=== PATIENT | male | born 1960 | race Caucasian/White ===

== ENCOUNTER 2016-06-04 13:43 | Outpatient (RCR) | payer MEDICARE ==
--- OUTSIDE RECORDS SUMMARY | 2016-05-24 08:20 | XMS REPORT | Continuity of Care Document ---
Author Author [facility] Organization [facility] Address Unknown Phone Unavailable Care Team Providers Care Radiotelegraph Operator Name Role Phone PCP Unavailable Source Comments Some departments are not documenting in the electronic medical record. If you do not see the information that you expected, contact Release of Information in the Health Information Management department at [phone] for further assistance in locating additional records.[facility] Active Allergies and Adverse Reactions Not on File Current Medications Not on file Active Problems Not on file Most Recent Encounters Date Type Specialty Providers Description 04/27/2016 Telephone Transplant Surgery Danelle Baker RN Transplant Referral Social History Tobacco Use Types Packs/Day Years Used Date Never Assessed Plan of Care Health Maintenance Due Date Last Done Comments Hepatitis C Screening 1960 Physical (Comprehensive) 1968 Exam Pertussis Vaccine 1972 Tetanus Vaccine 1978 Colorectal Cancer 2011 Screening Influenza Vaccine 01/25/2016 Results from Last 3 Months Not on file
[~2016-06-04 13:43] MED LIST: AC325T PO; AC500T; ALBU2.5V4 IH; AMLO10TA82 PO; AMLO2.5T PO; ASP325TEC PO; ASP81TEC PO; ASPI-892 PO; ATOR80TA PO; CARV3.122 PO; CARV6.252; CEFD300C3 PO; CEFU500T5 PO; CLOP75TA PO; DCS100C PO; DEXT15LI5 PO; DILT60CA PO; DILT90TA18 PO; DOXY100T2 PO; FAMO20TA5 PO; FLC1T PO; FRS325T PO; FURO40TA4 PO; FURO80TA3 PO; GLIP5TAB13; HYDR-3812 PO; HYDR1TAB66 PO; INSASP10V SQ; INSU100I14 SQ; INSU100I29 SQ; INSU100V5 SQ; ISOS60TA PO; KCL20TCR PO; LEVO750T6 PO; MAGN400T6 PO; METF500T PO; METO50TA7 PO; MTP25TSR PO; MUPI15CR TP; NAPR-243 PO; NAPR500T3 PO; NEBU1KIT3 MC; NITR0.4T12 SL; OMEG1CAP51 PO; OMEG1CAP53 PO; OMEG1CAP74 PO; PNT40TEC; PNT40TEC PO; POTA10CA43 PO; RMP5C; RMP5C PO; SULF1TAB35 PO; TR5C15 TOP; VIT1TABL59 PO; VLS80C PO
== END 2016-06-04 16:00 | disposition home or self-care (01) ==
LOC: WOUNDCARE 13:43
PROVIDERS: ATTEND Nurse Practitioner
DX: L97.522 Non-pressure chronic ulcer of other part of left foot with fat layer exposed (principal); L97.202 Non-pressure chronic ulcer of unspecified calf with fat layer exposed; E11.621 Type 2 diabetes mellitus with foot ulcer; I70.202 Unspecified atherosclerosis of native arteries of extremities, left leg; N18.5 Chronic kidney disease, stage 5
CPT/HCPCS: 11042; 97597

== ENCOUNTER 2016-06-12 06:49 | Emergency (ER) | payer MEDICARE ==
[~2016-06-12] VITALS: Ht 175.3 cm; Wt 95.3 kg
--- OUTSIDE RECORDS SUMMARY | 2016-06-12 06:55 | XMS REPORT | Continuity of Care Document ---
Author Author [facility] Organization [facility] Address Unknown Phone Unavailable Care Team Providers Care Bilingual Teacher Aide Name Role Phone PCP Unavailable Source Comments Some departments are not documenting in the electronic medical record. If you do not see the information that you expected, contact Release of Information in the Health Information Management department at [phone] for further assistance in locating additional records.[facility] Active Allergies and Adverse Reactions [...]
[2016-06-12] MEDS ORDERED: ASPIRIN 81 MG CHEW (CHILDREN'S ASA) PO ONE (07:00)
--- NOTE | 2016-06-12 07:04 | ED Chest Pain ---
General Chief Complaint: Chest Pain Stated Complaint: CHEST PAIN Nursing Triage Note: pt to ed 6 per w/c w/ c/o cp onset this am at 0600. reports pain woke him from his sleep. Nursing Sepsis Screen: No Definite Risk Source: patient Exam Limitations: no limitations History of Present Illness Time seen by provider: 06:47 Initial Comments Here with report of central chest aching feeling like there is a knot in his chest. Onset about 6 a.m. Just released from the hospital at [facility] in [place] yesterday for vascular catheter procedure to the left leg in which there unable to successfully stent the leg per the patient. Complains of shortness of breath that is mild. Reported low blood pressure this morning. Has history of significant cardiac problems and vascular disease. He does have peritoneal dialysis and doesn't that nightly. He also has significant diabetes. Timing/Duration: 1 hour, constant Severity/Quality: moderate, aching Location: central Radiation: no radiation Prior CP/Workup: cardiac cath Modifying Factors: improves with rest ASA po CORPORATE CONSULTANT: No NTG SL CORPORATE CONSULTANT: No Associated Symptoms: No abdominal pain, No back pain, No nausea/vomiting, shortness of breath weakness Allergies and Home Medications Allergies Coded Allergies: azithromycin (Verified Allergy, Severe, HIVES, TROUBLE BREATHING., 07/13/11 ) cephalexin (Unverified Allergy, Unknown, 02/27/16) morphine (Unverified Allergy, Unknown, 02/27/16) vancomycin (Verified Allergy, Unknown, 12/26/15) Home Medications Acetaminophen 325 Mg Tablet 650 MG PO Q6H PRN PRN (Reported) Albuterol Sulfate 2.5 Mg/3 Ml Vial.neb #28 2.5 MG IH Q4H PRN PRN SHORTNESS OF BREATH Prescribed by: EDY NEWSOME on 08/11/15 2223 Amlodipine Besylate 2.5 Mg Tablet 2.5 MG PO DAILY (Reported) Aspirin 81 Mg Tabec 81 MG PO DAILY (Reported) take for 10 days Atorvastatin Calcium 80 Mg Tablet 80 MG PO HS (Reported) Docusate Sodium 100 Mg Capsule 100 MG PO Q8H PRN PRN (Reported) Furosemide 40 Mg Tablet 40 MG PO DAILY (Reported) Insulin Aspart 300 Units/3 Ml Solution #6 5 UNITS SQ TID (Reported) Insulin Detemir 100 Unit/1 Ml Insuln.pen #6 20 UNITS SQ HS (Reported) Isosorbide Mononitrate 60 Mg Tab.sr.24h 60 MG PO DAILY (Reported) Magnesium Oxide 400 Mg Tablet 400 MG PO BID (Reported) Metoprolol Succinate 50 Mg Tab.sr.24h 50 MG PO DAILY (Reported) do not crush Mupirocin Calcium 15 Gm Cream..g. #22 15 GM TP BID Prescribed by: JARED AGEE on 02/27/168 Nitroglycerin 0.4 Mg Tab.subl 0.4 MG SL q5 minutes PRN PRN (Reported) take one tablet every 5 minutes as needed, for a total of 3 doses Pantoprazole Sod 40 Mg Tab 40 MG PO DAILY (Reported) no do not crush Potassium Chloride 10 Meq Capsule.sa 10 MEQ PO DAILY (Reported) Sulfamethoxazole/Trimethoprim 1 Each Tablet #20 1 EACH PO BID Prescribed by: JARED AGEE on 12/26/15 0606 Sulfamethoxazole/Trimethoprim 1 Each Tablet #20 1 EACH PO BID Prescribed by: JARED AGEE on 02/27/162357 Valsartan 80 Mg Tablet 80 MG PO BID (Reported) Vit B Cmplx 3/FA/Vit C/Biotin 1 Each Tablet #30 1 TAB PO DAILY (Reported) Review of Systems Constitutional: see HPINo chills, No fever, weakness Respiratory: See HPIDenies Cough, Shortness of Air SOA at Rest Cardiovascular: See HPI Chest PainDenies Edema Gastrointestinal: No Symptoms Reported Genitourinary: No Symptoms Reported Musculoskeletal: no symptoms reported Skin: No rash, other (recent postsurgical lesions/wounds to the left lower extremity that are clean, dry and intact and loosely covered with dressing.) Psychiatric/Neurological: See HPI Endocrine: No Symptoms Reported All Other Systems Reviewed Negative Unless Noted: Yes Past Lqwreha-Lxhfrj-Birerf Hx Patient Social History Alcohol Use: Denies Use Recreational Drug Use: No Smoking Status: Never a Smoker Recent Foreign Travel: No Contact w/Someone Who Travel: No Recent Infectious Disease Expo: No Recent Hopitalizations: No Physical Abuse Screen: No Sexual Abuse: No Immunizations Up To Date Tetanus Booster (TDap): Unknown Date of Pneumonia Vaccine: Jan 24, 2011 Date of Influenza Vaccine: Feb 23, 2015 Seasonal Allergies Seasonal Allergies: No Surgeries HX Surgeries: Yes (CABG 2009, RT AKA AMPUTATION 08/08, PACEMAKER ) Surgeries: Amputation, CABG, Defibrillator, Dialysis, Orthopedic, Pacemaker, Vascular Surgery Respiratory Hx Respiratory Disorders: No (CHF/FLUID OVERLOAD) Cardiovascular Hx Cardiac Disorders: Yes (CHF) Cardiac Disorders: Chronic Edema/Swelling, Coronary Artery Disease, Heart Attack, High Cholesterol, Hypertension, Peripheral Vascular Neurological Hx Neurological Disorders: Yes (NEUROPATHY HANDS AND FEET) Neurological Disorders: Neuropathy Reproductive System Hx Reproductive Disorders: No Genitourinary Hx Genitourinary Disorders: Yes (PERITONEAL DIALYSIS--NOW HEMO DIALYSIS) Genitourinary Disorders: Renal Failure, Dialysis Gastrointestinal Hx Gastrointestinal Disorders: No Musculoskeletal Hx Musculoskeletal Disorders: Yes (RIGHT AKA) Musculoskeletal Disorders: Amputee Endocrine Hx Endocrine Disorders: Yes Endocrine Disorders: Diabetes, Insulin dep HEENT HX ENT Disorders: No Cancer Hx Cancer: No Psychosocial Hx Psychiatric Problems: No Integumentary HX Skin/Integumentary Disorder: No Blood Transfusions Hx Blood Disorders: No Adverse Reaction to a Blood Tr: No Reviewed Nursing Assessment Reviewed/Agree w Nursing PMH: Yes Physical Exam Vital Signs Vital Sign - Last 12Hours 06/12/16 06:52 Temp 96.7 Pulse 85 Resp 18 B/P 123/60 Pulse Ox 97 O2 Delivery Room Air Capillary Refill : Less Than 3 Seconds General Appearance: WD/WN Chronically ill Mild Distress HEENT: PERRL/EOMI Pharynx Normal Neck: Non Tender Supple Respiratory: Lungs Clear Normal Breath Sounds Cardiovascular: Regular Rate, Rhythm No Murmur Gastrointestinal: Non Tender Soft Extremity: Non Tender No Calf Tenderness Other (right lower extremity AKA. Left lower extremity with recent surgical procedure, mild edema, mild erythema with surgical wounds that are clean, dry and intact with loose dressing.) Neurologic/Psychiatric: Alert Oriented x3 Motor Weakness (global) Skin: Normal Color Warm/Dry Progress/Results/Core Measures Results/Orders Lab Results Laboratory Tests Test 06/12/16 07:00 Range/Units Activated Partial Thromboplast Time 35 24-35 SEC Alanine Aminotransferase (ALT/SGPT) 9 0-55 U/L Albumin 3.1 L 3.2-4.5 G/DL Alkaline Phosphatase 112 40-136 U/L Amylase Level 3 L 25-125 U/L Anion Gap 15 H 5-14 MMOL/L Aspartate Amino Transf (AST/SGOT) 10 5-34 U/L B-Type Natriuretic Peptide 1056.4 H <100.0 PG/ML BUN/Creatinine Ratio 5 Basophils # (Auto) 0.0 0.0-0.1 10^3/uL Basophils (%) (Auto) 0 0-10 % Blood Urea Nitrogen 41 H 7-18 MG/DL Calcium Level 8.8 8.5-10.1 MG/DL Carbon Dioxide Level 22 21-32 MMOL/L Chloride Level 91 L 98-107 MMOL/L Creatinine 7.55 H 0.60-1.30 MG/DL Eosinophils # (Auto) 0.3 0.0-0.3 10^3/uL Eosinophils (%) (Auto) 2 0-10 % Estimat Glomerular Filtration Rate 8 Glucose Level 268 H 70-105 MG/DL Hematocrit 26 L 40-54 % Hemoglobin 9.1 L 13.3-17.7 G/DL INR Comment 1.1 0.8-1.4 Lipase 14 8-78 U/L Lymphocytes # (Auto) 1.0 1.0-4.0 X 10^3 Lymphocytes (%) (Auto) 8 L 12-44 % Magnesium Level 1.3 L 1.8-2.4 MG/DL Mean Corpuscular Hemoglobin 32 25-34 PG Mean Corpuscular Hemoglobin Concent 35 32-36 G/DL Mean Corpuscular Volume 91 80-99 FL Mean Platelet Volume 12.3 H 7.4-10.4 FL Monocytes # (Auto) 1.0 0.0-1.0 X 10^3 Monocytes (%) (Auto) 8 0-12 % Myoglobin 864.2 H 10.0-92.0 NG/ML Neutrophils # (Auto) 9.7 H 1.8-7.8 X 10^3 Neutrophils (%) (Auto) 81 H 42-75 % Platelet Count 172 130-400 10^3/uL Potassium Level 4.2 3.6-5.0 MMOL/L Prothrombin Time 13.5 12.2-14.7 SEC Red Blood Count 2.86 L 4.35-5.85 10^6/uL Red Cell Distribution Width 15.3 H 10.0-14.5 % Sodium Level 128 L 135-145 MMOL/L Total Bilirubin 0.6 0.1-1.0 MG/DL Total Protein 6.7 6.4-8.2 G/DL Troponin I < 0.30 <0.30 NG/ML White Blood Count 11.9 H 4.3-11.0 10^3/uL My Orders Orders-SANDI PERALTA MD Cbc With Automated Diff (06/12/16 07:00) Magnesium (06/12/16 07:00) Chest 1 View, Ap/Pa Only (06/12/16 07:00) Ekg Tracing (06/12/16 07:00) Cardiac Profile 1 (06/12/16 07:00) Comprehensive Metabolic Panel (06/12/16 07:00) Myoglobin Serum (06/12/16 07:00) Protime With Inr (06/12/16 07:00) Partial Thromboplastin Time (06/12/16 07:00) O2 (06/12/16 07:00) Monitor-Rhythm Ecg Trace Only (06/12/16 07:00) Lipid Panel (06/13/16 06:00) Aspirin Chewable Tablet (Baby Aspirin Ch (06/12/16 07:00) Saline Lock/Iv-Start (06/12/16 07:00) Lipase (06/12/16 07:00) Amylase (06/12/16 07:00) BNP (06/12/16 07:20) Medications Given in ED Current Medications Medications Dose Ordered Sig/Roni Route Start Time Stop Time Status Last Admin Dose Admin Aspirin 324 mg ONCE ONCE PO 06/12/16 07:00 06/12/16 07:01 DC 06/12/16 07:09 324 MG Vital Signs/I&O Vital Sign - Last 12Hours 06/12/16 06/12/16 06:52 06:56 Temp 96.7 Pulse 85 Resp 18 B/P 123/60 Pulse Ox 97 O2 Delivery Room Air Room Air Blood Pressure Mean: 81 Progress Note : Progress Note Seen and evaluated on arrival. IV, labs, EKG and chest x-ray ordered. ASA 324 mg by mouth given. Monitor patient. Patient's blood pressure is 1/74. Hold nitroglycerin given recent report of hypotension and blood pressure in the low 100s systolic. Monitor patient. 0845: Patient still with a little mild chest pain although improved. Noted elevated myoglobin and BNP. Patient will require further workup in the hospital but exceeds level of care here due to dialysis needs. I did page [facility] one call. They will call back with accepting physician. 0915: I did discuss the case with Dr. Mattson. He accepts patient for admission to their hospital due to chest pain and renal dialysis needs. Patient will go by EMS. Patient overall states he feels a little better but still has mild intermittent chest pain. Patient and family agree with transfer. ECG Initial ECG Impression Date: Jun 12, 2016 Initial ECG Impression Time: 06:54 Initial ECG Rate: 83 Initial ECG Rhythm: Normal Sinus Comment Sinus rhythm with right bundle branch block. Left axis deviation. No evidence of ST elevation CO. Similar to previous of 02/25/16. Interpreted by me. Diagnostic Imaging Diagonstic Imaging: Xray Plain Films/CT/US/NM/MRI: chest Comments NAME: CHRISTIAN TODD MED REC#: [id number] PT STATUS: REG ER : 1960 PHYSICIAN: SANDI PERALTA MD ADMIT DATE: 06/12/16/ER Draft Date of Exam:06/12/16 CHEST 1 VIEW, AP/PA ONLY INDICATION: Chest pain. Portable chest at 07:20 a.m. FINDINGS: There are postop changes from CABG surgery. There is a dual-chamber pacemaker. Heart is mildly enlarged. Pulmonary vascularity is normal. There is a small nodule in the left mid lung that appears well circumscribed and calcified. IMPRESSION: Probable granuloma left lower chest. Postop changes from CABG surgery. Dictated on workstation # [id number] Dict: 06/12/16 0727 Trans: 06/12/16 0733 [id number] Interpreted by: SANDI MONROE Electronically signed by: Departure Impression Impression: Primary Impression: Chest pain Qualified Code: R07.2 - Precordial pain Additional Impressions: ESRD on peritoneal dialysis CHF (congestive heart failure) Qualified Code: I50.9 - Heart failure, unspecified Disposition: 02 XFER SHT-TRM HOSP Condition: Stable Transfer Transfer Time: 09:15 Transfer Facility: [place], [place]. Dr. Mattson accepting. Method of Transfer: EMS Departure-Patient Inst. Referrals: DAVID STEWART DO (PCP/Family) Primary Care Physician SANDI PERALTA MD Jun 12, 2016 07:04
[2016-06-12 07:07] LABS: BASOPHILS % (AUTO) 0 % (0-10); EOSINOPHILS # (AUTO) 0.3 10^3/uL (0.0-0.3); EOSINOPHILS % (AUTO) 2 % (0-10); LYMPHOCYTES % (AUTO) 8 % (12-44); MEAN CORPUSCULAR HEMOGLOBIN 32 PG (25-34); MEAN CORPUSCULAR HGB CONC 35 G/DL (32-36); MEAN CORPUSCULAR VOLUME 91 FL (80-99); MEAN PLATELET VOLUME 12.3 FL (7.4-10.4); MONOCYTES % (AUTO) 8 % (0-12); NEUTROPHILS # (AUTO) 9.7 X 10^3 (1.8-7.8); NEUTROPHILS % (AUTO) 81 % (42-75); PLATELET COUNT 172 10^3/uL (130-400); RED BLOOD COUNT 2.86 10^6/uL (4.35-5.85); RED CELL DISTRIBUTION WIDTH 15.3 % (10.0-14.5); WHITE BLOOD COUNT 11.9 10^3/uL (4.3-11.0)
[2016-06-12 07:13] LABS: INR 1.1 (0.8-1.4); PROTHROMBIN TIME PATIENT 13.5 SEC (12.2-14.7)
[2016-06-12 07:25] LABS: ALANINE AMINOTRANSFERASE 9 U/L (0-55); ALBUMIN 3.1 G/DL (3.2-4.5); AMYLASE 3 U/L (25-125); ANION GAP 15 MMOL/L (5-14); ASPARTATE AMINO TRANSFERASE 10 U/L (5-34); BILIRUBIN,TOTAL 0.6 MG/DL (0.1-1.0); BLOOD UREA NITROGEN 41 MG/DL (7-18); BUN/CREATININE RATIO 5; CALCIUM 8.8 MG/DL (8.5-10.1); CARBON DIOXIDE 22 MMOL/L (21-32); CHLORIDE 91 MMOL/L (98-107); CREATININE SERUM 7.55 MG/DL (0.60-1.30); GFR ESTIMATED 8; GLUCOSE 268 MG/DL (70-105); LIPASE 14 U/L (8-78); MAGNESIUM 1.3 MG/DL (1.8-2.4); POTASSIUM 4.2 MMOL/L (3.6-5.0); SODIUM 128 MMOL/L (135-145); TOTAL PROTEIN 6.7 G/DL (6.4-8.2)
[2016-06-12 07:31] LABS: MYOGLOBIN SERUM 864.2 NG/ML (10.0-92.0)
--- NOTE | 2016-06-12 07:33 | Diagnostic Imaging Report ---
INDICATION: Chest pain. Portable chest at 07:20 a.m. FINDINGS: There are postop changes from CABG surgery. There is a dual-chamber pacemaker. Heart is mildly enlarged. Pulmonary vascularity is normal. There is a small nodule in the left mid lung that appears well circumscribed and calcified. IMPRESSION: Probable granuloma left lower chest. Postop changes from CABG surgery. Dictated by: Dictated on workstation # [id number]
[2016-06-12 10:33] VITALS: BP 116/94
== END 2016-06-12 10:33 | disposition short-term general hospital (02) ==
LOC: EDUNIT# 06:49 → ER 06:50
DX: R07.9 Chest pain, unspecified (principal); I45.10 Unspecified right bundle-branch block; I12.0 Hypertensive chronic kidney disease with stage 5 chronic kidney disease or end stage renal disease; N18.6 End stage renal disease; I50.9 Heart failure, unspecified; E11.9 Type 2 diabetes mellitus without complications; Z79.82 Long term (current) use of aspirin; Z79.4 Long term (current) use of insulin; Z79.899 Other long term (current) drug therapy; Z98.890 Other specified postprocedural states; Z95.1 Presence of aortocoronary bypass graft; Z95.810 Presence of automatic (implantable) cardiac defibrillator; Z99.2 Dependence on renal dialysis
CPT/HCPCS: 36415; 71010; 80053; 82150; 83690; 83735; 83874; 83880; 84484; 85025; 85610; 85730; 93005; 93041

== ENCOUNTER 2016-08-24 15:33 | Emergency (ER) | payer MEDICARE ==
[~2016-08-24] VITALS: Wt 86.2 kg
[2016-08-24] MEDS ORDERED: NITROGLYCERIN 2% OINT 1 GM UNIT DOSE PACKET TOP ONE (16:00)
--- NOTE | 2016-08-24 16:03 | ED Cardiac General ---
History of Present Illness General Chief Complaint: Chest Pain Stated Complaint: DULL CHEST PAIN Source: patient, EMS Exam Limitations: no limitations History of Present Illness Time seen by provider: 15:58 Initial Comments This 56-year-old white male presents with a complaint of pressure type chest pain moderate in severity located over the anterior chest is been present for the last several days. Patient has had multiple cardiac procedures. He is no longer a candidate for bypass surgery or stenting. The patient is on peritoneal dialysis for renal failure. He has had bilateral ldexe-brd-gsvd amputations for complications from his diabetes. Patient is hypertensive. The patient was evaluated and transported by EMS. In route patient received sublingual nitroglycerin which he believes has markedly diminished this chest pressure from a 6 to a 3. Patient also believes that this chest pain is better due to the oxygen administration. NTG SL FIRST RESPONDER: Yes (X1 BY EMS ) ASA po FIRST RESPONDER: Yes (324 BY EMS) Allergies and Home Medications Allergies Coded Allergies: azithromycin (Verified Allergy, Severe, HIVES, TROUBLE BREATHING., 07/13/11 ) cephalexin (Unverified Allergy, Unknown, 02/27/16) morphine (Unverified Allergy, Unknown, 02/27/16) vancomycin (Verified Allergy, Unknown, 12/26/15) Home Medications Acetaminophen 325 Mg Tablet, 650 MG PO Q6H PRN, (Reported) Albuterol Sulfate 2.5 Mg/3 Ml Vial.neb, 2.5 MG IH Q4H PRN for SHORTNESS OF BREATH, #28 Ref 0 Prescribed by: EDY NEWSOME on 08/11/153 Amlodipine Besylate 2.5 Mg Tablet, 2.5 MG PO DAILY, (Reported) Aspirin 81 Mg Tabec, 81 MG PO DAILY, (Reported) take for 10 days Atorvastatin Calcium 80 Mg Tablet, 80 MG PO HS, (Reported) Docusate Sodium 100 Mg Capsule, 100 MG PO Q8H PRN, (Reported) Furosemide 40 Mg Tablet, 40 MG PO DAILY, (Reported) Insulin Aspart 300 Units/3 Ml Solution, 5 UNITS SQ TID, #6 (Reported) Insulin Detemir 100 Unit/1 Ml Insuln.pen, 20 UNITS SQ HS, #6 (Reported) Isosorbide Mononitrate 60 Mg Tab.sr.24h, 60 MG PO DAILY, (Reported) Magnesium Oxide 400 Mg Tablet, 400 MG PO BID, (Reported) Metoprolol Succinate 50 Mg Tab.sr.24h, 50 MG PO DAILY, (Reported) do not crush Mupirocin Calcium 15 Gm Cream..g., 15 GM TP BID, #22 Prescribed by: JARED AGEE on 02/27/16 2358 Nitroglycerin 0.4 Mg Tab.subl, 0.4 MG SL q5 minutes PRN, (Reported) take one tablet every 5 minutes as needed, for a total of 3 doses Pantoprazole Sod 40 Mg Tab, 40 MG PO DAILY, (Reported) no do not crush Potassium Chloride 10 Meq Capsule.sa, 10 MEQ PO DAILY, (Reported) Sulfamethoxazole/Trimethoprim 1 Each Tablet, 1 EACH PO BID, #20 Prescribed by: JARED AGEE on 12/26/15 0606 Sulfamethoxazole/Trimethoprim 1 Each Tablet, 1 EACH PO BID, #20 Prescribed by: JARED AGEE on 02/27/16 2358 Valsartan 80 Mg Tablet, 80 MG PO BID, (Reported) Vit B Cmplx 3/FA/Vit C/Biotin 1 Each Tablet, 1 TAB PO DAILY, #30 (Reported) Review of Systems Constitutional: No chills, No fever EENTM: No Blurred Vision, No Ear Pain, No Throat Pain Respiratory: Denies Cough, Shortness of Air Cardiovascular: See HPI, Chest Pain, Denies Irregular Heart Rate, Denies Palpitations, Denies Syncope Gastrointestinal: Denies Abdominal Pain, Denies Constipated, Denies Diarrhea, Denies Vomiting Genitourinary: Denies Burning, Denies Frequency Musculoskeletal: No back pain Skin: No rash, other (patient is status post amputation above the knee of his left leg several weeks ago. Patient had slight inflammation at the stump site which appears to be diminishing and improving.) Psychiatric/Neurological: No Symptoms Reported Endocrine: No Symptoms Reported Hematologic/Lymphatic: No Symptoms Reported Past Nxwhhtv-Pyvxnm-Svtxtf Hx Patient Social History Alcohol Use: Denies Use Recreational Drug Use: No Smoking Status: Never a Smoker Recent Hopitalizations: No Immunizations Up To Date Tetanus Booster (TDap): Unknown Date of Pneumonia Vaccine: Jan 24, 2011 Date of Influenza Vaccine: Feb 24, 2016 Seasonal Allergies Seasonal Allergies: No Surgeries HX Surgeries: Yes (CABG 2009, RT AKA AMPUTATION 08/08, PACEMAKER L AMPUTATION) Surgeries: Amputation, CABG, Defibrillator, Dialysis, Orthopedic, Pacemaker, Vascular Surgery Respiratory Hx Respiratory Disorders: No (CHF/FLUID OVERLOAD) Cardiovascular Hx Cardiac Disorders: Yes (CHF) Cardiac Disorders: Chronic Edema/Swelling, Coronary Artery Disease, Heart Attack, High Cholesterol, Hypertension, Peripheral Vascular Neurological Hx Neurological Disorders: Yes (NEUROPATHY HANDS AND FEET) Neurological Disorders: Neuropathy Reproductive System Hx Reproductive Disorders: No Genitourinary Hx Genitourinary Disorders: Yes (PERITONEAL DIALYSIS--NOW HEMO DIALYSIS) Genitourinary Disorders: Renal Failure, Dialysis Gastrointestinal Hx Gastrointestinal Disorders: No Musculoskeletal Hx Musculoskeletal Disorders: Yes (RIGHT AKA) Musculoskeletal Disorders: Amputee Endocrine Hx Endocrine Disorders: Yes Endocrine Disorders: Diabetes, Insulin dep HEENT HX ENT Disorders: No Cancer Hx Cancer: No Psychosocial Hx Psychiatric Problems: No Integumentary HX Skin/Integumentary Disorder: No Blood Transfusions Hx Blood Disorders: No Adverse Reaction to a Blood Tr: No Reviewed Nursing Assessment Reviewed/Agree w Nursing PMH: Yes Physical Exam Vital Signs Vital Sign - Last 12Hours 08/24/16 08/24/16 15:33 15:52 Temp 98.4 Pulse 92 Resp 18 B/P (MAP) 158/98 Pulse Ox 95 O2 Delivery Room Air O2 Flow Rate 2.0 Capillary Refill : General Appearance: No Apparent Distress, Chronically ill HEENT: PERRL/EOMI, Normal ENT Inspection Neck: Full Range of Motion, Normal Inspection, Non Tender Respiratory: Lungs Clear, Normal Breath Sounds Cardiovascular: Regular Rate, Rhythm, No Murmur Gastrointestinal: Normal Bowel Sounds, Non Tender, Soft Extremity: Other (bilateral AK amputations.) Neurologic/Psychiatric: Alert, No Motor/Sensory Deficits Skin: Other Progress/Results/Core Measures Results/Orders Lab Results Laboratory Tests Test 08/24/16 15:45 Range/Units White Blood Count 7.3 4.3-11.0 10^3/uL Red Blood Count 3.30 L 4.35-5.85 10^6/uL Hemoglobin 10.3 L 13.3-17.7 G/DL Hematocrit 30 L 40-54 % Mean Corpuscular Volume 92 80-99 FL Mean Corpuscular Hemoglobin 31 25-34 PG Mean Corpuscular Hemoglobin Concent 34 32-36 G/DL Red Cell Distribution Width 14.8 H 10.0-14.5 % Platelet Count 107 L 130-400 10^3/uL Mean Platelet Volume 13.3 H 7.4-10.4 FL Neutrophils (%) (Auto) 70 42-75 % Lymphocytes (%) (Auto) 14 12-44 % Monocytes (%) (Auto) 10 0-12 % Eosinophils (%) (Auto) 6 0-10 % Basophils (%) (Auto) 0 0-10 % Neutrophils # (Auto) 5.1 1.8-7.8 X 10^3 Lymphocytes # (Auto) 1.0 1.0-4.0 X 10^3 Monocytes # (Auto) 0.7 0.0-1.0 X 10^3 Eosinophils # (Auto) 0.4 H 0.0-0.3 10^3/uL Basophils # (Auto) 0.0 0.0-0.1 10^3/uL Sodium Level 135 135-145 MMOL/L Potassium Level 3.9 3.6-5.0 MMOL/L Chloride Level 95 L 98-107 MMOL/L Carbon Dioxide Level 27 21-32 MMOL/L Anion Gap 13 5-14 MMOL/L Blood Urea Nitrogen 46 H 7-18 MG/DL Creatinine 7.81 H 0.60-1.30 MG/DL Estimat Glomerular Filtration Rate 7 BUN/Creatinine Ratio 6 Glucose Level 260 H 70-105 MG/DL Calcium Level 8.2 L 8.5-10.1 MG/DL Total Bilirubin 0.4 0.1-1.0 MG/DL Aspartate Amino Transf (AST/SGOT) 13 5-34 U/L Alanine Aminotransferase (ALT/SGPT) 11 0-55 U/L Alkaline Phosphatase 94 40-136 U/L Troponin I < 0.30 <0.30 NG/ML B-Type Natriuretic Peptide 1460.6 H <100.0 PG/ML Total Protein 6.4 6.4-8.2 G/DL Albumin 2.8 L 3.2-4.5 G/DL My Orders Orders - WADE CHAUDHARY MD Cbc With Automated Diff (08/24/16 15:54) Comprehensive Metabolic Panel (08/24/16 15:54) Troponin I (08/24/16 15:54) Ekg Tracing (08/24/16 15:54) Chest 1 View, Ap/Pa Only (08/24/16 15:54) BNP (08/24/16 15:54) Nitroglycerin Ointment (Nitrobid Ointme (08/24/16 16:00) Furosemide Injection (Lasix Injection) (08/24/16 17:30) Medications Given in ED Current Medications Medications Dose Ordered Sig/Roni Route Start Time Stop Time Status Last Admin Dose Admin Furosemide 80 mg ONCE ONCE IVP 08/24/16 17:30 08/24/16 17:31 DC 08/24/16 17:37 80 MG Nitroglycerin 0.5 inch ONCE ONCE TOP 08/24/16 16:00 08/24/16 16:01 DC 08/24/16 16:02 0.5 INCH Vital Signs/I&O Vital Sign - Last 12Hours 08/24/16 08/24/16 15:33 15:52 Temp 98.4 Pulse 92 Resp 18 B/P (MAP) 158/98 Pulse Ox 95 O2 Delivery Room Air Nasal Cannula O2 Flow Rate 2.0 Progress Note : Time: 18:15 Progress Note The patient's moderate congestive heart failure was treated with 80 mg Lasix IV. The patient's chest pressure abated with half-inch Nitropaste to the anterior left chest wall. The patient did not qualify for home oxygen as we were unable to see off on this at 88 or below. Departure Impression Impression: Primary Impression: CHF (congestive heart failure) Qualified Codes: I50.9 - Heart failure, unspecified Additional Impression: Chest pain Qualified Codes: I20.9 - Angina pectoris, unspecified Disposition: 01 HOME, SELF-CARE Condition: Improved Departure-Patient Inst. Decision time for Depature: 18:17 Referrals: VIDYA MAYS MD NO,LOCAL PHYSICIAN (PCP) Primary Care Physician Patient Instructions: Chest Pain (DC) Add. Discharge Instructions: Nitropaste 1/2 inch to the anterior chest wall every 12 hours. Follow-up with Dr. Mays for further evaluation. Return if any problems or questions. All discharge instructions reviewed with patient and/or family. Voiced understanding. WADE CHAUDHARY MD Aug 24, 2016 16:03
[2016-08-24 16:05] LABS: BASOPHILS % (AUTO) 0 % (0-10); EOSINOPHILS # (AUTO) 0.4 10^3/uL (0.0-0.3); EOSINOPHILS % (AUTO) 6 % (0-10); LYMPHOCYTES % (AUTO) 14 % (12-44); MEAN CORPUSCULAR HEMOGLOBIN 31 PG (25-34); MEAN CORPUSCULAR HGB CONC 34 G/DL (32-36); MEAN CORPUSCULAR VOLUME 92 FL (80-99); MEAN PLATELET VOLUME 13.3 FL (7.4-10.4); MONOCYTES # (AUTO) 0.7 X 10^3 (0.0-1.0); MONOCYTES % (AUTO) 10 % (0-12); NEUTROPHILS # (AUTO) 5.1 X 10^3 (1.8-7.8); NEUTROPHILS % (AUTO) 70 % (42-75); PLATELET COUNT 107 10^3/uL (130-400); RED CELL DISTRIBUTION WIDTH 14.8 % (10.0-14.5); WHITE BLOOD COUNT 7.3 10^3/uL (4.3-11.0)
[2016-08-24 16:15] LABS: ALANINE AMINOTRANSFERASE 11 U/L (0-55); ALBUMIN 2.8 G/DL (3.2-4.5); ANION GAP 13 MMOL/L (5-14); ASPARTATE AMINO TRANSFERASE 13 U/L (5-34); BILIRUBIN,TOTAL 0.4 MG/DL (0.1-1.0); BLOOD UREA NITROGEN 46 MG/DL (7-18); BUN/CREATININE RATIO 6; CALCIUM 8.2 MG/DL (8.5-10.1); CARBON DIOXIDE 27 MMOL/L (21-32); CHLORIDE 95 MMOL/L (98-107); CREATININE SERUM 7.81 MG/DL (0.60-1.30); GFR ESTIMATED 7; GLUCOSE 260 MG/DL (70-105); POTASSIUM 3.9 MMOL/L (3.6-5.0); SODIUM 135 MMOL/L (135-145); TOTAL PROTEIN 6.4 G/DL (6.4-8.2)
[2016-08-24 16:20] LABS: TROPONIN I < 0.30 NG/ML (<0.30)
--- NOTE | 2016-08-24 17:07 | Diagnostic Imaging Report ---
INDICATION: Chest heaviness. EXAMINATION: Portable erect AP chest at 4:16 p.m. FINDINGS: The cardiomegaly, sternotomy wires, surgical clips and left-sided defibrillator device, seen on the prior exam of 06/12/16, are again visualized and no different. The small area of increased density at the left lung base, seen on the prior study, is again evident and no different. The CT chest exam performed on 06/04/13 suggested that this may be secondary to scar formation. The lungs are otherwise generally clear. There is no sign of failure, pneumonia or a pleural effusion to suggest an acute abnormality. The mediastinum is not widened. The osseous structures are intact. IMPRESSION: There is cardiomegaly but there is no evidence for an acute cardiopulmonary abnormality. Dictated by: Dictated on workstation # [id number]
[2016-08-24] MEDS ORDERED: FUROSEMIDE 40 MG/4 ML INJ (LASIX) IVP ONE (17:30)
[2016-08-24 18:26] VITALS: BP 165/94
--- OUTSIDE RECORDS SUMMARY | 2016-09-17 09:30 | XMS REPORT | Continuity of Care Document ---
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 If you do not see the information that you expected, contact Release of Information in the Health Information Management department at [phone] for further assistance in locating additional records.[facility] Active Allergies and Adverse Reactions Not on File Current Medications Not on file Active Problems Not on file Social History Tobacco Use Types Packs/Day Years Used Date Never Assessed Plan of Care Health Maintenance Due Date Last Done Comments Hepatitis C Screening 1961 Physical (Comprehensive) 1968 Exam Pertussis Vaccine 1972 Tetanus Vaccine 1978 Colorectal Cancer 2011 Screening Influenza Vaccine 01/24/2017 Results from Last 3 Months Not on file
--- OUTSIDE RECORDS SUMMARY | 2016-09-17 09:32 | XMS REPORT | Continuity of Care Document ---
Author Author [facility] Address Unknown Phone Unavailable Allergies Active Description Code Type Severity Reaction Onset Reported/Identified Relationship to Patient Clinical Status Yes vancomycin Drug Allergy N/A N/A 04/08/2011 Yes morphine Drug Allergy N/A N/A 04/10/2011 Yes azithromycin [id number] Drug Allergy Severe HIVES, TROUBLE 07/13/2011 Yes vancomycin [id number] Drug Allergy Unknown N/A 12/26/2015 Yes cephalexin [id number] Drug Allergy Unknown N/A 02/27/2016 Yes morphine [id number] Drug Allergy Unknown N/A 02/27/2016 Medications Problems Date Dx Coded Attending Type Code Diagnosis Diagnosed By 04/24/1599 LIZBETH COWART APRN Ot E11.621 TYPE 2 DIABETES MELLITUS WITH FOOT ULCER 04/24/1599 LIZBETH COWART APRN Ot I70.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 [place] ARTERIES OF EXTREMITI 04/24/1599 LIZBETH COWART APRN Ot 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 04/24/1599 LIZBETH COWART APRN Ot L97.522 NON-PRS CHRONIC ULCER OTH PRT LEFT FOOT 04/24/1599 LIZBETH COWART APRN Ot N18.5 CHRONIC KIDNEY DISEASE, STAGE 5 06/25/2008 250.02 DIABETES MELLITUS TYPE II - UNCOMPLICATED, UNCONTROLLED 06/25/2008 V70.0 GENERAL MEDICAL EXAM, ROUTINE, AT HEALTH CARE FACILITY 06/25/2008 250.02 DIABETES MELLITUS TYPE II - UNCOMPLICATED, UNCONTROLLED 06/25/2008 V70.0 GENERAL MEDICAL EXAM, ROUTINE, AT HEALTH CARE FACILITY 06/25/2008 250.02 DIABETES MELLITUS TYPE II - UNCOMPLICATED, UNCONTROLLED 06/25/2008 V70.0 GENERAL MEDICAL EXAM, ROUTINE, AT HEALTH CARE FACILITY 06/25/2008 JEANIE TRIPLETT DO 250.02 DIABETES MELLITUS TYPE II - UNCOMPLICATED, UNCONTROLLED 06/25/2008 JEANIE TRIPLETT DO V70.0 GENERAL MEDICAL EXAM, ROUTINE, AT HEALTH CARE FACILITY 06/25/2008 JEANIE TRIPLETT DO 250.02 DIABETES MELLITUS TYPE II - UNCOMPLICATED, UNCONTROLLED 06/25/2008 JEANIE TRIPLETT DO V70.0 GENERAL MEDICAL EXAM, ROUTINE, AT HEALTH CARE FACILITY 06/25/2008 JEANIE TRIPLETT DO 250.02 DIABETES MELLITUS TYPE II - UNCOMPLICATED, UNCONTROLLED 06/25/2008 JEANIE TRIPLETT DO V70.0 GENERAL MEDICAL EXAM, ROUTINE, AT HEALTH CARE FACILITY 06/25/2008 250.02 DIABETES MELLITUS TYPE II - UNCOMPLICATED, UNCONTROLLED 06/25/2008 V70.0 GENERAL MEDICAL EXAM, ROUTINE, AT HEALTH CARE FACILITY 07/19/2008 272.4 HYPERLIPIDEMIA UNSPECIFIED 07/19/2008 272.4 HYPERLIPIDEMIA UNSPECIFIED 07/19/2008 272.4 HYPERLIPIDEMIA UNSPECIFIED 07/19/2008 JEANIE TRIPLETT DO 272.4 HYPERLIPIDEMIA UNSPECIFIED 07/19/2008 JEANIE TRIPLETT DO 272.4 HYPERLIPIDEMIA UNSPECIFIED 07/19/2008 JEANIE TRIPLETT DO 272.4 HYPERLIPIDEMIA UNSPECIFIED 07/19/2008 272.4 HYPERLIPIDEMIA UNSPECIFIED 12/20/2008 250.00 DIABETES II CONTROLLED 12/20/2008 250.00 DIABETES II CONTROLLED 12/20/2008 250.00 DIABETES II CONTROLLED 12/20/2008 JEANIE TRIPLETT DO 250.00 DIABETES II CONTROLLED 12/20/2008 JEANIE TRIPLETT DO 250.00 DIABETES II CONTROLLED 12/20/2008 JEANIE TRIPLETT DO 250.00 DIABETES II CONTROLLED 12/20/2008 250.00 DIABETES II CONTROLLED 04/03/2009 465.9 Acute Upper Respiratory Infections Of Unspecified Site 04/03/2009 465.9 Acute Upper Respiratory Infections Of Unspecified Site 04/03/2009 465.9 Acute Upper Respiratory Infections Of Unspecified Site 04/03/2009 JEANIE TRIPLETT DO 465.9 Acute Upper Respiratory Infections Of Unspecified Site 04/03/2009 JEANIE TRIPLETT DO 465.9 Acute Upper Respiratory Infections Of Unspecified Site 04/03/2009 JEANIE TRIPLETT DO 465.9 Acute Upper Respiratory Infections Of Unspecified Site 04/03/2009 465.9 Acute Upper Respiratory Infections Of Unspecified Site 02/21/2010 V70.5 PREEMPLOYMENT/PRESCHOOL EXAM 02/21/2010 V70.5 PREEMPLOYMENT/PRESCHOOL EXAM 02/21/2010 V70.5 PREEMPLOYMENT/PRESCHOOL EXAM 02/21/2010 TRIPLETT JEANIE HARRIS K V70.5 PREEMPLOYMENT/PRESCHOOL EXAM 02/21/2010 JEANIE TRIPLETT DO K V70.5 PREEMPLOYMENT/PRESCHOOL EXAM 02/21/2010 TRIPLETT JEANIE HARRIS K V70.5 PREEMPLOYMENT/PRESCHOOL EXAM 02/21/2010 V70.5 PREEMPLOYMENT/PRESCHOOL EXAM 2010 414.01 CAD 2010 607.84 IMPOTENCE OF ORGANIC ORIGIN 2010 692.9 CONTACT DERMATITIS AND OTHER ECZEMA UNSPECIFIED CAUSE 2010 414.01 CAD 2010 607.84 IMPOTENCE OF ORGANIC ORIGIN 2010 692.9 CONTACT DERMATITIS AND OTHER ECZEMA UNSPECIFIED CAUSE 2010 414.01 CAD 2010 607.84 IMPOTENCE OF ORGANIC ORIGIN 2010 692.9 CONTACT DERMATITIS AND OTHER ECZEMA UNSPECIFIED CAUSE 2010 JEANIE TRIPLETT DO K 414.01 CAD 2010 JEANIE TRIPLETT DO K 607.84 IMPOTENCE OF ORGANIC ORIGIN 2010 TRIPLETT PAM HARRISA K 692.9 CONTACT DERMATITIS AND OTHER ECZEMA UNSPECIFIED CAUSE 2010 PAM TRIPLETT DOA K 414.01 CAD 2010 TRIPLETT PAM HARRISA K 607.84 IMPOTENCE OF ORGANIC ORIGIN 2010 TRIPLETT DO JEANIE K 692.9 CONTACT DERMATITIS AND OTHER ECZEMA UNSPECIFIED CAUSE 2010 PAM TRIPLETT DOA K 414.01 CAD 2010 TRIPLETT DO JEANIE K 607.84 IMPOTENCE OF ORGANIC ORIGIN 2010 TRIPLETT DO JEANIE K 692.9 CONTACT DERMATITIS AND OTHER ECZEMA UNSPECIFIED CAUSE 2010 414.01 CAD 2010 607.84 IMPOTENCE OF ORGANIC ORIGIN 2010 692.9 CONTACT DERMATITIS AND OTHER ECZEMA UNSPECIFIED CAUSE 03/11/2010 Ot 250.00 03/11/2010 Ot 272.4 03/11/2010 Ot 401.9 03/11/2010 Ot 411.1 03/11/2010 Ot 414.01 03/11/2010 Ot 427.89 03/11/2010 Ot 996.72 03/11/2010 Ot V45.82 03/11/2010 Ot V58.66 03/11/2010 Ot V58.67 03/11/2010 Ot V58.69 03/20/2010 401.1 HYPERTENSION, BENIGN ESSENTIAL 03/20/2010 402.91 Congestive heart failure 03/20/2010 427.0 PAROXYSMAL SUPRAVENTRICULAR TACHYCARDIA 03/20/2010 401.1 HYPERTENSION, BENIGN ESSENTIAL 03/20/2010 402.91 Congestive heart failure 03/20/2010 427.0 PAROXYSMAL SUPRAVENTRICULAR TACHYCARDIA 03/20/2010 401.1 HYPERTENSION, BENIGN ESSENTIAL 03/20/2010 402.91 Congestive heart failure 03/20/2010 427.0 PAROXYSMAL SUPRAVENTRICULAR TACHYCARDIA 03/20/2010 TRIPLETT DO, JEANIE K 401.1 HYPERTENSION, BENIGN ESSENTIAL 03/20/2010 TRIPLETT DO, JEANIE K 402.91 Congestive heart failure 03/20/2010 TRIPLETT DO, JEANIE K 427.0 PAROXYSMAL SUPRAVENTRICULAR TACHYCARDIA 03/20/2010 TRIPLETT DO, JEANIE K 401.1 HYPERTENSION, BENIGN ESSENTIAL 03/20/2010 TRIPLETT DO, JEANIE K 402.91 Congestive heart failure 03/20/2010 TRIPLETT DO, JEANIE K 427.0 PAROXYSMAL SUPRAVENTRICULAR TACHYCARDIA 03/20/2010 TRIPLETT DO, JEANIE K 401.1 HYPERTENSION, BENIGN ESSENTIAL 03/20/2010 TRIPLETT DO, JEANIE K 402.91 Congestive heart failure 03/20/2010 TRIPLETT DO, JEANIE K 427.0 PAROXYSMAL SUPRAVENTRICULAR TACHYCARDIA 03/20/2010 401.1 HYPERTENSION, BENIGN ESSENTIAL 03/20/2010 402.91 Congestive heart failure 03/20/2010 427.0 PAROXYSMAL SUPRAVENTRICULAR TACHYCARDIA 03/27/2010 462 Pharyngitis Acute 03/27/2010 462 Pharyngitis Acute 03/27/2010 462 Pharyngitis Acute 03/27/2010 TRIPLETT DO, JEANIE K 462 Pharyngitis Acute 03/27/2010 TRIPLETT DO, JEANIE K 462 Pharyngitis Acute 03/27/2010 TRIPLETT DO, JEANIE K 462 Pharyngitis Acute 03/27/2010 462 Pharyngitis Acute 05/23/2010 Ot V45.82 05/23/2010 Ot V57.89 06/12/2010 Ot 250.00 06/12/2010 Ot 401.9 06/12/2010 Ot 427.0 06/12/2010 Ot 785.1 06/12/2010 Ot V58.66 06/12/2010 Ot V58.67 06/12/2010 Ot V58.69 06/14/2010 337.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 06/14/2010 337.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 06/14/2010 337.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 06/14/2010 JEANIE TRIPLETT DO 337.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 06/14/2010 JEANIE TRIPLETT DO 337.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 06/14/2010 JEANIE TRIPLETT DO 337.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 06/14/2010 337.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 06/17/2010 Ot 250.02 06/17/2010 Ot 272.4 06/17/2010 Ot 401.9 06/17/2010 Ot 411.1 06/17/2010 Ot 414.01 06/17/2010 Ot 427.0 06/17/2010 Ot 607.84 06/17/2010 Ot V45.82 06/17/2010 Ot V58.67 06/28/2010 Ot 780.60 06/28/2010 Ot 786.52 06/29/2010 Ot 250.00 06/29/2010 Ot 272.4 06/29/2010 Ot 285.9 06/29/2010 Ot 401.9 06/29/2010 Ot 412 06/29/2010 Ot 414.00 06/29/2010 Ot 429.3 06/29/2010 Ot 458.9 06/29/2010 Ot 511.9 06/29/2010 Ot 780.2 06/29/2010 Ot V45.81 01/10/2011 879.8 OPEN WOUND(S) (MULTIPLE) OF UNSPECIFIED SITE(S) WITHOUT COMPLICATION 01/10/2011 879.8 OPEN WOUND(S) (MULTIPLE) OF UNSPECIFIED SITE(S) WITHOUT COMPLICATION 01/10/2011 879.8 OPEN WOUND(S) (MULTIPLE) OF UNSPECIFIED SITE(S) WITHOUT COMPLICATION 01/10/2011 JEANIE TRIPLETT DO 879.8 OPEN WOUND(S) (MULTIPLE) OF UNSPECIFIED SITE(S ) WITHOUT COMPLICATION 01/10/2011 JEANIE TRIPLETT DO 879.8 OPEN WOUND(S) (MULTIPLE) OF UNSPECIFIED SITE(S ) WITHOUT COMPLICATION 01/10/2011 JEANIE TRIPLETT DO 879.8 OPEN WOUND(S) (MULTIPLE) OF UNSPECIFIED SITE(S ) WITHOUT COMPLICATION 01/10/2011 879.8 OPEN WOUND(S) (MULTIPLE) OF UNSPECIFIED SITE(S) WITHOUT COMPLICATION 01/21/2011 Ot 250.00 DIAB RANULFO WO COMPL, TYPE II OR UNSPEC TY 01/21/2011 Ot 272.4 HYPERLIPIDEMIA NEC/NOS 01/21/2011 Ot 403.90 HYPTNSV CHR KID DIS, UNSPEC, W CHR KD ST 01/21/2011 Ot 410.71 AC MYOCARDIAL INFARCT,SUBENDO INFARCT,IN 01/21/2011 Ot 414.01 CORONARY ATHEROSCLEROSIS OF [place] CORON 01/21/2011 Ot 427.0 PAROX ATRIAL TACHYCARDIA 01/21/2011 Ot 428.0 CONGESTIVE HEART FAILURE NOS 01/21/2011 Ot 428.22 CHRONIC SYSTOLIC HRT FAILURE 01/21/2011 Ot 585.9 CHRONIC KIDNEY DISEASE, UNSPECIFIED 01/21/2011 Ot 593.9 RENAL URETERAL DIS NOS 01/21/2011 Ot V45.81 AORTOCORONARY BYPASS 01/23/2011 Ot 250.00 DIAB RANULFO WO COMPL, TYPE II OR UNSPEC TY 01/23/2011 Ot 272.4 HYPERLIPIDEMIA NEC/NOS 01/23/2011 Ot 275.2 DIS MAGNESIUM METABOLISM 01/23/2011 Ot 401.9 HYPERTENSION NOS 01/23/2011 Ot 410.70 AC MYOCARD INFARCT,SUBENDO INFARCT,EPISO 01/23/2011 Ot 414.00 CORON ATHEROSCLER NOS TYPE VESSEL, NATIV 01/23/2011 Ot 593.9 RENAL URETERAL DIS NOS 01/23/2011 Ot 785.1 PALPITATIONS 01/23/2011 Ot V45.81 AORTOCORONARY BYPASS 01/23/2011 Ot V58.63 LONG-TERM(CURRENT)USE OF ANTIPLATELET/AN 01/23/2011 Ot V58.66 LONG-TERM (CURRENT) USE OF ASPIRIN 01/23/2011 Ot V58.67 LONG-TERM (CURRENT) USE OF INSULIN 01/23/2011 Ot V58.69 OTH MED,LT,CURRENT USE 03/27/2011 Ot 250.00 DIAB RANULFO WO COMPL, TYPE II OR UNSPEC TY 03/27/2011 Ot 272.4 HYPERLIPIDEMIA NEC/NOS 03/27/2011 Ot 311 DEPRESSIVE DISORDER NEC 03/27/2011 Ot 403.90 HYPTNSV CHR KID DIS, UNSPEC, W CHR KD ST 03/27/2011 Ot 410.71 AC MYOCARDIAL INFARCT,SUBENDO INFARCT,IN 03/27/2011 Ot 414.01 CORONARY ATHEROSCLEROSIS OF [place] CORON 03/27/2011 Ot 428.0 CONGESTIVE HEART FAILURE NOS 03/27/2011 Ot 428.23 ACUTE CHRONIC SYSTOLIC HRT FAILURE 03/27/2011 Ot 585.9 CHRONIC KIDNEY DISEASE, UNSPECIFIED 03/27/2011 Ot V04.81 ND FOR PROPHYLACTIC VACCIN AND INOCULATI 03/27/2011 Ot V45.81 AORTOCORONARY BYPASS 03/27/2011 Ot V45.82 PERCUTANEOUS TRANSLUM CORON ANGIOPLASTY 04/05/2011 Ot 412 OLD MYOCARDIAL INFARCT 04/05/2011 Ot V45.81 AORTOCORONARY BYPASS 04/05/2011 Ot V45.82 PERCUTANEOUS TRANSLUM CORON ANGIOPLASTY 04/05/2011 Ot V57.89 REHABILITATION PROC NEC 04/14/2011 Ot 250.60 DIAB W NEURO MANIFEST, TYPE II OR UNSPEC 04/14/2011 Ot 272.4 HYPERLIPIDEMIA NEC/NOS 04/14/2011 Ot 357.2 NEUROPATHY IN DIABETES 04/14/2011 Ot 403.90 HYPTNSV CHR KID DIS, UNSPEC, W CHR KD ST 04/14/2011 Ot 410.71 AC MYOCARDIAL INFARCT,SUBENDO INFARCT,IN 04/14/2011 Ot 414.00 CORON ATHEROSCLER NOS TYPE VESSEL, NATIV 04/14/2011 Ot 414.8 CHR ISCHEMIC HRT DIS NEC 04/14/2011 Ot 428.0 CONGESTIVE HEART FAILURE NOS 04/14/2011 Ot 428.23 ACUTE CHRONIC SYSTOLIC HRT FAILURE 04/14/2011 Ot 585.9 CHRONIC KIDNEY DISEASE, UNSPECIFIED 04/14/2011 Ot 682.2 CELLULITIS OF TRUNK 04/14/2011 Ot V45.81 AORTOCORONARY BYPASS 04/14/2011 Ot V45.82 PERCUTANEOUS TRANSLUM CORON ANGIOPLASTY 04/14/2011 Ot V58.31 ENCOUNTER FOR CHANGE OR REMOVAL OF SURGI 04/14/2011 Ot V58.32 ENCOUNTER FOR REMOVAL OF SUTURES 04/24/2011 296.22 MO DEPRESSIVE SINGLE MODERATE 04/24/2011 296.22 MO DEPRESSIVE SINGLE MODERATE 04/24/2011 296.22 MO DEPRESSIVE SINGLE MODERATE 04/24/2011 JEANIE TRIPLETT DO 296.22 MO DEPRESSIVE SINGLE MODERATE 04/24/2011 JEANIE TRIPLETT DO 296.22 MO DEPRESSIVE SINGLE MODERATE 04/24/2011 JEANIE TRIPLETT DO 296.22 MO DEPRESSIVE SINGLE MODERATE 04/24/2011 296.22 MO DEPRESSIVE SINGLE MODERATE 07/14/2011 Ot 250.00 DIAB RANULFO WO COMPL, TYPE II OR UNSPEC TY 07/14/2011 Ot 272.4 HYPERLIPIDEMIA NEC/NOS 07/14/2011 Ot 403.90 HYPTNSV CHR KID DIS, UNSPEC, W CHR KD ST 07/14/2011 Ot 414.00 CORON ATHEROSCLER NOS TYPE VESSEL, NATIV 07/14/2011 Ot 428.0 CONGESTIVE HEART FAILURE NOS 07/14/2011 Ot 428.23 ACUTE CHRONIC SYSTOLIC HRT FAILURE 07/14/2011 Ot 585.9 CHRONIC KIDNEY DISEASE, UNSPECIFIED 07/14/2011 Ot 995.27 OTHER DRUG ALLERGY 07/14/2011 Ot E930.3 ADV EFF ERYTHROMYCIN 07/14/2011 Ot V45.81 AORTOCORONARY BYPASS 09/05/2011 Ot 272.4 HYPERLIPIDEMIA NEC/NOS 09/05/2011 Ot 401.9 HYPERTENSION NOS 09/05/2011 Ot 414.01 CORONARY ATHEROSCLEROSIS OF [place] CORON 09/05/2011 Ot 428.0 CONGESTIVE HEART FAILURE NOS 09/05/2011 Ot 428.22 CHRONIC SYSTOLIC HRT FAILURE 02/07/2012 694.9 UNSPECIFIED BULLOUS DERMATOSES 02/07/2012 694.9 UNSPECIFIED BULLOUS DERMATOSES 02/07/2012 694.9 UNSPECIFIED BULLOUS DERMATOSES 02/07/2012 JEANIE TRIPLETT DO 694.9 UNSPECIFIED BULLOUS DERMATOSES 02/07/2012 JEANIE TRIPLETT DO 694.9 UNSPECIFIED BULLOUS DERMATOSES 02/07/2012 JEANIE TRIPLETT DO 694.9 UNSPECIFIED BULLOUS DERMATOSES 02/07/2012 694.9 UNSPECIFIED BULLOUS DERMATOSES 12/20/2012 791.0 MICROALBUMINURIA 12/20/2012 791.0 MICROALBUMINURIA 12/20/2012 JEANIE TRIPLETT DO 791.0 MICROALBUMINURIA 12/20/2012 JEANIE TRIPLETT DO 791.0 MICROALBUMINURIA 12/20/2012 JEANIE TRIPLETT DO 791.0 MICROALBUMINURIA 12/20/2012 791.0 MICROALBUMINURIA 12/31/2012 682.9 CELLULITIS AND ABSCESS OF UNSPECIFIED SITES 12/31/2012 682.9 CELLULITIS AND ABSCESS OF UNSPECIFIED SITES 12/31/2012 JEANIE TRIPLETT DO 682.9 CELLULITIS AND ABSCESS OF UNSPECIFIED SITES 12/31/2012 TRIPLETT JEANIE HARRIS K 682.9 CELLULITIS AND ABSCESS OF UNSPECIFIED SITES 12/31/2012 TRIPLETT JEANIE HARRIS K 682.9 CELLULITIS AND ABSCESS OF UNSPECIFIED SITES 12/31/2012 682.9 CELLULITIS AND ABSCESS OF UNSPECIFIED SITES 05/14/2013 TRIPLETT JEANIE HARRIS K 611.1 HYPERTROPHY OF BREAST 05/14/2013 TRIPLETT PAM HARRISA K 611.1 HYPERTROPHY OF BREAST 05/14/2013 611.1 HYPERTROPHY OF BREAST 06/04/2013 JEANIE TRIPLETT DO K 586 RENAL FAILURE UNSPECIFIED 06/04/2013 PAM TRIPLETT DOA K 586 RENAL FAILURE UNSPECIFIED 06/04/2013 586 RENAL FAILURE UNSPECIFIED 08/11/2015 EDY GREEN Ot E11.9 TYPE 2 DIABETES MELLITUS WITHOUT COMPLIC 08/11/2015 EDY GREEN Ot J18.9 PNEUMONIA, UNSPECIFIED ORGANISM 08/11/2015 EDY GREEN Ot S00.83XA CONTUSION OF OTHER PART OF HEAD, INITIAL 08/11/2015 EDY GREEN Ot W05.0XXA FALL FROM NON-MOVING WHEELCHAIR, INITIAL 08/11/2015 EDY GREEN Ot Y92.012 BATHROOM OF SINGLE-FAMILY (PRIVATE) HOUS 08/11/2015 EDY GREEN Ot Y99.8 OTHER EXTERNAL CAUSE STATUS 08/11/2015 EDY GREEN Ot Z79.4 HALF-WAY (CURRENT) USE OF INSULIN 08/11/2015 EDY GREEN Ot Z89.611 ACQUIRED ABSENCE OF RIGHT LEG ABOVE KNEE 08/11/2015 Ot 285.9 08/11/2015 Ot 401.9 08/11/2015 Ot 414.00 08/11/2015 Ot 428.0 08/11/2015 Ot 428.0 08/11/2015 Ot 397.0 08/11/2015 Ot 414.00 08/11/2015 Ot 424.0 08/11/2015 Ot 428.0 08/11/2015 Ot 285.9 08/11/2015 Ot 585.9 08/11/2015 Ot 401.9 08/11/2015 Ot V58.69 08/11/2015 Ot 593.9 08/11/2015 OLIVER WATTS, BASHAR J Ot 397.0 08/11/2015 OLIVER WATTS, BASCELESTE J Ot 414.00 08/11/2015 OLIVER WATTS, ANGELA J Ot 424.0 08/11/2015 OLIVER WATTS, BASCELESTE J Ot 428.0 08/11/2015 OLIVER WATTS, BASHAR J Ot 272.4 08/11/2015 OLIVER WATTS, BASHAR J Ot 414.00 08/11/2015 OLIVER WATTS, ANGELA J Ot 496 08/11/2015 OLIVER WATTS, BASCELESTE J Ot 414.00 08/11/2015 OLIVER WATTS, BASCELESTE J Ot 428.0 08/11/2015 JAY PA, SONIDO K Ot 250.00 08/11/2015 JAY PA, SONIDO K Ot 272.4 08/11/2015 JAY PA, SONIDO K Ot 401.9 08/11/2015 JAY PA, SONIDO K Ot 414.00 08/11/2015 JAY PA, SONIDO K Ot 433.10 08/11/2015 SHU WATTS, LU S Ot 709.8 08/11/2015 CARLITOS WINTERS, BALDOMERO Hooker Ot 611.72 08/11/2015 SHU WATTS, LU S Ot 611.0 08/11/2015 SHU WATTS, LU S Ot 682.2 08/11/2015 SHU WATTS, LU S Ot V67.09 08/11/2015 NEW, JARED Gonzales CLASSIFICATION CLERK-C Ot 250.40 08/11/2015 NEW, JARED Gonzales CLASSIFICATION CLERK-C Ot 263.9 08/11/2015 NEW, JARED Gonzales CLASSIFICATION CLERK-C Ot 272.4 08/11/2015 NEW, JARED Banda. CLASSIFICATION CLERK-C Ot 276.1 08/11/2015 NEW, JARED Banda. CLASSIFICATION CLERK-C Ot 276.7 08/11/2015 NEW, JARED Gonzales CLASSIFICATION CLERK-C Ot 285.21 08/11/2015 NEW, JARED Gonzales CLASSIFICATION CLERK-C Ot 404.10 08/11/2015 NEW, JARED Gonzales CLASSIFICATION CLERK-C Ot 428.0 08/11/2015 NEW, JARED Gonzales CLASSIFICATION CLERK-C Ot 585.4 08/11/2015 NEW, JARED Gonzales CLASSIFICATION CLERK-C Ot 791.0 08/14/2015 EDY GREEN L Ot E11.9 08/14/2015 MERCEDEZ WINTERS EDY Wang Ot J18.9 08/14/2015 MERCEDEZ WINTERS EDY Wang Ot S00.83XA 08/14/2015 MERCEDEZ WINTERS EDY Wang Ot W05.0XXA 08/14/2015 MERCEDEZ WINTERS EDY L Ot Y92.012 08/14/2015 EDY GREEN Ot Y99.8 08/14/2015 MERCEDEZ WINTERS EDY Wang Ot Z79.4 08/14/2015 MERCEDEZ WINTERS EDY Wang Ot Z89.611 08/14/2015 Ot 285.9 08/14/2015 Ot 401.9 08/14/2015 Ot 414.00 08/14/2015 Ot 428.0 08/14/2015 Ot 428.0 08/14/2015 Ot 397.0 08/14/2015 Ot 414.00 08/14/2015 Ot 424.0 08/14/2015 Ot 428.0 08/14/2015 Ot 285.9 08/14/2015 Ot 585.9 08/14/2015 Ot 401.9 08/14/2015 Ot V58.69 08/14/2015 Ot 593.9 08/14/2015 OLIVER WATTS, ANGELA Carter Ot 397.0 08/14/2015 OLIVER WATTS, ANGELA J Ot 414.00 08/14/2015 OLIVER WATTS, ANGELA J Ot 424.0 08/14/2015 OLIVER WATTS, ANGELA J Ot 428.0 08/14/2015 OLIVER WATTS, ANGELA J Ot 272.4 08/14/2015 OLIVER WATTS, ANGELA J Ot 414.00 08/14/2015 OLIVER WATTS, ANGELA J Ot 496 08/14/2015 OLIVER WATTS, ANGELA J Ot 414.00 08/14/2015 OLIVER WATTS, ANGELA Carter Ot 428.0 08/14/2015 SONIDO ARBOLEDA Ot 250.00 08/14/2015 SONIDO ARBOLEDA Ot 272.4 08/14/2015 SONIDO ARBOLEDA Ot 401.9 08/14/2015 SONIDO ARBOLEDA Ot 414.00 08/14/2015 SONIDO ARBOLEDA Ot 433.10 08/14/2015 SHU WATTS, LU S Ot 709.8 08/14/2015 CARLITOS WINTERS, BALDOMERO M Ot 611.72 08/14/2015 SHU WATTS, LU S Ot 611.0 08/14/2015 SHU WATTS, LU S Ot 682.2 08/14/2015 SHU WATTS, LU S Ot V67.09 08/14/2015 NEW, JARED Gonzales CLASSIFICATION CLERK-C Ot 250.40 08/14/2015 NEW, JARED Banda. CLASSIFICATION CLERK-C Ot 263.9 08/14/2015 NEW, JARED Banda. CLASSIFICATION CLERK-C Ot 272.4 08/14/2015 NEW, JARED Banda. CLASSIFICATION CLERK-C Ot 276.1 08/14/2015 NEW, JARED Gonzales CLASSIFICATION CLERK-C Ot 276.7 08/14/2015 NEW, JARED Gonzales CLASSIFICATION CLERK-C Ot 285.21 08/14/2015 NEW, JARED Gonzales CLASSIFICATION CLERK-C Ot 404.10 08/14/2015 NEW, JARED Gonzales CLASSIFICATION CLERK-C Ot 428.0 08/14/2015 NEW, JARED Gonzales CLASSIFICATION CLERK-C Ot 585.4 08/14/2015 NEW, JARED Gonzales CLASSIFICATION CLERK-C Ot 791.0 12/26/2015 CYNDIE HARRIS JARED Reed Ot M25.422 EFFUSION, LEFT ELBOW 12/26/2015 CYNDIE JARED Reed Ot M70.22 OLECRANON BURSITIS, LEFT ELBOW 12/26/2015 Ot 401.9 HYPERTENSION NOS 12/26/2015 Ot 414.00 CORON ATHEROSCLER NOS TYPE VESSEL, NATIV 12/26/2015 Ot 428.0 CONGESTIVE HEART FAILURE NOS 12/26/2015 Ot 428.0 CONGESTIVE HEART FAILURE NOS 12/26/2015 Ot 397.0 TRICUSPID VALVE DISEASE 12/26/2015 Ot 414.00 CORON ATHEROSCLER NOS TYPE VESSEL, NATIV 12/26/2015 Ot 424.0 MITRAL VALVE DISORDER 12/26/2015 Ot 428.0 CONGESTIVE HEART FAILURE NOS 12/26/2015 Ot 285.9 ANEMIA NOS 12/26/2015 Ot 585.9 CHRONIC KIDNEY DISEASE, UNSPECIFIED 12/26/2015 Ot 401.9 HYPERTENSION NOS 12/26/2015 Ot V58.69 OTH MED,LT,CURRENT USE 12/26/2015 Ot 593.9 RENAL URETERAL DIS NOS 12/26/2015 ANGELA PRIETO MD Ot 397.0 TRICUSPID VALVE DISEASE 12/26/2015 ANGELA PRIETO MD Ot 414.00 CORON ATHEROSCLER NOS TYPE VESSEL, NATIV 12/26/2015 ANGELA PRIETO MD Ot 424.0 MITRAL VALVE DISORDER 12/26/2015 ANGELA PRIETO MD Ot 428.0 CONGESTIVE HEART FAILURE NOS 12/26/2015 ANGELA PRIETO MD Ot 272.4 HYPERLIPIDEMIA NEC/NOS 12/26/2015 ANGELA PRIETO MD Ot 414.00 CORON ATHEROSCLER NOS TYPE VESSEL, NATIV 12/26/2015 ANGELA PRIETO MD Ot 496 CHR AIRWAY OBSTRUCT NEC 12/26/2015 ANGELA PRIETO MD Ot 414.00 CORON ATHEROSCLER NOS TYPE VESSEL, NATIV 12/26/2015 ANGELA PRIETO MD Ot 428.0 CONGESTIVE HEART FAILURE NOS 12/26/2015 SONIDO ARBOLEDA Ot 250.00 DIAB RANULFO WO COMPL, TYPE II OR UNSPEC TY 12/26/2015 SONIDO ARBOLEDA Ot 272.4 HYPERLIPIDEMIA NEC/NOS 12/26/2015 SONIDO ARBOLEDA Ot 401.9 HYPERTENSION NOS 12/26/2015 SONIDO ARBOLEDA Ot 414.00 CORON ATHEROSCLER NOS TYPE VESSEL, NATIV 12/26/2015 SONIDO ARBOLEDA Ot 433.10 CAROTID ARTERY OCCLUSION W O CEREBRAL IN 12/26/2015 SHU WATTS, LU Easley Ot 709.8 SKIN DISORDERS NEC 12/26/2015 BALDOMERO MONTES DE OCA Ot 611.72 LUMP OR MASS IN BREAST 12/26/2015 SHU WATTS, LU Easley Ot 611.0 INFLAM DISEASE OF BREAST 12/26/2015 LU IRELAND MD Ot 682.2 CELLULITIS OF TRUNK 12/26/2015 LU IRELAND MD Ot V67.09 SURGERY FOLLOW-UP, OTHER SURGERY 12/26/2015 JARED CHATTERJEE Ot 250.40 DIAB W RENAL MANIFEST, TYPE II OR UNSPEC 12/26/2015 JARED CHATTERJEE Ot 263.9 PROTEIN-MARGARITA MALNUTR NOS 12/26/2015 JARED CHATTERJEE Ot 272.4 HYPERLIPIDEMIA NEC/NOS 12/26/2015 NEW, JARED G. 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 12/26/2015 SEN JARED VeronikaMerly CLASSIFICATION CLERK-C Ot 428.0 CONGESTIVE HEART FAILURE NOS 12/26/2015 SEN JARED BandaMerly CLASSIFICATION CLERK-C Ot 585.4 CHRONIC KIDNEY DISEASE, STAGE IV (SEVERE 12/26/2015 SEN JARED BandaMerly CLASSIFICATION CLERK-C Ot 791.0 PROTEINURIA 12/27/2015 JARED AGEE DO Ot M25.422 EFFUSION, LEFT ELBOW 12/27/2015 JARED AGEE DO Ot M70.22 OLECRANON BURSITIS, LEFT ELBOW 02/17/2016 MALGORZATA AKINS MD Ot E11.40 TYPE 2 DIABETES MELLITUS WITH DIABETIC N 02/17/2016 MALGORZATA AKINS MD Ot E11.59 TYPE 2 DIABETES MELLITUS WITH OTH CIRCUL 02/17/2016 MALGORZATA AKINS MD Ot I50.9 HEART FAILURE, UNSPECIFIED 02/17/2016 MALGORZATA AKINS MD Ot L03.116 CELLULITIS OF LEFT LOWER LIMB 02/17/2016 MALGORZATA AKINS MD Ot M79.662 PAIN IN LEFT LOWER LEG 02/17/2016 MALGORZATA AKINS MD Ot N18.6 END STAGE RENAL DISEASE 02/17/2016 MALGORZATA AKINS MD Ot Z79.4 AIR BAG BUFFER (CURRENT) USE OF INSULIN 02/17/2016 MALGORZATA AKINS MD Ot Z79.82 AIR BAG BUFFER (CURRENT) USE OF ASPIRIN 02/17/2016 MALGORZATA AKINS MD Ot Z79.899 OTHER AIR BAG BUFFER (CURRENT) DRUG THERAPY 02/17/2016 MALGORZATA AKINS MD Ot Z89.511 ACQUIRED ABSENCE OF RIGHT LEG BELOW KNEE 02/17/2016 MALGORZATA AKINS MD Ot Z95.0 PRESENCE OF CARDIAC PACEMAKER 02/17/2016 MALGORZATA AKINS MD Ot Z95.1 PRESENCE OF AORTOCORONARY BYPASS GRAFT 02/17/2016 MABLE MD, MALGORZATA J Ot Z95.5 PRESENCE OF CORONARY ANGIOPLASTY IMPLANT 02/17/2016 MALGORZATA AKINS MD Ot Z99.2 DEPENDENCE ON RENAL DIALYSIS 02/25/2016 DENZEL ROMERO DO Ot E11.9 TYPE 2 DIABETES MELLITUS WITHOUT COMPLIC 02/25/2016 DENZEL ROMERO DO, Ot I12.0 HYP CHR KIDNEY DISEASE W STAGE 5 CHR KID 02/25/2016 DENZEL ROMERO DO, Ot I50.9 HEART FAILURE, UNSPECIFIED 02/25/2016 DENZEL ROMERO DO, Ot N18.6 END STAGE RENAL DISEASE 02/25/2016 DENZEL ROMERO DO, Ot R06.02 SHORTNESS OF BREATH 02/25/2016 DENZEL ROMERO DO, Ot Z79.4 HALF-WAY (CURRENT) USE OF INSULIN 02/25/2016 DENZEL ROMERO DO, Ot Z79.899 OTHER AIR BAG BUFFER (CURRENT) DRUG THERAPY 02/25/2016 DENZEL ROMERO DO, Ot Z89.611 ACQUIRED ABSENCE OF RIGHT LEG ABOVE KNEE 02/25/2016 DENZEL ROMERO DO, Ot Z95.0 PRESENCE OF CARDIAC PACEMAKER 02/25/2016 DENZEL ROMERO DO, Ot Z95.1 PRESENCE OF AORTOCORONARY BYPASS GRAFT 02/25/2016 DENZEL ROMERO DO, Ot Z99.2 DEPENDENCE ON RENAL DIALYSIS 02/28/2016 JARED AGEE DO Ot E11.9 TYPE 2 DIABETES MELLITUS WITHOUT COMPLIC 02/28/2016 JARED AGEE DO Ot L60.8 OTHER NAIL DISORDERS 02/28/2016 JARED AGEE DO Ot S90.32XA CONTUSION OF LEFT FOOT, INITIAL ENCOUNTE 02/28/2016 JARED AGEE DO Ot S91.312A LACERATION WITHOUT FOREIGN BODY, LEFT FO 02/28/2016 JARED AGEE DO Ot X58.XXXA EXPOSURE TO OTHER SPECIFIED FACTORS, INI 02/28/2016 JARED AGEE DO Ot Y99.8 OTHER EXTERNAL CAUSE STATUS 02/28/2016 JARED AGEE DO Ot Z79.4 HALF-WAY (CURRENT) USE OF INSULIN 02/28/2016 JARED AGEE DO Ot Z79.82 AIR BAG BUFFER (CURRENT) USE OF ASPIRIN 02/28/2016 JARED AGEE DO Ot Z79.899 OTHER AIR BAG BUFFER (CURRENT) DRUG THERAPY 02/28/2016 JARED AGEE DO Ot Z95.1 PRESENCE OF AORTOCORONARY BYPASS GRAFT 02/28/2016 JARED AEGE DO Ot Z95.810 PRESENCE OF AUTOMATIC (IMPLANTABLE) CARD 02/28/2016 JARED AGEE DO Ot E11.9 TYPE 2 DIABETES MELLITUS WITHOUT COMPLIC 02/28/2016 JARED AGEE DO Ot L60.8 OTHER NAIL DISORDERS 02/28/2016 JARED AGEE DO Ot S90.32XA CONTUSION OF LEFT FOOT, INITIAL ENCOUNTE 02/28/2016 JARED AGEE DO Ot S91.312A LACERATION WITHOUT FOREIGN BODY, LEFT FO 02/28/2016 JARED AGEE DO Ot X58.XXXA EXPOSURE TO OTHER SPECIFIED FACTORS, INI 02/28/2016 JARED AGEE DO Ot Y99.8 OTHER EXTERNAL CAUSE STATUS 02/28/2016 JARED AGEE DO Ot Z79.4 HALF-WAY (CURRENT) USE OF INSULIN 02/28/2016 JARED AGEE DO Ot Z79.82 HALF-WAY (CURRENT) USE OF ASPIRIN 02/28/2016 CYNDIE JARED HARRIS Ot Z79.899 OTHER AIR BAG BUFFER (CURRENT) DRUG THERAPY 02/28/2016 JARED AGEE DO Ot Z95.1 PRESENCE OF AORTOCORONARY BYPASS GRAFT 02/28/2016 JARED AGEE DO Ot Z95.810 PRESENCE OF AUTOMATIC (IMPLANTABLE) CARD 05/24/2016 LIZBETH COWART APRN Ot E11.621 TYPE 2 DIABETES MELLITUS WITH FOOT ULCER 05/24/2016 LIZBETH COWART APRN Ot I70.202 [facility] [place] [facility] 05/24/2016 LIZBETH COWART APRN Ot 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 05/24/2016 LIZBETH COWART APRN Ot L97.522 NON-PRS CHRONIC ULCER OTH PRT LEFT FOOT 05/24/2016 LIZBETH COWART APRN Ot N18.5 CHRONIC KIDNEY DISEASE, STAGE 5 06/04/2016 LIZBETH COWART FLIGHT SECURITY SPECIALIST Ot E11.621 TYPE 2 DIABETES MELLITUS WITH FOOT ULCER 06/04/2016 LIZBETH COWART APRN Ot I70.202 [facility] [place] ARTERIES OF EXTREMITI 06/04/2016 LIZBETH COWART APRN Ot 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 06/04/2016 LIZBETH COWART APRN Ot L97.522 NON-PRS CHRONIC ULCER OTH PRT LEFT FOOT 06/04/2016 LIZBETH COWART APRN Ot N18.5 CHRONIC KIDNEY DISEASE, STAGE 5 06/12/2016 SANDI PERALTA MD Ot E11.9 TYPE 2 DIABETES MELLITUS WITHOUT COMPLIC 06/12/2016 SANDI PERALTA MD Ot I12.0 HYP CHR KIDNEY DISEASE W STAGE 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 06/12/2016 SANDI PERALTA MD, Ot I45.10 UNSPECIFIED RIGHT BUNDLE-BRANCH BLOCK 06/12/2016 SANDI PERALTA MD, Ot I50.9 HEART FAILURE, UNSPECIFIED 06/12/2016 SANDI PERALTA MD, Ot N18.6 END STAGE RENAL DISEASE 06/12/2016 SANDI PERALTA MD Ot R07.9 CHEST PAIN, UNSPECIFIED 06/12/2016 SANDI PERALTA MD Ot Z79.4 AIR BAG BUFFER (CURRENT) USE OF INSULIN 06/12/2016 SANDI PERALTA MD Ot Z79.82 AIR BAG BUFFER (CURRENT) USE OF ASPIRIN 06/12/2016 SANDI PERALTA MD Ot Z79.899 OTHER HALF-WAY (CURRENT) DRUG THERAPY 06/12/2016 SANDI PERALTA MD Ot Z95.1 PRESENCE OF AORTOCORONARY BYPASS GRAFT 06/12/2016 SANDI PERALTA MD Ot Z95.810 PRESENCE OF AUTOMATIC (IMPLANTABLE) CARD 06/12/2016 SANDI PERALTA MD Ot Z98.890 OTHER SPECIFIED POSTPROCEDURAL STATES 06/12/2016 SANDI PERALTA MD Ot Z99.2 DEPENDENCE ON RENAL DIALYSIS 06/13/2016 SANDI PERALTA MD, Ot E11.9 TYPE 2 DIABETES MELLITUS WITHOUT COMPLIC 06/13/2016 SANDI PERALTA MD Ot I12.0 HYP CHR KIDNEY DISEASE W STAGE 5 CHR KID 06/13/2016 SANDI PERALTA MD Ot I45.10 UNSPECIFIED RIGHT BUNDLE-BRANCH BLOCK 06/13/2016 SANDI PERALTA MD, Ot I50.9 HEART FAILURE, UNSPECIFIED 06/13/2016 SANDI PERALTA MD Ot N18.6 END STAGE RENAL DISEASE 06/13/2016 SANDI PERALTA MD, Ot R07.9 CHEST PAIN, UNSPECIFIED 06/13/2016 SANDI PERALTA MD, Ot Z79.4 AIR BAG BUFFER (CURRENT) USE OF INSULIN 06/13/2016 SANDI PERALTA MD Ot Z79.82 HALF-WAY (CURRENT) USE OF ASPIRIN 06/13/2016 SANDI PERALTA MD, Ot Z79.899 OTHER AIR BAG BUFFER (CURRENT) DRUG THERAPY 06/13/2016 SANDI PERALTA MD, Ot Z95.1 PRESENCE OF AORTOCORONARY BYPASS GRAFT 06/13/2016 SANDI PERALTA MD, Ot Z95.810 PRESENCE OF AUTOMATIC (IMPLANTABLE) CARD 06/13/2016 SANDI PERALTA MD, Ot Z98.890 OTHER SPECIFIED POSTPROCEDURAL STATES 06/13/2016 SANDI PERALTA MD, Ot Z99.2 DEPENDENCE ON RENAL DIALYSIS 08/24/2016 WADE CHAUDHARY MD Ot E11.9 TYPE 2 DIABETES MELLITUS WITHOUT COMPLIC 08/24/2016 WADE CHAUDHARY MD Ot 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 08/24/2016 WADE CHAUDHARY MD Ot I25.119 [facility] HEART DISEASE OF [place] COR ART W 08/24/2016 WADE CHAUDHARY MD Ot I25.2 OLD MYOCARDIAL INFARCTION 08/24/2016 WADE CHAUDHARY MD Ot I51.7 CARDIOMEGALY 08/24/2016 WADE CHAUDHARY MD, Ot R07.9 CHEST PAIN, UNSPECIFIED 08/24/2016 WADE CHAUDHARY MD Ot Z79.4 AIR BAG BUFFER (CURRENT) USE OF INSULIN 08/24/2016 WADE CHAUDHARY MD Ot Z79.82 AIR BAG BUFFER (CURRENT) USE OF ASPIRIN 08/24/2016 WADE CHAUDHARY MD Ot Z79.899 OTHER AIR BAG BUFFER (CURRENT) DRUG THERAPY 08/24/2016 WADE CHAUDHARY MD Ot Z89.611 ACQUIRED ABSENCE OF RIGHT LEG ABOVE KNEE 08/24/2016 WADE CHAUDHARY MD Ot Z89.612 ACQUIRED ABSENCE OF LEFT LEG ABOVE KNEE 08/24/2016 WADE CHAUDHARY MD Ot Z95.1 PRESENCE OF AORTOCORONARY BYPASS GRAFT 08/24/2016 WADE CHAUDHARY MD Ot Z95.810 PRESENCE OF AUTOMATIC (IMPLANTABLE) CARD 08/24/2016 WADE CHAUDHARY MD Ot Z99.2 DEPENDENCE ON RENAL DIALYSIS 09/02/2016 SANDI PERALTA MD Ot E11.9 TYPE 2 DIABETES MELLITUS WITHOUT COMPLIC 09/02/2016 SANDI PERALTA MD Ot I12.0 HYP CHR KIDNEY DISEASE W STAGE 5 CHR KID 09/02/2016 SANDI PERALTA MD Ot I25.10 ATHSCL HEART DISEASE OF [place] CORONARY 09/02/2016 SANDI PERALTA MD Ot I70.91 GENERALIZED ATHEROSCLEROSIS 09/02/2016 SANDI PERALTA MD Ot K65.2 SPONTANEOUS BACTERIAL PERITONITIS 09/02/2016 SANDI PERALTA MD Ot K80.20 CALCULUS OF GALLBLADDER W/O CHOLECYSTITI 09/02/2016 SANDI PERALTA MD Ot N18.6 END STAGE RENAL DISEASE 09/02/2016 SANDI PERALTA MD Ot R10.30 LOWER ABDOMINAL PAIN, UNSPECIFIED 09/02/2016 SANDI PERALTA MD Ot Z79.4 AIR BAG BUFFER (CURRENT) USE OF INSULIN 09/02/2016 SANDI PERALTA MD Ot Z79.82 HALF-WAY (CURRENT) USE OF ASPIRIN 09/02/2016 SANDI PERALTA MD Ot Z79.899 OTHER HALF-WAY (CURRENT) DRUG THERAPY 09/02/2016 SANDI PERALTA MD Ot Z95.1 PRESENCE OF AORTOCORONARY BYPASS GRAFT 09/02/2016 SANDI PERALTA MD Ot Z95.810 PRESENCE OF AUTOMATIC (IMPLANTABLE) CARD 09/02/2016 SANDI PERALTA MD Ot Z99.2 DEPENDENCE ON RENAL DIALYSIS 09/04/2016 SANDI PERALTA MD Ot E11.9 TYPE 2 DIABETES MELLITUS WITHOUT COMPLIC 09/04/2016 SANDI PERALTA MD Ot I12.0 HYP CHR KIDNEY DISEASE W STAGE 5 CHR KID 09/04/2016 SANDI PERALTA MD Ot I25.10 ATHSCL HEART DISEASE OF [place] CORONARY 09/04/2016 SANDI PERALTA MD Ot I70.91 GENERALIZED ATHEROSCLEROSIS 09/04/2016 SANDI PERALTA MD Ot K65.2 SPONTANEOUS BACTERIAL PERITONITIS 09/04/2016 SANDI PERALTA MD Ot K80.20 CALCULUS OF GALLBLADDER W/O CHOLECYSTITI 09/04/2016 SANDI PERALTA MD Ot N18.6 END STAGE RENAL DISEASE 09/04/2016 SANDI PERALTA MD Ot R10.30 LOWER ABDOMINAL PAIN, UNSPECIFIED 09/04/2016 SANDI PERALTA MD Ot Z79.4 AIR BAG BUFFER (CURRENT) USE OF INSULIN 09/04/2016 SANDI PERALTA MD Ot Z79.82 HALF-WAY (CURRENT) USE OF ASPIRIN 09/04/2016 SANDI PERALTA MD, Ot Z79.899 OTHER HALF-WAY (CURRENT) DRUG THERAPY 09/04/2016 SANDI PERALTA MD Ot Z95.1 PRESENCE OF AORTOCORONARY BYPASS GRAFT 09/04/2016 SANDI PERALTA MD Ot Z95.810 PRESENCE OF AUTOMATIC (IMPLANTABLE) CARD 09/04/2016 SANDI PERALTA MD, Ot Z99.2 DEPENDENCE ON RENAL DIALYSIS Procedures Code Description Performed By Performed On 00.40 01/20/2011 00.45 01/20/2011 00.66 01/20/2011 36.07 01/20/2011 88.49 01/20/2011 88.56 01/20/2011 88.49 03/24/2011 88.56 03/24/2011 [id number] ROUTINE VENIPUNCTURE 01/21/2013 16729 CBC 01/21/2013 15086 CMP 01/21/2013 [id number] GFR CALC (RESULT ONLY) 01/21/[id number] SPTYPE 2012 Cardiolog Angela Prieto 02/08/2013 57797 MICRO ALBUMIN-IN HOUSE 04/02/2013 33774 A1C (IN-HOUSE) 39833 MICROALBUMIN 01/2013 LU RUVALCABA 04/03/2013 61763 ROUTINE VENIPUNCTURE 05/14/2013 80650 US BREAST ULTRASOUND, RIGHT 05/14/2013 67797 CMP 05/14/2013 Nephrolog Sanket Nephrology 05/14/2013 66851 ROUTINE VENIPUNCTURE 06/07/2013 73528 CMP 06/07/2013 27383 PHOSPHORUS 2013 PRO/CRE URINE PROTEIN TO CREATNINE RATIO 06/07/2013 Results Test Result Range Body fluid cell count - 12/26/15 06:00 Specimen source identification of body fluid SYNOVIAL NRG Evaluation of color of body fluid RED NRG Determination of appearance of body fluid MKD BLDY NRG Body fluid leukocytes count (number/volume) 0 /uL NRG Body fluid erythrocytes count (number/volume) 42708 /uL NRG * Body fluid crystals type by light microscopy - 12/26/15 06:00 * Body fluid crystals type by light microscopy NOT SEEN NRG Gram stain microscopy - 12/26/15 06:00 GRAM STAIN RESULT FEW WBC'S, NO BACTERIA OBSERVED NRG Bacterial body fluid culture - 12/26/15 06:00 Bacterial body fluid culture NG NRG Complete blood count (CBC) with automated white blood cell (WBC) differential - 02/17/16 14:40 Blood leukocytes automated count (number/volume) 7.7 10*3/ uL 4.3-11.0 Blood erythrocytes automated count (number/volume) 2.86 10*6 /uL 4.35-5.85 Venous blood hemoglobin measurement (mass/volume) 9.2 g/dL 13.3-17.7 Blood hematocrit (volume fraction) 27 % 40-54 Automated erythrocyte mean corpuscular volume 94 [foz_us] 80-99 Automated erythrocyte mean corpuscular hemoglobin (mass per erythrocyte) 32 pg 25-34 Automated erythrocyte mean corpuscular hemoglobin concentration measurement ( mass/volume) 34 g/dL 32-36 Automated erythrocyte distribution width ratio 14.8 % 10.0-14.5 Automated blood platelet count (count/volume) 143 10*3/uL 130-400 Automated blood platelet mean volume measurement 12.0 [foz_ us] 7.4-10.4 Automated blood neutrophils/100 leukocytes 72 % 42-75 Automated blood lymphocytes/100 leukocytes 13 % 12-44 Blood monocytes/100 leukocytes 10 % 0-12 Automated blood eosinophils/100 leukocytes 4 % 0-10 Automated blood basophils/100 leukocytes 1 % 0-10 Blood neutrophils automated count (number/volume) 5.6 10*3 1.8-7.8 Blood lymphocytes automated count (number/volume) 1.0 10*3 1.0-4.0 Blood monocytes automated count (number/volume) 0.8 10*3 0.0-1.0 Automated eosinophil count 0.3 10*3/uL 0.0-0.3 Automated blood basophil count (count/volume) 0.1 10*3/uL 0.0-0.1 Serum or plasma C reactive protein measurement (mass/volume) - 02/17/16 14:40 Serum or plasma C reactive protein measurement (mass/volume) 2.10 mg/dL 0.00-0.50 Complete blood count (CBC) with automated white blood cell (WBC) differential - 02/25/16 00:07 Blood leukocytes automated count (number/volume) 7.4 10*3/ uL 4.3-11.0 Blood erythrocytes automated count (number/volume) 2.99 10*6 /uL 4.35-5.85 Venous blood hemoglobin measurement (mass/volume) 9.6 g/dL 13.3-17.7 Blood hematocrit (volume fraction) 28 % 40-54 Automated erythrocyte mean corpuscular volume 95 [foz_us] 80-99 Automated erythrocyte mean corpuscular hemoglobin (mass per erythrocyte) 32 pg 25-34 Automated erythrocyte mean corpuscular hemoglobin concentration measurement ( mass/volume) 34 g/dL 32-36 Automated erythrocyte distribution width ratio 15.3 % 10.0-14.5 Automated blood platelet count (count/volume) 139 10*3/uL 130-400 Automated blood platelet mean volume measurement 12.7 [foz_ us] 7.4-10.4 Automated blood neutrophils/100 leukocytes 73 % 42-75 Automated blood lymphocytes/100 leukocytes 13 % 12-44 Blood monocytes/100 leukocytes 8 % 0-12 Automated blood eosinophils/100 leukocytes 6 % 0-10 Automated blood basophils/100 leukocytes 1 % 0-10 Blood neutrophils automated count (number/volume) 5.4 10*3 1.8-7.8 Blood lymphocytes automated count (number/volume) 0.9 10*3 1.0-4.0 Blood monocytes automated count (number/volume) 0.6 10*3 0.0-1.0 Automated eosinophil count 0.4 10*3/uL 0.0-0.3 Automated blood basophil count (count/volume) 0.0 10*3/uL 0.0-0.1 Comprehensive metabolic panel - 02/25/16 00:07 Serum or plasma sodium measurement (moles/volume) 133 mmol/ L 135-145 Serum or plasma potassium measurement (moles/volume) 4.6 mmol/L 3.6-5.0 Serum or plasma chloride measurement (moles/volume) 97 mmol/ L 98-107 Carbon dioxide 20 mmol/L 21-32 Serum or plasma anion gap determination (moles/volume) 16 mmol/L 5-14 Serum or plasma urea nitrogen measurement (mass/volume) 55 mg/dL 7-18 Serum or plasma creatinine measurement (mass/volume) 8.73 mg /dL 0.60-1.30 Serum or plasma urea nitrogen/creatinine mass ratio 6 NRG Serum or plasma creatinine measurement with calculation of estimated glomerular filtration rate 6 NRG Serum or plasma glucose measurement (mass/volume) 251 mg/dL 70-105 Serum or plasma calcium measurement (mass/volume) 8.6 mg/dL 8.5-10.1 Serum or plasma total bilirubin measurement (mass/volume) 0.6 mg/dL 0.1-1.0 Serum or plasma alkaline phosphatase measurement (enzymatic activity/volume) 88 U/L 40-136 Serum or plasma aspartate aminotransferase measurement (enzymatic activity/ volume) 15 U/L 5-34 Serum or plasma alanine aminotransferase measurement (enzymatic activity/volume ) 15 U/L 0-55 Serum or plasma protein measurement (mass/volume) 6.6 g/dL 6.4-8.2 Serum or plasma albumin measurement (mass/volume) 3.2 g/dL 3.2-4.5 Magnesium - 02/25/16 00:07 Magnesium 1.8 mg/dL 1.8-2.4 Serum or plasma troponin i.cardiac measurement (mass/volume) - 02/25/16 00:07 Serum or plasma troponin i.cardiac measurement (mass/volume) < ng/mL <0.30 Serum or plasma lithium measurement (moles/volume) - 02/25/16 00:07 BNP level 1952.3 pg/mL <100.0 Blood lactic acid measurement (moles/volume) - 02/25/16 00:50 Blood lactic acid measurement (moles/volume) 1.5 mmol/L 0.5-2.0 Complete blood count (CBC) with automated white blood cell (WBC) differential - 06/12/16 07:00 Blood leukocytes automated count (number/volume) 11.9 10*3/ uL 4.3-11.0 Blood erythrocytes automated count (number/volume) 2.86 10*6 /uL 4.35-5.85 Venous blood hemoglobin measurement (mass/volume) 9.1 g/dL 13.3-17.7 Blood hematocrit (volume fraction) 26 % 40-54 Automated erythrocyte mean corpuscular volume 91 [foz_us] 80-99 Automated erythrocyte mean corpuscular hemoglobin (mass per erythrocyte) 32 pg 25-34 Automated erythrocyte mean corpuscular hemoglobin concentration measurement ( mass/volume) 35 g/dL 32-36 Automated erythrocyte distribution width ratio 15.3 % 10.0-14.5 Automated blood platelet count (count/volume) 172 10*3/uL 130-400 Automated blood platelet mean volume measurement 12.3 [foz_ us] 7.4-10.4 Automated blood neutrophils/100 leukocytes 81 % 42-75 Automated blood lymphocytes/100 leukocytes 8 % 12-44 Blood monocytes/100 leukocytes 8 % 0-12 Automated blood eosinophils/100 leukocytes 2 % 0-10 Automated blood basophils/100 leukocytes 0 % 0-10 Blood neutrophils automated count (number/volume) 9.7 10*3 1.8-7.8 Blood lymphocytes automated count (number/volume) 1.0 10*3 1.0-4.0 Blood monocytes automated count (number/volume) 1.0 10*3 0.0-1.0 Automated eosinophil count 0.3 10*3/uL 0.0-0.3 Automated blood basophil count (count/volume) 0.0 10*3/uL 0.0-0.1 PT panel in platelet poor plasma by coagulation assay - 06/12/16 07:00 Prothrombin time (PT) in platelet poor plasma by coagulation assay 13.5 s 12.2-14.7 INR in platelet poor plasma or blood by coagulation assay 1.1 0.8-1.4 Activated partial thromboplastin time (aPTT) in platelet poor plasma bycoagulation assay - 06/12/16 07:00 Activated partial thromboplastin time (aPTT) in platelet poor plasma bycoagulation assay 35 s 24-35 Comprehensive metabolic panel - 06/12/16 07:00 Serum or plasma sodium measurement (moles/volume) 128 mmol/ L 135-145 Serum or plasma potassium measurement (moles/volume) 4.2 mmol/L 3.6-5.0 Serum or plasma chloride measurement (moles/volume) 91 mmol/ L 98-107 Carbon dioxide 22 mmol/L 21-32 Serum or plasma anion gap determination (moles/volume) 15 mmol/L 5-14 Serum or plasma urea nitrogen measurement (mass/volume) 41 mg/dL 7-18 Serum or plasma creatinine measurement (mass/volume) 7.55 mg /dL 0.60-1.30 Serum or plasma urea nitrogen/creatinine mass ratio 5 NRG Serum or plasma creatinine measurement with calculation of estimated glomerular filtration rate 8 NRG Serum or plasma glucose measurement (mass/volume) 268 mg/dL 70-105 Serum or plasma calcium measurement (mass/volume) 8.8 mg/dL 8.5-10.1 Serum or plasma total bilirubin measurement (mass/volume) 0.6 mg/dL 0.1-1.0 Serum or plasma alkaline phosphatase measurement (enzymatic activity/volume) 112 U/L 40-136 Serum or plasma aspartate aminotransferase measurement (enzymatic activity/ volume) 10 U/L 5-34 Serum or plasma alanine aminotransferase measurement (enzymatic activity/volume ) 9 U/L 0-55 Serum or plasma protein measurement (mass/volume) 6.7 g/dL 6.4-8.2 Serum or plasma albumin measurement (mass/volume) 3.1 g/dL 3.2-4.5 Magnesium - 06/12/16 07:00 Magnesium 1.3 mg/dL 1.8-2.4 Serum or plasma troponin i.cardiac measurement (mass/volume) - 06/12/16 07:00 Serum or plasma troponin i.cardiac measurement (mass/volume) < ng/mL <0.30 Myoglobin, serum - 06/12/16 07:00 Myoglobin, serum 864.2 ng/mL 10.0-92.0 Serum or plasma amylase measurement (enzymatic activity/volume) - 06/12/16 07: 00 Serum or plasma amylase measurement (enzymatic activity/volume) 3 U/L 25-125 Lipase - 06/12/16 07:00 Lipase 14 U/L 8-78 Serum or plasma lithium measurement (moles/volume) - 06/12/16 07:00 BNP level 1056.4 pg/mL <100.0 Complete blood count (CBC) with automated white blood cell (WBC) differential - 08/24/16 15:45 Blood leukocytes automated count (number/volume) 7.3 10*3/ uL 4.3-11.0 Blood erythrocytes automated count (number/volume) 3.30 10*6 /uL 4.35-5.85 Venous blood hemoglobin measurement (mass/volume) 10.3 g/dL 13.3-17.7 Blood hematocrit (volume fraction) 30 % 40-54 Automated erythrocyte mean corpuscular volume 92 [foz_us] 80-99 Automated erythrocyte mean corpuscular hemoglobin (mass per erythrocyte) 31 pg 25-34 Automated erythrocyte mean corpuscular hemoglobin concentration measurement ( mass/volume) 34 g/dL 32-36 Automated erythrocyte distribution width ratio 14.8 % 10.0-14.5 Automated blood platelet count (count/volume) 107 10*3/uL 130-400 Automated blood platelet mean volume measurement 13.3 [foz_ us] 7.4-10.4 Automated blood neutrophils/100 leukocytes 70 % 42-75 Automated blood lymphocytes/100 leukocytes 14 % 12-44 Blood monocytes/100 leukocytes 10 % 0-12 Automated blood eosinophils/100 leukocytes 6 % 0-10 Automated blood basophils/100 leukocytes 0 % 0-10 Blood neutrophils automated count (number/volume) 5.1 10*3 1.8-7.8 Blood lymphocytes automated count (number/volume) 1.0 10*3 1.0-4.0 Blood monocytes automated count (number/volume) 0.7 10*3 0.0-1.0 Automated eosinophil count 0.4 10*3/uL 0.0-0.3 Automated blood basophil count (count/volume) 0.0 10*3/uL 0.0-0.1 Comprehensive metabolic panel - 08/24/16 15:45 Serum or plasma sodium measurement (moles/volume) 135 mmol/ L 135-145 Serum or plasma potassium measurement (moles/volume) 3.9 mmol/L 3.6-5.0 Serum or plasma chloride measurement (moles/volume) 95 mmol/ L 98-107 Carbon dioxide 27 mmol/L 21-32 Serum or plasma anion gap determination (moles/volume) 13 mmol/L 5-14 Serum or plasma urea nitrogen measurement (mass/volume) 46 mg/dL 7-18 Serum or plasma creatinine measurement (mass/volume) 7.81 mg /dL 0.60-1.30 Serum or plasma urea nitrogen/creatinine mass ratio 6 NRG Serum or plasma creatinine measurement with calculation of estimated glomerular filtration rate 7 NRG Serum or plasma glucose measurement (mass/volume) 260 mg/dL 70-105 Serum or plasma calcium measurement (mass/volume) 8.2 mg/dL 8.5-10.1 Serum or plasma total bilirubin measurement (mass/volume) 0.4 mg/dL 0.1-1.0 Serum or plasma alkaline phosphatase measurement (enzymatic activity/volume) 94 U/L 40-136 Serum or plasma aspartate aminotransferase measurement (enzymatic activity/ volume) 13 U/L 5-34 Serum or plasma alanine aminotransferase measurement (enzymatic activity/volume ) 11 U/L 0-55 Serum or plasma protein measurement (mass/volume) 6.4 g/dL 6.4-8.2 Serum or plasma albumin measurement (mass/volume) 2.8 g/dL 3.2-4.5 Serum or plasma troponin i.cardiac measurement (mass/volume) - 08/24/16 15:45 Serum or plasma troponin i.cardiac measurement (mass/volume) < ng/mL <0.30 Serum or plasma lithium measurement (moles/volume) - 08/24/16 15:45 BNP level 1460.6 pg/mL <100.0 Complete blood count (CBC) with automated white blood cell (WBC) differential - 08/31/16 14:30 Blood leukocytes automated count (number/volume) 10.9 10*3/ uL 4.3-11.0 Blood erythrocytes automated count (number/volume) 3.31 10*6 /uL 4.35-5.85 Venous blood hemoglobin measurement (mass/volume) 10.2 g/dL 13.3-17.7 Blood hematocrit (volume fraction) 30 % 40-54 Automated erythrocyte mean corpuscular volume 91 [foz_us] 80-99 Automated erythrocyte mean corpuscular hemoglobin (mass per erythrocyte) 31 pg 25-34 Automated erythrocyte mean corpuscular hemoglobin concentration measurement ( mass/volume) 34 g/dL 32-36 Automated erythrocyte distribution width ratio 14.5 % 10.0-14.5 Automated blood platelet count (count/volume) 117 10*3/uL 130-400 Automated blood platelet mean volume measurement 13.1 [foz_ us] 7.4-10.4 Automated blood neutrophils/100 leukocytes 82 % 42-75 Automated blood lymphocytes/100 leukocytes 8 % 12-44 Blood monocytes/100 leukocytes 8 % 0-12 Automated blood eosinophils/100 leukocytes 2 % 0-10 Automated blood basophils/100 leukocytes 0 % 0-10 Blood neutrophils automated count (number/volume) 8.9 10*3 1.8-7.8 Blood lymphocytes automated count (number/volume) 0.8 10*3 1.0-4.0 Blood monocytes automated count (number/volume) 0.9 10*3 0.0-1.0 Automated eosinophil count 0.2 10*3/uL 0.0-0.3 Automated blood basophil count (count/volume) 0.0 10*3/uL 0.0-0.1 PT panel in platelet poor plasma by coagulation assay - 08/31/16 14:30 Prothrombin time (PT) in platelet poor plasma by coagulation assay 13.9 s 12.2-14.7 INR in platelet poor plasma or blood by coagulation assay 1.1 0.8-1.4 Activated partial thromboplastin time (aPTT) in platelet poor plasma bycoagulation assay - 08/31/16 14:30 Activated partial thromboplastin time (aPTT) in platelet poor plasma bycoagulation assay 36 s 24-35 Blood lactic acid measurement (moles/volume) - 08/31/16 14:30 Blood lactic acid measurement (moles/volume) 1.04 mmol/L 0.50-2.00 Comprehensive metabolic panel - 08/31/16 14:30 Serum or plasma sodium measurement (moles/volume) 134 mmol/ L 135-145 Serum or plasma potassium measurement (moles/volume) 3.6 mmol/L 3.6-5.0 Serum or plasma chloride measurement (moles/volume) 94 mmol/ L 98-107 Carbon dioxide 24 mmol/L 21-32 Serum or plasma anion gap determination (moles/volume) 16 mmol/L 5-14 Serum or plasma urea nitrogen measurement (mass/volume) 54 mg/dL 7-18 Serum or plasma creatinine measurement (mass/volume) 7.58 mg /dL 0.60-1.30 Serum or plasma urea nitrogen/creatinine mass ratio 7 NRG Serum or plasma creatinine measurement with calculation of estimated glomerular filtration rate 7 NRG Serum or plasma glucose measurement (mass/volume) 164 mg/dL 70-105 Serum or plasma calcium measurement (mass/volume) 8.5 mg/dL 8.5-10.1 Serum or plasma total bilirubin measurement (mass/volume) 0.5 mg/dL 0.1-1.0 Serum or plasma alkaline phosphatase measurement (enzymatic activity/volume) 89 U/L 40-136 Serum or plasma aspartate aminotransferase measurement (enzymatic activity/ volume) 8 U/L 5-34 Serum or plasma alanine aminotransferase measurement (enzymatic activity/volume ) 7 U/L 0-55 Serum or plasma protein measurement (mass/volume) 6.4 g/dL 6.4-8.2 Serum or plasma albumin measurement (mass/volume) 2.8 g/dL 3.2-4.5 Bacterial blood culture - 08/31/16 14:30 FREE TEXT EXTERNAL SEE COMMENT NR QUANTITY OF GROWTH Isolated [facility] Bacterial blood culture [id number] [facility] Bacterial blood culture - 08/31/16 14:42 Bacterial blood culture [facility] Complete blood count (CBC) with automated white blood cell (WBC) differential - 09/09/16 13:29 Blood leukocytes automated count (number/volume) 8.3 10*3/ uL 4.3-11.0 Blood erythrocytes automated count (number/volume) 3.33 10*6 /uL 4.35-5.85 Venous blood hemoglobin measurement (mass/volume) 10.2 g/dL 13.3-17.7 Blood hematocrit (volume fraction) 30 % 40-54 Automated erythrocyte mean corpuscular volume 90 [foz_us] 80-99 Automated erythrocyte mean corpuscular hemoglobin (mass per erythrocyte) 31 pg 25-34 Automated erythrocyte mean corpuscular hemoglobin concentration measurement ( mass/volume) 34 g/dL 32-36 Automated erythrocyte distribution width ratio 14.6 % 10.0-14.5 Automated blood platelet count (count/volume) 154 10*3/uL 130-400 Automated blood platelet mean volume measurement 11.9 [foz_ us] 7.4-10.4 Automated blood neutrophils/100 leukocytes 77 % 42-75 Automated blood lymphocytes/100 leukocytes 10 % 12-44 Blood monocytes/100 leukocytes 7 % 0-12 Automated blood eosinophils/100 leukocytes 5 % 0-10 Automated blood basophils/100 leukocytes 1 % 0-10 Blood neutrophils automated count (number/volume) 6.4 10*3 1.8-7.8 Blood lymphocytes automated count (number/volume) 0.8 10*3 1.0-4.0 Blood monocytes automated count (number/volume) 0.6 10*3 0.0-1.0 Automated eosinophil count 0.4 10*3/uL 0.0-0.3 Automated blood basophil count (count/volume) 0.0 10*3/uL 0.0-0.1 Comprehensive metabolic panel - 09/09/16 13:29 Serum or plasma sodium measurement (moles/volume) 131 mmol/ L 135-145 Serum or plasma potassium measurement (moles/volume) 4.1 mmol/L 3.6-5.0 Serum or plasma chloride measurement (moles/volume) 97 mmol/ L 98-107 Carbon dioxide 21 mmol/L 21-32 Serum or plasma anion gap determination (moles/volume) 13 mmol/L 5-14 Serum or plasma urea nitrogen measurement (mass/volume) 41 mg/dL 7-18 Serum or plasma creatinine measurement (mass/volume) 8.26 mg /dL 0.60-1.30 Serum or plasma urea nitrogen/creatinine mass ratio 5 NRG Serum or plasma creatinine measurement with calculation of estimated glomerular filtration rate 7 NRG Serum or plasma glucose measurement (mass/volume) 367 mg/dL 70-105 Serum or plasma calcium measurement (mass/volume) 7.8 mg/dL 8.5-10.1 Serum or plasma total bilirubin measurement (mass/volume) 0.5 mg/dL 0.1-1.0 Serum or plasma alkaline phosphatase measurement (enzymatic activity/volume) 109 U/L 40-136 Serum or plasma aspartate aminotransferase measurement (enzymatic activity/ volume) 10 U/L 5-34 Serum or plasma alanine aminotransferase measurement (enzymatic activity/volume ) 6 U/L 0-55 Serum or plasma protein measurement (mass/volume) 6.0 g/dL 6.4-8.2 Serum or plasma albumin measurement (mass/volume) 2.9 g/dL 3.2-4.5 Serum or plasma creatine kinase measurement (enzymatic activity/volume) - 09/09 13:29 Serum or plasma creatine kinase measurement (enzymatic activity/volume) 129 U/L 30-200 Erythrocyte sedimentation rate by westergren method - 09/09/16 13:29 Erythrocyte sedimentation rate by westergren method 78 mm 0-30 Encounters ACCT No. Visit Date/Time Discharge Status Pt. Type Provider Facility Loc./Unit Complaint [id number] 06/10/2013 06:15:00 06/10/2013 23: 59:59 CLS Outpatient [id number] 06/07/2013 12:36:00 06/07/2013 23: 59:59 CLS Outpatient JEANIE TRIPLETT DO [id number] 05/14/2013 09:09:00 05/14/2013 23: 59:59 CLS Outpatient JEANIE TRIPLETT DO [id number] 04/02/2013 09:54:00 04/02/2013 23: 59:59 CLS Outpatient JEANIE TRIPLETT DO [id number] 01/21/2013 14:14:00 Document Registration [id number] 12/31/2012 08:52:00 Document Registration [id number] 02/07/2012 11:04:00 Document Registration
== END 2016-08-24 18:25 | disposition home or self-care (01) ==
LOC: EDUNIT# 15:33 → ER 15:34
DX: I13.2 Hypertensive heart and chronic kidney disease with heart failure and with stage 5 chronic kidney disease, or end stage renal disease (principal); I51.7 Cardiomegaly; Z99.2 Dependence on renal dialysis; I25.119 Atherosclerotic heart disease of native coronary artery with unspecified angina pectoris; E11.9 Type 2 diabetes mellitus without complications; I25.2 Old myocardial infarction; Z79.82 Long term (current) use of aspirin; Z79.4 Long term (current) use of insulin; Z79.899 Other long term (current) drug therapy; Z95.810 Presence of automatic (implantable) cardiac defibrillator; Z95.1 Presence of aortocoronary bypass graft; Z89.611 Acquired absence of right leg above knee; Z89.612 Acquired absence of left leg above knee
CPT/HCPCS: 36415; 71010; 80053; 83880; 84484; 85025; 93005; 94761; 96374

== ENCOUNTER 2016-08-31 14:17 | Emergency (ER) | payer MEDICARE ==
[~2016-08-31] VITALS: Ht 61 cm; Wt 95.3 kg
[2016-08-31 14:51] LABS: INR 1.1 (0.8-1.4); PROTHROMBIN TIME PATIENT 13.9 SEC (12.2-14.7)
[2016-08-31 14:52] LABS: BASOPHILS % (AUTO) 0 % (0-10); EOSINOPHILS # (AUTO) 0.2 10^3/uL (0.0-0.3); EOSINOPHILS % (AUTO) 2 % (0-10); LYMPHOCYTES # (AUTO) 0.8 X 10^3 (1.0-4.0); LYMPHOCYTES % (AUTO) 8 % (12-44); MEAN CORPUSCULAR HEMOGLOBIN 31 PG (25-34); MEAN CORPUSCULAR HGB CONC 34 G/DL (32-36); MEAN CORPUSCULAR VOLUME 91 FL (80-99); MEAN PLATELET VOLUME 13.1 FL (7.4-10.4); MONOCYTES # (AUTO) 0.9 X 10^3 (0.0-1.0); MONOCYTES % (AUTO) 8 % (0-12); NEUTROPHILS # (AUTO) 8.9 X 10^3 (1.8-7.8); NEUTROPHILS % (AUTO) 82 % (42-75); PLATELET COUNT 117 10^3/uL (130-400); RED BLOOD COUNT 3.31 10^6/uL (4.35-5.85); RED CELL DISTRIBUTION WIDTH 14.5 % (10.0-14.5); WHITE BLOOD COUNT 10.9 10^3/uL (4.3-11.0)
[2016-08-31 14:57] LABS: ALBUMIN 2.8 G/DL (3.2-4.5); BILIRUBIN,TOTAL 0.5 MG/DL (0.1-1.0); CALCIUM 8.5 MG/DL (8.5-10.1); CREATININE SERUM 7.58 MG/DL (0.60-1.30); POTASSIUM 3.6 MMOL/L (3.6-5.0); TOTAL PROTEIN 6.4 G/DL (6.4-8.2)
[2016-08-31] MEDS ORDERED: PIPERACILLIN SODIUM/TAZOBACTAM 2.25 GM in NS (IVPB) 100 ML IV ONE (15:15)
--- NOTE | 2016-08-31 15:27 | ED General ---
General Chief Complaint: Abdominal/GI Problems Stated Complaint: ABD PAIN Nursing Triage Note: PT ARRIVED PER EMS, PT STATES HAS LOWER ABD PAIN THAT STARTED THIS AM, PT HAS REDDEND AREA ON ABD, WARM TO TOUCH, NEAR DIALYSIS STOMA, PT DOES NIGHTLY DIALYSIS AT HOME. PT RATES PAIN 08/02. PT HAS BILATERAL ABOVE KNEE AMPUTATIONS Nursing Sepsis Screen: No Definite Risk Source of Information: Patient Exam Limitations: No Limitations History of Present Illness Time Seen by Provider: 14:19 Initial Comments Here by EMS with report of lower abdominal pain that started this morning. He is on peritoneal dialysis nightly and has had no problems with that. Does have bilateral amputation with left lower extremity of dictation approximately one month ago. Has history of previous bacterial peritonitis. Noted to have redness through the anterior abdominal wall. Timing/Duration: 4-6 Hours Severity: Moderate Modifying Factors: worse with Movement Associated Systoms: No Chest Pain, No Cough, No Nausea/Vomiting, No Shortness of Air, Weakness Allergies and Home Medications Allergies Coded Allergies: azithromycin (Verified Allergy, Severe, HIVES, TROUBLE BREATHING., 07/13/11 ) cephalexin (Unverified Allergy, Unknown, 02/27/16) morphine (Unverified Allergy, Unknown, 02/27/16) vancomycin (Verified Allergy, Unknown, 12/26/15) Home Medications Acetaminophen 325 Mg Tablet, 650 MG PO Q6H PRN, (Reported) Albuterol Sulfate 2.5 Mg/3 Ml Vial.neb, 2.5 MG IH Q4H PRN for SHORTNESS OF BREATH, #28 Ref 0 Prescribed by: EDY NEWSOME on 08/11/152222 Amlodipine Besylate 2.5 Mg Tablet, 2.5 MG PO DAILY, (Reported) Aspirin 81 Mg Tabec, 81 MG PO DAILY, (Reported) take for 10 days Atorvastatin Calcium 80 Mg Tablet, 80 MG PO HS, (Reported) Docusate Sodium 100 Mg Capsule, 100 MG PO Q8H PRN, (Reported) Furosemide 40 Mg Tablet, 40 MG PO DAILY, (Reported) Insulin Aspart 300 Units/3 Ml Solution, 5 UNITS SQ TID, #6 (Reported) Insulin Detemir 100 Unit/1 Ml Insuln.pen, 20 UNITS SQ HS, #6 (Reported) Isosorbide Mononitrate 60 Mg Tab.sr.24h, 60 MG PO DAILY, (Reported) Magnesium Oxide 400 Mg Tablet, 400 MG PO BID, (Reported) Metoprolol Succinate 50 Mg Tab.sr.24h, 50 MG PO DAILY, (Reported) do not crush Mupirocin Calcium 15 Gm Cream..g., 15 GM TP BID, #22 Prescribed by: JARED AGEE on 02/27/16 2358 Nitroglycerin 0.4 Mg Tab.subl, 0.4 MG SL q5 minutes PRN, (Reported) take one tablet every 5 minutes as needed, for a total of 3 doses Pantoprazole Sod 40 Mg Tab, 40 MG PO DAILY, (Reported) no do not crush Potassium Chloride 10 Meq Capsule.sa, 10 MEQ PO DAILY, (Reported) Sulfamethoxazole/Trimethoprim 1 Each Tablet, 1 EACH PO BID, #20 Prescribed by: JARED AGEE on 12/26/15 0606 Sulfamethoxazole/Trimethoprim 1 Each Tablet, 1 EACH PO BID, #20 Prescribed by: JARED AGEE on 02/27/16 2358 Valsartan 80 Mg Tablet, 80 MG PO BID, (Reported) Vit B Cmplx 3/FA/Vit C/Biotin 1 Each Tablet, 1 TAB PO DAILY, #30 (Reported) Constitutional: see HPI, No chills, malaise, weakness EENTM: no symptoms reported Respiratory: no symptoms reported, No cough, No short of breath Cardiovascular: No chest pain, No palpitations Gastrointestinal: abdominal pain, No nausea, No vomiting Genitourinary: no symptoms reported Musculoskeletal: see HPI, muscle pain, muscle weakness Skin: change in color, No lesions Psychiatric/Neurological: Denies Headache, Weakness All Other Systems Reviewed Negative Unless Noted: Yes Past Mhzkbla-Txqriw-Ntrhec Hx Patient Social History Alcohol Use: Denies Use Recreational Drug Use: No Smoking Status: Never a Smoker Recent Foreign Travel: No Contact w/Someone Who Travel: No Recent Infectious Disease Expo: No Recent Hopitalizations: Yes (L AKA) Immunizations Up To Date Tetanus Booster (TDap): Unknown Date of Pneumonia Vaccine: Jan 24, 2011 Date of Influenza Vaccine: Feb 24, 2016 Seasonal Allergies Seasonal Allergies: No Surgeries HX Surgeries: Yes (CABG 2009, RT AKA AMPUTATION 08/08, PACEMAKER L AMPUTATION) Surgeries: Amputation, CABG, Defibrillator, Dialysis, Orthopedic, Pacemaker, Vascular Surgery Respiratory Hx Respiratory Disorders: No (CHF/FLUID OVERLOAD) Cardiovascular Hx Cardiac Disorders: Yes (CHF PACEMAKER-DEFIBRILATOR ) Cardiac Disorders: Chronic Edema/Swelling, Coronary Artery Disease, Heart Attack, High Cholesterol, Hypertension, Peripheral Vascular Neurological Hx Neurological Disorders: Yes (NEUROPATHY HANDS AND FEET) Neurological Disorders: Neuropathy Reproductive System Hx Reproductive Disorders: No Genitourinary Hx Genitourinary Disorders: Yes (PERITONEAL DIALYSIS--NOW HEMO DIALYSIS) Genitourinary Disorders: Renal Failure, Dialysis Gastrointestinal Hx Gastrointestinal Disorders: No Musculoskeletal Hx Musculoskeletal Disorders: Yes (BILATERAL AKA) Musculoskeletal Disorders: Amputee Endocrine Hx Endocrine Disorders: Yes Endocrine Disorders: Diabetes, Insulin dep HEENT HX ENT Disorders: No Cancer Hx Cancer: No Psychosocial Hx Psychiatric Problems: No Integumentary HX Skin/Integumentary Disorder: No Blood Transfusions Hx Blood Disorders: No Adverse Reaction to a Blood Tr: No Reviewed Nursing Assessment Reviewed/Agree w Nursing PMH: Yes Family Medical History Significant Family History: No Pertinent Family Hx Physical Exam-Suspected Sepsis Physical Exam Vital Signs Vital Sign - Last 12Hours 08/31/16 14:36 Temp 98.5 Pulse 99 Resp 18 B/P (MAP) 138/78 Pulse Ox 95 Capillary Refill : Less Than 3 Seconds Blood Pressure Mean: 98 General Appearance: No Apparent Distress, WD/WN HEENT: PERRL/EOMI, Pharynx Normal Neck: Non Tender, Supple Respiratory: Lungs Clear, Normal Breath Sounds Cardiovascular: Regular Rate, Rhythm, No Murmur Gastrointestinal: Soft, Tenderness (anterior abdominal wall.), Other (most of the anterior abdomen in the mid region from below the umbilicus to near the xiphoid and from the midclavicular line to midclavicular line bilaterally is erythematous and tender. There is dialysis catheter to the left lateral abdominal wall.) Back: Normal Inspection, No CVA Tenderness, No Vertebral Tenderness Extremity: Pelvis Stable, Other (bilateral lower extremity [id number] amputation.) Neurologic/Psychiatric: Alert, Oriented x3, No Motor/Sensory Deficits Skin: normal color, warm/dry Focused Exam Lactic Acid Level Laboratory Tests Test 08/31/16 14:30 Lactic Acid Level 1.04 MMOL/L (0.50-2.00) Progress/Results/Core Measures Suspected Sepsis Recent Fever Within 48 Hours: No Infection Criteria Present: None New/Unexplained Altered Menta: No Sepsis Screen: No Definite Risk Sepsis Diagnosis: SIRS Temperature:98.5 Pulse: 99 Respiratory Rate: 18 Laboratory Tests 08/31/16 14:30: White Blood Count 10.9 Blood Pressure 138 /78 Mean: 98 Laboratory Tests 08/31/16 14:30: Creatinine 7.58H, INR Comment 1.1, Platelet Count 117L, Total Bilirubin 0.5 Results/Orders Lab Results Laboratory Tests Test 08/31/16 14:30 Range/Units White Blood Count 10.9 4.3-11.0 10^3/uL Red Blood Count 3.31 L 4.35-5.85 10^6/uL Hemoglobin 10.2 L 13.3-17.7 G/DL Hematocrit 30 L 40-54 % Mean Corpuscular Volume 91 80-99 FL Mean Corpuscular Hemoglobin 31 25-34 PG Mean Corpuscular Hemoglobin Concent 34 32-36 G/DL Red Cell Distribution Width 14.5 10.0-14.5 % Platelet Count 117 L 130-400 10^3/uL Mean Platelet Volume 13.1 H 7.4-10.4 FL Neutrophils (%) (Auto) 82 H 42-75 % Lymphocytes (%) (Auto) 8 L 12-44 % Monocytes (%) (Auto) 8 0-12 % Eosinophils (%) (Auto) 2 0-10 % Basophils (%) (Auto) 0 0-10 % Neutrophils # (Auto) 8.9 H 1.8-7.8 X 10^3 Lymphocytes # (Auto) 0.8 L 1.0-4.0 X 10^3 Monocytes # (Auto) 0.9 0.0-1.0 X 10^3 Eosinophils # (Auto) 0.2 0.0-0.3 10^3/uL Basophils # (Auto) 0.0 0.0-0.1 10^3/uL Prothrombin Time 13.9 12.2-14.7 SEC INR Comment 1.1 0.8-1.4 Activated Partial Thromboplast Time 36 H 24-35 SEC Sodium Level 134 L 135-145 MMOL/L Potassium Level 3.6 3.6-5.0 MMOL/L Chloride Level 94 L 98-107 MMOL/L Carbon Dioxide Level 24 21-32 MMOL/L Anion Gap 16 H 5-14 MMOL/L Blood Urea Nitrogen 54 H 7-18 MG/DL Creatinine 7.58 H 0.60-1.30 MG/DL Estimat Glomerular Filtration Rate 7 BUN/Creatinine Ratio 7 Glucose Level 164 H 70-105 MG/DL Lactic Acid Level 1.04 0.50-2.00 MMOL/L Calcium Level 8.5 8.5-10.1 MG/DL Total Bilirubin 0.5 0.1-1.0 MG/DL Aspartate Amino Transf (AST/SGOT) 8 5-34 U/L Alanine Aminotransferase (ALT/SGPT) 7 0-55 U/L Alkaline Phosphatase 89 40-136 U/L Total Protein 6.4 6.4-8.2 G/DL Albumin 2.8 L 3.2-4.5 G/DL My Orders Orders - SANDI PERALTA MD Cbc With Automated Diff (08/31/16 14:28) Comprehensive Metabolic Panel (08/31/16 14:28) Lactic Acid Analyzer (08/31/16 14:28) Blood Culture (08/31/16 14:28) Sputum Culture (08/31/16 14:28) Ua Culture If Indicated (08/31/16 14:28) Protime With Inr (08/31/16 14:28) Partial Thromboplastin Time (08/31/16 14:28) Chest 1 View, Ap/Pa Only (08/31/16 14:28) O2 (08/31/16 14:28) Saline Lock/Iv-Start (08/31/16 14:28) Saline Lock/Iv-Start (08/31/16 14:28) Vital Signs Adult Sepsis Patie Q1HR (08/31/16 14:28) Remove Rings In Anticipation O (08/31/16 14:28) Piperacillin Sodium/Tazobactam (Zosyn Vi (08/31/16 15:15) Ct Abdomen/Pelvis Wo (08/31/16 16:09) Medications Given in ED Current Medications Medications Dose Ordered Sig/Roni Route Start Time Stop Time Status Last Admin Dose Admin Piperacillin Sod/ Tazobactam Sod 2.25 gm/Sodium Chloride 100 ml @ 200 mls/hr ONCE ONCE IV 08/31/16 15:15 08/31/16 15:44 DC 08/31/16 16:00 200 MLS/HR Vital Signs/I&O Vital Sign - Last 12Hours 08/31/16 14:36 Temp 98.5 Pulse 99 Resp 18 B/P (MAP) 138/78 Pulse Ox 95 Capillary Refill : Less Than 3 Seconds Blood Pressure Mean: 98 Progress Note : Progress Note Seen and evaluated. IV, labs, UA, chest x-ray, lactic acid, blood cultures ordered. Monitor patient. 1540: Physical exam concerning for spontaneous bacterial peritonitis. Zosyn 2.5 g IV initiated which is renal adjusted dosing for peritoneal dialysis. Monitor patient. 1610: I have discussed the case with Dr. Li at [facility] in [facility]. He accepts patient for transfer. He is requesting CT abdomen and pelvis if possible. Agrees with antibiotic choice and current therapy. Patient and family informed and agree with transfer. CT abdomen pelvis ordered. Current vital signs blood pressure 143/88 with heart rate of 98 and O2 sat 98 percent on room air. Temperature 90.9F. To go by [facility]. Diagnostic Imaging Diagonstic Imaging: Xray Plain Films/CT/US/NM/MRI: chest Comments right basilar atelectasis. Diagonstic Imaging: CT Plain Films/CT/US/NM/MRI: abdomen, pelvis Departure Impression Impression: Primary Impression: Spontaneous bacterial peritonitis Disposition: XFER SHT-TRM HOSP Condition: Stable Transfer Transfer Time: 16:10 Transfer Facility: [place], [place]. Dr. Li accepting. Method of Transfer: EMS Departure-Patient Inst. Referrals: NO,LOCAL PHYSICIAN (PCP/Family) Primary Care Physician SANDI PERALTA MD Aug 31, 2016 15:27
--- NOTE | 2016-08-31 16:50 | Diagnostic Imaging Report ---
Portable chest. Compared to prior study of 08/24/2016. INDICATION: Abdominal pain. FINDINGS: Implantable cardiac defibrillator device demonstrated. Cardiac silhouette is enlarged which is unchanged from the prior examination. There are new alveolar opacities demonstrated at the right lung base when compared to the prior study. The left base appears to be clear. There is no significant effusion. There is no pneumothorax. IMPRESSION: 1. New alveolar opacities at the right lung base. Given asymmetry, this is favored to reflect atelectasis or infiltrate rather than edema. Dictated by: Dictated on workstation # [id number]
[2016-08-31 17:03] VITALS: BP 141/81
--- NOTE | 2016-08-31 18:42 | Diagnostic Imaging Report ---
PROCEDURE: CT abdomen and pelvis without contrast. TECHNIQUE: Multiple contiguous axial images were obtained through the abdomen and pelvis without the use of intravenous contrast. INDICATION: Abdominal pain. Possible peritonitis. Diarrhea. FINDINGS: The visualized lung bases demonstrate some mild dependent atelectasis but is otherwise clear. Implantable cardiac defibrillator device demonstrated. There is cardiomegaly. There is no pericardial or pleural effusion. The noncontrast appearance of the liver demonstrates no evidence of a focal intrahepatic abnormality. There are gallstones within the gallbladder. There is no biliary dilatation. The spleen is normal in size. The pancreas is atrophic. There is no adrenal mass. The kidneys are atrophic and demonstrate advanced vascular calcifications. The kidneys are nonobstructed. The small and large bowel are normal in caliber without evidence of obstruction. There is tubing demonstrated within the left lower quadrant. There is a small volume of free air demonstrated within the abdomen which is felt to be related to this tubing. This likely reflects a peritoneal dialysis catheter. There is a small volume of free fluid demonstrated about the liver and a small volume of free fluid in the low anterior pelvis. There is no pneumatosis. The urinary bladder is nondistended. Mild enlargement of the prostate. There are no pathologically enlarged abdominal or pelvic lymph nodes. There are atherosclerotic calcifications with a normal-caliber aorta. No acute or suspicious osseous abnormalities are demonstrated. IMPRESSION: 1. Free fluid in the abdomen and pelvis with left lower quadrant peritoneal dialysis catheter. Bacterial peritonitis cannot be excluded. 2. There is induration of the subcutaneous fat of the anterior abdominal wall and a small degree of fluid demonstrated about the subcutaneous component of the patient's dialysis catheter. 3. No evidence of bowel obstruction. 4. Marked [place] kidney atrophy without obstruction. 5. Cholelithiasis without biliary dilatation. 6. Atherosclerosis. Report faxed to [facility] at 6:41 p.m. 08/31/2016/cb Dictated by: Dictated on workstation # [id number]
--- OUTSIDE RECORDS SUMMARY | 2016-10-06 04:52 | XMS REPORT | Continuity of Care Document ---
Author Author [facility] Organization [facility] Address Unknown Phone Unavailable Care Team Providers Care Glass Beveler Name Role Phone PCP Unavailable Source Comments Some departments are not documenting in the electronic medical record. If you do not see the information that you expected, contact Release of Information in the Health Information Management department at [phone] for further assistance in locating additional records.[facility] Active Allergies and Adverse Reactions [...]
--- OUTSIDE RECORDS SUMMARY | 2016-10-06 04:54 | XMS REPORT | Continuity of Care Document ---
Author Author [facility] of [facility] Address Unknown Phone Unavailable Allergies Active Description Code Type Severity Reaction Onset Reported/Identified Relationship to Patient Clinical Status Yes vancomycin Drug Allergy N/A N/A 04/08/2011 Yes morphine Drug Allergy N/A N/A 04/10/2011 Yes azithromycin [id number] Drug Allergy Severe HIVES, TROUBLE 07/13/2011 Yes vancomycin [id number] Drug Allergy Unknown N/A 12/26/2015 Yes cephalexin [id number] Drug Allergy Unknown N/A 02/27/2016 Yes morphine [id number] Drug Allergy Unknown N/A 02/27/2016 Medications Problems Date Dx Coded Attending Type Code Diagnosis Diagnosed By 04/24/1599 LIZBETH COWART APRN Ot E11.621 TYPE 2 DIABETES MELLITUS WITH FOOT ULCER 04/24/1599 LIZBETH COWART APRN Ot 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 04/24/1599 LIZBETH COWART APRN [...] INFARCT,IN 01/21/2011 Ot 414.01 CORONARY ATHEROSCLEROSIS OF [place] CORON 01/21/2011 Ot 427.0 PAROX ATRIAL TACHYCARDIA [...] INFARCT,IN 03/27/2011 Ot 414.01 CORONARY ATHEROSCLEROSIS OF [place] CORON 03/27/2011 Ot 428.0 CONGESTIVE HEART FAILURE [...] NOS 09/05/2011 Ot 414.01 CORONARY ATHEROSCLEROSIS OF [place] CORON 09/05/2011 Ot 428.0 CONGESTIVE HEART FAILURE [...] BATHROOM OF SINGLE-FAMILY (PRIVATE) HOUS 08/11/2015 EDY RGEEN Ot Y99.8 OTHER EXTERNAL CAUSE STATUS 08/11/2015 EDY GREEN Ot Z79.4 CORRECTION (CURRENT) USE OF INSULIN 08/11/2015 EDY GREEN [...] OLIVER WATTS, BASCELESTE J Ot 414.00 08/11/2015 OLIEVR WATTS, ANGELA J Ot 424.0 08/11/2015 OLIVER [...] S Ot V67.09 08/11/2015 NEW, JARED Gonzales LINKER UP-C Ot 250.40 08/11/2015 NEW, JARED Gonzales LINKER UP-C Ot 263.9 08/11/2015 NEW, JARED Gonzales LINKER UP-C Ot 272.4 08/11/2015 NEW, JARED Banda. LINKER UP-C Ot 276.1 08/11/2015 NEW, JARED Banad. LINKER UP-C Ot 276.7 08/11/2015 NEW, JARED Gonzales LINKER UP-C Ot 285.21 08/11/2015 NEW, JARED Gonzales LINKER UP-C Ot 404.10 08/11/2015 NEW, JARED Gonzales LINKER UP-C Ot 428.0 08/11/2015 NEW, JARED Gonzales LINKER UP-C Ot 585.4 08/11/2015 NEW, JARED Gonzales LINKER UP-C Ot 791.0 08/14/2015 EDY GREEN L Ot [...] S Ot V67.09 08/14/2015 NEW, JARED Gonzales LINKER UP-C Ot 250.40 08/14/2015 NEW, JARED Banda. LINKER UP-C Ot 263.9 08/14/2015 NEW, JARED Banda. LINKER UP-C Ot 272.4 08/14/2015 NEW, JARED Banda. LINKER UP-C Ot 276.1 08/14/2015 NEW, JARED Gonzales LINKER UP-C Ot 276.7 08/14/2015 NEW, JARED Gonzales LINKER UP-C Ot 285.21 08/14/2015 NEW, JARED Gonzales LINKER UP-C Ot 404.10 08/14/2015 NEW, JARED Gonzales LINKER UP-C Ot 428.0 08/14/2015 NEW, JARED Gonzales LINKER UP-C Ot 585.4 08/14/2015 NEW, JARED Gonzales LINKER UP-C Ot 791.0 12/26/2015 CYNDIE HARRIS JARED Reed [...] 272.4 HYPERLIPIDEMIA NEC/NOS 12/26/2015 NEW, JARED G. 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.] BREATH 02/25/2016 DENZEL ROMERO DO, Ot Z79.4 CORRECTION (CURRENT) USE OF INSULIN 02/25/2016 DENZEL ROMERO DO, Ot Z79.899 OTHER GAS CHECK PAD MAKER (CURRENT) DRUG THERAPY 02/25/2016 DENZEL ROMERO DO, [...] STATUS 02/28/2016 JARED AGEE DO Ot Z79.4 CORRECTION (CURRENT) USE OF INSULIN 02/28/2016 JARED AGEE DO Ot Z79.82 GAS CHECK PAD MAKER (CURRENT) USE OF ASPIRIN 02/28/2016 JARED AGEE DO Ot Z79.899 OTHER GAS CHECK PAD MAKER (CURRENT) DRUG THERAPY 02/28/2016 JARED AGEE DO [...] STATUS 02/28/2016 JARED AGEE DO Ot Z79.4 CORRECTION (CURRENT) USE OF INSULIN 02/28/2016 JARED AGEE DO Ot Z79.82 CORRECTION (CURRENT) USE OF ASPIRIN 02/28/2016 CYNDIE JARED HARRIS Ot Z79.899 OTHER GAS CHECK PAD MAKER (CURRENT) DRUG THERAPY 02/28/2016 JARED AGEE DO Ot Z95.1 PRESENCE OF AORTOCORONARY BYPASS GRAFT 02/28/2016 JARED AGEE DO Ot Z95.810 PRESENCE OF AUTOMATIC (IMPLANTABLE) CARD 05/24/2016 LIZBETH COWART APRN Ot E11.621 TYPE 2 DIABETES MELLITUS WITH FOOT ULCER 05/24/2016 LIZBETH COWART APRN Ot I70.202 [facility] [place] ARTERIES [facility] 05/24/2016 LIZBETH COWART APRN Ot 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 05/24/2016 LIZBETH COWART APRN Ot L97.522 NON-PRS CHRONIC ULCER OTH PRT LEFT FOOT 05/24/2016 LIZBETH COWART APRN Ot N18.5 CHRONIC KIDNEY DISEASE, STAGE 5 06/04/2016 LIZBETH COWART SUPERVISOR NUT PROCESSING Ot E11.621 TYPE 2 DIABETES MELLITUS WITH FOOT ULCER 06/04/2016 LIZBETH COWART APRN Ot I70.202 [facility] [place] ARTERIES OF EXTREMITI 06/04/2016 LIZBETH COWART APRN [...] UNSPECIFIED 06/12/2016 SANDI PERALTA MD Ot Z79.4 GAS CHECK PAD MAKER (CURRENT) USE OF INSULIN 06/12/2016 SANDI PERALTA MD Ot Z79.82 GAS CHECK PAD MAKER (CURRENT) USE OF ASPIRIN 06/12/2016 SANDI PERALTA MD Ot Z79.899 OTHER CORRECTION (CURRENT) DRUG THERAPY 06/12/2016 SANDI PERALTA MD [...] UNSPECIFIED 06/13/2016 SANDI PERALTA MD, Ot Z79.4 GAS CHECK PAD MAKER (CURRENT) USE OF INSULIN 06/13/2016 SANDI PERALTA MD Ot Z79.82 CORRECTION (CURRENT) USE OF ASPIRIN 06/13/2016 SANDI PERALTA MD, Ot Z79.899 OTHER GAS CHECK PAD MAKER (CURRENT) DRUG THERAPY 06/13/2016 SANDI PERALTA MD, [...] MD Ot I25.119 ATHSCL HEART DISEASE OF [place] COR ART W 08/24/2016 WADE CHAUDHARY MD Ot I25.2 OLD MYOCARDIAL INFARCTION 08/24/2016 WADE CHAUDHARY MD Ot I51.7 CARDIOMEGALY 08/24/2016 WADE CHAUDHARY MD, Ot R07.9 CHEST PAIN, UNSPECIFIED 08/24/2016 WADE CHAUDHARY MD Ot Z79.4 GAS CHECK PAD MAKER (CURRENT) USE OF INSULIN 08/24/2016 WADE CHAUDHARY MD Ot Z79.82 GAS CHECK PAD MAKER (CURRENT) USE OF ASPIRIN 08/24/2016 WADE CHAUDHARY MD Ot Z79.899 OTHER GAS CHECK PAD MAKER (CURRENT) DRUG THERAPY 08/24/2016 WADE CHAUDHARY MD Ot Z89.611 ACQUIRED ABSENCE OF RIGHT LEG ABOVE KNEE 08/24/2016 WADE CHAUDHARY MD Ot Z89.612 ACQUIRED ABSENCE OF LEFT LEG ABOVE KNEE 08/24/2016 WADE CHAUDHARY MD Ot Z95.1 PRESENCE OF AORTOCORONARY BYPASS GRAFT 08/24/2016 WADE CHAUDHARY MD Ot Z95.810 PRESENCE OF AUTOMATIC (IMPLANTABLE) CARD 08/24/2016 WADE CHAUDHARY MD Ot Z99.2 DEPENDENCE ON RENAL DIALYSIS 08/31/2016 SANDI PERALTA MD Ot E11.9 TYPE 2 DIABETES MELLITUS WITHOUT COMPLIC 08/31/2016 SANDI PERALTA MD Ot I12.0 HYP CHR KIDNEY DISEASE W STAGE 5 CHR KID 08/31/2016 SANDI PERALTA MD Ot I25.10 ATHSCL HEART DISEASE OF [place] CORONARY 08/31/2016 SANDI PERALTA MD Ot I70.91 GENERALIZED ATHEROSCLEROSIS 08/31/2016 SANDI PERALTA MD Ot K65.2 SPONTANEOUS BACTERIAL PERITONITIS 08/31/2016 SANDI PERALTA MD Ot K80.20 CALCULUS OF GALLBLADDER W/O CHOLECYSTITI 08/31/2016 SANDI PERALTA MD Ot N18.6 END STAGE RENAL DISEASE 08/31/2016 SANDI PERALTA MD Ot R10.30 LOWER ABDOMINAL PAIN, UNSPECIFIED 08/31/2016 SANDI PERALTA MD Ot Z79.4 GAS CHECK PAD MAKER (CURRENT) USE OF INSULIN 08/31/2016 SANDI PERALTA MD Ot Z79.82 CORRECTION (CURRENT) USE OF ASPIRIN 08/31/2016 SANDI PERALTA MD Ot Z79.899 OTHER CORRECTION (CURRENT) DRUG THERAPY 08/31/2016 SANDI PERALTA MD Ot Z95.1 PRESENCE OF AORTOCORONARY BYPASS GRAFT 08/31/2016 SANDI PREALTA MD Ot Z95.810 PRESENCE OF AUTOMATIC (IMPLANTABLE) CARD 08/31/2016 SANDI PERALTA MD Ot Z99.2 DEPENDENCE ON RENAL DIALYSIS 09/02/2016 SANDI PERALTA MD Ot E11.9 TYPE 2 DIABETES MELLITUS WITHOUT COMPLIC 09/02/2016 SANDI PERALTA MD Ot I12.0 HYP CHR KIDNEY DISEASE W STAGE 5 CHR KID 09/02/2016 SANDI PERALTA MD Ot I25.10 ATHSCL HEART DISEASE OF [place] CORONARY 09/02/2016 SANDI PERALTA MD Ot I70.91 GENERALIZED ATHEROSCLEROSIS 09/02/2016 SANDI PERALTA MD Ot K65.2 SPONTANEOUS BACTERIAL PERITONITIS 09/02/2016 SANDI PERALTA MD, Ot K80.20 CALCULUS OF GALLBLADDER W/O CHOLECYSTITI 09/02/2016 SANDI PERALTA MD, Ot N18.6 END STAGE RENAL DISEASE 09/02/2016 SANDI PERALTA MD Ot R10.30 LOWER ABDOMINAL PAIN, UNSPECIFIED 09/02/2016 SANDI PERALTA MD Ot Z79.4 GAS CHECK PAD MAKER (CURRENT) USE OF INSULIN 09/02/2016 SANDI PERALTA MD Ot Z79.82 CORRECTION (CURRENT) USE OF ASPIRIN 09/02/2016 SANDI PERALTA MD, Ot Z79.899 OTHER CORRECTION (CURRENT) DRUG THERAPY 09/02/2016 SANDI PERALTA MD [...] MD Ot I25.10 ATHSCL HEART DISEASE OF [place] CORONARY 09/04/2016 SANDI PERALTA MD Ot I70.91 GENERALIZED ATHEROSCLEROSIS 09/04/2016 SANDI PERALTA MD Ot K65.2 SPONTANEOUS BACTERIAL PERITONITIS 09/04/2016 SANDI PERALTA MD Ot K80.20 CALCULUS OF GALLBLADDER W/O CHOLECYSTITI 09/04/2016 SANDI PERALTA MD, Ot N18.6 END STAGE RENAL DISEASE 09/04/2016 SANDI PERALTA MD Ot R10.30 LOWER ABDOMINAL PAIN, UNSPECIFIED 09/04/2016 SANDI PERALTA MD Ot Z79.4 GAS CHECK PAD MAKER (CURRENT) USE OF INSULIN 09/04/2016 SANDI PERALTA MD Ot Z79.82 CORRECTION (CURRENT) USE OF ASPIRIN 09/04/2016 SANDI PERALTA MD, Ot Z79.899 OTHER GAS CHECK PAD MAKER (CURRENT) DRUG THERAPY 09/04/2016 SANDI PERALTA MD Ot Z95.1 PRESENCE OF AORTOCORONARY BYPASS GRAFT 09/04/2016 SANDI PERALTA MD Ot Z95.810 PRESENCE OF AUTOMATIC (IMPLANTABLE) CARD 09/04/2016 SANDI PERALTA MD Ot Z99.2 DEPENDENCE ON RENAL DIALYSIS 09/10/2016 JOAQUIN TIRADO MD Ot K65.9 PERITONITIS, UNSPECIFIED 09/10/2016 JOAQUIN TIRADO MD Ot Z79.2 GAS CHECK PAD MAKER (CURRENT) USE OF ANTIBIOTICS 09/11/2016 JOAQUIN TIRADO MD Ot K65.9 PERITONITIS, UNSPECIFIED 09/11/2016 JOAQUIN TIRADO MD Ot Z79.2 CORRECTION (CURRENT) USE OF ANTIBIOTICS 09/13/2016 JOAQUIN TIRADO MD Ot K65.9 PERITONITIS, UNSPECIFIED 09/13/2016 JOAQUIN TIRADO MD Ot Z79.2 CORRECTION (CURRENT) USE OF ANTIBIOTICS 09/16/2016 JOAQUIN TIRADO MD Ot K65.9 PERITONITIS, UNSPECIFIED 09/16/2016 JOAQUIN TIRADO MD Ot Z79.2 GAS CHECK PAD MAKER (CURRENT) USE OF ANTIBIOTICS 09/18/2016 JOAQUIN TIRADO MD Ot K65.9 PERITONITIS, UNSPECIFIED 09/18/2016 JOAQUIN TIRADO MD Ot Z79.2 CORRECTION (CURRENT) USE OF ANTIBIOTICS Procedures Code Description Performed By Performed On 00.40 01/20/2011 00.45 01/20/2011 00.66 01/20/2011 36.07 01/20/2011 88.49 01/20/2011 88.56 01/20/2011 88.49 03/24/2011 88.56 03/24/2011 [id number] ROUTINE VENIPUNCTURE 01/21/2013 46825 CBC 01/21/2013 67076 CMP 01/21/2013 [id number] GFR CALC (RESULT ONLY) 01/21/2013 [id number] SPTYPE 2012 Cardiolog Angela Prieto 02/08/2013 [id number] MICRO ALBUMIN-IN HOUSE 04/02/2013 28542 A1C (IN-HOUSE) 49533 MICROALBUMIN 01/2013 GENERAL [facility] [place] 04/03/2013 94692 ROUTINE VENIPUNCTURE 05/14/2013 66597 US BREAST ULTRASOUND, RIGHT 05/14/2013 01814 [facility] 05/14/2013 Nephrolog Sanket Nephrology 05/14/2013 07084 ROUTINE VENIPUNCTURE 06/07/2013 48506 CMP 06/07/2013 51014 PHOSPHORUS 2013 PRO/CRE URINE PROTEIN TO CREATNINE RATIO 06/07/2013 Results Test Result Range Body fluid cell count - 12/26/15 06:00 Specimen source identification of body fluid SYNOVIAL NRG Evaluation of color of body fluid RED NRG Determination of appearance of body fluid MKD BLDY NRG Body fluid leukocytes count (number/volume) 0 /uL NRG Body fluid erythrocytes count (number/volume) 56471 /uL NRG * Body fluid crystals type [...] SEE COMMENT NR QUANTITY OF GROWTH Isolated BANNER Bacterial blood culture [id number] BANNER Bacterial blood culture - 08/31/16 14:42 Bacterial blood culture [facility] Complete blood count (CBC) with automated white [...] rate by westergren method 78 mm 0-30 Complete blood count (CBC) with automated white blood cell (WBC) differential - 09/18/16 13:29 Blood leukocytes automated count (number/volume) 7.7 10*3/ uL 4.3-11.0 Blood erythrocytes automated count (number/volume) 3.49 10*6 /uL 4.35-5.85 Venous blood hemoglobin measurement (mass/volume) 10.6 g/dL 13.3-17.7 Blood hematocrit (volume fraction) 31 % 40-54 Automated erythrocyte mean corpuscular volume 90 [foz_us] 80-99 Automated erythrocyte mean corpuscular hemoglobin (mass per erythrocyte) 30 pg 25-34 Automated erythrocyte mean corpuscular hemoglobin concentration measurement ( mass/volume) 34 g/dL 32-36 Automated erythrocyte distribution width ratio 15.0 % 10.0-14.5 Automated blood platelet count (count/volume) 169 10*3/uL 130-400 Automated blood platelet mean volume measurement 12.4 [foz_ us] 7.4-10.4 Automated blood neutrophils/100 leukocytes 76 % 42-75 Automated blood lymphocytes/100 leukocytes 12 % 12-44 Blood monocytes/100 leukocytes 6 % 0-12 Automated blood eosinophils/100 leukocytes 5 % 0-10 Automated blood basophils/100 leukocytes 1 % 0-10 Blood neutrophils automated count (number/volume) 5.8 10*3 1.8-7.8 Blood lymphocytes automated count (number/volume) 1.0 10*3 1.0-4.0 Blood monocytes automated count (number/volume) 0.5 10*3 0.0-1.0 Automated eosinophil count 0.4 10*3/uL 0.0-0.3 Automated blood basophil count (count/volume) 0.1 10*3/uL 0.0-0.1 Erythrocyte sedimentation rate by westergren method - 09/18/16 13:29 Erythrocyte sedimentation rate by westergren method 74 mm 0-30 Comprehensive metabolic panel - 09/18/16 13:29 Serum or plasma sodium measurement (moles/volume) 131 mmol/ L 135-145 Serum or plasma potassium measurement (moles/volume) 3.9 mmol/L 3.6-5.0 Serum or plasma chloride measurement (moles/volume) 93 mmol/ L 98-107 Carbon dioxide 22 mmol/L 21-32 Serum or plasma anion gap determination (moles/volume) 16 mmol/L 5-14 Serum or plasma urea nitrogen measurement (mass/volume) 55 mg/dL 7-18 Serum or plasma creatinine measurement (mass/volume) 7.73 mg /dL 0.60-1.30 Serum or plasma urea nitrogen/creatinine mass ratio 7 NRG Serum or plasma creatinine measurement with calculation of estimated glomerular filtration rate 7 NRG Serum or plasma glucose measurement (mass/volume) 256 mg/dL 70-105 Serum or plasma calcium measurement (mass/volume) 8.6 mg/dL 8.5-10.1 Serum or plasma total bilirubin measurement (mass/volume) 0.8 mg/dL 0.1-1.0 Serum or plasma alkaline phosphatase measurement (enzymatic activity/volume) 103 U/L 40-136 Serum or plasma aspartate aminotransferase measurement (enzymatic activity/ volume) 13 U/L 5-34 Serum or plasma alanine aminotransferase measurement (enzymatic activity/volume ) 16 U/L 0-55 Serum or plasma protein measurement (mass/volume) 6.6 g/dL 6.4-8.2 Serum or plasma albumin measurement (mass/volume) 3.2 g/dL 3.2-4.5 Serum or plasma creatine kinase measurement (enzymatic activity/volume) - 09/18 13:29 Serum or plasma creatine kinase measurement (enzymatic activity/volume) 151 U/L 30-200 Encounters ACCT No. Visit Date/Time Discharge Status Pt. Type Provider Facility Loc./Unit Complaint [id number] 06/10/2013 06:15:00 06/10/2013 23: 59:59 [facility] Outpatient [id number] 06/07/2013 12:36:00 06/07/2013 23: 59:59 [facility] Outpatient JEANIE TRIPLETT DO [id number] 05/14/2013 09:09:00 05/14/2013 23: 59:59 [facility] Outpatient JEANIE TRIPLETT DO [id number] 04/02/2013 09:54:00 04/02/2013 23: 59:59 [facility] Outpatient JEANIE TRIPLETT DO [id number] 01/21/2013 14:14:00 Document Registration [id number] 12/31/2012 08:52:00 Document Registration [id number] 02/07/2012 11:04:00 Document Registration
== END 2016-08-31 17:15 | disposition short-term general hospital (02) ==
LOC: ER 14:17 → EDUNIT# 14:17 → ER 17:15
DX: K65.2 Spontaneous bacterial peritonitis (principal); I12.0 Hypertensive chronic kidney disease with stage 5 chronic kidney disease or end stage renal disease; N18.6 End stage renal disease; Z99.2 Dependence on renal dialysis; E11.9 Type 2 diabetes mellitus without complications; I25.10 Atherosclerotic heart disease of native coronary artery without angina pectoris; K80.20 Calculus of gallbladder without cholecystitis without obstruction; I70.91 Generalized atherosclerosis; Z79.4 Long term (current) use of insulin; Z79.82 Long term (current) use of aspirin; Z79.899 Other long term (current) drug therapy; Z95.1 Presence of aortocoronary bypass graft; Z95.810 Presence of automatic (implantable) cardiac defibrillator
CPT/HCPCS: 36415; 71010; 74176; 80053; 83605; 85025; 85610; 85730; 87040; 96365

== ENCOUNTER 2016-09-18 13:13 | Outpatient (RCR) | payer MEDICAID, MEDICARE ==
[2016-09-09 13:37] LABS: BASOPHILS % (AUTO) 1 % (0-10); EOSINOPHILS # (AUTO) 0.4 10^3/uL (0.0-0.3); EOSINOPHILS % (AUTO) 5 % (0-10); LYMPHOCYTES # (AUTO) 0.8 X 10^3 (1.0-4.0); LYMPHOCYTES % (AUTO) 10 % (12-44); MEAN CORPUSCULAR HEMOGLOBIN 31 PG (25-34); MEAN CORPUSCULAR HGB CONC 34 G/DL (32-36); MEAN CORPUSCULAR VOLUME 90 FL (80-99); MEAN PLATELET VOLUME 11.9 FL (7.4-10.4); MONOCYTES # (AUTO) 0.6 X 10^3 (0.0-1.0); MONOCYTES % (AUTO) 7 % (0-12); NEUTROPHILS # (AUTO) 6.4 X 10^3 (1.8-7.8); NEUTROPHILS % (AUTO) 77 % (42-75); PLATELET COUNT 154 10^3/uL (130-400); RED BLOOD COUNT 3.33 10^6/uL (4.35-5.85); RED CELL DISTRIBUTION WIDTH 14.6 % (10.0-14.5); WHITE BLOOD COUNT 8.3 10^3/uL (4.3-11.0)
[2016-09-09 14:03] LABS: ALBUMIN 2.9 G/DL (3.2-4.5); BILIRUBIN,TOTAL 0.5 MG/DL (0.1-1.0); CALCIUM 7.8 MG/DL (8.5-10.1); CREATININE SERUM 8.26 MG/DL (0.60-1.30); POTASSIUM 4.1 MMOL/L (3.6-5.0)
[2016-09-09 14:12] LABS: ERYTHROCYTE SEDIMENTATION RATE 78 MM/HR (0-30)
[2016-09-09 14:15] VITALS: BP 156/96
[2016-09-11] MEDS: DAPTOmycin 500 MG/NS 50 ML IVPB IV SCH ×2 (13:20)
[2016-09-11 13:45] VITALS: BP 155/97
[2016-09-13] MEDS: DAPTOmycin 500 MG/NS 50 ML IVPB IV SCH ×2 (13:14)
[2016-09-13 13:40] VITALS: BP 125/102
[2016-09-16] MEDS: DAPTOmycin 500 MG/NS 50 ML IVPB IV SCH ×2 (13:20)
[2016-09-16 14:03] VITALS: BP 166/97
[~2016-09-18] VITALS: Ht 83.8 cm; Wt 95.3 kg
[~2016-09-18 13:13] MED LIST changes: +DAPTOmycin 500 MG/NS 50 ML IVPB IV SCH
[2016-09-18 13:42] LABS: BASOPHILS # (AUTO) 0.1 10^3/uL (0.0-0.1); BASOPHILS % (AUTO) 1 % (0-10); EOSINOPHILS # (AUTO) 0.4 10^3/uL (0.0-0.3); EOSINOPHILS % (AUTO) 5 % (0-10); LYMPHOCYTES % (AUTO) 12 % (12-44); MEAN CORPUSCULAR HEMOGLOBIN 30 PG (25-34); MEAN CORPUSCULAR HGB CONC 34 G/DL (32-36); MEAN CORPUSCULAR VOLUME 90 FL (80-99); MEAN PLATELET VOLUME 12.4 FL (7.4-10.4); MONOCYTES # (AUTO) 0.5 X 10^3 (0.0-1.0); MONOCYTES % (AUTO) 6 % (0-12); NEUTROPHILS # (AUTO) 5.8 X 10^3 (1.8-7.8); NEUTROPHILS % (AUTO) 76 % (42-75); PLATELET COUNT 169 10^3/uL (130-400); RED BLOOD COUNT 3.49 10^6/uL (4.35-5.85); WHITE BLOOD COUNT 7.7 10^3/uL (4.3-11.0)
[2016-09-18 13:58] LABS: ERYTHROCYTE SEDIMENTATION RATE 74 MM/HR (0-30)
[2016-09-18 14:01] LABS: ALBUMIN 3.2 G/DL (3.2-4.5); BILIRUBIN,TOTAL 0.8 MG/DL (0.1-1.0); CALCIUM 8.6 MG/DL (8.5-10.1); CREATININE SERUM 7.73 MG/DL (0.60-1.30); POTASSIUM 3.9 MMOL/L (3.6-5.0); TOTAL PROTEIN 6.6 G/DL (6.4-8.2)
[2016-09-18 14:26] VITALS: BP 166/97
== END 2016-12-08 | disposition home or self-care (01) ==
LOC: SDC 13:13
PROVIDERS: ATTEND Internal Medicine Infectious Disease
DX: K65.9 Peritonitis, unspecified (principal); Z79.2 Long term (current) use of antibiotics
CPT/HCPCS: 36415; 80053; 82550; 85025; 85652; 96365; 99211

== ENCOUNTER 2016-11-06 11:37 | Emergency (ER) | payer MEDICARE, MEDICAID ==
[~2016-11-06] VITALS: Ht 83.8 cm; Wt 95.3 kg
[~2016-11-06 11:37] MED LIST changes: -DAPTOmycin 500 MG/NS 50 ML IVPB IV SCH
--- NOTE | 2016-11-06 12:41 | ED General ---
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 Acosta" LAST WEEK FOR ROUTINE EXAM STATES HE CALLED [facility] TODAY AND THEY WOULD NOT GIVE HIM ANYTHING FOR PAIN, SO HE CAME HERE PT HAS HAD PERITONITIS IN THE PAST, LAST EPISODE WAS 08/31/16 AND [facility] RX FOR CEFTAZIDIME 1 GRAM CALLED IN BY DIALYSIS CENTER ON Friday11/04/16--PT PUTS THROUGH PERITONEAL DIALYSIS BAG PT STATES PAIN IS PROGRESSIVELY GETTING WORSE HAS NOT SEEN ANYONE FOR THIS PROBLEM HAS NOT TAKEN ANYTHING FOR PAIN PT HAS HAD SWEATS AND CHILLS , BUT HAS NOT CHECKED HIS TEMPERATURE NO NAUSEA/VOMITING HAS HAD DIARRHEA, BUT NOT TODAY PT MAKES VERY LITTLE URINE NORMALLY, AND NO CHANGE FROM NORMAL NO CHEST PAIN NO SHORTNESS OF BREATH OR COUGH PT IS INSULIN-DEPENDENT DIABETIC, AND NEVER CHECKS BLOOD SUGAR PT HAS HAD BILATERAL ABOVE THE KNEE AMPUTATIONS RELATED TO DIABETES AND PERIPHERAL VASCULAR DISEASE PT HAS HAD HIS STERNUM REMOVED DUE TO OSTEOMYELITIS PT HAS HAD KS, 3 VESSEL CABG AND 13 CORONARY STENTS--PT STATES THEY CANNOT DO ANY MORE STENTS, AND CAN ONLY BE TREATED MEDICALLY. PT ALSO HAS PACEMAKER/DEFIBRILLATOR PT STATES HE DOES NOT HAVE A PCP--USED TO SEE DR. STEWART AT [facility] IN [place], BUT DOES NOT SEE HIM ANYMORE, AND PT HAS NOT ATTEMPTED TO ESTABLISH WITH LOCAL PCP DIVORCE LAWYER: DR MORGAN" [facility] [employer]: DR. Garrison" AT [place] PT WITH NUMEROUS VISITS HERE. Allergies and Home Medications Allergies Coded Allergies: azithromycin (Verified Allergy, Severe, HIVES, TROUBLE BREATHING., 07/13/11 ) cephalexin (Unverified Allergy, Unknown, 02/27/16) morphine (Unverified Allergy, Unknown, 02/27/16) vancomycin (Verified Allergy, Unknown, 12/26/15) Home Medications Acetaminophen 325 Mg Tablet, 650 MG PO Q6H PRN, (Reported) Albuterol Sulfate 2.5 Mg/3 Ml Vial.neb, 2.5 MG IH Q4H PRN for SHORTNESS OF BREATH, #28 Ref 0 Prescribed by: EDY NEWSOME on 08/11/153 Amlodipine Besylate 2.5 Mg Tablet, 2.5 MG PO DAILY, (Reported) Aspirin 81 Mg Tabec, 81 MG PO DAILY, (Reported) take for 10 days Atorvastatin Calcium 80 Mg Tablet, 80 MG PO HS, (Reported) Docusate Sodium 100 Mg Capsule, 100 MG PO Q8H PRN, (Reported) Furosemide 40 Mg Tablet, 40 MG PO DAILY, (Reported) Insulin Aspart 300 Units/3 Ml Solution, 5 UNITS SQ TID, #6 (Reported) Insulin Detemir 100 Unit/1 Ml Insuln.pen, 20 UNITS SQ HS, #6 (Reported) Isosorbide Mononitrate 60 Mg Tab.sr.24h, 60 MG PO DAILY, (Reported) Magnesium Oxide 400 Mg Tablet, 400 MG PO BID, (Reported) Metoprolol Succinate 50 Mg Tab.sr.24h, 50 MG PO DAILY, (Reported) do not crush Mupirocin Calcium 15 Gm Cream..g., 15 GM TP BID, #22 Prescribed by: JARED AGEE on 02/27/16 2358 Nitroglycerin 0.4 Mg Tab.subl, 0.4 MG SL q5 minutes PRN, (Reported) take one tablet every 5 minutes as needed, for a total of 3 doses Pantoprazole Sod 40 Mg Tab, 40 MG PO DAILY, (Reported) no do not crush Potassium Chloride 10 Meq Capsule.sa, 10 MEQ PO DAILY, (Reported) Sulfamethoxazole/Trimethoprim 1 Each Tablet, 1 EACH PO BID, #20 Prescribed by: JARED AGEE on 12/26/15 0606 Sulfamethoxazole/Trimethoprim 1 Each Tablet, 1 EACH PO BID, #20 Prescribed by: JARED AGEE on 02/27/16 2358 Valsartan 80 Mg Tablet, 80 MG PO BID, (Reported) Vit B Cmplx 3/FA/Vit C/Biotin 1 Each Tablet, 1 TAB PO DAILY, #30 (Reported) Constitutional: see HPI, diaphoresis Respiratory: no symptoms reported Cardiovascular: no symptoms reported Gastrointestinal: see HPI, abdominal pain, diarrhea, No nausea, No vomiting Genitourinary: see HPI Musculoskeletal: no symptoms reported Skin: no symptoms reported Psychiatric/Neurological: No Symptoms Reported Hematologic/Lymphatic: No Symptoms Reported Past Nongywx-Pidyjy-Oqqozj Hx Patient Social History Alcohol Use: Denies Use Recreational Drug Use: No Smoking Status: Never a Smoker Recent Foreign Travel: No Contact w/Someone Who Travel: No Recent Infectious Disease Expo: No Recent Hopitalizations: Yes (L AKA) Immunizations Up To Date Tetanus Booster (TDap): Unknown Date of Pneumonia Vaccine: Jan 24, 2011 Date of Influenza Vaccine: Feb 24, 2016 Seasonal Allergies Seasonal Allergies: No Surgeries HX Surgeries: Yes (CABG 2009, RT AKA AMPUTATION 08/08, PACEMAKER/ DEFIBRILLATOR; L AKA AMPUTATION; STERNUM REMOVED DUE TO OSTEOMYELITIS; PERITONEAL DIALYSIS; CARDIAC CATHS WITH CABG AND 13 STENTS) Surgeries: Amputation, CABG, Defibrillator, Dialysis, Orthopedic, Pacemaker, Vascular Surgery Respiratory Hx Respiratory Disorders: No (CHF/FLUID OVERLOAD) Cardiovascular Hx Cardiac Disorders: Yes (CHF PACEMAKER-DEFIBRILLATOR ) Cardiac Disorders: Chronic Edema/Swelling, Coronary Artery Disease, Heart Attack, High Cholesterol, Hypertension, Peripheral Vascular Neurological Hx Neurological Disorders: Yes (NEUROPATHY HANDS AND FEET) Neurological Disorders: Neuropathy Reproductive System Hx Reproductive Disorders: No Genitourinary Hx Genitourinary Disorders: Yes (PERITONEAL DIALYSIS X 3 YEARS) Genitourinary Disorders: Renal Failure, Dialysis Gastrointestinal Hx Gastrointestinal Disorders: No Musculoskeletal Hx Musculoskeletal Disorders: Yes (BILATERAL AKA) Musculoskeletal Disorders: Amputee Endocrine Hx Endocrine Disorders: Yes (NEVER CHECKS BLOOD GLUCOSE) Endocrine Disorders: Diabetes, Insulin dep HEENT HX ENT Disorders: No Cancer Hx Cancer: No Psychosocial Hx Psychiatric Problems: No Integumentary HX Skin/Integumentary Disorder: No Blood Transfusions Hx Blood Disorders: No Adverse Reaction to a Blood Tr: No Physical Exam Vital Signs Vital Sign - Last 12Hours 11/06/16 12:12 Temp 98.3 Pulse 94 Resp 18 B/P (MAP) 128/77 Capillary Refill : Less Than 3 Seconds General Appearance: No Apparent Distress, Obese, Other (DOES NOT APPEAR TO BE IN ANY DISCOMFORT. ) HEENT: PERRL/EOMI Respiratory: Normal Breath Sounds, No Accessory Muscle Use, No Respiratory Distress, Decreased Breath Sounds (IN BASES BILATERALLY) Cardiovascular: Regular Rate, Rhythm, No JVD, No Murmur Gastrointestinal: Abnormal Bowel Sounds (DECREASED), Distended (/FIRM), Tenderness (DIFFUSE TENDERNESS. ), Other (PERITONEAL DIALYSIS SHUNT IN LEFT ABDOMEN) Extremity: Other (BILATERAL AKA) Neurologic/Psychiatric: Alert, Oriented x3, No Motor/Sensory Deficits (GROSSLY INTACT, WITH HISTORY OF NEUROPATHY IN HANDS AND LEGS/ FEET--NOW S/P BILATERAL AKA), Normal Mood/Affect, stores assistant II-XII Norm as Tested Skin: Warm/Dry, Other (SALLOW; ANTERIOR ABDOMINAL WALL IS ERYTHEMATOUS AND INDURATED) Focused Exam Lactic Acid Level Progress/Results/Core Measures Results/Orders Lab Results Laboratory Tests Test 11/06/16 12:48 11/06/16 13:26 Range/Units White Blood Count 7.6 4.3-11.0 10^3/uL Red Blood Count 3.44 L 4.35-5.85 10^6/uL Hemoglobin 10.4 L 13.3-17.7 G/DL Hematocrit 32 L 40-54 % Mean Corpuscular Volume 93 80-99 FL Mean Corpuscular Hemoglobin 30 25-34 PG Mean Corpuscular Hemoglobin Concent 33 32-36 G/DL Red Cell Distribution Width 15.7 H 10.0-14.5 % Platelet Count 187 130-400 10^3/uL Mean Platelet Volume 12.1 H 7.4-10.4 FL Neutrophils (%) (Auto) 75 42-75 % Lymphocytes (%) (Auto) 11 L 12-44 % Monocytes (%) (Auto) 10 0-12 % Eosinophils (%) (Auto) 4 0-10 % Basophils (%) (Auto) 0 0-10 % Neutrophils # (Auto) 5.7 1.8-7.8 X 10^3 Lymphocytes # (Auto) 0.9 L 1.0-4.0 X 10^3 Monocytes # (Auto) 0.7 0.0-1.0 X 10^3 Eosinophils # (Auto) 0.3 0.0-0.3 10^3/uL Basophils # (Auto) 0.0 0.0-0.1 10^3/uL Sodium Level 135 135-145 MMOL/L Potassium Level 3.8 3.6-5.0 MMOL/L Chloride Level 92 L 98-107 MMOL/L Carbon Dioxide Level 24 21-32 MMOL/L Anion Gap 19 H 5-14 MMOL/L Blood Urea Nitrogen 59 H 7-18 MG/DL Creatinine 8.72 H 0.60-1.30 MG/DL Estimat Glomerular Filtration Rate 6 BUN/Creatinine Ratio 7 0-20 Glucose Level 129 H 70-105 MG/DL Lactic Acid Level 1.42 0.50-2.00 MMOL/L Calcium Level 8.3 L 8.5-10.1 MG/DL Magnesium Level 1.5 L 1.8-2.4 MG/DL Total Bilirubin 0.3 0.1-1.0 MG/DL Aspartate Amino Transf (AST/SGOT) 7 5-34 U/L Alanine Aminotransferase (ALT/SGPT) < 6 0-55 U/L Alkaline Phosphatase 81 40-136 U/L Total Protein 6.6 6.4-8.2 GM/DL Albumin 2.7 L 3.2-4.5 GM/DL Amylase Level 4 L 25-125 U/L Lipase 12 8-78 U/L Prothrombin Time 14.2 12.2-14.7 SEC INR Comment 1.1 0.8-1.4 Activated Partial Thromboplast Time 34 24-35 SEC My Orders Orders - JARED AGEE DO Saline Lock/Iv-Start (11/06/16 12:31) Amylase (11/06/16 12:31) Cbc With Automated Diff (11/06/16 12:31) Comprehensive Metabolic Panel (11/06/16 12:31) Lactic Acid Analyzer (11/06/16 12:31) Lipase (11/06/16 12:31) Magnesium (11/06/16 12:31) Protime With Inr (11/06/16 12:31) Partial Thromboplastin Time (11/06/16 12:31) Blood Culture (11/06/16 12:31) Chest 1 View, Ap/Pa Only (11/06/16 12:34) Ct Abdomen/Pelvis Wo (11/06/16 12:49) Piperacillin Sodium/Tazobactam (Zosyn Vi (11/06/16 14:15) Fentanyl Injection (Sublimaze Injection (11/06/16 14:15) Cho 45g/M 0snack (12-1500 Marek) (11/06/16 Lunch) Fentanyl Injection (Sublimaze Injection (11/06/16 16:47) Medications Given in ED Current Medications Medications Dose Ordered Sig/Roni Route Start Time Stop Time Status Last Admin Dose Admin Fentanyl Citrate 50 mcg ONCE ONCE IVP 11/06/16 14:15 11/06/16 14:16 DC 11/06/16 14:15 50 MCG Piperacillin Sod/ Tazobactam Sod 2.5 gm/Sodium Chloride 100 ml @ 200 mls/hr ONCE ONCE IV 11/06/16 14:15 11/06/16 14:44 DC 11/06/16 14:22 200 MLS/HR Vital Signs/I&O Vital Sign - Last 12Hours 11/06/16 12:12 Temp 98.3 Pulse 94 Resp 18 B/P (MAP) 128/77 Blood Pressure Mean: 94 Progress Note : Progress Note NO DETERIORATION IN PT'S CONDITION DURING ER STAY MARKED DELAY IN TRANSFER, DUE TO NO EMS UNIT AVAILABLE Diagnostic Imaging Comments CXR--NO ACUTE PROCESS CT ABDOMEN/PELVIS--FREE FLUID AND SMALL AMOUNT OF PNEUMOPERITONEUM--PERITONEAL DIALYSIS CATHETER RELATED VS PERITONITIS. OTHER CHRONIC FINDINGS PER RADIOLOGIST REPORTS @ 1336 Reviewed: Reviewed by Me Departure Communication Progress Notes 1342--CALLED [facility] CALL. 1400--SPOKE WITH DR. MCKINNEY, HOSPITALIST, ACCEPTS PT FOR DIRECT ADMIT. WILL GIVE ZOSYN HERE Impression Impression: Primary Impression: ESRD on peritoneal dialysis Additional Impressions: Abdominal wall cellulitis Peritonitis associated with peritoneal dialysis Failure of outpatient treatment Disposition: XFER SHT-TRM HOSP Condition: Stable Departure-Patient Inst. Referrals: NO,LOCAL PHYSICIAN (PCP/Family) Primary Care Physician JARED AGEE DO Nov 06, 2016 12:41
[2016-11-06 13:01] LABS: BASOPHILS % (AUTO) 0 % (0-10); EOSINOPHILS # (AUTO) 0.3 10^3/uL (0.0-0.3); EOSINOPHILS % (AUTO) 4 % (0-10); LYMPHOCYTES # (AUTO) 0.9 X 10^3 (1.0-4.0); LYMPHOCYTES % (AUTO) 11 % (12-44); MEAN CORPUSCULAR HEMOGLOBIN 30 PG (25-34); MEAN CORPUSCULAR HGB CONC 33 G/DL (32-36); MEAN CORPUSCULAR VOLUME 93 FL (80-99); MEAN PLATELET VOLUME 12.1 FL (7.4-10.4); MONOCYTES # (AUTO) 0.7 X 10^3 (0.0-1.0); MONOCYTES % (AUTO) 10 % (0-12); NEUTROPHILS # (AUTO) 5.7 X 10^3 (1.8-7.8); NEUTROPHILS % (AUTO) 75 % (42-75); PLATELET COUNT 187 10^3/uL (130-400); RED BLOOD COUNT 3.44 10^6/uL (4.35-5.85); RED CELL DISTRIBUTION WIDTH 15.7 % (10.0-14.5); WHITE BLOOD COUNT 7.6 10^3/uL (4.3-11.0)
--- NOTE | 2016-11-06 13:17 | Diagnostic Imaging Report ---
INDICATION: Peritonitis. Portable chest 1:09 PM. There is a dual-chamber pacemaker with IACD. Heart size and pulmonary vascularity are normal. Lungs are clear. There are no effusions or pneumothoraces. IMPRESSION: No acute abnormalities in the chest. Dictated by: Dictated on workstation # [id number]
[2016-11-06 13:22] LABS: ALANINE AMINOTRANSFERASE < 6 U/L (0-55); ALBUMIN 2.7 GM/DL (3.2-4.5); AMYLASE 4 U/L (25-125); ANION GAP 19 MMOL/L (5-14); ASPARTATE AMINO TRANSFERASE 7 U/L (5-34); BILIRUBIN,TOTAL 0.3 MG/DL (0.1-1.0); BLOOD UREA NITROGEN 59 MG/DL (7-18); BUN/CREATININE RATIO 7 (0-20); CALCIUM 8.3 MG/DL (8.5-10.1); CARBON DIOXIDE 24 MMOL/L (21-32); CHLORIDE 92 MMOL/L (98-107); CREATININE SERUM 8.72 MG/DL (0.60-1.30); GFR ESTIMATED 6; GLUCOSE 129 MG/DL (70-105); HEMOLYSIS 3 (0-29); ICTERUS 0.2 (0-1.9); LIPASE 12 U/L (8-78); LIPEMIA 5 (0-49); MAGNESIUM 1.5 MG/DL (1.8-2.4); POTASSIUM 3.8 MMOL/L (3.6-5.0); SODIUM 135 MMOL/L (135-145); TOTAL PROTEIN 6.6 GM/DL (6.4-8.2)
--- NOTE | 2016-11-06 13:24 | Diagnostic Imaging Report ---
PROCEDURE: CT abdomen and pelvis without contrast. TECHNIQUE: Multiple contiguous axial images were obtained through the abdomen and pelvis without the use of intravenous contrast. INDICATION: Abdominal pain. COMPARISON: 08/31/2016 FINDINGS: Included views of the lung bases show extensive calcified coronary atherosclerosis. There is also moderate calcified aortic and arterial atherosclerosis seen within the abdomen and pelvis. Heart is mildly enlarged. CT abdomen: Indwelling peritoneal dialysis catheter is identified coiled in the left lower abdominal quadrant. There is moderate free fluid within the abdomen and pelvis. Small amount of free air is also present. There is no loculated air-fluid collection. There is bilateral renal atrophy. Otherwise, kidneys have an unremarkable noncontrast CT appearance. Liver has macronodular appearance to its external contour suggestive of underlying cirrhosis. There is cholelithiasis. The spleen, pancreas, and adrenal glands have a normal CT appearance. A few scattered subcentimeter retroperitoneal lymph nodes are noted. Otherwise, no abnormal mesenteric or retroperitoneal adenopathy is seen. Small bowel loops are nondistended. Normal appendix cannot be adequately identified, but there is no pericecal inflammation. There is scattered colonic diverticulosis, but no CT evidence of acute diverticulitis. Bony structures show no acute abnormalities. CT pelvis: Urinary bladder is unopacified and minimally distended. There is no loculated fluid collection within the pelvis. There is moderate free fluid. No abnormal lymph nodes are seen. Bony structures show no acute abnormalities. IMPRESSION: 1. Moderate free fluid within the abdomen and pelvis. Findings may be related to indwelling peritoneal dialysis catheter, although ascites related to cirrhosis and underlying liver disease cannot be excluded. 2. Small amount of pneumoperitoneum, which may also be related to indwelling peritoneal dialysis catheter, although peritonitis cannot be excluded. 3. Bilateral renal atrophy. 4. Cholelithiasis. 5. Other nonacute incidental findings as described above. Dictated by: Dictated on workstation # [id number]
[2016-11-06 13:42] LABS: INR 1.1 (0.8-1.4); PROTHROMBIN TIME PATIENT 14.2 SEC (12.2-14.7)
[2016-11-06] MEDS ORDERED: PIPERACILLIN SODIUM/TAZOBACTAM 2.5 GM in NS (IVPB) 100 ML IV ONE (14:15)
[2016-11-06] MEDS ORDERED: fentaNYL INJECTION 100 MCG/2 ML AMP IVP ONE (14:15)
[2016-11-06] MEDS ORDERED: fentaNYL INJECTION 100 MCG/2 ML AMP IVP STA (16:47)
[2016-11-06 17:20] VITALS: BP 125/77
== END 2016-11-06 17:37 | disposition short-term general hospital (02) ==
LOC: EDUNIT# 11:37 → ER 11:40
DX: T80.29XA Infection following other infusion, transfusion and therapeutic injection, initial encounter (principal); L03.311 Cellulitis of abdominal wall; E11.22 Type 2 diabetes mellitus with diabetic chronic kidney disease; I13.2 Hypertensive heart and chronic kidney disease with heart failure and with stage 5 chronic kidney disease, or end stage renal disease; N18.6 End stage renal disease; I25.10 Atherosclerotic heart disease of native coronary artery without angina pectoris; E78.00 Pure hypercholesterolemia, unspecified; Z95.1 Presence of aortocoronary bypass graft; Z95.810 Presence of automatic (implantable) cardiac defibrillator; Z99.2 Dependence on renal dialysis; Z79.82 Long term (current) use of aspirin; Z79.4 Long term (current) use of insulin
CPT/HCPCS: 36415; 71010; 74176; 80053; 82150; 83605; 83690; 83735; 85025; 85610; 85730; 87040; 96365; 96375; 96376

== ENCOUNTER 2017-03-05 09:48 | Outpatient (RCR) | payer MEDICARE, MEDICAID | END 2017-03-05 11:05 | disposition home or self-care (01) | PROVIDERS: ATTEND Nurse Practitioner Family | DX: Z47.81 Encounter for orthopedic aftercare following surgical amputation (principal); Z89.611 Acquired absence of right leg above knee; Z89.612 Acquired absence of left leg above knee; N18.6 End stage renal disease; I73.9 Peripheral vascular disease, unspecified ==

== ENCOUNTER 2017-04-11 18:49 | Emergency (ER) | payer MEDICAID, MEDICARE ==
[~2017-04-11] VITALS: Ht 175.3 cm; Wt 83.9 kg
[~2017-04-11 18:49] MED LIST changes: -NAPR500T3 PO; +NAPR500T4 PO
--- OUTSIDE RECORDS SUMMARY | 2017-04-11 18:54 | XMS REPORT | Clinical Summary ---
Author Author [facility] Organization [facility] Address Unknown Phone Unavailable Care Team Providers Care Maintenance Electrician Name Role Phone PCP Unavailable Source Comments Some departments are not documenting in the electronic medical record. If you do not see the information that you expected, contact Release of Information in the Health Information Management department at [phone] for further assistance in locating additional records.[facility] Allergies Not on File Current Medications Not on file Active Problems Not on file Social History Tobacco Use Types Packs/Day Years Used Date Never Assessed Sex Assigned at Date Recorded Not on file Last Filed Vital Signs Not on file Plan of Treatment Health Maintenance Due Date Last Done Comments HEPATITIS C SCREENING 1961 PHYSICAL (COMPREHENSIVE) 1968 EXAM PERTUSSIS VACCINE 1972 TETANUS VACCINE 1978 COLORECTAL CANCER 2011 SCREENING INFLUENZA VACCINE 12/24/2016 Results Not on filefrom Last 3 Months
[2017-04-11 20:00] VITALS: BP 114/56
[2017-04-11 20:01] LABS: BASOPHILS % (AUTO) 0 % (0-10); EOSINOPHILS # (AUTO) 0.1 10^3/uL (0.0-0.3); EOSINOPHILS % (AUTO) 1 % (0-10); LYMPHOCYTES # (AUTO) 0.9 X 10^3 (1.0-4.0); LYMPHOCYTES % (AUTO) 6 % (12-44); MEAN CORPUSCULAR HEMOGLOBIN 34 PG (25-34); MEAN CORPUSCULAR HGB CONC 34 G/DL (32-36); MEAN CORPUSCULAR VOLUME 100 FL (80-99); MEAN PLATELET VOLUME 13.2 FL (7.4-10.4); MONOCYTES # (AUTO) 1.2 X 10^3 (0.0-1.0); MONOCYTES % (AUTO) 8 % (0-12); NEUTROPHILS # (AUTO) 12.4 X 10^3 (1.8-7.8); NEUTROPHILS % (AUTO) 85 % (42-75); PLATELET COUNT 160 10^3/uL (130-400); RED BLOOD COUNT 3.41 10^6/uL (4.35-5.85); RED CELL DISTRIBUTION WIDTH 16.9 % (10.0-14.5); WHITE BLOOD COUNT 14.6 10^3/uL (4.3-11.0)
[2017-04-11 20:18] LABS: BAND NEUTROPHILS 4 %; BASOPHILS % (MANUAL) 1 %; EOSINOPHILS % (MANUAL) 1 %; LYMPHOCYTES % (MANUAL) 5 %; NEUTROPHILS % (MANUAL) 83 %
--- NOTE | 2017-04-11 20:25 | Diagnostic Imaging Report ---
EXAM: CHEST PA/LAT (2 VIEW) INDICATION: Fever. COMPARISON: Chest radiograph 11/06/2016. FINDINGS: Cardiomegaly with moderate central pulmonary venous congestion. AICD. Sternotomy. Right IJ dual lumen CVC tip mid SVC. Mild atelectasis or infiltrate in the left lung base. No large pleural effusion or pneumothorax. No acute osseous findings. IMPRESSION: 1. Cardiomegaly with moderate central pulmonary venous congestion has progressed since the prior exam. 2. New right IJ dual-lumen CVC catheter tip in the mid SVC. Dictated by: Dictated on workstation # [id number]
[2017-04-11 20:30] VITALS: BP 128/66
[2017-04-11 20:35] LABS: ALBUMIN 3.7 GM/DL (3.2-4.5); BILIRUBIN,TOTAL 1.1 MG/DL (0.1-1.0); CALCIUM 8.5 MG/DL (8.5-10.1); CREATININE SERUM 3.84 MG/DL (0.60-1.30); POTASSIUM 3.8 MMOL/L (3.6-5.0); TOTAL PROTEIN 7.6 GM/DL (6.4-8.2)
[2017-04-11] MEDS ORDERED: CINA30TA2 (20:58)
[2017-04-11 21:00] VITALS: BP 132/63
--- NOTE | 2017-04-11 21:16 | ED General ---
General Chief Complaint: Fever-Adult/Adol Stated Complaint: FEVER,BLOOD INFECTION Nursing Triage Note: pt reports fever starting today. chronic cough. dialysis clinic reported to him today that he has an infection in his blood. he has been on zpack x 1 week. reports soa worse today. pt is on dialysis et had treatment today. Nursing Sepsis Screen: Possible Sepsis Risk Source of Information: Patient History of Present Illness Time Seen by Provider: 19:50 Initial Comments PT ARRIVES VIA POV FROM HOME PT STATES THAT DIALYSIS STAFF TOLD HIM HE HAD "INFECTION IN HIS BLOOD" TODAY-- GETS DIALYSIS -W- AT [facility]. STATES HE WAS TOLD TO "SEE HIS DR" FOR THIS PROBLEM PT STATES HE HAD FEVER OF 101 THIS AFTER NOON HAS INCREASE IN CHRONIC COUGH -PRODUCTIVE OF CLEAR TO WHITE SPUTUM INCREASE IN CHRONIC SHORTNESS OF BREATH TODAY--DOES NOT WEAR OXYGEN, BUT STATES SHORTNESS OF BREATH IS IMPROVED WITH O2 ON ARRIVAL TO ER--SATS LOW 87-88 % ON ROOM AIR IN ER NO CHEST PAIN NO NAUSEA/VOMITING NO ABDOMINAL PAIN NO PAIN ANYWHERE DOES NOT MAKE URINE--HAS BEEN ON DIALYSIS X 3 YEARS. WAS ON PERITONEAL DIALYSIS , NOW ON HEMODIALYSIS X 1 YEAR-HAS RIGHT CENTRAL VENOUS DIALYSIS CATHETER --NEW ONE PLACED 2 WEEKS AGO. NO PAIN, REDNESS, SWELLING OR DRAINAGE AROUND THE SITE. PT HAD FEVER > 100 APPROXIMATELY 1 1/2 WEEKS AGO, WAS PLACED ON ZITHROMAX ON --FINISHED EARLIER THIS WEEK, BUT PT WAS NOT HAVING ANY SPECIFIC SYMPTOMS , AND PT STATES THEY DID NOT TELL HIM WHAT TYPE OF INFECTION THEY WERE TREATING. TEMP WENT AWAY AND CAME BACK TODAY HAS HAD BILATERAL AKA'S IN THE PAST. NO PAIN, SWELLING OR INCREASED REDNESS TO SURGICAL SITES--STATES HAS HAD MILD REDNESS AROUND SURGICAL SITES SINCE SURGERY AND HAVE NEVER CHANGED. 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 Garrison" Allergies and Home Medications Allergies Coded Allergies: azithromycin (Verified Allergy, Severe, HIVES, TROUBLE BREATHING., 07/13/11 ) cephalexin (Unverified Allergy, Unknown, 02/27/16) morphine (Unverified Allergy, Unknown, 02/27/16) vancomycin (Verified Allergy, Unknown, 12/26/15) Home Medications Acetaminophen 325 Mg Tablet, 650 MG PO Q6H PRN, (Reported) Albuterol Sulfate 2.5 Mg/3 Ml Vial.neb, 2.5 MG IH Q4H PRN for SHORTNESS OF BREATH, #28 Ref 0 Prescribed by: EDY NEWSOME on 08/11/152222 Amlodipine Besylate 2.5 Mg Tablet, 2.5 MG PO DAILY, (Reported) Aspirin 81 Mg Tabec, 81 MG PO DAILY, (Reported) take for 10 days Atorvastatin Calcium 80 Mg Tablet, 80 MG PO HS, (Reported) Cinacalcet HCl 30 Mg Tablet, (Reported) Docusate Sodium 100 Mg Capsule, 100 MG PO Q8H PRN, (Reported) Furosemide 40 Mg Tablet, 40 MG PO DAILY, (Reported) Insulin Aspart 300 Units/3 Ml Solution, 5 UNITS SQ TID, #6 (Reported) Insulin Detemir 100 Unit/1 Ml Insuln.pen, 20 UNITS SQ HS, #6 (Reported) Isosorbide Mononitrate 60 Mg Tab.sr.24h, 60 MG PO DAILY, (Reported) Magnesium Oxide 400 Mg Tablet, 400 MG PO BID, (Reported) Metoprolol Succinate 50 Mg Tab.sr.24h, 50 MG PO DAILY, (Reported) do not crush Nitroglycerin 0.4 Mg Tab.subl, 0.4 MG SL q5 minutes PRN, (Reported) take one tablet every 5 minutes as needed, for a total of 3 doses Pantoprazole Sod 40 Mg Tab, 40 MG PO DAILY, (Reported) no do not crush Potassium Chloride 10 Meq Capsule.sa, 10 MEQ PO DAILY, (Reported) Valsartan 80 Mg Tablet, 80 MG PO BID, (Reported) Vit B Cmplx 3/FA/Vit C/Biotin 1 Each Tablet, 1 TAB PO DAILY, #30 (Reported) Constitutional: see HPI, fever EENTM: no symptoms reported Respiratory: see HPI, cough, short of breath Cardiovascular: no symptoms reported, No chest pain Gastrointestinal: no symptoms reported, No abdominal pain, No loss of appetite , No nausea, No vomiting Genitourinary: see HPI Musculoskeletal: no symptoms reported Skin: no symptoms reported Psychiatric/Neurological: No Symptoms Reported Hematologic/Lymphatic: No Symptoms Reported Immunological/Allergic: no symptoms reported Past Qftvwqw-Lvglqy-Bukxck Hx Patient Social History Alcohol Use: Denies Use Recreational Drug Use: No Recent Foreign Travel: No Contact w/Someone Who Travel: No Recent Infectious Disease Expo: No Recent Hopitalizations: No Immunizations Up To Date Tetanus Booster (TDap): Unknown Date of Pneumonia Vaccine: Jan 24, 2011 Date of Influenza Vaccine: Feb 24, 2016 Seasonal Allergies Seasonal Allergies: No Surgeries History of Surgeries: Yes (CABG 2009, RT AKA 08/08; PACEMAKER/ DEFIBRILLATOR; L AKA; PERITONEAL DIALYSIS SHUNT 2013-CONVERTED TO HEMODIALYSIS WITH CENTRAL LINE FOR DIALYSIS PLACED 2015) Surgeries: Amputation, CABG, Defibrillator, Dialysis, Orthopedic, Pacemaker, Vascular Surgery Respiratory History of Respiratory Disorde: No (CHF/FLUID OVERLOAD) Cardiovascular History of Cardiac Disorders: Yes (CHF PACEMAKER-DEFIBRILLATOR ) Cardiac Disorders: Chronic Edema/Swelling, Coronary Artery Disease, Heart Attack, High Cholesterol, Hypertension, Peripheral Vascular Neurological History of Neurological Disord: Yes (NEUROPATHY HANDS AND FEET--NOW BILATERAL AKA'S) Neurological Disorders: Neuropathy Reproductive System Hx Reproductive Disorders: No Genitourinary History of Genitourinary Disor: Yes (PERITONEAL DIALYSIS 2013-CONVERTED TO HEMODIALYSIS 2015 WITH RIGHT CENTRAL LINE) Genitourinary Disorders: Renal Failure, Dialysis Gastrointestinal History of Gastrointestinal Di: No Musculoskeletal History of Musculoskeletal Dis: Yes (BILATERAL AKA'S) Musculoskeletal Disorders: Amputee Endocrine History of Endocrine Disorders: Yes Endocrine Disorders: Diabetes, Insulin dep HEENT History of HEENT Disorders: No Cancer History of Cancer: No Psychosocial History of Psychiatric Problem: No Integumentary History of Skin or Integumenta: No Blood Transfusions History of Blood Disorders: No Adverse Reaction to a Blood Tr: No Physical Exam Vital Signs Vital Sign - Last 12Hours 04/11/17 04/11/17 04/11/17 19:20 19:50 20:00 Temp 101.6 Pulse 103 Resp 28 B/P (MAP) 127/61 Pulse Ox 2 O2 Delivery Nasal Cannula O2 Flow Rate 2.00 Capillary Refill : Less Than 3 Seconds General Appearance: Obese, Other (MILDLY DYSPNEIC) HEENT: PERRL/EOMI Neck: Non Tender, Supple, Carotid Bruit, No JVD Respiratory: Decreased Breath Sounds (RIGHT BASE), Rales (BIBASILAR), Other ( MILDLY DYSPNEIC, TACHYPNEIC; FREQUENT PRODUCTIVE COUGH--WHITE SPUTUM) Cardiovascular: No Murmur, Tachycardia Gastrointestinal: Non Tender, Soft Back: No CVA Tenderness Extremity: Normal Capillary Refill, Other (BILATERAL AKA'S; SURGICAL SCARS WITH MILD CHRONIC-APPEARING INDURATION/ERYTHEMA-NO TENDERNESS, NO AREAS OF FLUCTUANCE;NO WARMTH. NO WOUNDS --PT STATES THAT THIS IS NORMAL APPEARANCE. 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 NO OVERT SIGNS OF INFECTION. ) Focused Exam Evaluation Lactate Level Laboratory Tests 04/11/17 19:50: Lactic Acid Level 1.80 Lactic Acid Level Progress/Results/Core Measures Suspected Sepsis Recent Fever Within 48 Hours: Yes Infection Criteria Present: Suspected New Infection New/Unexplained Altered Menta: No Sepsis Screen: Possible Sepsis Risk Sepsis Diagnosis: SIRS Temperature:101.6 Pulse: 103 Respiratory Rate: 28 Laboratory Tests 04/11/17 19:50: White Blood Count 14.6H Blood Pressure 127 /61 Mean: 83 Laboratory Tests 04/11/17 19:50: Lactic Acid Level 1.80 Laboratory Tests 04/11/17 19:50: Creatinine 3.84H, Platelet Count 160, Total Bilirubin 1.1H Results/Orders Lab Results Laboratory Tests Test 04/11/17 19:50 Range/Units White Blood Count 14.6 H 4.3-11.0 10^3/uL Red Blood Count 3.41 L 4.35-5.85 10^6/uL Hemoglobin 11.5 L 13.3-17.7 G/DL Hematocrit 34 L 40-54 % Mean Corpuscular Volume 100 H 80-99 FL Mean Corpuscular Hemoglobin 34 25-34 PG Mean Corpuscular Hemoglobin Concent 34 32-36 G/DL Red Cell Distribution Width 16.9 H 10.0-14.5 % Platelet Count 160 130-400 10^3/uL Mean Platelet Volume 13.2 H 7.4-10.4 FL Neutrophils (%) (Auto) 85 H 42-75 % Lymphocytes (%) (Auto) 6 L 12-44 % Monocytes (%) (Auto) 8 0-12 % Eosinophils (%) (Auto) 1 0-10 % Basophils (%) (Auto) 0 0-10 % Neutrophils # (Auto) 12.4 H 1.8-7.8 X 10^3 Lymphocytes # (Auto) 0.9 L 1.0-4.0 X 10^3 Monocytes # (Auto) 1.2 H 0.0-1.0 X 10^3 Eosinophils # (Auto) 0.1 0.0-0.3 10^3/uL Basophils # (Auto) 0.0 0.0-0.1 10^3/uL Neutrophils % (Manual) 83 % Lymphocytes % (Manual) 5 % Monocytes % (Manual) 6 % Eosinophils % (Manual) 1 % Basophils % (Manual) 1 % Band Neutrophils 4 % Blood Morphology Comment NORMAL Sodium Level 133 L 135-145 MMOL/L Potassium Level 3.8 3.6-5.0 MMOL/L Chloride Level 92 L 98-107 MMOL/L Carbon Dioxide Level 25 21-32 MMOL/L Anion Gap 16 H 5-14 MMOL/L Blood Urea Nitrogen 18 7-18 MG/DL Creatinine 3.84 H 0.60-1.30 MG/DL Estimat Glomerular Filtration Rate 16 BUN/Creatinine Ratio 5 Glucose Level 174 H 70-105 MG/DL Lactic Acid Level 1.80 0.50-2.00 MMOL/L Calcium Level 8.5 8.5-10.1 MG/DL Total Bilirubin 1.1 H 0.1-1.0 MG/DL Aspartate Amino Transf (AST/SGOT) 21 5-34 U/L Alanine Aminotransferase (ALT/SGPT) 20 0-55 U/L Alkaline Phosphatase 151 H 40-136 U/L Total Protein 7.6 6.4-8.2 GM/DL Albumin 3.7 3.2-4.5 GM/DL Micro Results Microbiology 04/11/17 Influenza Types A,B Antigen (GARRET) - Final, Complete My Orders Orders - JARED AGEE DO Saline Lock/Iv-Start (04/11/17 19:50) Monitor-Rhythm Ecg Trace Only (04/11/17 19:50) Cbc With Automated Diff (04/11/17 19:50) Comprehensive Metabolic Panel (04/11/17 19:50) Lactic Acid Analyzer (04/11/17 19:50) Blood Culture (04/11/17 19:50) Influenza A And B Antigens (04/11/17 19:50) Chest Pa/Lat (2 View) (04/11/17 19:50) Sputum Culture (04/11/17 19:59) Ekg Tracing (04/11/17 19:59) O2 (04/11/17 19:59) Manual Differential (04/11/17 19:50) Linezolid Ivpb (Zyvox Ivpb) (04/11/17 21:30) Linezolid Ivpb (Zyvox Ivpb) (04/11/17 21:21) Medications Given in ED Current Medications Medications Dose Ordered Sig/Roni Route Start Time Stop Time Status Last Admin Dose Admin Linezolid 300 ml @ 300 mls/hr ONCE ONCE IV 04/11/17 21:30 04/11/17 22:33 DC 04/11/17 21:35 300 MLS/HR Vital Signs/I&O Vital Sign - Last 12Hours 04/11/17 04/11/17 04/11/17 04/11/17 19:20 19:50 20:00 20:30 Temp 101.6 Pulse 103 104 107 Resp 28 24 29 B/P (MAP) 127/61 114/56 128/66 Pulse Ox 2 97 99 O2 Delivery Nasal Cannula Nasal Cannula Nasal Cannula O2 Flow Rate 2.00 2.00 04/11/17 04/11/17 04/11/17 21:00 21:30 22:27 Pulse 107 102 100 Resp 23 26 24 B/P (MAP) 132/63 116/59 Pulse Ox 92 99 97 O2 Delivery Nasal Cannula Nasal Cannula Nasal Cannula O2 Flow Rate 2.00 2.00 4.00 Capillary Refill : Less Than 3 Seconds Blood Pressure Mean: 83 Progress Note : Progress Note O2 SATS 88% ON ROOM AIR--UP TO MID 90'S ON 2L/NC AND PT STATES HE FEELS BETTER WITH O2 IN PLACE. NO DETERIORATION IN PT'S CONDITION DURING ER STAY ECG Initial ECG Impression Time: 20:26 Initial ECG Rate: 107 Initial ECG Rhythm: S.Tach Initial ECG Impression: Nonspecific Changes (INFERIOR Q WAVES) Initial ECG Comparisson: No Previous ECG Available Diagnostic Imaging Comments CXR--CENTRAL VENOUS CONGESTION--INCREASED--PER RADIOLOGIST REPORT @ 2027 Reviewed: Reviewed by Me Departure Communication (Admissions) Progress Notes 2104--CALLED [facility] ONE CALL, LEFT MESSAGE ON MACHINE 2111--FELIX CALLED BACK, PAGING HOSPITALIST 2114--SPOKE WITH DR. ELSUNNI, HE ACCEPTS PT FOR ADMIT. HE ADVISES LINEZOLID DOSE PRIOR TO TRANSFER Impression Impression: Primary Impression: Fever Additional Impressions: Hypoxia SUSPECTED PNEUMONIA ESRD (end stage renal disease) on dialysis Disposition: 02 XFER SHT-TRM HOSP Condition: Improved Departure-Patient Inst. Referrals: LAXMI ALTAMIRANO APRN (PCP) Primary Care Physician [facility] (Family) Primary Care Physician JARED AGEE DO Apr 11, 2017 21:16
[2017-04-11] MEDS ORDERED: LINEZOLID IVPB 300 ML IV ONE ×2 (21:21→21:30)
[2017-04-11 21:30] VITALS: BP 116/59
[2017-04-11 22:27] VITALS: BP 120/85
== END 2017-04-11 22:32 | disposition short-term general hospital (02) ==
LOC: EDUNIT# 18:49 → ER 18:50
DX: R50.9 Fever, unspecified (principal); R09.02 Hypoxemia; E11.40 Type 2 diabetes mellitus with diabetic neuropathy, unspecified; E11.22 Type 2 diabetes mellitus with diabetic chronic kidney disease; I13.2 Hypertensive heart and chronic kidney disease with heart failure and with stage 5 chronic kidney disease, or end stage renal disease; N18.6 End stage renal disease; I25.2 Old myocardial infarction; I25.10 Atherosclerotic heart disease of native coronary artery without angina pectoris; Z99.2 Dependence on renal dialysis; Z95.1 Presence of aortocoronary bypass graft; Z95.810 Presence of automatic (implantable) cardiac defibrillator; Z89.611 Acquired absence of right leg above knee; Z89.612 Acquired absence of left leg above knee; Z79.4 Long term (current) use of insulin; Z79.82 Long term (current) use of aspirin
CPT/HCPCS: 36415; 71020; 80053; 83605; 85007; 85027; 87040; 87070; 87077; 87186; 87205; 87804; 93005; 93041

== ENCOUNTER → 2017-08-14 | Outpatient (CLI) | payer MEDICARE, MEDICAID ==
[~2017-08-14] MED LIST changes: +ACHD5005 PO; +CINA30TA2; -HYDR-3812 PO; +NAPR-915 PO; -NAPR500T4 PO
== END ==
LOC: WOUNDCARE 13:49
PROVIDERS: ATTEND Nurse Practitioner
DX: E11.622 Type 2 diabetes mellitus with other skin ulcer (principal); L97.111 Non-pressure chronic ulcer of right thigh limited to breakdown of skin; L03.115 Cellulitis of right lower limb; N18.5 Chronic kidney disease, stage 5; I70.231 Atherosclerosis of native arteries of right leg with ulceration of thigh
CPT/HCPCS: 97597

== ENCOUNTER 2017-09-12 15:32 | Emergency (ER) | payer MEDICARE, MEDICAID ==
[~2017-09-12] VITALS: Ht 175.3 cm; Wt 84.0 kg
--- OUTSIDE RECORDS SUMMARY | 2017-09-12 15:37 | XMS REPORT | Clinical Summary ---
Author Author [facility] Organization [facility] Address Unknown Phone Unavailable Care Team Providers Care Special Shopper Name Role Phone Lilian López MA Unavailable Unavailable Source Comments Some departments are not documenting in the electronic medical record. If you do not see the information that you expected, contact Release of Information in the Health Information Management department at [phone] for further assistance in locating additional records.[facility] Allergies Not on File Current Medications Not on file Active Problems Not on file Social History Tobacco Use Types Packs/Day Years Used Date Never Assessed Sex Assigned at Date Recorded Not on file Last Filed Vital Signs Not on file Plan of Treatment Health Maintenance Due Date Last Done Comments HEPATITIS C SCREENING 1961 PHYSICAL (COMPREHENSIVE) 1968 EXAM PERTUSSIS VACCINE 1972 HIV SCREENING 1976 TETANUS VACCINE 1978 COLORECTAL CANCER 2011 SCREENING INFLUENZA VACCINE 02/23/2018 Results Not on filefrom Last 3 Months
--- OUTSIDE RECORDS SUMMARY | 2017-09-12 15:43 | XMS REPORT | Continuity of Care Document ---
Author Author [facility] Address Unknown Phone Unavailable Allergies Active Description Code Type Severity Reaction Onset Reported/Identified Relationship to Patient Clinical Status Yes vancomycin Drug Allergy N/A N/A 04/08/2011 Yes morphine Drug Allergy N/A N/A 04/10/2011 Yes azithromycin [id number] Drug Allergy Severe HIVES, TROUBLE 07/13/2011 Yes vancomycin [id number] Drug Allergy Unknown N/A 12/26/2015 Yes cephalexin [id number] Drug Allergy Unknown N/A 02/27/2016 Yes morphine [id number] Drug Allergy Unknown N/A 02/27/2016 Medications There is no data. 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 04/24/1599 LIZBETH COWART APRN [...] Upper Respiratory Infections Of Unspecified Site 04/03/2009 TRIPLETT DOPAMA K 465.9 Acute Upper Respiratory Infections Of Unspecified Site 04/03/2009 TRIPLETT DO JEANIE K 465.9 Acute Upper Respiratory Infections Of Unspecified Site 04/03/2009 TRIPLETT DO JEANIE K 465.9 Acute Upper Respiratory Infections Of Unspecified Site 04/03/2009 465.9 Acute Upper Respiratory Infections Of Unspecified Site 02/21/2010 V70.5 PREEMPLOYMENT/ PRESCHOOL EXAM 02/21/2010 V70.5 PREEMPLOYMENT/ PRESCHOOL EXAM 02/21/2010 V70.5 PREEMPLOYMENT/ PRESCHOOL EXAM 02/21/2010 TRIPLETT DOPAMA K V70.5 PREEMPLOYMENT/PRESCHOOL EXAM 02/21/2010 TRIPLETT DO JEANIE K V70.5 PREEMPLOYMENT/PRESCHOOL EXAM 02/21/2010 TRIPLETT DO JEANIE K V70.5 PREEMPLOYMENT/PRESCHOOL EXAM 02/21/2010 V70.5 PREEMPLOYMENT/ PRESCHOOL EXAM 2010 414.01 CAD 2010 607.84 IMPOTENCE OF ORGANIC ORIGIN 2010 692.9 CONTACT DERMATITIS AND OTHER ECZEMA UNSPECIFIED CAUSE 2010 414.01 CAD 2010 607.84 IMPOTENCE OF ORGANIC ORIGIN 2010 692.9 CONTACT DERMATITIS AND OTHER ECZEMA UNSPECIFIED CAUSE 2010 414.01 CAD 2010 607.84 IMPOTENCE OF ORGANIC ORIGIN 2010 692.9 CONTACT DERMATITIS AND OTHER ECZEMA UNSPECIFIED CAUSE 2010 TRIPLETT DO JEANIE K 414.01 CAD 2010 TRIPLETT DO JEANIE K 607.84 IMPOTENCE OF ORGANIC ORIGIN 2010 TRIPLETT DO JEANIE K 692.9 CONTACT DERMATITIS AND OTHER ECZEMA UNSPECIFIED CAUSE 2010 TRIPLETT DO JEANIE K 414.01 CAD 2010 TRIPLETT DO JEANIE K 607.84 IMPOTENCE OF ORGANIC ORIGIN 2010 TRIPLETT DO JEANIE K 692.9 CONTACT DERMATITIS AND OTHER ECZEMA UNSPECIFIED CAUSE 2010 TRIPLETT DO JEANIE K 414.01 CAD 2010 TRIPLETT DO, JEANIE K 607.84 IMPOTENCE OF ORGANIC ORIGIN 2010 TRIPLETT DO, JEANIE K 692.9 CONTACT DERMATITIS AND OTHER [...] Pharyngitis Acute 03/27/2010 462 Pharyngitis Acute 03/27/2010 JEANIE TRIPLETT DO 462 Pharyngitis Acute 03/27/2010 JEANIE TRIPLETT DO 462 Pharyngitis Acute 03/27/2010 JEANIE TRIPLETT DO 462 Pharyngitis Acute 03/27/2010 462 Pharyngitis Acute [...] 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 06/14/2010 JEANIE RTIPLETT DO 337.1 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 [...] SITE(S) WITHOUT COMPLICATION 01/10/2011 JEANIE TRIPLETT DO K 879.8 OPEN WOUND(S) (MULTIPLE) OF UNSPECIFIED SITE(S) WITHOUT COMPLICATION 01/10/2011 JEANIE TRIPLETT DO K 879.8 OPEN WOUND(S) (MULTIPLE) OF UNSPECIFIED SITE(S) WITHOUT COMPLICATION 01/10/2011 JEANIE TRIPLETT DO K 879.8 OPEN WOUND(S) (MULTIPLE) OF UNSPECIFIED SITE(S) WITHOUT COMPLICATION 01/10/2011 879.8 OPEN WOUND(S) (MULTIPLE) OF UNSPECIFIED SITE(S) WITHOUT COMPLICATION 01/21/2011 Ot 250.00 DIAB RANULFO WO COMPL, TYPE II OR UNSPEC TY 01/21/2011 Ot 272.4 HYPERLIPIDEMIA NEC/NOS 01/21/2011 Ot 403.90 HYPTNSV CHR KID DIS, UNSPEC, W CHR KD ST 01/21/2011 Ot 410.71 AC MYOCARDIAL INFARCT,SUBENDO INFARCT,IN 01/21/2011 Ot 414.01 CORONARY ATHEROSCLEROSIS OF TRIBE CORON 01/21/2011 Ot 427.0 PAROX ATRIAL TACHYCARDIA [...] Ot V45.81 AORTOCORONARY BYPASS 01/23/2011 Ot V58.63 LONG-TERM( CURRENT)USE OF ANTIPLATELET/AN 01/23/2011 Ot V58.66 LONG-TERM ( CURRENT) USE OF ASPIRIN 01/23/2011 Ot V58.67 LONG-TERM ( CURRENT) USE OF INSULIN 01/23/2011 Ot V58.69 OTH MED,LT, CURRENT USE 03/27/2011 Ot 250.00 DIAB RANULFO WO COMPL, TYPE II OR UNSPEC TY 03/27/2011 Ot 272.4 HYPERLIPIDEMIA NEC/NOS 03/27/2011 Ot 311 DEPRESSIVE DISORDER NEC 03/27/2011 Ot 403.90 HYPTNSV CHR KID DIS, UNSPEC, W CHR KD ST 03/27/2011 Ot 410.71 AC MYOCARDIAL INFARCT,SUBENDO INFARCT,IN 03/27/2011 Ot 414.01 CORONARY ATHEROSCLEROSIS OF TRIBE CORON 03/27/2011 Ot 428.0 CONGESTIVE HEART FAILURE [...] NOS 09/05/2011 Ot 414.01 CORONARY ATHEROSCLEROSIS OF TRIBE CORON 09/05/2011 Ot 428.0 CONGESTIVE HEART FAILURE [...] 12/20/2012 791.0 MICROALBUMINURIA 12/20/2012 791.0 MICROALBUMINURIA 12/20/2012 TRIPLETT DO, JEANIE K 791.0 MICROALBUMINURIA 12/20/2012 TRIPLETT DO, JEANIE K 791.0 MICROALBUMINURIA 12/20/2012 TRIPLETT DO, JEANIE K 791.0 MICROALBUMINURIA 12/20/2012 791.0 MICROALBUMINURIA 12/31/2012 682.9 CELLULITIS AND ABSCESS OF UNSPECIFIED SITES 12/31/2012 682.9 CELLULITIS AND ABSCESS OF UNSPECIFIED SITES 12/31/2012 TRIPLETT DO, JEANIE K 682.9 CELLULITIS AND ABSCESS OF UNSPECIFIED SITES 12/31/2012 TRIPLETT DO, JEANIE K 682.9 CELLULITIS AND ABSCESS OF UNSPECIFIED SITES 12/31/2012 TRIPLETT DO, JEANIE K 682.9 CELLULITIS AND ABSCESS OF UNSPECIFIED SITES 12/31/2012 682.9 CELLULITIS AND ABSCESS OF UNSPECIFIED SITES 05/14/2013 PAM TRIPLETT DOA K 611.1 HYPERTROPHY OF BREAST 05/14/2013 PAM TRIPLETT DOA K 611.1 HYPERTROPHY OF BREAST 05/14/2013 611.1 HYPERTROPHY OF BREAST 06/04/2013 IOANA HARRIS JEANIE K 586 RENAL FAILURE UNSPECIFIED 06/04/2013 IOANA HARRIS JEANIE K 586 RENAL FAILURE UNSPECIFIED 06/04/2013 586 [...] CAUSE STATUS 08/11/2015 EDY GREEN Ot Z79.4 APPLIED PSYCHOLOGY PROFESSOR (CURRENT) USE OF INSULIN 08/11/2015 EDY GREEN Ot Z89.611 ACQUIRED ABSENCE OF RIGHT LEG ABOVE KNEE 08/11/2015 Ot 285.9 08/11/2015 Ot 401.9 08/11/2015 Ot 414.00 08/11/2015 Ot 428.0 08/11/2015 Ot 428.0 08/11/2015 Ot 397.0 08/11/2015 Ot 414.00 08/11/2015 Ot 424.0 08/11/2015 Ot 428.0 08/11/2015 Ot 285.9 08/11/2015 Ot 585.9 08/11/2015 Ot 401.9 08/11/2015 Ot V58.69 08/11/2015 Ot 593.9 08/11/2015 OLIVER WATTS, ANGELA J Ot 397.0 08/11/2015 OLIVER WATTS, ANGELA J Ot 414.00 08/11/2015 OLIVER WATTS, ANGELA J Ot 424.0 08/11/2015 OLIVER WATTS, ANGELA J Ot 428.0 08/11/2015 OLIVER WATTS, ANGELA J Ot 272.4 08/11/2015 OLIVER WATTS, ANGELA J Ot 414.00 08/11/2015 OLIVER WATTS, JORDANHAR J Ot 496 08/11/2015 OLIVER WATTS, BASHAR J Ot 414.00 08/11/2015 OLIVER WATTS, ANGELA J Ot 428.0 08/11/2015 JAY WINTERS, SONIDO Reed Ot 250.00 08/11/2015 JAY WINTERS, SONIDO K Ot 272.4 08/11/2015 JAY WINTERS, SONIDO K Ot 401.9 08/11/2015 JAY WINTERS, SONIDO K Ot 414.00 08/11/2015 JAY WINTERS, SONIDO K Ot 433.10 08/11/2015 SHU WATTS, LU S Ot 709.8 08/11/2015 CARLITOS PABALDOMERO Ot 611.72 08/11/2015 SHU WATTS, LU S Ot 611.0 08/11/2015 SHU WATTS, LU S Ot 682.2 08/11/2015 SHU WATTS, LU S Ot V67.09 08/11/2015 JARED CHATTERJEE NP-C Ot 250.40 08/11/2015 JARED CHATTERJEE NP-C Ot 263.9 08/11/2015 JARED CHATTERJEE NP-C Ot 272.4 08/11/2015 NEW, JARED Gonzales STAKE DRIVER-C Ot 276.1 08/11/2015 NEW, JARED Gonzales STAKE DRIVER-C Ot 276.7 08/11/2015 NEW, JARED Gonzales STAKE DRIVER-C Ot 285.21 08/11/2015 NEW, JARED Gonzales STAKE DRIVER-C Ot 404.10 08/11/2015 NEW, JARED Gonzales STAKE DRIVER-C Ot 428.0 08/11/2015 NEW, JARED Gonzales STAKE DRIVER-C Ot 585.4 08/11/2015 NEW, JARED Gonzales NP-C Ot 791.0 08/14/2015 EDY GREEN Ot E11.9 08/14/2015 EDY GREEN Ot J18.9 08/14/2015 EDY GREEN Ot S00.83XA 08/14/2015 EDY GREEN Ot W05.0XXA 08/14/2015 EDY GREEN Ot Y92.012 08/14/2015 EDY GREEN Ot Y99.8 08/14/2015 EDY GREEN Ot Z79.4 08/14/2015 EDY GREEN Ot Z89.611 08/14/2015 Ot 285.9 08/14/2015 Ot 401.9 08/14/2015 Ot 414.00 08/14/2015 Ot 428.0 08/14/2015 Ot 428.0 08/14/2015 Ot 397.0 08/14/2015 Ot 414.00 08/14/2015 Ot 424.0 08/14/2015 Ot 428.0 08/14/2015 Ot 285.9 08/14/2015 Ot 585.9 08/14/2015 Ot 401.9 08/14/2015 Ot V58.69 08/14/2015 Ot 593.9 08/14/2015 OLIVER WATTS, ANGELA Carter Ot 397.0 08/14/2015 OLIVER WATTS, ANGELA Carter Ot 414.00 08/14/2015 OLIVER WATTS, ANGELA Carter Ot 424.0 08/14/2015 OLIVER WATTS, ANGELA Carter Ot 428.0 08/14/2015 OLIVER WATTS, ANGELA Carter Ot 272.4 08/14/2015 OLIVER WATTS, ANGELA Carter Ot 414.00 08/14/2015 OLIVER WATTS, ANGELA Carter Ot 496 08/14/2015 OLIVER WATTS, ANGELA Carter Ot 414.00 08/14/2015 OLIVER WATTS, ANGELA Carter Ot 428.0 08/14/2015 JAY PA, SONIDO K Ot 250.00 08/14/2015 JAY PA, SONIDO K Ot 272.4 08/14/2015 JAY PA, SONIDO K Ot 401.9 08/14/2015 JAY PA, SONIDO K Ot 414.00 08/14/2015 JAY PA, SONIDO K Ot 433.10 08/14/2015 SHU WATTS, LU S Ot 709.8 08/14/2015 CARLITOS PA, BALDOMERO Hooker Ot 611.72 08/14/2015 SHU WATTS, LU S Ot 611.0 08/14/2015 SHU WATTS, LU S Ot 682.2 08/14/2015 SHU WATTS, LU S Ot V67.09 08/14/2015 NEW, JARED VeronikaMerly STAKE DRIVER-C Ot 250.40 08/14/2015 NEW, JARED VeronikaMerly STAKE DRIVER-C Ot 263.9 08/14/2015 NEW, JARED Veronika. STAKE DRIVER-C Ot 272.4 08/14/2015 NEW, JARED VeronikaMerly STAKE DRIVER-C Ot 276.1 08/14/2015 NEW, JARED VeronikaMerly STAKE DRIVER-C Ot 276.7 08/14/2015 NEW, JARED VeronikaMerly STAKE DRIVER-C Ot 285.21 08/14/2015 NEW, JARED Gonzales STAKE DRIVER-C Ot 404.10 08/14/2015 NEW, JARED VeronikaMerly STAKE DRIVER-C Ot 428.0 08/14/2015 NEW, JARED GMerly STAKE DRIVER-C Ot 585.4 08/14/2015 NEW, JARED Gonzales STAKE DRIVER-C Ot 791.0 12/26/2015 JARED AGEE DO Ot M25.422 EFFUSION, LEFT ELBOW 12/26/2015 JARED AGEE DO Ot M70.22 OLECRANON BURSITIS, LEFT ELBOW 12/26/2015 [...] Ot 401.9 HYPERTENSION NOS 12/26/2015 Ot V58.69 OT MED,LT, CURRENT USE 12/26/2015 Ot 593.9 RENAL URETERAL DIS NOS 12/26/2015 OLIVER WATTS, ANGELA Carter Ot 397.0 TRICUSPID VALVE DISEASE 12/26/2015 OLIVER WATTS, ANGELA Carter Ot 414.00 CORON ATHEROSCLER NOS TYPE VESSEL, NATIV 12/26/2015 ANGELA PRIETO MD Ot 424.0 MITRAL VALVE DISORDER 12/26/2015 ANGELA PRIETO MD Ot 428.0 CONGESTIVE HEART FAILURE NOS 12/26/2015 ANGELA PRIETO MD Ot 272.4 HYPERLIPIDEMIA NEC/NOS 12/26/2015 ANGELA PRIETO MD Ot 414.00 CORON ATHEROSCLER NOS TYPE VESSEL, NATIV 12/26/2015 ANGELA PRIETO MD Ot 496 CHR AIRWAY OBSTRUCT NEC 12/26/2015 OLIVER WATTS, ANGELA Carter Ot 414.00 CORON ATHEROSCLER NOS TYPE VESSEL, [...] ARTERY OCCLUSION W O CEREBRAL IN 12/26/2015 LU IRELAND MD Ot 709.8 SKIN DISORDERS NEC 12/26/2015 BALDOMERO MONTES DE OCA Ot 611.72 LUMP OR MASS IN BREAST 12/26/2015 SHU MD, LU S Ot 611.0 INFLAM DISEASE OF BREAST 12/26/2015 SHU WATTS, LU Easley Ot 682.2 CELLULITIS OF TRUNK 12/26/2015 HSU WATTS, LU Easley Ot V67.09 SURGERY FOLLOW-UP, OTHER SURGERY 12/26/2015 SEN JARED VeronikaMerly STAKE DRIVER-C Ot 250.40 DIAB W RENAL MANIFEST, TYPE II OR UNSPEC 12/26/2015 JARED CHATTERJEE STAKE DRIVER-C Ot 263.9 PROTEIN-MARGARITA MALNUTR NOS 12/26/2015 JARED CHATTERJEE STAKE DRIVER-C Ot 272.4 HYPERLIPIDEMIA NEC/NOS 12/26/2015 JARED CHATTERJEE VeronikaMerly STAKE DRIVER-C Ot 276.1 HYPOSMOLALITY 12/26/2015 JARED CHATTERJEE VeronikaMerly STAKE DRIVER-C Ot 276.7 HYPERPOTASSEMIA 12/26/2015 JARED CHATTERJEE VeronikaMerly STAKE DRIVER-C Ot 285.21 ANEMIA IN CHRONIC KIDNEY DISEASE 12/26/2015 JARED CHATTERJEE VeronikaMerly STAKE DRIVER-C Ot 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, BENIGN, W/O HRT FA 12/26/2015 JARED CHATTERJEE STAKE DRIVER-C Ot 428.0 CONGESTIVE HEART FAILURE NOS 12/26/2015 JARED CHATTERJEE VeronikaMerly STAKE DRIVER-C Ot 585.4 CHRONIC KIDNEY DISEASE, STAGE IV (SEVERE 12/26/2015 JARED CHATTERJEE VeronikaMerly STAKE DRIVER-C Ot 791.0 PROTEINURIA 12/27/2015 JARED AGEE DO [...] DISEASE 02/17/2016 MALGORZATA AKINS MD Ot Z79.4 INTERMEDIATE (CURRENT) USE OF INSULIN 02/17/2016 MALGORZATA AKINS MD Ot Z79.82 APPLIED PSYCHOLOGY PROFESSOR (CURRENT) USE OF ASPIRIN 02/17/2016 MALGORZATA AKINS MD Ot Z79.899 OTHER APPLIED PSYCHOLOGY PROFESSOR (CURRENT) DRUG THERAPY 02/17/2016 MALGORZATA AKINS MD Ot Z89.511 ACQUIRED ABSENCE OF RIGHT LEG BELOW KNEE 02/17/2016 MALGORZATA AKINS MD Ot Z95.0 PRESENCE OF CARDIAC PACEMAKER 02/17/2016 MALGORZATA AKINS MD Ot Z95.1 PRESENCE OF AORTOCORONARY BYPASS GRAFT 02/17/2016 MALGORZATA AKINS MD Ot Z95.5 PRESENCE OF CORONARY ANGIOPLASTY IMPLANT 02/17/2016 MALGORZATA AKINS MD Ot Z99.2 DEPENDENCE ON RENAL DIALYSIS 02/25/2016 DENZEL ROMERO DO, Ot E11.9 TYPE 2 DIABETES MELLITUS WITHOUT COMPLIC 02/25/2016 DENZEL ROMERO DO, Ot I12.0 HYP CHR KIDNEY DISEASE W STAGE 5 CHR KID 02/25/2016 DENZEL ROMERO DO, Ot I50.9 HEART FAILURE, UNSPECIFIED 02/25/2016 DENZEL ROMERO DO, Ot N18.6 END STAGE RENAL DISEASE 02/25/2016 DENZEL ROMERO DO, Ot R06.02 SHORTNESS OF BREATH 02/25/2016 DENZEL ROMERO DO, Ot Z79.4 INTERMEDIATE (CURRENT) USE OF INSULIN 02/25/2016 DENZEL ROMERO DO, Ot Z79.899 OTHER APPLIED PSYCHOLOGY PROFESSOR (CURRENT) DRUG THERAPY 02/25/2016 DENZEL ROMERO DO, [...] LACERATION WITHOUT FOREIGN BODY, LEFT FO 02/28/2016 CYNDIE JARED HARRIS Ot X58.XXXA EXPOSURE TO OTHER SPECIFIED FACTORS, INI 02/28/2016 JARED AGEE DO K Ot Y99.8 OTHER EXTERNAL CAUSE STATUS 02/28/2016 CYNDIE JARED HARRIS K Ot Z79.4 INTERMEDIATE (CURRENT) USE OF INSULIN 02/28/2016 CYNDIE DO JARED K Ot Z79.82 INTERMEDIATE (CURRENT) USE OF ASPIRIN 02/28/2016 [place] DO JARED K Ot Z79.899 OTHER INTERMEDIATE (CURRENT) DRUG THERAPY 02/28/2016 [place] DO JARED K Ot Z95.1 PRESENCE OF AORTOCORONARY BYPASS GRAFT 02/28/2016 [place] DO JARED K Ot Z95.810 PRESENCE OF AUTOMATIC (IMPLANTABLE) CARD 02/28/2016 [place] DO JARED K Ot E11.9 TYPE 2 DIABETES MELLITUS WITHOUT COMPLIC 02/28/2016 CYNDIE ANDRZEJ HARRISA K Ot L60.8 OTHER NAIL DISORDERS 02/28/2016 CYNDIE ANDRZEJ HARRISA K Ot S90.32XA CONTUSION OF LEFT FOOT, INITIAL ENCOUNTE 02/28/2016 ANDRZEJ AGEE DOA Derek Ot S91.312A LACERATION WITHOUT FOREIGN BODY, LEFT FO 02/28/2016 JARED AGEE DO Ot X58.XXXA EXPOSURE TO OTHER SPECIFIED FACTORS, INI 02/28/2016 ANDRZEJ AGEE DOA K Ot Y99.8 OTHER EXTERNAL CAUSE STATUS 02/28/2016 CYNDIE JARED HARRIS K Ot Z79.4 APPLIED PSYCHOLOGY PROFESSOR (CURRENT) USE OF INSULIN 02/28/2016 CYNDIE DO JARED K Ot Z79.82 APPLIED PSYCHOLOGY PROFESSOR (CURRENT) USE OF ASPIRIN 02/28/2016 [place] DO JARED K Ot Z79.899 OTHER APPLIED PSYCHOLOGY PROFESSOR (CURRENT) DRUG THERAPY 02/28/2016 [place] DO JARED K Ot Z95.1 PRESENCE OF AORTOCORONARY BYPASS GRAFT 02/28/2016 [facility], JARED K Ot Z95.810 PRESENCE OF AUTOMATIC (IMPLANTABLE) CARD 05/24/2016 LIZBETH COWART APRN Ot E11.621 TYPE 2 DIABETES MELLITUS WITH FOOT ULCER 05/24/2016 LIZBETH COWART APRN Ot I70.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 TRIBE ARTERIES OF [facility] 05/24/2016 LIZBETH COWART WATER TAXI BOAT MATE Ot 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 05/24/2016 LIZBETH COWART WATER TAXI BOAT MATE Ot L97.522 NON-PRS CHRONIC ULCER OTH PRT LEFT FOOT 05/24/2016 LIZBETH COWART WATER TAXI BOAT MATE Ot N18.5 CHRONIC KIDNEY DISEASE, STAGE 5 06/04/2016 LIZBETH COWART WATER TAXI BOAT MATE Ot E11.621 TYPE 2 DIABETES MELLITUS WITH FOOT ULCER 06/04/2016 LIZBETH COWART WATER TAXI BOAT MATE Ot I70.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 TRIBE ARTERIES OF [facility] 06/04/2016 LIZBETH COWART WATER TAXI BOAT MATE Ot 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 06/04/2016 LIZBETH COWART WATER TAXI BOAT MATE Ot L97.522 NON-PRS CHRONIC ULCER OTH PRT LEFT FOOT 06/04/2016 LIZBETH COWART WATER TAXI BOAT MATE Ot N18.5 CHRONIC KIDNEY DISEASE, STAGE 5 06/12/2016 SANDI PERALTA MD Ot E11.9 TYPE 2 DIABETES MELLITUS WITHOUT COMPLIC 06/12/2016 SANDI PERALTA MD Ot I12.0 HYP CHR KIDNEY DISEASE W STAGE 5 CHR KID 06/12/2016 SANDI PERALTA MD, Ot I45.10 UNSPECIFIED RIGHT BUNDLE-BRANCH BLOCK 06/12/2016 SANDI PERALTA MD, Ot I50.9 HEART FAILURE, UNSPECIFIED 06/12/2016 SANDI PERALTA MD Ot N18.6 END STAGE RENAL DISEASE 06/12/2016 SANDI PERALTA MD Ot R07.9 CHEST PAIN, UNSPECIFIED 06/12/2016 SANDI PERALTA MD Ot Z79.4 INTERMEDIATE (CURRENT) USE OF INSULIN 06/12/2016 SANDI PERALTA MD Ot Z79.82 INTERMEDIATE (CURRENT) USE OF ASPIRIN 06/12/2016 SANDI PERALTA MD, Ot Z79.899 OTHER APPLIED PSYCHOLOGY PROFESSOR (CURRENT) DRUG THERAPY 06/12/2016 SANDI PERALTA MD, Ot Z95.1 PRESENCE OF AORTOCORONARY BYPASS GRAFT 06/12/2016 SANDI PERALTA MD, Ot Z95.810 PRESENCE OF AUTOMATIC (IMPLANTABLE) CARD 06/12/2016 KLETSEL DEHE WINTUN MD, SANDI D Ot Z98.890 OTHER SPECIFIED POSTPROCEDURAL STATES 06/12/2016 SANDI PERALTA MD Ot Z99.2 DEPENDENCE ON RENAL DIALYSIS 06/13/2016 SANDI PERALTA MD, Ot E11.9 TYPE 2 DIABETES MELLITUS WITHOUT COMPLIC 06/13/2016 SANDI PERALTA MD Ot I12.0 HYP CHR KIDNEY DISEASE W STAGE 5 CHR KID 06/13/2016 SANDI PERALTA MD, Ot I45.10 UNSPECIFIED RIGHT BUNDLE-BRANCH BLOCK 06/13/2016 SANDI PERALTA MD, Ot I50.9 HEART FAILURE, UNSPECIFIED 06/13/2016 SANDI PERALTA MD Ot N18.6 END STAGE RENAL DISEASE 06/13/2016 SANDI PERALTA MD, Ot R07.9 CHEST PAIN, UNSPECIFIED 06/13/2016 SANDI PERALTA MD, Ot Z79.4 APPLIED PSYCHOLOGY PROFESSOR (CURRENT) USE OF INSULIN 06/13/2016 SANDI PERALTA MD Ot Z79.82 APPLIED PSYCHOLOGY PROFESSOR (CURRENT) USE OF ASPIRIN 06/13/2016 SANDI PERALTA MD Ot Z79.899 OTHER INTERMEDIATE (CURRENT) DRUG THERAPY 06/13/2016 SANDI PERALTA MD Ot Z95.1 PRESENCE OF AORTOCORONARY BYPASS GRAFT 06/13/2016 SANDI PERALTA MD Ot Z95.810 PRESENCE OF [...] MD Ot I25.119 ATHSCL HEART DISEASE OF TRIBE COR ART W 08/24/2016 WADE CHAUDHARY MD Ot I25.2 OLD MYOCARDIAL INFARCTION 08/24/2016 WADE CHAUDHARY MD Ot I51.7 CARDIOMEGALY 08/24/2016 WADE CHAUDHARY MD Ot R07.9 CHEST PAIN, UNSPECIFIED 08/24/2016 WADE CHAUDHARY MD Ot Z79.4 INTERMEDIATE (CURRENT) USE OF INSULIN 08/24/2016 WADE CHAUDHARY MD Ot Z79.82 APPLIED PSYCHOLOGY PROFESSOR (CURRENT) USE OF ASPIRIN 08/24/2016 WADE CHAUDHARY MD Ot Z79.899 OTHER INTERMEDIATE (CURRENT) DRUG THERAPY 08/24/2016 WADE CHAUDHARY MD [...] MD Ot I25.10 ATHSCL HEART DISEASE OF TRIBE CORONARY 08/31/2016 SANDI PERALTA MD Ot I70.91 GENERALIZED ATHEROSCLEROSIS 08/31/2016 SANDI PERALTA MD Ot K65.2 SPONTANEOUS BACTERIAL PERITONITIS 08/31/2016 SANDI PERALTA MD Ot K80.20 CALCULUS OF GALLBLADDER W/O CHOLECYSTITI 08/31/2016 SANDI PERALTA MD Ot N18.6 END STAGE RENAL DISEASE 08/31/2016 SANDI PERALTA MD Ot R10.30 LOWER ABDOMINAL PAIN, UNSPECIFIED 08/31/2016 SANDI PERALTA MD Ot Z79.4 INTERMEDIATE (CURRENT) USE OF INSULIN 08/31/2016 SANDI PERALTA MD Ot Z79.82 APPLIED PSYCHOLOGY PROFESSOR (CURRENT) USE OF ASPIRIN 08/31/2016 SANDI PERALTA MD Ot Z79.899 OTHER INTERMEDIATE (CURRENT) DRUG THERAPY 08/31/2016 SANDI PERALTA MD Ot Z95.1 PRESENCE OF AORTOCORONARY BYPASS GRAFT 08/31/2016 SANDI PERALTA MD Ot Z95.810 PRESENCE OF AUTOMATIC (IMPLANTABLE) CARD 08/31/2016 SANDI PERALTA MD Ot Z99.2 DEPENDENCE ON RENAL DIALYSIS 09/02/2016 SANDI PERALTA MD Ot E11.9 TYPE 2 DIABETES MELLITUS WITHOUT COMPLIC 09/02/2016 SANDI PERALTA MD Ot I12.0 HYP CHR KIDNEY DISEASE W STAGE 5 CHR KID 09/02/2016 SANDI PERALTA MD Ot I25.10 ATHSCL HEART DISEASE OF [place] CORONARY 09/02/2016 SANDI PERALTA MD Ot I70.91 GENERALIZED ATHEROSCLEROSIS 09/02/2016 SANDI PERALTA MD Ot K65.2 SPONTANEOUS BACTERIAL PERITONITIS 09/02/2016 SANDI PERALTA MD Ot K80.20 CALCULUS OF GALLBLADDER W/O CHOLECYSTITI 09/02/2016 SANDI PERALTA MD Ot N18.6 END STAGE RENAL DISEASE 09/02/2016 SANDI PERALTA MD Ot R10.30 LOWER ABDOMINAL PAIN, UNSPECIFIED 09/02/2016 SANDI PERALTA MD Ot Z79.4 APPLIED PSYCHOLOGY PROFESSOR (CURRENT) USE OF INSULIN 09/02/2016 SANDI PERALTA MD Ot Z79.82 INTERMEDIATE (CURRENT) USE OF ASPIRIN 09/02/2016 SANDI PERALTA MD Ot Z79.899 OTHER INTERMEDIATE (CURRENT) DRUG THERAPY 09/02/2016 SANDI PERALTA MD [...] MD Ot I25.10 ATHSCL HEART DISEASE OF [place] CORONARY 09/04/2016 SANDI PERALTA MD Ot I70.91 GENERALIZED ATHEROSCLEROSIS 09/04/2016 SANDI PERALTA MD Ot K65.2 SPONTANEOUS BACTERIAL PERITONITIS 09/04/2016 SANDI PERALTA MD Ot K80.20 CALCULUS OF GALLBLADDER W/O CHOLECYSTITI 09/04/2016 SANDI PERALTA MD Ot N18.6 END STAGE RENAL DISEASE 09/04/2016 SANDI PERALTA MD Ot R10.30 LOWER ABDOMINAL PAIN, UNSPECIFIED 09/04/2016 SANDI PERALTA MD Ot Z79.4 INTERMEDIATE (CURRENT) USE OF INSULIN 09/04/2016 SANDI PERALTA MD Ot Z79.82 INTERMEDIATE (CURRENT) USE OF ASPIRIN 09/04/2016 SANDI PERALTA MD Ot Z79.899 OTHER INTERMEDIATE (CURRENT) DRUG THERAPY 09/04/2016 SANDI PERALTA MD Ot Z95.1 PRESENCE OF AORTOCORONARY BYPASS GRAFT 09/04/2016 SANDI PERALTA MD Ot Z95.810 PRESENCE OF AUTOMATIC (IMPLANTABLE) CARD 09/04/2016 SANDI PERALTA MD Ot Z99.2 DEPENDENCE ON RENAL DIALYSIS 09/10/2016 JOAQUIN TIRADO MD Ot K65.9 PERITONITIS, UNSPECIFIED 09/10/2016 JOAQUIN TIRADO MD Ot Z79.2 INTERMEDIATE (CURRENT) USE OF ANTIBIOTICS 09/11/2016 JOAQUIN TIRADO MD Ot K65.9 PERITONITIS, UNSPECIFIED 09/11/2016 JOAQUIN TIRADO MD Ot Z79.2 APPLIED PSYCHOLOGY PROFESSOR (CURRENT) USE OF ANTIBIOTICS 09/13/2016 JOAQUIN TIRADO MD Ot K65.9 PERITONITIS, UNSPECIFIED 09/13/2016 JOAQUIN TIRADO MD Ot Z79.2 INTERMEDIATE (CURRENT) USE OF ANTIBIOTICS 09/16/2016 JOAQUIN TIRADO MD Ot K65.9 PERITONITIS, UNSPECIFIED 09/16/2016 JOAQUIN TIRADO MD Ot Z79.2 INTERMEDIATE (CURRENT) USE OF ANTIBIOTICS 09/18/2016 JOAQUIN TIRADO MD Ot K65.9 PERITONITIS, UNSPECIFIED 09/18/2016 JOAQUIN TIRADO MD Ot Z79.2 INTERMEDIATE (CURRENT) USE OF ANTIBIOTICS 10/10/2016 JOAQUIN TIRADO MD Ot K65.9 PERITONITIS, UNSPECIFIED 10/10/2016 CELESTINO WATTS, JOAQUIN Hooker Ot Z79.2 INTERMEDIATE (CURRENT) USE OF ANTIBIOTICS 10/24/2016 CELESTINO WATTS, JOAQUIN Hooker Ot K65.9 PERITONITIS, UNSPECIFIED 10/24/2016 CELESTINO WATTS, JOAQUIN Hooker Ot Z79.2 APPLIED PSYCHOLOGY PROFESSOR (CURRENT) USE OF ANTIBIOTICS 11/06/2016 CYNDIE DO, JARED K Ot E11.22 TYPE 2 DIABETES MELLITUS W DIABETIC SIZE CUTTER 11/06/2016 CYNDIE DO, JARED K Ot E78.00 PURE HYPERCHOLESTEROLEMIA, UNSPECIFIED 11/06/2016 CYNDIE DO, JARED K Ot 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 11/06/2016 CYNDIE DO, JARED K Ot I25.10 ATHSCL HEART DISEASE OF [place] CORONARY 11/06/2016 CYNDIE DO, JARED K Ot K65.9 PERITONITIS, UNSPECIFIED 11/06/2016 CYNDIE DO, JARED K Ot L03.311 CELLULITIS OF ABDOMINAL WALL 11/06/2016 CYNDIE DO JARED K Ot N18.6 END STAGE RENAL DISEASE 11/06/2016 CYNDIE DO, JARED K Ot T80.29XA INFCT FOL OTH INFUSION, TRANSFUSE AND TH 11/06/2016 CYNDIE DO JARED K Ot Z79.4 INTERMEDIATE (CURRENT) USE OF INSULIN 11/06/2016 CYNDIE DO JARED K Ot Z79.82 INTERMEDIATE (CURRENT) USE OF ASPIRIN 11/06/2016 CYNDIE DO JARED K Ot Z95.1 PRESENCE OF AORTOCORONARY BYPASS GRAFT 11/06/2016 CYNDIE JARED K Ot Z95.810 PRESENCE OF AUTOMATIC (IMPLANTABLE) CARD 11/06/2016 CYNDIE DO JARED K Ot Z99.2 DEPENDENCE ON RENAL DIALYSIS 11/08/2016 CYNDIE DO, JARED K Ot E11.22 TYPE 2 DIABETES MELLITUS W DIABETIC SIZE CUTTER 11/08/2016 CYNDIE DO, JARED K Ot E78.00 PURE HYPERCHOLESTEROLEMIA, UNSPECIFIED 11/08/2016 CYNDIE DO, JARED K Ot 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 11/08/2016 CYNDIE DO, JARED K Ot I25.10 ATHSCL HEART DISEASE OF [place] CORONARY 11/08/2016 CYNDIE DO, JARED K Ot K65.9 PERITONITIS, UNSPECIFIED 11/08/2016 CYNDIE DO, JARED K Ot L03.311 CELLULITIS OF ABDOMINAL WALL 11/08/2016 CYNDIE DO, JARED K Ot N18.6 END STAGE RENAL DISEASE 11/08/2016 CYNDIE DO, JARED K Ot T80.29XA INFCT FOL OTH INFUSION, TRANSFUSE AND TH 11/08/2016 CYNDIE DO, JARED K Ot Z79.4 INTERMEDIATE (CURRENT) USE OF INSULIN 11/08/2016 CYNDIE DO, JARED K Ot Z79.82 APPLIED PSYCHOLOGY PROFESSOR (CURRENT) USE OF ASPIRIN 11/08/2016 CYNDIE DO, JARED K Ot Z95.1 PRESENCE OF AORTOCORONARY BYPASS GRAFT 11/08/2016 CYNDIE DO, JARED K Ot Z95.810 PRESENCE OF AUTOMATIC (IMPLANTABLE) CARD 11/08/2016 CYNDIE DO, JARED K Ot Z99.2 DEPENDENCE ON RENAL DIALYSIS 11/12/2016 CYNDIE DO, JARED K Ot E11.22 TYPE 2 DIABETES MELLITUS W DIABETIC SIZE CUTTER 11/12/2016 CYNDIE DO, JARED K Ot E78.00 PURE HYPERCHOLESTEROLEMIA, UNSPECIFIED 11/12/2016 CYNDIE DO, JARED K Ot 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 11/12/2016 CYNDIE DO, JARED K Ot I25.10 ATHSCL HEART DISEASE OF [place] CORONARY 11/12/2016 CYNDIE DO, JARED K Ot K65.9 PERITONITIS, UNSPECIFIED 11/12/2016 CYNDIE DO, JARED K Ot L03.311 CELLULITIS OF ABDOMINAL WALL 11/12/2016 CYNDIE DO, JARED K Ot N18.6 END STAGE RENAL DISEASE 11/12/2016 CYNDIE DO, JARED K Ot T80.29XA INFCT FOL OTH INFUSION, TRANSFUSE AND TH 11/12/2016 CYNDIE DO, JARED K Ot Z79.4 APPLIED PSYCHOLOGY PROFESSOR (CURRENT) USE OF INSULIN 11/12/2016 CYNDIE DO, JARED K Ot Z79.82 APPLIED PSYCHOLOGY PROFESSOR (CURRENT) USE OF ASPIRIN 11/12/2016 CYNDIE DO, JARED K Ot Z95.1 PRESENCE OF AORTOCORONARY BYPASS GRAFT 11/12/2016 CYNDIE DO, JARED K Ot Z95.810 PRESENCE OF AUTOMATIC (IMPLANTABLE) CARD 11/12/2016 CYNDIE DO, JARED K Ot Z99.2 DEPENDENCE ON RENAL DIALYSIS 12/05/2016 LIZBETH COWART APRN Ot E11.621 TYPE 2 DIABETES MELLITUS WITH FOOT ULCER 12/05/2016 LIZBETH COWART APRN Ot 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 12/05/2016 LIZBETH COWART APRN Ot 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 12/05/2016 LIZBETH COWART APRN Ot L97.522 NON-PRS CHRONIC ULCER OTH PRT LEFT FOOT 12/05/2016 LIZBETH COWART APRN Ot N18.5 CHRONIC KIDNEY DISEASE, STAGE 5 12/08/2016 CELESTINO WATTS, JOAQUIN Hooker Ot K65.9 PERITONITIS, UNSPECIFIED 12/08/2016 CELESTINO WATTS, JOAQUIN Hooker Ot Z79.2 INTERMEDIATE (CURRENT) USE OF ANTIBIOTICS 2017 LAXMI ALTAMIRANO APRN Ot I73.9 PERIPHERAL VASCULAR DISEASE, UNSPECIFIED 2017 LAXMI ALTAMIRANO APRN Ot N18.6 END STAGE RENAL DISEASE 2017 LAXMI ALTAMIRANO APRN Ot Z47.81 ENCOUNTER FOR ORTHOPEDIC AFTERCARE FOLLO 2017 LAXMI ALTAMIRANO APRN Ot Z89.611 ACQUIRED ABSENCE OF RIGHT LEG ABOVE KNEE 2017 LAXMI ALTAMIRANO APRN Ot Z89.612 ACQUIRED ABSENCE OF LEFT LEG ABOVE KNEE 03/06/2017 LAXMI ALTAMIRANO APRN Ot I73.9 PERIPHERAL VASCULAR DISEASE, UNSPECIFIED 03/06/2017 LAXMI ALTAMIRANO APRN Ot N18.6 END STAGE RENAL DISEASE 03/06/2017 LAXMI ALTAMIRANO APRN Ot Z47.81 ENCOUNTER FOR ORTHOPEDIC AFTERCARE FOLLO 03/06/2017 LAXMI ALTAMIRANO APRN Ot Z89.611 ACQUIRED ABSENCE OF RIGHT LEG ABOVE KNEE 03/06/2017 LAXMI ALTAMIRANO APRN Ot Z89.612 ACQUIRED ABSENCE OF LEFT LEG ABOVE KNEE 04/11/2017 JARED AGEE DO Ot E11.22 TYPE 2 DIABETES MELLITUS W DIABETIC SIZE CUTTER 04/11/2017 JARED AGEE DO Ot E11.40 TYPE 2 DIABETES MELLITUS WITH DIABETIC N 04/11/2017 CYNDIE DO, JARED K Ot 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 04/11/2017 CYNDIE DO, JARED K Ot I25.10 ATHSCL HEART DISEASE OF [place] CORONARY 04/11/2017 CYNDIE DO, JARED K Ot I25.2 OLD MYOCARDIAL INFARCTION 04/11/2017 CYNDIE DO, JARED K Ot N18.6 END STAGE RENAL DISEASE 04/11/2017 CYNDIE DO, JARED K Ot R09.02 HYPOXEMIA 04/11/2017 CYNDIE DO, JARED K Ot R50.9 FEVER, UNSPECIFIED 04/11/2017 CYNDIE DO, JARED K Ot Z79.4 INTERMEDIATE (CURRENT) USE OF INSULIN 04/11/2017 CYNDIE DO, JARED K Ot Z79.82 INTERMEDIATE (CURRENT) USE OF ASPIRIN 04/11/2017 CYNDIE DO, JARED K Ot Z89.611 ACQUIRED ABSENCE OF RIGHT LEG ABOVE KNEE 04/11/2017 CYNDIE DO, JARED K Ot Z89.612 ACQUIRED ABSENCE OF LEFT LEG ABOVE KNEE 04/11/2017 CYNDIE DO, JARED K Ot Z95.1 PRESENCE OF AORTOCORONARY BYPASS GRAFT 04/11/2017 CYNDIE , JARED K Ot Z95.810 PRESENCE OF AUTOMATIC (IMPLANTABLE) CARD 04/11/2017 CYNDIE , JARED K Ot Z99.2 DEPENDENCE ON RENAL DIALYSIS 04/18/2017 CYNDIE DO, JARED K Ot E11.22 TYPE 2 DIABETES MELLITUS W DIABETIC SIZE CUTTER 04/18/2017 CYNDIE , JARED K Ot E11.40 TYPE 2 DIABETES MELLITUS WITH DIABETIC N 04/18/2017 CYNDIE , JARED K Ot 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 04/18/2017 CYNDIE DO, JARED K Ot I25.10 ATHSCL HEART DISEASE OF [place] CORONARY 04/18/2017 CYNDIE DO, JARED K Ot I25.2 OLD MYOCARDIAL INFARCTION 04/18/2017 CYNDIE DO, JARED K Ot N18.6 END STAGE RENAL DISEASE 04/18/2017 CYNDIE DO, JARED K Ot R09.02 HYPOXEMIA 04/18/2017 CYNDIE DO, JARED K Ot R50.9 FEVER, UNSPECIFIED 04/18/2017 CYNDIE DO, JARED K Ot Z79.4 APPLIED PSYCHOLOGY PROFESSOR (CURRENT) USE OF INSULIN 04/18/2017 JRAED AGEE DO Ot Z79.82 APPLIED PSYCHOLOGY PROFESSOR (CURRENT) USE OF ASPIRIN 04/18/2017 JARED AGEE DO Ot Z89.611 ACQUIRED ABSENCE OF RIGHT LEG ABOVE KNEE 04/18/2017 JARED AGEE DO Ot Z89.612 ACQUIRED ABSENCE OF LEFT LEG ABOVE KNEE 04/18/2017 JARED AGEE DO Ot Z95.1 PRESENCE OF AORTOCORONARY BYPASS GRAFT 04/18/2017 JARED AGEE DO Ot Z95.810 PRESENCE OF AUTOMATIC (IMPLANTABLE) CARD 04/18/2017 JARED AGEE DO Ot Z99.2 DEPENDENCE ON RENAL DIALYSIS 08/14/2017 ANGELA PRIETO MD Ot 397.0 TRICUSPID VALVE DISEASE 08/14/2017 ANGELA PRIETO MD Ot 414.00 CORON ATHEROSCLER NOS TYPE VESSEL, NATIV 08/14/2017 ANGELA PRIETO MD Ot 424.0 MITRAL VALVE DISORDER 08/14/2017 ANGELA PRIETO MD Ot 428.0 CONGESTIVE HEART FAILURE NOS 08/14/2017 ANGELA PRIETO MD Ot 272.4 HYPERLIPIDEMIA NEC/NOS 08/14/2017 ANGELA PRIETO MD Ot 414.00 CORON ATHEROSCLER NOS TYPE VESSEL, NATIV 08/14/2017 ANGELA PRIETO MD Ot 496 CHR AIRWAY OBSTRUCT NEC 08/14/2017 ANGELA PRIETO MD Ot 414.00 CORON ATHEROSCLER NOS TYPE VESSEL, NATIV 08/14/2017 ANGELA PRIETO MD Ot 428.0 CONGESTIVE HEART FAILURE NOS 08/14/2017 SONIDO ARBOLEDA Ot 250.00 DIAB RANULFO WO COMPL, TYPE II OR UNSPEC TY 08/14/2017 SONIDO ARBOLEDA Ot 272.4 HYPERLIPIDEMIA NEC/NOS 08/14/2017 SONIDO ARBOLEDA Ot 401.9 HYPERTENSION NOS 08/14/2017 SONIDO ARBOLEDA Ot 414.00 CORON ATHEROSCLER NOS TYPE VESSEL, NATIV 08/14/2017 SONIDO ARBOLEDA Ot 433.10 CAROTID ARTERY OCCLUSION W O CEREBRAL IN 08/14/2017 SHU WATTS, LU Easley Ot 709.8 SKIN DISORDERS NEC 08/14/2017 BALDOMERO MONTES DE OCA Ot 611.72 LUMP OR MASS IN BREAST 08/14/2017 SHU WATTS, LU Easley Ot 611.0 INFLAM DISEASE OF BREAST 08/14/2017 SHU WATTS, LU Easley Ot 682.2 CELLULITIS OF TRUNK 08/14/2017 SHU WATTS, LU Easley Ot V67.09 SURGERY FOLLOW-UP, OTHER SURGERY 08/14/2017 JARED CHATTERJEE VeronikaMerly STAKE DRIVER-C Ot 250.40 DIAB W RENAL MANIFEST, TYPE II OR UNSPEC 08/14/2017 NEWJARED. STAKE DRIVER-C Ot 263.9 PROTEIN-MARGARITA MALNUTR NOS 08/14/2017 NEWJARED. STAKE DRIVER-C Ot 272.4 HYPERLIPIDEMIA NEC/NOS 08/14/2017 NEWJARED. 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522 NON-PRS CHRONIC ULCER OTH PRT LEFT FOOT 08/14/2017 LIZBETH COWART WATER TAXI BOAT MATE Ot N18.5 CHRONIC KIDNEY DISEASE, STAGE 5 08/14/2017 CELESTINO WATTS, JOAQUIN Hooker Ot K65.9 PERITONITIS, UNSPECIFIED 08/14/2017 CELESTINO WATTS, JOAQUIN Hooker Ot Z79.2 INTERMEDIATE (CURRENT) USE OF ANTIBIOTICS 08/14/2017 SUPA, LIZBETH R WATER TAXI BOAT MATE Ot L97.111 NON-PRS CHRONIC ULCER OF RIGHT THIGH SAN 08/15/2017 LIZBETH COWART WATER TAXI BOAT MATE Ot E11.622 TYPE 2 DIABETES MELLITUS WITH OTHER SKIN 08/15/2017 LIZBETH COWART WATER TAXI BOAT MATE Ot I70.231 ATHSCL [place]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 08/15/2017 LIZBETH COWART WATER TAXI BOAT MATE Ot L03.115 CELLULITIS OF RIGHT LOWER LIMB 08/15/2017 LIZBETH COWART WATER TAXI BOAT MATE Ot L97.111 NON-PRS CHRONIC ULCER OF RIGHT THIGH SAN 08/15/2017 LIZBETH COWART WATER TAXI BOAT MATE Ot N18.5 CHRONIC KIDNEY DISEASE, STAGE 5 08/20/2017 LIZBETH COWART WATER TAXI BOAT MATE Ot E11.622 TYPE 2 DIABETES MELLITUS WITH OTHER SKIN 08/20/2017 LIZBETH COWART WATER TAXI BOAT MATE Ot I70.231 ATHSCL [place]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 08/20/2017 LIZBETH COWART WATER TAXI BOAT MATE Ot L03.115 CELLULITIS OF RIGHT LOWER LIMB 08/20/2017 LIZBETH COWART WATER TAXI BOAT MATE Ot L97.111 NON-PRS CHRONIC ULCER OF RIGHT THIGH SAN 08/20/2017 LIZBETH COWART WATER TAXI BOAT MATE Ot N18.5 CHRONIC KIDNEY DISEASE, STAGE 5 08/25/2017 LIZBETH COWART WATER TAXI BOAT MATE Ot E11.622 TYPE 2 DIABETES MELLITUS WITH OTHER SKIN 08/25/2017 LIZBETH COWART WATER TAXI BOAT MATE Ot I70.231 ATHSCL TRI[place]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 08/25/2017 LIZBETH COWART WATER TAXI BOAT MATE Ot L03.115 CELLULITIS OF RIGHT LOWER LIMB 08/25/2017 LIZBETH COWART WATER TAXI BOAT MATE Ot L97.111 NON-PRS CHRONIC ULCER OF RIGHT THIGH SAN 08/25/2017 LIZBETH COWART WATER TAXI BOAT MATE Ot N18.5 CHRONIC KIDNEY DISEASE, STAGE 5 Procedures Code Description Performed By Performed On 00.40 01/20/2011 00.45 01/20/2011 00.66 01/20/2011 36.07 01/20/2011 88.49 01/20/2011 88.56 01/20/2011 88.49 03/24/2011 88.56 03/24/2011 [id number] ROUTINE VENIPUNCTURE 01/21/2013 28502 CBC 01/21/2013 70376 CMP 01/21/2013 [id number] GFR CALC (RESULT ONLY) 01/21/[id number] SPTYPE 01/26/2013 Cardiolog Angela Prieto 02/08/2013 42508 MICRO ALBUMIN-IN HOUSE 04/02/2013 16563 A1C (IN-HOUSE) 04/02/2013 28847 MICROALBUMIN 04/03/2013 GENERAL S LU [place] 04/03/2013 60563 ROUTINE VENIPUNCTURE 05/14/2013 46300 US BREAST ULTRASOUND, RIGHT 05/14/2013 38481 CMP 05/14/2013 Nephrolog Sanket Neph[facility] 05/14/2013 30953 ROUTINE VENIPUNCTURE 06/07/2013 91037 CMP 06/07/2013 37519 PHOSPHORUS 06/07/2013 PRO/CRE URINE PROTEIN TO CREATNINE RATIO 06/07/2013 Results Test Result Range Body fluid cell count - 12/26/15 06:00 Specimen source identification of body fluid SYNOVIAL NRG Evaluation of color of body fluid RED NRG Determination of appearance of body fluid MKD BLDY NRG Body fluid leukocytes count (number/volume) 0 /uL NRG Body fluid erythrocytes count (number/volume) 52241 /uL NRG * Body fluid crystals type [...] 14:40 Blood leukocytes automated count (number/volume) 7.7 10*3/uL 4.3-11.0 Blood erythrocytes automated count (number/volume) 2.86 10*6/uL 4.35-5.85 Venous blood hemoglobin measurement (mass/volume) 9.2 [...] Automated blood platelet mean volume measurement 12.0 [foz_us] 7.4-10.4 Automated blood neutrophils/100 leukocytes 72 % [...] plasma C reactive protein measurement (mass/volume) 2.10 mg /dL 0.00-0.50 Complete blood count (CBC) with automated white blood cell (WBC) differential - 02/25/16 00:07 Blood leukocytes automated count (number/volume) 7.4 10*3/uL 4.3-11.0 Blood erythrocytes automated count (number/volume) 2.99 10*6/uL 4.35-5.85 Venous blood hemoglobin measurement (mass/volume) 9.6 [...] Automated blood platelet mean volume measurement 12.7 [foz_us] 7.4-10.4 Automated blood neutrophils/100 leukocytes 73 % [...] Serum or plasma sodium measurement (moles/volume) 133 mmol/L 135-145 Serum or plasma potassium measurement (moles/volume) 4.6 mmol/L 3.6-5.0 Serum or plasma chloride measurement (moles/volume) 97 mmol/L 98-107 Carbon dioxide 20 mmol/L 21-32 Serum or plasma anion gap determination (moles/volume) 16 mmol/L 5-14 Serum or plasma urea nitrogen measurement (mass/volume) 55 mg/dL 7-18 Serum or plasma creatinine measurement (mass/volume) 8.73 mg/dL 0.60-1.30 Serum or plasma urea nitrogen/creatinine mass [...] or plasma troponin i.cardiac measurement (mass/volume) < ng/ mL <0.30 Serum or plasma lithium measurement (moles/volume) - 02/25/16 00:07 BNP level 1952.3 pg/mL <100.0 Blood lactic acid measurement (moles/volume) - 02/25/16 00:50 Blood lactic acid measurement (moles/volume) 1.5 mmol/L 0.5-2.0 Complete blood count (CBC) with automated white blood cell (WBC) differential - 06/12/16 07:00 Blood leukocytes automated count (number/volume) 11.9 10*3/uL 4.3-11.0 Blood erythrocytes automated count (number/volume) 2.86 10*6/uL 4.35-5.85 Venous blood hemoglobin measurement (mass/volume) 9.1 [...] Automated blood platelet mean volume measurement 12.3 [foz_us] 7.4-10.4 Automated blood neutrophils/100 leukocytes 81 % [...] Serum or plasma sodium measurement (moles/volume) 128 mmol/L 135-145 Serum or plasma potassium measurement (moles/volume) 4.2 mmol/L 3.6-5.0 Serum or plasma chloride measurement (moles/volume) 91 mmol/L 98-107 Carbon dioxide 22 mmol/L 21-32 Serum or plasma anion gap determination (moles/volume) 15 mmol/L 5-14 Serum or plasma urea nitrogen measurement (mass/volume) 41 mg/dL 7-18 Serum or plasma creatinine measurement (mass/volume) 7.55 mg/dL 0.60-1.30 Serum or plasma urea nitrogen/creatinine mass [...] or plasma troponin i.cardiac measurement (mass/volume) < ng/ mL <0.30 Myoglobin, serum - 06/12/16 07:00 Myoglobin, serum 864.2 ng/mL 10.0-92.0 Serum or plasma amylase measurement (enzymatic activity/volume) - 06/12/16 07: 00 Serum or plasma amylase measurement (enzymatic activity/volume) 3 U/ L 25-125 Lipase - 06/12/16 07:00 Lipase 14 U/L 8-78 Serum or plasma lithium measurement (moles/volume) - 06/12/16 07:00 BNP level 1056.4 pg/mL <100.0 Complete blood count (CBC) with automated white blood cell (WBC) differential - 08/24/16 15:45 Blood leukocytes automated count (number/volume) 7.3 10*3/uL 4.3-11.0 Blood erythrocytes automated count (number/volume) 3.30 10*6/uL 4.35-5.85 Venous blood hemoglobin measurement (mass/volume) 10.3 [...] Automated blood platelet mean volume measurement 13.3 [foz_us] 7.4-10.4 Automated blood neutrophils/100 leukocytes 70 % [...] Serum or plasma sodium measurement (moles/volume) 135 mmol/L 135-145 Serum or plasma potassium measurement (moles/volume) 3.9 mmol/L 3.6-5.0 Serum or plasma chloride measurement (moles/volume) 95 mmol/L 98-107 Carbon dioxide 27 mmol/L 21-32 Serum or plasma anion gap determination (moles/volume) 13 mmol/L 5-14 Serum or plasma urea nitrogen measurement (mass/volume) 46 mg/dL 7-18 Serum or plasma creatinine measurement (mass/volume) 7.81 mg/dL 0.60-1.30 Serum or plasma urea nitrogen/creatinine mass [...] or plasma troponin i.cardiac measurement (mass/volume) < ng/ mL <0.30 Serum or plasma lithium measurement (moles/volume) - 08/24/16 15:45 BNP level 1460.6 pg/mL <100.0 Complete blood count (CBC) with automated white blood cell (WBC) differential - 08/31/16 14:30 Blood leukocytes automated count (number/volume) 10.9 10*3/uL 4.3-11.0 Blood erythrocytes automated count (number/volume) 3.31 10*6/uL 4.35-5.85 Venous blood hemoglobin measurement (mass/volume) 10.2 [...] Automated blood platelet mean volume measurement 13.1 [foz_us] 7.4-10.4 Automated blood neutrophils/100 leukocytes 82 % [...] Serum or plasma sodium measurement (moles/volume) 134 mmol/L 135-145 Serum or plasma potassium measurement (moles/volume) 3.6 mmol/L 3.6-5.0 Serum or plasma chloride measurement (moles/volume) 94 mmol/L 98-107 Carbon dioxide 24 mmol/L 21-32 Serum or plasma anion gap determination (moles/volume) 16 mmol/L 5-14 Serum or plasma urea nitrogen measurement (mass/volume) 54 mg/dL 7-18 Serum or plasma creatinine measurement (mass/volume) 7.58 mg/dL 0.60-1.30 Serum or plasma urea nitrogen/creatinine mass [...] SEE COMMENT NR QUANTITY OF GROWTH Isolated [facility] Bacterial blood culture [id number] [facility] Bacterial blood culture - 08/31/16 14:42 Bacterial blood culture [facility] Complete blood count (CBC) with automated white blood cell (WBC) differential - 09/09/16 13:29 Blood leukocytes automated count (number/volume) 8.3 10*3/uL 4.3-11.0 Blood erythrocytes automated count (number/volume) 3.33 10*6/uL 4.35-5.85 Venous blood hemoglobin measurement (mass/volume) 10.2 [...] Automated blood platelet mean volume measurement 11.9 [foz_us] 7.4-10.4 Automated blood neutrophils/100 leukocytes 77 % [...] Serum or plasma sodium measurement (moles/volume) 131 mmol/L 135-145 Serum or plasma potassium measurement (moles/volume) 4.1 mmol/L 3.6-5.0 Serum or plasma chloride measurement (moles/volume) 97 mmol/L 98-107 Carbon dioxide 21 mmol/L 21-32 Serum or plasma anion gap determination (moles/volume) 13 mmol/L 5-14 Serum or plasma urea nitrogen measurement (mass/volume) 41 mg/dL 7-18 Serum or plasma creatinine measurement (mass/volume) 8.26 mg/dL 0.60-1.30 Serum or plasma urea nitrogen/creatinine mass [...] 13:29 Blood leukocytes automated count (number/volume) 7.7 10*3/uL 4.3-11.0 Blood erythrocytes automated count (number/volume) 3.49 10*6/uL 4.35-5.85 Venous blood hemoglobin measurement (mass/volume) 10.6 [...] Automated blood platelet mean volume measurement 12.4 [foz_us] 7.4-10.4 Automated blood neutrophils/100 leukocytes 76 % [...] Serum or plasma sodium measurement (moles/volume) 131 mmol/L 135-145 Serum or plasma potassium measurement (moles/volume) 3.9 mmol/L 3.6-5.0 Serum or plasma chloride measurement (moles/volume) 93 mmol/L 98-107 Carbon dioxide 22 mmol/L 21-32 Serum or plasma anion gap determination (moles/volume) 16 mmol/L 5-14 Serum or plasma urea nitrogen measurement (mass/volume) 55 mg/dL 7-18 Serum or plasma creatinine measurement (mass/volume) 7.73 mg/dL 0.60-1.30 Serum or plasma urea nitrogen/creatinine mass [...] kinase measurement (enzymatic activity/volume) 151 U/L 30-200 Complete blood count (CBC) with automated white blood cell (WBC) differential - 11/06/16 12:48 Blood leukocytes automated count (number/volume) 7.6 10*3/uL 4.3-11.0 Blood erythrocytes automated count (number/volume) 3.44 10*6/uL 4.35-5.85 Venous blood hemoglobin measurement (mass/volume) 10.4 g/dL 13.3-17.7 Blood hematocrit (volume fraction) 32 % 40-54 Automated erythrocyte mean corpuscular volume 93 [foz_us] 80-99 Automated erythrocyte mean corpuscular hemoglobin (mass per erythrocyte) 30 pg 25-34 Automated erythrocyte mean corpuscular hemoglobin concentration measurement ( mass/volume) 33 g/dL 32-36 Automated erythrocyte distribution width ratio 15.7 % 10.0-14.5 Automated blood platelet count (count/volume) 187 10*3/uL 130-400 Automated blood platelet mean volume measurement 12.1 [foz_us] 7.4-10.4 Automated blood neutrophils/100 leukocytes 75 % 42-75 Automated blood lymphocytes/100 leukocytes 11 % 12-44 Blood monocytes/100 leukocytes 10 % 0-12 Automated blood eosinophils/100 leukocytes 4 % 0-10 Automated blood basophils/100 leukocytes 0 % 0-10 Blood neutrophils automated count (number/volume) 5.7 10*3 1.8-7.8 Blood lymphocytes automated count (number/volume) 0.9 10*3 1.0-4.0 Blood monocytes automated count (number/volume) 0.7 10*3 0.0-1.0 Automated eosinophil count 0.3 10*3/uL 0.0-0.3 Automated blood basophil count (count/volume) 0.0 10*3/uL 0.0-0.1 Blood lactic acid measurement (moles/volume) - 11/06/16 12:48 Blood lactic acid measurement (moles/volume) 1.42 mmol/L 0.50-2.00 Comprehensive metabolic panel - 11/06/16 12:48 Serum or plasma sodium measurement (moles/volume) 135 mmol/L 135-145 Serum or plasma potassium measurement (moles/volume) 3.8 mmol/L 3.6-5.0 Serum or plasma chloride measurement (moles/volume) 92 mmol/L 98-107 Carbon dioxide 24 mmol/L 21-32 Serum or plasma anion gap determination (moles/volume) 19 mmol/L 5-14 Serum or plasma urea nitrogen measurement (mass/volume) 59 mg/dL 7-18 Serum or plasma creatinine measurement (mass/volume) 8.72 mg/dL 0.60-1.30 Serum or plasma urea nitrogen/creatinine mass ratio 7 0- 20 Serum or plasma creatinine measurement with calculation of estimated glomerular filtration rate 6 NRG Serum or plasma glucose measurement (mass/volume) 129 mg/dL 70-105 Serum or plasma calcium measurement (mass/volume) 8.3 mg/dL 8.5-10.1 Serum or plasma total bilirubin measurement (mass/volume) 0.3 mg/dL 0.1-1.0 Serum or plasma alkaline phosphatase measurement (enzymatic activity/volume) 81 U/L 40-136 Serum or plasma aspartate aminotransferase measurement (enzymatic activity/ volume) 7 U/L 5-34 Serum or plasma alanine aminotransferase measurement (enzymatic activity/volume ) < U/L 0-55 Serum or plasma protein measurement (mass/volume) 6.6 g/dL 6.4-8.2 Serum or plasma albumin measurement (mass/volume) 2.7 g/dL 3.2-4.5 Magnesium - 11/06/16 12:48 Magnesium 1.5 mg/dL 1.8-2.4 Serum or plasma amylase measurement (enzymatic activity/volume) - 11/06/16 12: 48 Serum or plasma amylase measurement (enzymatic activity/volume) 4 U/ L 25-125 Lipase - 11/06/16 12:48 Lipase 12 U/L 8-78 Bacterial blood culture - 11/06/16 12:48 Bacterial blood culture [facility] PT panel in platelet poor plasma by coagulation assay - 11/06/16 13:26 Prothrombin time (PT) in platelet poor plasma by coagulation assay 14.2 s 12.2-14.7 INR in platelet poor plasma or blood by coagulation assay 1.1 0.8-1.4 Activated partial thromboplastin time (aPTT) in platelet poor plasma bycoagulation assay - 11/06/16 13:26 Activated partial thromboplastin time (aPTT) in platelet poor plasma bycoagulation assay 34 s 24-35 Bacterial blood culture - 11/06/16 13:26 Bacterial blood culture [facility] Complete blood count (CBC) with automated white blood cell (WBC) differential - 04/11/17 19:50 Blood leukocytes automated count (number/volume) 14.6 10*3/uL 4.3-11.0 Blood erythrocytes automated count (number/volume) 3.41 10*6/uL 4.35-5.85 Venous blood hemoglobin measurement (mass/volume) 11.5 g/dL 13.3-17.7 Blood hematocrit (volume fraction) 34 % 40-54 Automated erythrocyte mean corpuscular volume 100 [foz_us] 80-99 Automated erythrocyte mean corpuscular hemoglobin (mass per erythrocyte) 34 pg 25-34 Automated erythrocyte mean corpuscular hemoglobin concentration measurement ( mass/volume) 34 g/dL 32-36 Automated erythrocyte distribution width ratio 16.9 % 10.0-14.5 Automated blood platelet count (count/volume) 160 10*3/uL 130-400 Automated blood platelet mean volume measurement 13.2 [foz_us] 7.4-10.4 Automated blood neutrophils/100 leukocytes 85 % 42-75 Automated blood lymphocytes/100 leukocytes 6 % 12-44 Blood monocytes/100 leukocytes 8 % 0-12 Automated blood eosinophils/100 leukocytes 1 % 0-10 Automated blood basophils/100 leukocytes 0 % 0-10 Blood neutrophils automated count (number/volume) 12.4 10*3 1.8-7.8 Blood lymphocytes automated count (number/volume) 0.9 10*3 1.0-4.0 Blood monocytes automated count (number/volume) 1.2 10*3 0.0-1.0 Automated eosinophil count 0.1 10*3/uL 0.0-0.3 Automated blood basophil count (count/volume) 0.0 10*3/uL 0.0-0.1 Blood manual differential performed detection - 04/11/17 19:50 Blood monocytes/100 leukocytes 6 % NRG Manual blood segmented neutrophils/100 leukocytes 83 % NRG Blood band neutrophils/100 leukocytes 4 % NRG Manual blood lymphocytes/100 leukocytes 5 % NRG Manual eosinophils/100 leukocytes in nose 1 % NRG Manual blood basophils/100 leukocytes 1 % NRG Blood erythrocyte morphology finding identification NORMAL NR Blood lactic acid measurement (moles/volume) - 04/11/17 19:50 Blood lactic acid measurement (moles/volume) 1.80 mmol/L 0.50-2.00 Comprehensive metabolic panel - 04/11/17 19:50 Serum or plasma sodium measurement (moles/volume) 133 mmol/L 135-145 Serum or plasma potassium measurement (moles/volume) 3.8 mmol/L 3.6-5.0 Serum or plasma chloride measurement (moles/volume) 92 mmol/L 98-107 Carbon dioxide 25 mmol/L 21-32 Serum or plasma anion gap determination (moles/volume) 16 mmol/L 5-14 Serum or plasma urea nitrogen measurement (mass/volume) 18 mg/dL 7-18 Serum or plasma creatinine measurement (mass/volume) 3.84 mg/dL 0.60-1.30 Serum or plasma urea nitrogen/creatinine mass ratio 5 NRG Serum or plasma creatinine measurement with calculation of estimated glomerular filtration rate 16 NRG Serum or plasma glucose measurement (mass/volume) 174 mg/dL 70-105 Serum or plasma calcium measurement (mass/volume) 8.5 mg/dL 8.5-10.1 Serum or plasma total bilirubin measurement (mass/volume) 1.1 mg/dL 0.1-1.0 Serum or plasma alkaline phosphatase measurement (enzymatic activity/volume) 151 U/L 40-136 Serum or plasma aspartate aminotransferase measurement (enzymatic activity/ volume) 21 U/L 5-34 Serum or plasma alanine aminotransferase measurement (enzymatic activity/volume ) 20 U/L 0-55 Serum or plasma protein measurement (mass/volume) 7.6 g/dL 6.4-8.2 Serum or plasma albumin measurement (mass/volume) 3.7 g/dL 3.2-4.5 Bacterial blood culture - 04/11/17 19:50 FREE TEXT EXTERNAL SENSITIVITY REPORTED 04/14 11:20 NRG QUANTITY OF GROWTH Isolated [facility] Bacterial blood culture [id number] [facility] Bacterial susceptibility panel - 04/11/17 19:50 Oxacillin susceptibility test by minimum inhibitory concentration > = NRG Gentamicin susceptibility test by minimum inhibitory concentration < = NRG Clindamycin susceptibility test by minimum inhibitory concentration <= NRG Erythromycin susceptibility test by minimum inhibitory concentration >= NRG Trimethoprim/sulfamethoxazole susceptibility test by minimum inhibitoryconcentration <= NRG Vancomycin susceptibility test by minimum inhibitory concentration 1 NRG Levofloxacin susceptibility test by minimum inhibitory concentration <= NRG Rifampin susceptibility test by minimum inhibitory concentration <= NRG Tetracycline susceptibility test by minimum inhibitory concentration 2 NRG Influenza virus A and B antigen detection - 04/11/17 20:17 FLU RESULT NEGATIVE FOR INFLUENZA A AND B ANTIGENS BY IA [facility] Bacterial blood culture - 04/11/17 20:24 FREE TEXT EXTERNAL REFER TO BLOOD CULTURE [id number] FOR NRG QUANTITY OF GROWTH Isolated NR Bacterial blood culture [id number] [facility] Sputum Gram stain - 04/11/17 21:37 GRAM STAIN SPUTUM AND MIXED BACTERIAL ERICK NR Bacterial sputum culture - 04/11/17 21:37 FREE TEXT EXTERNAL PLUS NORMAL ERICK NRG QUANTITY OF GROWTH Moderate Growth NR Bacterial sputum culture [id number] [facility] Encounters ACCT No. Visit Date/Time Discharge Status Pt. Type Provider Facility Loc./Unit Complaint [id number] 06/10/2013 06:15:00 06/10/2013 23:59:59 CLS Outpatient [id number] 06/07/2013 12:36:00 06/07/2013 23:59:59 CLS Outpatient JEANIE TRIPLETT DO [id number] 05/14/2013 09:09:00 05/14/2013 23:59:59 CLS Outpatient JEANIE TRIPLETT DO [id number] 04/02/2013 09:54:00 04/02/2013 23:59:59 CLS Outpatient JEANIE TRIPLETT DO [id number] 01/21/2013 14:14:00 Document Registration [id number] 12/31/2012 08:52:00 Document Registration [id number] 02/07/2012 11:04:00 Document Registration [id number] 08/14/2017 13:00:00 08/14/2017 23:59:59 CLS Outpatient LAXMI ALTAMIRANO [facility] [place] [id number] 09/09/2017 10:25:00 09/09/2017 23:59:59 CLS Preadmit ANGELA PRIETO MD [facility] CARD I25.10 CAD [id number] 09/09/2017 10:23:00 09/09/2017 23:59:59 CLS Preadmit ANGELA PRIETO MD [facility] CARD I25.10 CAD [id number] 08/14/2017 13:49:00 08/14/2017 23:59:59 CLS Outpatient LIZBETH COWART APRN [facility] WOUNDCARE [id number] 04/11/2017 18:50:00 04/11/2017 22:32:00 DIS Emergency CYNDIE DO JARED K [facility] ER FEVER,BLOOD INFECTION [id number] 2017 09:48:00 2017 11:05:00 DIS Outpatient LAXMI ALTAMIRANO APRN [facility] REHAB B AKA;ESRD;PVD [id number] 12/09/2016 00:12:00 12/09/2016 23:59:59 CLS Preadmit JOAQUIN TIRADO MD [facility] SDC INFUSION [id number] 09/18/2016 13:13:00 12/08/2016 00:01:00 DIS Outpatient CELESTINO WATTS, JOAQUIN Hooker [facility] SDC INFUSION [id number] 11/06/2016 11:40:00 11/06/2016 17:37:00 DIS Emergency CYNDIE JARED HARRIS [facility] ER ABD PAIN [id number] 08/31/2016 14:17:00 08/31/2016 17:15:00 DIS Emergency FABIAN WATTS, SANDI Ramos [facility] ER ABD PAIN [id number] 08/24/2016 15:34:00 08/24/2016 18:25:00 DIS Emergency JET WATTS, WADE Easley [facility] ER DULL CHEST PAIN [id number] 06/12/2016 06:50:00 06/12/2016 10:33:00 DIS Emergency FABIAN WATTS, SANDI Ramos [facility] ER CHEST PAIN [id number] 06/04/2016 13:43:00 06/04/2016 16:00:00 DIS Outpatient LIZBETH COWART WATER TAXI BOAT MATE [facility] WOUNDCARE [id number] 05/24/2016 10:25:00 05/24/2016 23:59:59 CLS Outpatient LIZBETH COWART WATER [employer] BO[employer] MATE [facility] LAB [id number],[id number] 03/10/2016 13:14:00 03/10/2016 23:59:59 CLS Outpatient CORY COSBY [facility] QUICK L FOOT INJURY [id number] 02/27/2016 22:57:00 02/28/2016 00:07:00 DIS Emergency JARED AGEE DO [facility] ER L FOOT LAC [id number] 02/24/2016 23:49:00 02/25/2016 02:38:00 DIS Emergency DENZEL ROMERO DO [facility] ER SOA [id number] 02/17/2016 12:03:00 02/17/2016 15:40:00 DIS Emergency MALGORZATA AKINS MD [facility] ER L CALF TIGHTNESS/PAIN [id number] 12/26/2015 04:58:00 12/26/2015 06:09:00 DIS Emergency ANDRZEJ AGEE DODave Reed [facility] ER LEFT ELBOW SWELLING [id number] 12/01/2015 18:09:00 12/01/2015 23:59:59 CLS Outpatient COLALYSIA BOTELLO DO [facility] QUICK [id number] 08/11/2015 19:44:00 08/11/2015 22:56:00 DIS Emergency EDY GREEN [facility] ER FALL [id number] 06/10/2013 14:33:00 06/10/2013 23:59:59 CLS Outpatient JARED CHATTERJEE NP-C [facility] RAD CKD STAGE IV [id number] 06/04/2013 08:06:00 06/04/2013 23:59:59 CLS Outpatient LU IRELAND MD [facility] RAD CHEST ABCESS [id number] 06/01/2013 14:30:00 06/01/2013 23:59:59 CLS Outpatient LU IRELAND MD [facility] LABNPT ABSCESS (R) BREAST , WOUND (L) CHEST [id number] 05/31/2013 08:53:00 05/31/2013 23:59:59 CLS Outpatient BALDOMERO MONTES DE OCA [facility] RAD LARGE FIRM MOBILE MASS RT NIPPLE [id number] 04/16/2013 15:12:00 04/16/2013 23:59:59 CLS Outpatient LU IRELAND MD [facility] RAD UNK [id number] 02/03/2013 11:26:00 02/03/2013 23:59:59 CLS Outpatient SONIDO ARBOLEDA [facility] RAD CAD,HTN [id number] 11/09/2012 14:22:00 11/09/2012 23:59:59 CLS Outpatient ANGELA PRIETO MD [facility] LAB CAD [id number] 10/30/2012 09:22:00 10/30/2012 23:59:59 CLS Outpatient ANGELA PRIETO MD [facility] LAB CAD,HYPERTENSION [id number] 10/28/2012 08:06:00 10/28/2012 23:59:59 CLS Outpatient ANGELA PRIETO MD [facility] CARD CHF,CAD [id number] 08/11/2015 23:02:00 Document Registration [id number] 12/30/2011 10:24:00 Document Registration [id number] 12/26/2011 09:33:00 Document Registration [id number] 09/12/2011 11:20:00 Document Registration [id number] 09/04/2011 07:12:00 Document Registration [id number] 08/22/2011 10:34:00 Document Registration [id number] 07/19/2011 13:31:00 Document Registration [id number] 07/12/2011 18:10:00 Document Registration [id number] 04/10/2011 02:35:00 Document Registration [id number] 04/05/2011 07:50:00 Document Registration [id number] 04/03/2011 10:55:00 Document Registration [id number] 03/23/2011 21:22:00 Document Registration [id number] 01/22/2011 19:00:00 Document Registration [id number] 01/18/2011 15:11:00 Document Registration [id number] 06/29/2010 03:17:00 Document Registration [id number] 06/28/2010 10:34:00 Document Registration [id number] 06/24/2010 11:10:00 Document Registration [id number] 06/17/2010 13:40:00 Document Registration [id number] 06/12/2010 15:15:00 Document Registration [id number] 03/23/2010 08:13:00 Document Registration [id number] 03/09/2010 12:35:00 Document Registration
[2017-09-12] MEDS ORDERED: LIDOCAINE 2% 20 ML (XYLOCAINE) VIAL INJ ONE (15:45)
--- NOTE | 2017-09-12 16:03 | ED General ---
General Chief Complaint: General Problems/Pain Stated Complaint: BLEEDING FROM PORT AFTER DIALYSIS Source of Information: Patient Exam Limitations: No Limitations History of Present Illness Date Seen by Provider: Sep 12, 2017 Time Seen by Provider: 15:59 Initial Comments Patient had a right subclavian dialysis catheter removed yesterday at [facility] in [place] and a new one placed just a few centimeters medially to this. He had dialysis today. After dialysis he began having some oozing of blood from the old dialysis catheter site and around the new dialysis catheter site. Timing/Duration: 1 Hour Severity: Moderate Allergies and Home Medications Allergies Coded Allergies: azithromycin (Verified Allergy, Severe, HIVES, TROUBLE BREATHING., 07/13/11 ) cephalexin (Unverified Allergy, Unknown, 02/27/16) morphine (Unverified Allergy, Unknown, 02/27/16) vancomycin (Verified Allergy, Unknown, 12/26/15) Home Medications Acetaminophen 325 Mg Tablet, 650 MG PO Q6H PRN, (Reported) Albuterol Sulfate 2.5 Mg/3 Ml Vial.neb, 2.5 MG IH Q4H PRN for SHORTNESS OF BREATH Prescribed by: EDY NEWSOME on 08/11/153 Amlodipine Besylate 2.5 Mg Tablet, 2.5 MG PO DAILY, (Reported) Aspirin 81 Mg Tabec, 81 MG PO DAILY, (Reported) take for 10 days Atorvastatin Calcium 80 Mg Tablet, 80 MG PO HS, (Reported) Docusate Sodium 100 Mg Capsule, 100 MG PO Q8H PRN, (Reported) Furosemide 40 Mg Tablet, 40 MG PO DAILY, (Reported) Insulin Aspart 300 Units/3 Ml Solution, 5 UNITS SQ TID, (Reported) Insulin Detemir 100 Unit/1 Ml Insuln.pen, 20 UNITS SQ HS, (Reported) Isosorbide Mononitrate 60 Mg Tab.sr.24h, 60 MG PO DAILY, (Reported) Magnesium Oxide 400 Mg Tablet, 400 MG PO BID, (Reported) Metoprolol Succinate 50 Mg Tab.sr.24h, 50 MG PO DAILY, (Reported) do not crush Nitroglycerin 0.4 Mg Tab.subl, 0.4 MG SL q5 minutes PRN, (Reported) take one tablet every 5 minutes as needed, for a total of 3 doses Pantoprazole Sod 40 Mg Tab, 40 MG PO DAILY, (Reported) no do not crush Potassium Chloride 10 Meq Capsule.sa, 10 MEQ PO DAILY, (Reported) Valsartan 80 Mg Tablet, 80 MG PO BID, (Reported) Vit B Cmplx 3/FA/Vit C/Biotin 1 Each Tablet, 1 TAB PO DAILY, (Reported) Patient Home Medication List Home Medication List Reviewed: Yes Review of Systems Constitutional: see HPI EENTM: see HPI Respiratory: no symptoms reported Cardiovascular: no symptoms reported Genitourinary: no symptoms reported Musculoskeletal: no symptoms reported Skin: see HPI Psychiatric/Neurological: No Symptoms Reported Hematologic/Lymphatic: No Symptoms Reported Past Qjgzyub-Mhuyfy-Akaptu Hx Patient Social History Recent Hopitalizations: No Immunizations Up To Date Tetanus Booster (TDap): Unknown Date of Pneumonia Vaccine: Jan 24, 2011 Date of Influenza Vaccine: Feb 24, 2016 Seasonal Allergies Seasonal Allergies: No Past Medical History Surgeries: Yes Amputation, CABG, Defibrillator, Dialysis, Orthopedic, Pacemaker, Vascular Surgery Respiratory: No (CHF/FLUID OVERLOAD) Cardiac: Yes (CHF PACEMAKER-DEFIBRILLATOR ) Chronic Edema/Swelling, Coronary Artery Disease, Heart Attack, High Cholesterol , Hypertension, Peripheral Vascular Neurological: Yes (NEUROPATHY HANDS AND FEET--NOW BILATERAL AKA'S) Neuropathy Reproductive Disorders: No Genitourinary: Yes Renal Failure, Dialysis Gastrointestinal: No Musculoskeletal: Yes (BILATERAL AKA'S) Amputee Endocrine: Yes Diabetes, Insulin dep HEENT: No Cancer: No Psychosocial: No Integumentary: No Blood Disorders: No Adverse Reaction/Blood Tranf: No Physical Exam Vital Signs Capillary Refill : General Appearance: No Apparent Distress, WD/WN, Obese Eyes: Bilateral Eye Normal Inspection, Bilateral Eye PERRL, Bilateral Eye EOMI HEENT: PERRL/EOMI, TMs Normal Respiratory: No Accessory Muscle Use, No Respiratory Distress Gastrointestinal: Non Tender, Soft Neurologic/Psychiatric: Alert, Oriented x3 Skin: Normal Color, Warm/Dry, Other (Minor slow ooze from the old dialysis catheter site. Minor slow ooze around the new dialysis catheter site. This area was anesthetized with a total of 2 mL of 2% lidocaine. Prior to that it was scrubbed with a ChloraPrep chlorhexidine sponge. 2 sutures were placed in the old dialysis catheter insertion site which achieved hemostasis. These were 4-0 Ethilon simple interrupted style. One additional suture was placed on either side of the new dialysis catheter to reduce the diameter of the skin puncture wound and tighten the skin around the new dialysis catheter. Special care was taken to not puncture of the new dialysis catheter. This was covered with Gelfoam and 2 x 2. Patient will have the dressing changed at his dialysis appointment on Friday.) Progress/Results/Core Measures Suspected Sepsis SIRS Temperature: Pulse: Respiratory Rate: Blood Pressure / Mean: Results/Orders My Orders Orders - LACEY STONE APRN Lidocaine 2% Injection 20 Ml (Xylocaine (09/12/17 15:45) Medications Given in ED Current Medications Medications Dose Ordered Sig/Roni Route Start Time Stop Time Status Last Admin Dose Admin Lidocaine HCl 2 ml ONCE ONCE INJ 09/12/17 15:45 09/12/17 15:46 DC 09/12/17 15:50 2 ML Vital Signs/I&O Capillary Refill : Departure Communication (Admissions) Dr. Bhakta guided plan of care Impression Primary Impression: Bleeding puncture wound Disposition: HOME, SELF-CARE Condition: Stable Departure-Patient Inst. Decision time for Depature: 16:02 Referrals: LAXMI ALTAMIRANO APRN (PCP) Primary Care Physician [facility] (Family) Primary Care Physician Patient Instructions: NO INSTRUCTIONS GIVEN Add. Discharge Instructions: 1. Follow-up dialysis clinic on Friday as scheduled and allow them to change the dressing. Return to ER if blood soaks all the way through the dressing. All discharge instructions reviewed with patient and/or family. Voiced understanding. LACEY STONE APRN Sep 12, 2017 16:03
[2017-09-12 16:05] VITALS: BP 141/69
== END 2017-09-12 16:12 | disposition home or self-care (01) ==
LOC: EDUNIT# 15:32 → ER 15:34
DX: L76.22 Postprocedural hemorrhage of skin and subcutaneous tissue following other procedure (principal); E11.22 Type 2 diabetes mellitus with diabetic chronic kidney disease; I13.0 Hypertensive heart and chronic kidney disease with heart failure and stage 1 through stage 4 chronic kidney disease, or unspecified chronic kidney disease; N18.6 End stage renal disease; I50.9 Heart failure, unspecified; I25.2 Old myocardial infarction; I25.10 Atherosclerotic heart disease of native coronary artery without angina pectoris; E78.00 Pure hypercholesterolemia, unspecified; E11.59 Type 2 diabetes mellitus with other circulatory complications; I73.9 Peripheral vascular disease, unspecified; E11.40 Type 2 diabetes mellitus with diabetic neuropathy, unspecified; Z99.2 Dependence on renal dialysis; Z89.611 Acquired absence of right leg above knee; Z89.612 Acquired absence of left leg above knee; Z88.1 Allergy status to other antibiotic agents; Z88.5 Allergy status to narcotic agent; Z88.0 Allergy status to penicillin; Z79.51 Long term (current) use of inhaled steroids; Z79.82 Long term (current) use of aspirin; Z79.4 Long term (current) use of insulin; Z95.1 Presence of aortocoronary bypass graft; Z95.810 Presence of automatic (implantable) cardiac defibrillator

== ENCOUNTER 2017-09-12 21:27 | Emergency (ER) | payer MEDICARE, MEDICAID ==
[~2017-09-12] VITALS: Ht 175.3 cm; Wt 97.1 kg
[2017-09-12 22:34] LABS: BASOPHILS % (AUTO) 1 % (0-10); EOSINOPHILS # (AUTO) 0.4 10^3/uL (0.0-0.3); EOSINOPHILS % (AUTO) 10 % (0-10); HEMATOCRIT 34 % (40-54); HEMOGLOBIN 11.4 G/DL (13.3-17.7); LYMPHOCYTES # (AUTO) 0.4 X 10^3 (1.0-4.0); LYMPHOCYTES % (AUTO) 12 % (12-44); MEAN CORPUSCULAR HEMOGLOBIN 32 PG (25-34); MEAN CORPUSCULAR HGB CONC 33 G/DL (32-36); MEAN CORPUSCULAR VOLUME 97 FL (80-99); MEAN PLATELET VOLUME 12.5 FL (7.4-10.4); MONOCYTES # (AUTO) 0.5 X 10^3 (0.0-1.0); MONOCYTES % (AUTO) 14 % (0-12); NEUTROPHILS # (AUTO) 2.4 X 10^3 (1.8-7.8); NEUTROPHILS % (AUTO) 64 % (42-75); PLATELET COUNT 131 10^3/uL (130-400); RED BLOOD COUNT 3.54 10^6/uL (4.35-5.85); WHITE BLOOD COUNT 3.7 10^3/uL (4.3-11.0)
[2017-09-12 22:47] LABS: INR 1.3 (0.8-1.4); PROTHROMBIN TIME PATIENT 15.8 SEC (12.2-14.7)
[2017-09-12 22:50] LABS: CREATININE SERUM 5.6 MG/DL (0.60-1.30); POTASSIUM 4.5 MMOL/L (3.6-5.0)
--- NOTE | 2017-09-12 23:43 | ED General ---
General Chief Complaint: Skin/Wound Problems Stated Complaint: PORT BLEEDING Source of Information: Patient Exam Limitations: No Limitations History of Present Illness Date Seen by Provider: Sep 12, 2017 Time Seen by Provider: 21:47 Initial Comments This 57-year-old gentleman presents to the emergency room with bleeding from his dialysis catheter site in the right chest. The catheter was replaced yesterday. Patient had dialysis this morning and the wound site began to bleed during dialysis. He was seen by Gerald Manuel APRN, in the emergency room this morning. Additional sutures were placed at the removal site and around the line insertion. Wound was dressed with gauze and Gelfoam. Patient reports persistent bleeding despite these measures. Patient has a chronic cough which may be causing some mechanical disruption of the site. Patient denies use of any blood thinning medications. Dr. Alas at [facility] performed his surgery. Allergies and Home Medications Allergies Coded Allergies: azithromycin (Verified Allergy, Severe, HIVES, TROUBLE BREATHING., 07/13/11 ) cephalexin (Unverified Allergy, Unknown, 02/27/16) morphine (Unverified Allergy, Unknown, 02/27/16) vancomycin (Verified Allergy, Unknown, 12/26/15) Home Medications Acetaminophen 325 Mg Tablet, 650 MG PO Q6H PRN, (Reported) Albuterol Sulfate 2.5 Mg/3 Ml Vial.neb, 2.5 MG IH Q4H PRN for SHORTNESS OF BREATH Prescribed by: EDY NEWSOME on 08/11/15 2223 Amlodipine Besylate 2.5 Mg Tablet, 2.5 MG PO DAILY, (Reported) Aspirin 81 Mg Tabec, 81 MG PO DAILY, (Reported) take for 10 days Atorvastatin Calcium 80 Mg Tablet, 80 MG PO HS, (Reported) Docusate Sodium 100 Mg Capsule, 100 MG PO Q8H PRN, (Reported) Furosemide 40 Mg Tablet, 40 MG PO DAILY, (Reported) Insulin Aspart 300 Units/3 Ml Solution, 5 UNITS SQ TID, (Reported) Insulin Detemir 100 Unit/1 Ml Insuln.pen, 20 UNITS SQ HS, (Reported) Isosorbide Mononitrate 60 Mg Tab.sr.24h, 60 MG PO DAILY, (Reported) Magnesium Oxide 400 Mg Tablet, 400 MG PO BID, (Reported) Metoprolol Succinate 50 Mg Tab.sr.24h, 50 MG PO DAILY, (Reported) do not crush Nitroglycerin 0.4 Mg Tab.subl, 0.4 MG SL q5 minutes PRN, (Reported) take one tablet every 5 minutes as needed, for a total of 3 doses Pantoprazole Sod 40 Mg Tab, 40 MG PO DAILY, (Reported) no do not crush Potassium Chloride 10 Meq Capsule.sa, 10 MEQ PO DAILY, (Reported) Valsartan 80 Mg Tablet, 80 MG PO BID, (Reported) Vit B Cmplx 3/FA/Vit C/Biotin 1 Each Tablet, 1 TAB PO DAILY, (Reported) Patient Home Medication List Home Medication List Reviewed: Yes Review of Systems Constitutional: no symptoms reported EENTM: no symptoms reported Respiratory: see HPI Cardiovascular: no symptoms reported Gastrointestinal: see HPI Genitourinary: no symptoms reported Musculoskeletal: other (bilateral AKA) Skin: see HPI Psychiatric/Neurological: No Symptoms Reported Hematologic/Lymphatic: No Symptoms Reported Immunological/Allergic: no symptoms reported Past Yefksob-Vbjwdi-Slxzvg Hx Patient Social History Recent Hopitalizations: No Immunizations Up To Date Tetanus Booster (TDap): Unknown Date of Pneumonia Vaccine: Jan 24, 2011 Date of Influenza Vaccine: Feb 24, 2016 Seasonal Allergies Seasonal Allergies: No Past Medical History Surgeries: Yes Amputation, CABG, Defibrillator, Dialysis, Orthopedic, Pacemaker, Vascular Surgery Respiratory: No (CHF/FLUID OVERLOAD) Cardiac: Yes (CHF PACEMAKER-DEFIBRILLATOR ) Chronic Edema/Swelling, Coronary Artery Disease, Heart Attack, High Cholesterol , Hypertension, Peripheral Vascular Neurological: Yes (NEUROPATHY HANDS AND FEET--NOW BILATERAL AKA'S) Neuropathy Reproductive Disorders: No Genitourinary: Yes Renal Failure, Dialysis Gastrointestinal: No Musculoskeletal: Yes (BILATERAL AKA'S) Amputee Endocrine: Yes Diabetes, Insulin dep HEENT: No Cancer: No Psychosocial: No Integumentary: No Blood Disorders: No Adverse Reaction/Blood Tranf: No Physical Exam Vital Signs Vital Signs - First Documented 09/12/17 21:30 Temp 96.9 Pulse 99 Resp 20 B/P (MAP) 146/79 (101) Pulse Ox 96 O2 Delivery Room Air Capillary Refill : General Appearance: No Apparent Distress, WD/WN HEENT: Normal ENT Inspection Neck: Normal Inspection Respiratory: Lungs Clear, No Respiratory Distress, Other (cough noted) Cardiovascular: Regular Rate, Rhythm, No Edema Gastrointestinal: Normal Bowel Sounds Extremity: Other (bilateral AKA with erythema around the amputation sites, stated as improved) Neurologic/Psychiatric: Alert, Oriented x3, No Motor/Sensory Deficits, Normal 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, 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 as Tested Skin: Warm/Dry, Other (slow pulsatile bleeding coming from the catheter insertion site in the right chest) Progress/Results/Core Measures Suspected Sepsis SIRS Temperature: Pulse: Respiratory Rate: Laboratory Tests 09/12/17 22:25: White Blood Count 3.7L Blood Pressure / Mean: Laboratory Tests 09/12/17 22:25: Creatinine 5.60H, INR Comment 1.3, Platelet Count 131 Results/Orders Lab Results Laboratory Tests Test 09/12/17 22:25 Range/Units White Blood Count 3.7 L 4.3-11.0 10^3/uL Red Blood Count 3.54 L 4.35-5.85 10^6/uL Hemoglobin 11.4 L 13.3-17.7 G/DL Hematocrit 34 L 40-54 % Mean Corpuscular Volume 97 80-99 FL Mean Corpuscular Hemoglobin 32 25-34 PG Mean Corpuscular Hemoglobin Concent 33 32-36 G/DL Red Cell Distribution Width 16.0 H 10.0-14.5 % Platelet Count 131 130-400 10^3/uL Mean Platelet Volume 12.5 H 7.4-10.4 FL Neutrophils (%) (Auto) 64 42-75 % Lymphocytes (%) (Auto) 12 12-44 % Monocytes (%) (Auto) 14 H 0-12 % Eosinophils (%) (Auto) 10 0-10 % Basophils (%) (Auto) 1 0-10 % Neutrophils # (Auto) 2.4 1.8-7.8 X 10^3 Lymphocytes # (Auto) 0.4 L 1.0-4.0 X 10^3 Monocytes # (Auto) 0.5 0.0-1.0 X 10^3 Eosinophils # (Auto) 0.4 H 0.0-0.3 10^3/uL Basophils # (Auto) 0.0 0.0-0.1 10^3/uL Prothrombin Time 15.8 H 12.2-14.7 SEC INR Comment 1.3 0.8-1.4 Activated Partial Thromboplast Time 36 H 24-35 SEC Sodium Level 137 135-145 MMOL/L Potassium Level 4.5 3.6-5.0 MMOL/L Chloride Level 94 L 98-107 MMOL/L Carbon Dioxide Level 28 21-32 MMOL/L Anion Gap 15 H 5-14 MMOL/L Blood Urea Nitrogen 47 H 7-18 MG/DL Creatinine 5.60 H 0.60-1.30 MG/DL Estimat Glomerular Filtration Rate 11 BUN/Creatinine Ratio 8 Glucose Level 207 H 70-105 MG/DL Calcium Level 9.0 8.5-10.1 MG/DL My Orders Orders - BALDOMERO AMES MD Basic Metabolic Panel (09/12/17 21:59) Cbc With Automated Diff (09/12/17 21:59) Protime With Inr (09/12/17 21:59) Partial Thromboplastin Time (09/12/17 21:59) Lidocaine/Epi 2% 1:100,000 (Xylocaine/Ep (09/13/17 00:30) Vital Signs/I&O 09/12/17 21:30 Temp 96.9 Pulse 99 Resp 20 B/P (MAP) 146/79 (101) Pulse Ox 96 O2 Delivery Room Air Capillary Refill : Progress Note #1: Time: 23:43 Progress Note Case was discussed with Dr. Gunn who suggested sandbagging the area for one hour. CBC, BMP, and coag labs showed no significant abnormalities that would contribute to this problem. Progress Note #2: Time: 01:30 Progress Note Labs were unremarkable. Applying direct pressure with a sandbag over an hour did not resolve the bleeding. I discussed the case with the surgeon on-call for Dr. Alas at [facility]. He suggested lidocaine with epinephrine. If this did not resolve the problem, he suggested pursuing workup with CT scan. Skin was cleaned with alcohol. Approximately 20 mL of 2 percent lidocaine with epinephrine was injected along the length of the catheter on either side. Sandbag was again applied. Upon reevaluation 30 minutes later bleeding had stopped. A new postop dressing was applied and patient was dismissed home. Departure Impression Primary Impression: Postoperative haemorrhage Disposition: 01 HOME, SELF-CARE Condition: Improved Departure-Patient Inst. Decision time for Depature: 01:30 Referrals: LAXMI ALTAMIRANO APRN (PCP) Primary Care Physician [facility] (Family) Primary Care Physician Patient Instructions: NO INSTRUCTIONS GIVEN Add. Discharge Instructions: Try to stay in a more upright position as much as possible for the next 24 hours. If bleeding returns, apply direct pressure for 20-30 minutes. If this does not stop the bleeding, return to care. Also return to care if you notice other concerning symptoms such as fever, increasing redness and pain around the site, puslike drainage, or other acute problems. All discharge instructions reviewed with patient and/or family. Voiced understanding. Copy Copies To 1: JEANIE TRIPLETT JOSHUA T MD Sep 12, 2017 23:43
[2017-09-13] MEDS ORDERED: LIDOCAINE/EPI 2% 1:100,00 (XYLOCAINE) 20 ML VIAL INJ ONE (00:30)
[2017-09-13 01:30] VITALS: BP 149/70
== END 2017-09-13 01:30 | disposition home or self-care (01) ==
LOC: EDUNIT# 21:27 → ER 21:29
DX: E11.40 Type 2 diabetes mellitus with diabetic neuropathy, unspecified (principal); E11.22 Type 2 diabetes mellitus with diabetic chronic kidney disease; I13.0 Hypertensive heart and chronic kidney disease with heart failure and stage 1 through stage 4 chronic kidney disease, or unspecified chronic kidney disease; N18.6 End stage renal disease; I50.9 Heart failure, unspecified; I25.10 Atherosclerotic heart disease of native coronary artery without angina pectoris; L76.21 Postprocedural hemorrhage of skin and subcutaneous tissue following a dermatologic procedure; I25.2 Old myocardial infarction; E78.00 Pure hypercholesterolemia, unspecified; E11.59 Type 2 diabetes mellitus with other circulatory complications; I73.9 Peripheral vascular disease, unspecified; Z88.5 Allergy status to narcotic agent; Z88.1 Allergy status to other antibiotic agents; Z89.611 Acquired absence of right leg above knee; Z89.612 Acquired absence of left leg above knee; Z99.2 Dependence on renal dialysis; Z88.0 Allergy status to penicillin; Z79.82 Long term (current) use of aspirin; Z79.4 Long term (current) use of insulin; Z95.1 Presence of aortocoronary bypass graft; Z95.810 Presence of automatic (implantable) cardiac defibrillator
CPT/HCPCS: 36415; 80048; 85025; 85610; 85730; 99282

== ENCOUNTER 2017-09-26 04:46 | Emergency (ER) | payer MEDICARE, MEDICAID ==
[~2017-09-26] VITALS: Ht 175.3 cm; Wt 97.1 kg
--- OUTSIDE RECORDS SUMMARY | 2017-09-26 04:54 | XMS REPORT | Clinical Summary ---
Author Author [facility] Organization [facility] Address Unknown Phone Unavailable Care Team Providers Care Motor Checker Name Role Phone Lilian López MA Unavailable Unavailable Source Comments Some departments are not documenting in the electronic medical record. If you do not see the information that you expected, contact Release of Information in the Health Information Management department at [phone] for further assistance in locating additional records.[facility] Allergies Not on File Current Medications [...]
--- OUTSIDE RECORDS SUMMARY | 2017-09-26 04:55 | XMS REPORT ---
Author Author ALTAMIRANOLAXMI Ayala Organization [facility] Address [address] [place] [address] Care Team Providers Care Er Tech Name Role Phone ALTAMIRANOLAXMI Ayala Unavailable PROBLEMS Type Condition ICD9-CM Code ORI51-DR Code Onset Dates Condition Status SNOMED Code Problem Dependence on renal dialysis Z99.2 Active 469056747 Problem Type 2 diabetes mellitus with diabetic chronic kidney disease E11.22 Active 41020216 Problem End stage renal disease N18.6 Active 122848818 Problem Above knee amputation of right lower extremity Z89.611 Active 712391046 Problem Chronic diastolic congestive heart failure I50.32 Active 294509879 Problem Ischemic cardiomyopathy I25.5 Active 649993772 Problem [facility] current 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.4 Active 110265230 Problem Hypothyroidism (acquired) E03.9 Active 84925995 Problem Above knee amputation of left lower extremity Z89.612 Active 960969285 Problem PVD (peripheral vascular disease) I73.9 Active 874058123 Problem Coronary artery disease involving little river 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.10 Active 0436678335707 Problem Non-seasonal allergic rhinitis due to pollen J30.1 Active 04796414 Problem AICD (automatic cardioverter/defibrillator) present Z95.810 Active 179807557 ALLERGIES Substance Reaction Event Type Date Status Vancomycin HCl hives Drug Allergy Jan, Active PredniSONE nausea and vomiting Drug Allergy Jan, Active Morphine Sulfate nausea Drug Allergy Jan, Active ENCOUNTERS Encounter Location Date Diagnosis [facility] [address] [facility] [id number] [address] Jul, [facility] [address] [facility] [id number], [place] [address] Jul, Abscess L02.91 [facility] [address] [facility] [id number], [place] [address] Jul, Cellulitis of right lower extremity L03.115 [place] [address] [address] 14 Jul, 2017 [place] [id number] [place] [address] Jun, [place] [address] [place] [id number] [place] [address]- [address] Jun, [place] [address] [place] [id number] [place] [address] Jun, Type 2 diabetes mellitus with diabetic chronic kidney disease E11.22 ; [facility] current 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.4 ; Coronary artery disease involving little river 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.10 ; PVD (peripheral vascular disease) I73.9 ; End stage renal disease N18.6 ; Dependence on renal dialysis Z99.2 ; AICD (automatic cardioverter/defibrillator) present Z95.810 ; Ischemic cardiomyopathy I25.5 ; Chronic diastolic congestive heart failure I50.32 ; Above knee amputation of right lower extremity Z89.611 ; Above knee amputation of left lower extremity Z89.612 ; Hypothyroidism (acquired) E03.9 and Non-seasonal allergic rhinitis due to pollen J30.1 [place] [id number] [place] [address] Jan, [place] [id number] [place] [address] Jan, Type 2 diabetes mellitus with diabetic chronic kidney disease E11.22 ; 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 ; Coronary artery disease involving little river 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.10 ; Chronic congestive heart failure, unspecified congestive heart failure type I50.9 ; PVD (peripheral vascular disease) I73.9 ; End stage renal disease N18.6 ; Dependence on renal dialysis Z99.2 and AICD (automatic cardioverter/defibrillator) present Z95.810 [place] [id number] [place] [address] 13 Jan, 2017 [facility] [address] [id number] [place] [address] 14 Aug, 2014 [facility] [place] [facility] [address] [id number] [place] [address] Aug, [facility] [place] [facility] [address] [id number] [place] [address] Oct, [facility] [place] [facility] [address] [id number] [place] [address] Oct, [facility] [place] [facility] [address] [id number] [place] [address] Jul, [facility] [place] [facility] [address] [id number] [place] [address] Jul, [facility] [place] [facility] [address] [id number] [place] [address] May, [facility] [place] [facility] [address] [id number] [place] [address] 84[address] May, [facility] [place] [facility] [address] [id number] [place] [address] 7584 May, [facility] [place] [facility] [address] [id number] [place] [address] 0690 May, [facility] [place] [facility] [address] [id number] [place] [address] May, [facility] [place] [facility] [address] [id number], [place] [address] May, [facility] [place] [facility] [address] [id number] [place] [address] 47[address] May, [facility] [place] [facility] [address] [id number] [place] [address] May, [facility] [place] [facility] [address] [id number], [place] [address] May, [facility] [place] [facility] [address] [id number], [place] [address] May, [facility] [address] [id number] [place] [address] May, [facility] [place] [facility] [address] [id number] [place] [address] May, [facility] [place] [facility] [address] [id number] [place] [address]- 2626 May, [facility] [place] [facility] [address] [id number] [place] [address] 1671 May, [facility] [place] [facility] [address] [id number] [place] [address] May, [facility] [place] [facility] [address] [id number] [place] [address] May, [facility] [place] [facility] [address] [id number] [place] [address] 9[address] May, [facility] [place] [facility] [address] [id number] [place] [address] 9727 May, [facility] [place] [facility] [address] [id number] [place] [address] 9106 Apr, [facility] [place] [facility] [address] [id number] [place] [address]- 8714 Apr, [facility] [place] [facility] [address] [id number] [place] [address]- 0791 Apr, [facility] [place] [facility] [address] [id number] [place] [address]- 4644 Apr, [facility] [place] [facility] [address] [id number] [place] [address]- 7775 Mar, [facility] [place] [facility] [address] [id number] [place] [address]- 0282 Mar, [facility] [place] [facility] [address] [facility] [id number] [place] [address]- [address] Mar, [facility] [place] [facility] [address] [id number] [place] [address]- [address] 08 Mar, 2013 [facility] [place] [facility] [address] [id number] [place] [address]- [address] Mar, [facility] [place] [facility] [address] [id number] [place] [address]- 2016 Jan, [facility] [place] [facility] [address] [id number] [place] [address]- [address] 16 Jan, 2013 [facility] [place] [facility] [address] [id number] [place] [address]- [address] Jan, [facility] [place] [facility] [address] [id number] [place] [address]- [address]65 Jan, [facility] [place] [facility] [address] [id number] [place] [address]- [address] Dec, [facility] [place] [facility] [address] [id number] [place] [address]- [address] Dec, [facility] [place] [facility] [address] [id number] [place] [address]- [address] Dec, [facility] [place] [facility] [address] [id number] [place] [address]- [address] Dec, [facility] [place] [facility] [address] [id number] [place] [address]- [address] Dec, [facility] [place] [facility] [address] [id number] [place] [address]- [address]449 Dec, [facility] [place] [facility] [address] [id number] [place] [address]- 77[address] Dec, [facility] [place] [facility] [address] [id number] [place] [address]- 76[address] Dec, [facility] [place] [facility] [address] [id number] [place] [address]- 132[address] Nov, [facility] [place] [facility] [address] [id number] [place] [address]- [address]798 Nov, [facility] [place] [facility] [address] [id number] [place] [address]- 7[address] Nov, [facility] [place] [facility] [address] [id number] [place] [address]- [address] September, [facility] [place] [facility] [address] [id number] [place] [address]- [address]46 Feb, [facility] [place] [facility] [address] [id number] [place] [address]- 25[address] Feb, [facility] [place] [facility] [address] [id number] [place] [address]- 90[address] Jan, [facility] [place] [facility] [address] [id number] [place] [address]- 2546 Dec, [facility] [place] [facility] [address] [id number] [place] [address]- 2546 Dec, [facility] [place] [facility] [address] [id number] [place] [address] 2546 Jun, [facility] [place] [facility] [address] [id number] [place] [address]- 1736 Jun, [facility] [place] [facility] [address] [id number] [place] [address]- 2546 May, [facility] [place] [facility] [address] [id number] [place] [address]- 6[address] Apr, [facility] [place] [facility] [address] [id number] [place] [address]- 2546 Apr, [facility] [place] [facility] [address] [id number] [place] [address]- [address]46 30 Mar, 2011 [facility] [place] [facility] [address] [id number] [place] [address]- [address]46 16 Mar, 2011 [facility] [place] [facility] [address] [id number] [place] [address]- 2546 Mar, [facility] [place] [facility] [address] [id number] [place] [address]- [address] 14 Mar, 2011 [facility] [place] [facility] [address] [id number] [place] [address]- [address] 04 Mar, 2011 [facility] [place] [facility] [address] [id number] [place] [address]- 2546 Dec, [facility] [place] [facility] [address] [id number] [place] [address]- 8297 May, [facility] [place] [facility] [address] [id number] [place] [address] 2541 Apr, [facility] [place] [facility] [address] [id number] [place] [address]- [address] Apr, [facility] [place] [facility] [address] [id number] [place] [address]- 5069 Mar, [facility] [place] [facility] [address] [id number] [place] [address]- 9140 Mar, [facility] [place] [facility] [address] [id number] [place] [address]- 9020 Mar, [facility] [place] [facility] [address] [id number] [place] [address]- 6868 Feb, [facility] [place] [facility] [address] [id number] [place] [address]- 9037 Feb, [facility] [place] [facility] [address] [id number] [place] [address]- 2544 27 Feb, 2010 [facility] [place] [facility] [address] [id number] [place] [address]- 2545 26 Feb, 2010 [facility] [place] [facility] [address] [id number] [place] [address] 2541 19 Feb, 2010 [facility] [place] [facility] [address] [id number] [place] [address]- 2549 Feb, [facility] [place] [facility] [address] [id number] [place] [address]- 4213 Feb, [facility] [address] [facility] [id number], [place] [address]- [address] Feb, [facility] [address] [facility] [id number] [address] Feb, [facility] [address] [facility] [id number], [place] [address]- 9792 Mar, [facility] [address] [facility] [id number][place] [address] Oct, IMMUNIZATIONS No Known Immunizations SOCIAL HISTORY Never Assessed REASON FOR VISIT Establish Care, pt. states having alot of coughing and phlegm and that this has been ongoing for years. , KYM Cortes PLAN OF CARE Activity Details Follow Up 3 Months, prn Reason:chm VITAL SIGNS Height 69 in 2017-02-07 Weight 188.2 lbs 2017-02-07 Temperature 99.2 degrees Fahrenheit 2017-02-07 Heart Rate 68 bpm 2017-02-07 Respiratory Rate 18 2017-02-07 BMI 27.79 kg/m2 2017-02-07 Blood pressure systolic 122 mmHg 2017-02-07 Blood pressure diastolic 76 mmHg 2017-02-07 MEDICATIONS Medication Instructions Dosage Frequency Start Date End Date Duration Status Norvasc 10 mg take 1 tablet by Oral route 1 time per day increased by Dr Prieto Nov, Active Tylenol 325 mg take 1 tablet (325 mg) by oral route every 4 hours as neededPRN Jun, Active Levemir Flexpen 100 unit/mL subcutaneously Once a day 30 units 24h May, Active Imdur 60 mg take 1 tablet (60 mg) by oral route once daily in the morning Jun, Active RESULTS No Results PROCEDURES No Known procedures INSTRUCTIONS MEDICATIONS ADMINISTERED No Known Medications MEDICAL (GENERAL) HISTORY Type Description Date Medical History type II diabetes Medical History kidney failure Medical History congestive heart failure Medical History peripheral vascular disease- right AKA Medical History chronic sinusitis Medical History CAD w/ CABG- 2009- Dr Ruiz Medical History left cataract Medical History panretinal photocoagulation bilat Medical History vitrectomy-right Surgical History open heart surgery 2008 Surgical History left above the knee amputation 2015 Surgical History right above the knee amputation 2017 Surgical History dialysis 2013 Surgical History removed sternum and several ribs due to infection after open heart 2010 Surgical History Hemodialysis catheter- right chest Surgical History AICD/pacer- left chest Hospitalization History Surgery(s) Hospitalization History surgical amputation
--- OUTSIDE RECORDS SUMMARY | 2017-09-26 04:56 | XMS REPORT ---
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 Name Role Phone ALTAMIRANOLAXMI Ayala Unavailable PROBLEMS Type Condition ICD9-CM Code ZRB62-XL Code Onset Dates Condition Status SNOMED Code Problem Dependence on renal dialysis Z99.2 Active 314522756 Problem Type 2 diabetes mellitus with diabetic chronic kidney disease E11.22 Active 58888604 Problem End stage renal disease N18.6 Active 248670632 Problem Above knee amputation of right lower extremity Z89.611 Active 615281058 Problem Chronic diastolic congestive heart failure I50.32 Active 143055787 Problem Ischemic cardiomyopathy I25.5 Active 121718156 Problem halfway current 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.4 Active 750518849 Problem Hypothyroidism (acquired) E03.9 Active 48647270 Problem Above knee amputation of left lower extremity Z89.612 Active 794024307 Problem PVD (peripheral vascular disease) I73.9 Active 454874790 Problem Coronary artery disease involving [place] coronary artery of [place] heart without angina pectoris I25.10 Active 8249001132638 Problem Non-seasonal allergic rhinitis due to pollen J30.1 Active 99094874 Problem AICD (automatic cardioverter/defibrillator) present Z95.810 Active 134659532 ALLERGIES Substance Reaction Event Type Date Status Vancomycin HCl hives Drug Allergy Jan, Active PredniSONE nausea and vomiting Drug Allergy Jan, Active Morphine Sulfate nausea Drug Allergy Jan, Active ENCOUNTERS Encounter Location Date Diagnosis [facility] [place] [address] [facility]NOTE 3] [id number] [address] Jul, [facility] [place] [address] [facility]NOTE 3] [id number] [place] [address] Jul, Abscess L02.91 [facility] [place] [address] [facility]NOTE 3] [id number] [place] [address] Jul, Cellulitis of right lower extremity L03.115 [place] [address] [address] 14 Jul, 2017 [place] [id number] [place] [address]32 Jun, [place] [address] [place] [id number] [place] [address]- 5566 Jun, [place] [address] [address] [id number] [place] [address]- 8259 Jun, Type 2 diabetes mellitus with diabetic chronic kidney disease E11.22 ; halfway current 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.4 ; Coronary artery disease involving [place] coronary artery of [place] heart without angina pectoris I25.10 ; PVD [...] Non-seasonal allergic rhinitis due to pollen J30.1 [place] [id number] [place] [address]- 0674 Jan, [place] [id number] [place] [address]- 3172 Jan, Type 2 diabetes mellitus with diabetic chronic kidney disease E11.22 ; 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 ; Coronary artery disease involving [place] coronary artery of [place] heart without angina pectoris I25.10 ; Chronic congestive heart failure, unspecified congestive heart failure type I50.9 ; PVD (peripheral vascular disease) I73.9 ; End stage renal disease N18.6 ; Dependence on renal dialysis Z99.2 and AICD (automatic cardioverter/defibrillator) present Z95.810 [place] [address] [place] [address]- 2337 13 Jan, 2017 [facility] [address] [id number] [place] [address] 14 Aug, 2014 [facility] [place] [facility] [address] [id number] [place] [address] 49[address] Aug, [facility] [place] [facility] [address] [id number] [place] [address]- 4949 Oct, [facility] [place] [facility] [address] [id number] [place] [address]- 4976 Oct, [facility] [place] [facility] [address] [id number] [place] [address]- 8329 Jul, [facility] [place] [facility] [address] [id number] [place] [address]- 0286 Jul, [facility] [place] [facility] [address] [id number] [place] [address]- 2936 May, [facility] [place] [facility] [address] [id number] [place] [address]- 4121 May, [facility] [place] [facility] [address] [id number] [place] [address]- 7884 May, [facility] [place] [facility] [address] [id number] [place] [address]- 9475 May, [facility] [place] [facility] [address] [id number] [place] [address]- 2208 May, [facility] [place] [facility] [address] [id number] [address] 5598 May, [facility] [place] [facility] [address] [id number] [place] [address]- 3084 May, [facility] [place] [facility] [address] [id number] [place] [address]- 2382 May, [facility] [place] [facility] [address] [id number] [place] [address]- 2913 May, [facility] [place] [facility] [address] [id number] [place] [address]- 3584 May, [facility] [address] [id number] [place] [address]- 5535 May, [facility] [place] [facility] [address] [id number] [place] [address]- 2987 May, [facility] [place] [facility] [address] [id number] [place] [address]- 4816 May, [facility] [place] [facility] [address] [id number] [place] [address]- 3679 May, [facility] [place] [facility] [address] [id number] [place] [address]- 4320 May, [facility] [place] [facility] [address] [id number] [place] [address]- 8273 May, [facility] [place] [facility] [address] [id number] [place] [address]- 3991 May, [facility] [place] [facility] [address] [id number] [place] [address]- 9953 May, [facility] [place] [facility] [address] [id number] [place] [address]- 8074 Apr, [facility] [place] [facility] [address] [id number] [place] [address]- 7671 Apr, [facility] [place] [facility] [address] [id number] [place] [address]- 6752 Apr, [facility] [place] [facility] [address] [id number] [place] [address]- 2946 Apr, [facility] [place] [facility] [address] [id number] [place] [address]- 9451 Mar, [facility] [place] [facility] [address] [id number] [place] [address]- 9368 Mar, [facility] [place] [facility] [address] [facility]NOTE 3] [id number] [place] [address]- 7651 Mar, [facility] [place] [facility] [address] [id number] [place] [address]- 1654 08 Mar, 2013 [facility] [place] [facility] [address] [id number] [place] [address]- 3478 Mar, [facility] [place] [facility] [address] [id number] [place] [address]- 3706 Jan, [facility] [place] [facility] [address] [id number] [place] [address]- 5006 16 Jan, 2013 [facility] [place] [facility] [address] [id number] [place] [address]- 7502 Jan, [facility] [place] [facility] [address] [id number] [place] [address]- 1089 Jan, [facility] [place] [facility] [address] [id number] [place] [address]- 9033 Dec, [facility] [place] [facility] [address] [id number] [place] [address]- 8431 Dec, [facility] [place] [facility] [address] [id number] [place] [address]- 4431 Dec, [facility] [place] [facility] [address] [id number] [place] [address]- 7623 Dec, [facility] [place] [facility] [address] [id number] [place] [address]- 0785 Dec, [facility] [place] [facility] [address] [id number] [place] [address]- 3375 Dec, [facility] [place] [facility] [address] [id number] [place] [address]- 6642 Dec, [facility] [place] [facility] [address] [id number] [place] [address]- 0634 Dec, [facility] [place] [facility] [address] [id number] [place] [address]- 3666 Nov, [facility] [place] [facility] [address] [id number] [place] [address]- 5392 Nov, [facility] [place] [facility] [address] [id number] [place] [address]- 7102 Nov, [facility] [place] [facility] [address] [id number] [place] [address]- 7466 September, [facility] [place] [facility] [address] [id number] [place] [address]- 2546 Feb, [facility] [place] [facility] [address] [id number] [place] [address]- 2546 Feb, [facility] [place] [facility] [address] [id number] [place] [address]- 0620 Jan, [facility] [place] [facility] [address] [id number] [place] [address]- 2546 Dec, [facility] [place] [facility] [address] [id number] [place] [address]- 2546 Dec, [facility] [place] [facility] [address] [id number] [place] [address] 2546 Jun, [facility] [place] [facility] [address] [id number] [place] [address]- 2226 Jun, [facility] [place] [facility] [address] [id number] [place] [address]- 2546 May, [facility] [place] [facility] [address] [id number] [place] [address]- 5036 Apr, [facility] [place] [facility] [address] [id number] [place] [address]- 2546 Apr, [facility] [place] [facility] [address] [id number] [place] [address]- 2546 30 Mar, 2011 [facility] [place] [facility] [address] [id number] [place] [address]- 2546 16 Mar, 2011 [facility] [place] [facility] [address] [id number] [place] [address]- 2546 Mar, [facility] [place] [facility] [address] [id number] [place] [address]- 5804 14 Mar, 2011 [facility] [place] [facility] [address] [id number] [place] [address]- 5181 04 Mar, 2011 [facility] [place] [facility] [address] [id number] [place] [address]- 2546 Dec, [facility] [place] [facility] [address] [id number] [place] [address]- 2169 May, [facility] [place] [facility] [address] [id number] [place] [address] 2545 Apr, [facility] [place] [facility] [address] [id number] [place] [address]- 2024 Apr, [facility] [place] [facility] [address] [id number] [place] [address]- 6338 Mar, [facility] [place] [facility] [address] [id number] [place] [address]- 7472 Mar, [facility] [place] [facility] [address] [id number] [place] [address]- 3731 Mar, [facility] [place] [facility] [address] [id number] [place] [address]- 0901 Feb, [facility] [place] [facility] [address] [id number] [place] [address]- 3914 Feb, [facility] [place] [facility] [address] [id number] [place] [address]- 2543 27 Feb, 2010 [facility] [place] [facility] [address] [id number] [place] [address]- 2542 26 Feb, 2010 [facility] [place] [facility] [address] [id number] [place] [address] 2545 19 Feb, 2010 [facility] [place] [facility] [address] [id number] [place] [address]- 254 Feb, [facility] [place] [facility] [address] [id number] [place] [address]- 3800 Feb, [facility] [place] [address] [facility]NOTE 3] [id number] [place] [address] [address] Feb, [facility] [place] [address] [facility]NOTE 3] [id number] [place] [address]- 3586 Feb, [facility] [place] [address] [facility]NOTE 3] [id number] [place] [address]- 5770 Mar, [facility] [place] [address] [facility]NOTE 3] [id number] [place] [address]- 0072 Oct, IMMUNIZATIONS No Known Immunizations SOCIAL HISTORY Never Assessed REASON FOR VISIT PMH obtained. Kellie SALDIVAR PLAN OF CARE VITAL SIGNS MEDICATIONS Medication Instructions Dosage Frequency Start Date End Date Duration Status Norvasc 10 mg take 1 tablet by Oral route 1 time per day increased by Dr Prieto Nov, Active Imdur 60 mg take 1 tablet (60 mg) by oral route once daily in the morning Jun, Active Levemir Flexpen 100 unit/mL subcutaneously Once a day 30 units 24h May, Active Tylenol 325 mg take 1 tablet (325 mg) by oral route every 4 hours as neededPRN Jun, Active RESULTS No Results PROCEDURES No [...] History vitrectomy-right Surgical History open heart surgery 2009 Surgical History left above the knee amputation 2016 Surgical History right above the knee amputation 2017 Surgical History dialysis 2014 Surgical History removed sternum and several ribs due to infection after open heart 2010 Surgical History Hemodialysis catheter- right chest Surgical History AICD/pacer- left chest Hospitalization History Surgery(s) Hospitalization History surgical amputation
--- OUTSIDE RECORDS SUMMARY | 2017-09-26 04:57 | XMS REPORT ---
Author Author ALTAMIRANOLAXMI Ayala Organization [facility] [place] Address [address] [place] [address] Care Team Providers Care Financial Systems Analyst Name Role Phone LAXMI ALTAMIRANO Unavailable PROBLEMS Type Condition ICD9-CM Code GWG76-WP Code Onset Dates Condition Status SNOMED Code Problem Dependence on renal dialysis Z99.2 Active 062794553 Problem Type 2 diabetes mellitus with diabetic chronic kidney disease E11.22 Active 40434065 Problem End stage renal disease N18.6 Active 263621119 Problem Above knee amputation of right lower extremity Z89.611 Active 653909877 Problem Chronic diastolic congestive heart failure I50.32 Active 845117104 Problem Ischemic cardiomyopathy I25.5 Active 815007175 Problem custodial current 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.4 Active 822312228 Problem Hypothyroidism (acquired) E03.9 Active 22358077 Problem Above knee amputation of left lower extremity Z89.612 Active 724099867 Problem PVD (peripheral vascular disease) I73.9 Active 091589437 Problem Coronary artery disease involving [place] coronary 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 Active 7464804312191 Problem Non-seasonal allergic rhinitis due to pollen J30.1 Active 62106214 Problem AICD (automatic cardioverter/defibrillator) present Z95.810 Active 953458088 ALLERGIES No Information ENCOUNTERS Encounter Location Date Diagnosis [facility] [place] [address] [facility] [id number], [place] [address] Jul, [facility] [place] [address], [place] [address]- 3023 Jul, Abscess L02.91 [facility] [place] [address] [place] [id number], [place] [address]- 4[address] 15 Jul, 2017 Cellulitis of right lower extremity L03.115 [place] [address] [place] [id number], [place] [address]- 490[address] Jul, [facility] [place] [address] [id number], [place] [address]- 4687 Jun, [facility] [place] [address], [place] [address]- 6412 Jun, [facility] [place] [id number] [place] [address]- 1445 Jun, Type 2 diabetes mellitus with diabetic chronic kidney disease E11.22 ; 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 ; Coronary artery disease involving [place] coronary 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 ; PVD [...] Non-seasonal allergic rhinitis due to pollen J30.1 [facility] [place] [address], [place] [address]- 264[address] Jan, [facility] [place] [address] [place] [id number] [place] [address]- 0018 15 Jan, 2017 Type 2 diabetes mellitus with diabetic chronic kidney disease E11.22 ; 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 ; Coronary artery disease involving [place] coronary 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 ; Chronic congestive heart failure, unspecified congestive heart failure type I50.9 ; PVD (peripheral vascular disease) I73.9 ; End stage renal disease N18.6 ; Dependence on renal dialysis Z99.2 and AICD (automatic cardioverter/defibrillator) present Z95.810 [facility] [place] [address], [place] [address]- 2927 13 Jan, 2017 [facility] [place] [id number] [place] [address]- 6469 14 Aug, 2014 [facility] [place] [address] [id number] [place] [address]- 9687 Aug, [facility] [place] [facility] [address] [id number] [place] [address]- 1039 Oct, [facility] [place] [facility] [address] [id number] [place] [address]- 6715 Oct, [facility] [place] [facility] [address] [id number] [place] [address]- 0249 Jul, [facility] [place] [facility] [address] [id number] [place] [address]- 3062 Jul, [facility] [place] [facility] [address] [id number] [place] [address]- 1575 May, [facility] [place] [facility] [address] [id number] [place] [address]- 1757 May, [facility] [place] [facility] [address] [id number] [place] [address]- 4632 May, [facility] [place] [facility] [address] [id number] [place] [address]- 7846 May, [facility] [place] [facility] [address] [id number] [place] [address]- 8687 May, [facility] [place] [facility] [address] [id number] [place] [address]- 9928 May, [facility] [place] [facility] [address] [id number] [place] [address]- 5796 May, [facility] [place] [facility] [address] [id number] [place] [address]- 0419 May, [facility] [place] [facility] [address] [id number] [place] [address]- 1819 May, [facility] [place] [facility] [address] [id number] [place] [address]- 4888 May, [facility] [place] [facility] [address] [id number] [place] [address]- 8996 May, [facility] [place] [facility] [address] [id number] [place] [address]- 4918 May, [facility] [place] [facility] [address] [id number] [place] [address]- 8383 May, [facility] [place] [facility] [address] [id number] [place] [address]- 5951 May, [facility] [place] [facility] [address] [id number] [place] [address]- 7206 May, [facility] [place] [facility] [address] [id number] [place] [address]- 1449 May, [facility] [place] [facility] [address] [id number] [place] [address]- 8960 May, [facility] [place] [facility] [address] [id number] [place] [address]- 4849 May, [facility] [place] [facility] [address] [id number] [place] [address]- 7667 Apr, [facility] [place] [facility] [address] [id number] [place] [address]- 9587 Apr, [facility] [place] [facility] [address] [id number] [place] [address]- 5545 Apr, [facility] [place] [facility] [address] [id number] [place] [address]- 6841 Apr, [facility] [place] [facility] [address] [id number], [place] [address]- 2381 Mar, [facility] [place] [facility] [address] [id number] [place] [address]- 8720 Mar, [facility] [place] [facility] [address] [id number] [place] [address]- 9810 Mar, [facility] [place] [facility] [address] [id number] [place] [address]- 3411 Mar, [facility] [place] [facility] [address] [id number] [place] [address]- 1406 08 Mar, 2013 [facility] [address] [id number] [place] [address]- 3169 17 Jan, 2013 [facility] [place] [facility] [address] [id number] [place] [address]- 6756 16 Jan, 2013 [facility] [address] [id number] [place] [address]- 0468 08 Jan, 2013 [facility] [place] [facility] [address] [id number] [place] [address]- 1032 Jan, [facility] [address] [id number] [place] [address]- 5787 Dec, [facility] [address] [id number] [place] [address]- 2226 Dec, [facility] [address] [id number] [place] [address]- 6367 Dec, [facility] [address] [id number] [place] [address]- 6996 Dec, [facility] [place] [facility] [address] [id number] [place] [address]- 4104 Dec, [facility] [address] [id number] [place] [address]- 5374 Dec, [facility] [place] [facility] [address] [id number] [place] [address]- 5988 Dec, [facility] [place] [facility] [address] [id number] [place] [address]- 1210 Dec, [facility] [place] [facility] [address] [id number] [place] [address]- 6494 Nov, [facility] [place] [facility] [address] [id number] [place] [address]- 0156 Nov, [facility] [place] [facility] [address] [id number] [place] [address]- 8299 Nov, [facility] [address] [id number] [place] [address]- 2146 September, [facility] [place] [facility] [address] [id number] [place] [address]- 9186 Feb, [facility] [place] [facility] [address] [id number] [place] [address]- 2546 Feb, [facility] [place] [facility] [address] [id number] [place] [address]- 4596 Jan, [facility] [place] [facility] [address] [id number] [place] [address]- 2546 Dec, [facility] [place] [facility] [address] [id number] [place] [address] Dec, [facility] [place] [facility] [address] [id number] [place] [address] Jun, [facility] [place] [facility] [address] [id number] [place] [address] Jun, [facility] [place] [facility] [address] [id number] [place] [address] May, [facility] [place] [facility] [address] [id number] [place] [address] Apr, [facility] [place] [facility] [address] [id number] [place] [address] Apr, [facility] [place] [facility] [address] [id number] [place] [address] 30 Mar, 2011 [facility] [place] [facility] [address] [id number] [place] [address]- [address] Mar, [facility] [place] [facility] [address] [id number] [place] [address]- [address] Mar, [facility] [place] [facility] [address] [id number] [place] [address]- [address] 14 Mar, 2011 [facility] [place] [facility] [address] [id number] [place] [address]- [address] Mar, [facility] [place] [facility] [address] [id number] [place] [address] Dec, [facility] [place] [facility] [address] [id number] [place] [address] May, [facility] [place] [facility] [address] [id number] [place] [address] Apr, [facility] [place] [facility] [address] [id number] [place] [address]- [address] Apr, [facility] [place] [facility] [id number] [place] [address], [place] [address] Mar, [facility] [place] [facility] [address] [id number] [place] [address] Mar, [facility] [place] [facility] [address] [id number] [place] [address]- [address] Mar, [facility] [place] [facility] [address] [id number] [place] [address] Feb, [facility] [place] [facility] [address] [id number] [place] [address] 28 Feb, 2010 [facility] [place] [facility] [address] [id number] [place] [address] Feb, [facility] [place] [facility] [address] [id number] [place] [address] Feb, [facility] [place] [facility] [address] [id number], [place] [address] Feb, [facility] [place] [facility] [address] [id number] [place] [address] Feb, [facility] [place] [facility] [address] [id number], [place] [address] Feb, [facility] [place] [facility] [address] [id number], [place] [address] Feb, [facility] [place] [facility] [address] [facility] [id number] [place] [address] [address] Feb, [facility] [place] [address] [facility] [id number] [place] [address] Mar, [facility] [place] [address] [facility] [id number] [place] [address] Oct, IMMUNIZATIONS No Known Immunizations SOCIAL HISTORY Never Assessed REASON FOR VISIT Referral PLAN OF CARE VITAL SIGNS MEDICATIONS Unknown Medications RESULTS No Results PROCEDURES No Known procedures [...]
--- OUTSIDE RECORDS SUMMARY | 2017-09-26 05:00 | XMS REPORT | Continuity of Care Document ---
Author Author [facility] Address Unknown Phone Unavailable Allergies Active Description Code Type Severity Reaction Onset Reported/Identified Relationship to Patient Clinical Status Yes vancomycin Drug Allergy N/A N/A 04/08/2011 Yes morphine Drug Allergy N/A N/A 04/10/2011 Yes azithromycin [id number] Drug Allergy Severe HIVES, TROUBLE 07/13/2011 Yes vancomycin [id number] Drug Allergy Unknown N/A 12/26/2015 Yes cephalexin [id number] Drug Allergy Unknown N/A 02/27/2016 Yes morphine [id number] Drug Allergy Unknown N/A 02/27/2016 Medications There [...] LIZBETH COWART APRN Ot 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 04/24/1599 LIZBETH COWART APRN [...] INFARCT,IN 01/21/2011 Ot 414.01 CORONARY ATHEROSCLEROSIS OF [place] CORON 01/21/2011 Ot 427.0 PAROX ATRIAL TACHYCARDIA [...] INFARCT,IN 03/27/2011 Ot 414.01 CORONARY ATHEROSCLEROSIS OF [place] CORON 03/27/2011 Ot 428.0 CONGESTIVE HEART FAILURE [...] NOS 09/05/2011 Ot 414.01 CORONARY ATHEROSCLEROSIS OF [place] CORON 09/05/2011 Ot 428.0 CONGESTIVE HEART FAILURE [...] OF OTHER PART OF HEAD, INITIAL 08/11/2015 DEY GREEN Ot W05.0XXA FALL FROM NON-MOVING WHEELCHAIR, INITIAL 08/11/2015 EDY GREEN Ot Y92.012 BATHROOM OF SINGLE-FAMILY (PRIVATE) HOUS 08/11/2015 EDY GREEN Ot Y99.8 OTHER EXTERNAL CAUSE STATUS 08/11/2015 EDY GREEN Ot Z79.4 SKILLED NURSING (CURRENT) USE OF INSULIN 08/11/2015 EDY GREEN [...] NP-C Ot 272.4 08/11/2015 NEW, JARED Gonzales CONSTRUCTION ECONOMIST-C Ot 276.1 08/11/2015 NEW, JARED Gonzales CONSTRUCTION ECONOMIST-C Ot 276.7 08/11/2015 NEW, JARED Gonzales CONSTRUCTION ECONOMIST-C Ot 285.21 08/11/2015 NEW, JARED Gonzales CONSTRUCTION ECONOMIST-C Ot 404.10 08/11/2015 NEW, JARED Gonzales CONSTRUCTION ECONOMIST-C Ot 428.0 08/11/2015 NEW, JARED Gonzales CONSTRUCTION ECONOMIST-C Ot 585.4 08/11/2015 NEW, JARED Gonzales NP-C [...] S Ot V67.09 08/14/2015 NEW, JARED VeronikaMerly CONSTRUCTION ECONOMIST-C Ot 250.40 08/14/2015 NEW, JARED VeronikaMerly CONSTRUCTION ECONOMIST-C Ot 263.9 08/14/2015 NEW, JARED Veronika. CONSTRUCTION ECONOMIST-C Ot 272.4 08/14/2015 NEW, JARED VeronikaMerly CONSTRUCTION ECONOMIST-C Ot 276.1 08/14/2015 NEW, JARED VeronikaMerly CONSTRUCTION ECONOMIST-C Ot 276.7 08/14/2015 NEW, JARED VeronikaMerly CONSTRUCTION ECONOMIST-C Ot 285.21 08/14/2015 NEW, JARED Gonzales CONSTRUCTION ECONOMIST-C Ot 404.10 08/14/2015 NEW, JARED VeronikaMerly CONSTRUCTION ECONOMIST-C Ot 428.0 08/14/2015 NEW, JARED GMerly CONSTRUCTION ECONOMIST-C Ot 585.4 08/14/2015 NEW, JARED Gonzales CONSTRUCTION ECONOMIST-C Ot 791.0 12/26/2015 JARED AGEE DO Ot [...] Easley Ot 682.2 CELLULITIS OF TRUNK 12/26/2015 SHU WATTS, LU Easley Ot V67.09 SURGERY FOLLOW-UP, OTHER SURGERY 12/26/2015 SEN JARED VeronikaMerly CONSTRUCTION ECONOMIST-C Ot 250.40 DIAB W RENAL MANIFEST, TYPE II OR UNSPEC 12/26/2015 JARED CHATTERJEE CONSTRUCTION ECONOMIST-C Ot 263.9 PROTEIN-MARGARITA MALNUTR NOS 12/26/2015 JARED CHATTERJEE CONSTRUCTION ECONOMIST-C Ot 272.4 HYPERLIPIDEMIA NEC/NOS 12/26/2015 JARED CHATTERJEE VeronikaMerly CONSTRUCTION ECONOMIST-C Ot 276.1 HYPOSMOLALITY 12/26/2015 JARED CHATTERJEE VeronikaMerly CONSTRUCTION ECONOMIST-C Ot 276.7 HYPERPOTASSEMIA 12/26/2015 JARED CHATTERJEE VeronikaMerly CONSTRUCTION ECONOMIST-C Ot 285.21 ANEMIA IN CHRONIC KIDNEY DISEASE 12/26/2015 JARED CHATTERJEE VeronikaMerly CONSTRUCTION ECONOMIST-C Ot 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, BENIGN, 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 12/26/2015 JARED CHATTERJEE CONSTRUCTION ECONOMIST-C Ot 428.0 CONGESTIVE HEART FAILURE NOS 12/26/2015 JARED CHATTERJEE VeronikaMerly CONSTRUCTION ECONOMIST-C Ot 585.4 CHRONIC KIDNEY DISEASE, STAGE IV (SEVERE 12/26/2015 JARED CHATTERJEE VeronikaMerly CONSTRUCTION ECONOMIST-C Ot 791.0 PROTEINURIA 12/27/2015 JARED AGEE DO [...] DISEASE 02/17/2016 MALGORZATA AKINS MD Ot Z79.4 SKILLED NURSING (CURRENT) USE OF INSULIN 02/17/2016 MALGORZATA AKINS MD Ot Z79.82 SKILLED NURSING (CURRENT) USE OF ASPIRIN 02/17/2016 MALGORZATA AKINS MD Ot Z79.899 OTHER SKILLED NURSING (CURRENT) DRUG THERAPY 02/17/2016 MALGORZATA AKINS MD [...] BREATH 02/25/2016 DENZEL ROMERO DO, Ot Z79.4 ENGRAVER COPPERPLATE (CURRENT) USE OF INSULIN 02/25/2016 DENZEL ROMERO DO, Ot Z79.899 OTHER ENGRAVER COPPERPLATE (CURRENT) DRUG THERAPY 02/25/2016 DENZEL ROMERO DO, [...] 02/28/2016 CYNDIE JARED HARRIS K Ot Z79.4 SKILLED NURSING (CURRENT) USE OF INSULIN 02/28/2016 CYNDIE DO JARED K Ot Z79.82 SKILLED NURSING (CURRENT) USE OF ASPIRIN 02/28/2016 [place] DO JARED K Ot Z79.899 OTHER SKILLED NURSING (CURRENT) DRUG THERAPY 02/28/2016 [place] DO JARED K Ot Z95.1 PRESENCE OF AORTOCORONARY BYPASS GRAFT 02/28/2016 [place] DO JARED K Ot Z95.810 PRESENCE OF AUTOMATIC (IMPLANTABLE) CARD 02/28/2016 [place] DO JARED K Ot E11.9 TYPE 2 [...] 02/28/2016 CYNDIE JARED HARRIS K Ot Z79.4 ENGRAVER COPPERPLATE (CURRENT) USE OF INSULIN 02/28/2016 CYND[place] DO JARED K Ot Z79.82 ENGRAVER COPPERPLATE (CURRENT) USE OF ASPIRIN 02/28/2016 [place] DO JARED K Ot Z79.899 OTHER ENGRAVER COPPERPLATE (CURRENT) DRUG THERAPY 02/28/2016 [place] DO JARED K Ot Z95.1 PRESENCE OF AORTOCORONARY BYPASS GRAFT 02/28/2016 [facility], JARED K Ot Z95.810 PRESENCE OF AUTOMATIC (IMPLANTABLE) CARD 05/24/2016 LIZBETH COWART APRN Ot E11.621 TYPE 2 DIABETES MELLITUS WITH FOOT ULCER 05/24/2016 LIZBETH COWART APRN Ot I70.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 [place] [facility] 05/24/2016 LIZBETH COWART CLIENT MANAGER Ot 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 05/24/2016 LIZBETH COWART CLIENT MANAGER Ot L97.522 NON-PRS CHRONIC ULCER OTH PRT LEFT FOOT 05/24/2016 LIZBETH COWART CLIENT MANAGER Ot N18.5 CHRONIC KIDNEY DISEASE, STAGE 5 06/04/2016 LIZBETH COWART CLIENT MANAGER Ot E11.621 TYPE 2 DIABETES MELLITUS WITH FOOT ULCER 06/04/2016 LIZBETH COWART CLIENT MANAGER Ot I70.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 [place] [facility] 06/04/2016 LIZBETH COWART CLIENT MANAGER Ot 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 06/04/2016 LIZBETH COWART CLIENT MANAGER Ot L97.522 NON-PRS CHRONIC ULCER OTH PRT LEFT FOOT 06/04/2016 LIZBETH COWART CLIENT MANAGER Ot N18.5 CHRONIC KIDNEY DISEASE, STAGE 5 [...] UNSPECIFIED 06/12/2016 SANDI PERALTA MD Ot Z79.4 SKILLED NURSING (CURRENT) USE OF INSULIN 06/12/2016 SANDI PERALTA MD Ot Z79.82 SKILLED NURSING (CURRENT) USE OF ASPIRIN 06/12/2016 SANDI PERALTA MD, Ot Z79.899 OTHER ENGRAVER COPPERPLATE (CURRENT) DRUG THERAPY 06/12/2016 SANDI PERALTA MD, Ot Z95.1 PRESENCE OF AORTOCORONARY BYPASS GRAFT 06/12/2016 SANDI PERALTA MD, Ot Z95.810 PRESENCE OF AUTOMATIC (IMPLANTABLE) CARD 06/12/2016 FABIAN MD, SANDI D Ot Z98.890 OTHER SPECIFIED [...] UNSPECIFIED 06/13/2016 SANDI PERALTA MD, Ot Z79.4 ENGRAVER COPPERPLATE (CURRENT) USE OF INSULIN 06/13/2016 SANDI PERALTA MD Ot Z79.82 SKILLED NURSING (CURRENT) USE OF ASPIRIN 06/13/2016 SANDI PERALTA MD Ot Z79.899 OTHER SKILLED NURSING (CURRENT) DRUG THERAPY 06/13/2016 SANDI PERALTA MD [...] MD Ot I25.119 ATHSCL HEART DISEASE OF [place] COR ART W 08/24/2016 WADE CHAUDHARY MD Ot I25.2 OLD MYOCARDIAL INFARCTION 08/24/2016 WADE CHAUDHARY MD Ot I51.7 CARDIOMEGALY 08/24/2016 WADE CHAUDHARY MD Ot R07.9 CHEST PAIN, UNSPECIFIED 08/24/2016 WADE CHAUDHARY MD Ot Z79.4 ENGRAVER COPPERPLATE (CURRENT) USE OF INSULIN 08/24/2016 WADE CHAUDHARY MD Ot Z79.82 SKILLED NURSING (CURRENT) USE OF ASPIRIN 08/24/2016 WADE CHAUDHARY MD Ot Z79.899 OTHER SKILLED NURSING (CURRENT) DRUG THERAPY 08/24/2016 WADE CHAUDHARY MD [...] MD Ot I25.10 ATHSCL HEART DISEASE OF [place] CORONARY 08/31/2016 SANDI PERALTA MD Ot I70.91 GENERALIZED ATHEROSCLEROSIS 08/31/2016 SANDI PERALTA MD Ot K65.2 SPONTANEOUS BACTERIAL PERITONITIS 08/31/2016 SANDI PERALTA MD Ot K80.20 CALCULUS OF GALLBLADDER W/O CHOLECYSTITI 08/31/2016 SANDI PERALTA MD Ot N18.6 END STAGE RENAL DISEASE 08/31/2016 SANDI PERALTA MD Ot R10.30 LOWER ABDOMINAL PAIN, UNSPECIFIED 08/31/2016 SANDI PERALTA MD Ot Z79.4 SKILLED NURSING (CURRENT) USE OF INSULIN 08/31/2016 SANDI PERALTA MD Ot Z79.82 SKILLED NURSING (CURRENT) USE OF ASPIRIN 08/31/2016 SANDI PERALTA MD Ot Z79.899 OTHER SKILLED NURSING (CURRENT) DRUG THERAPY 08/31/2016 SANDI PERALTA MD [...] MD Ot I25.10 ATHSCL HEART DISEASE OF [place] CORONARY 09/02/2016 SANDI PERALTA MD Ot I70.91 GENERALIZED ATHEROSCLEROSIS 09/02/2016 SANDI PERALTA MD Ot K65.2 SPONTANEOUS BACTERIAL PERITONITIS 09/02/2016 SANDI PERALTA MD Ot K80.20 CALCULUS OF GALLBLADDER W/O CHOLECYSTITI 09/02/2016 SANDI PERALTA MD Ot N18.6 END STAGE RENAL DISEASE 09/02/2016 SANDI PERALTA MD Ot R10.30 LOWER ABDOMINAL PAIN, UNSPECIFIED 09/02/2016 SANDI PERALTA MD Ot Z79.4 SKILLED NURSING (CURRENT) USE OF INSULIN 09/02/2016 SANDI PERALTA MD Ot Z79.82 SKILLED NURSING (CURRENT) USE OF ASPIRIN 09/02/2016 SANDI PERALTA MD Ot Z79.899 OTHER SKILLED NURSING (CURRENT) DRUG THERAPY 09/02/2016 SANDI PERALTA MD [...] MD Ot I25.10 ATHSCL HEART DISEASE OF [place] CORONARY 09/04/2016 SANDI PERALTA MD Ot I70.91 GENERALIZED ATHEROSCLEROSIS 09/04/2016 SANDI PERALTA MD Ot K65.2 SPONTANEOUS BACTERIAL PERITONITIS 09/04/2016 SANDI PERALTA MD Ot K80.20 CALCULUS OF GALLBLADDER W/O CHOLECYSTITI 09/04/2016 SANDI PERALTA MD Ot N18.6 END STAGE RENAL DISEASE 09/04/2016 SANDI PERALTA MD Ot R10.30 LOWER ABDOMINAL PAIN, UNSPECIFIED 09/04/2016 SANDI PERALTA MD Ot Z79.4 SKILLED NURSING (CURRENT) USE OF INSULIN 09/04/2016 SANDI PERALTA MD Ot Z79.82 ENGRAVER COPPERPLATE (CURRENT) USE OF ASPIRIN 09/04/2016 SANDI PERALTA MD Ot Z79.899 OTHER ENGRAVER COPPERPLATE (CURRENT) DRUG THERAPY 09/04/2016 SANDI PERALTA MD Ot Z95.1 PRESENCE OF AORTOCORONARY BYPASS GRAFT 09/04/2016 SANDI PERALTA MD Ot Z95.810 PRESENCE OF AUTOMATIC (IMPLANTABLE) CARD 09/04/2016 SANDI PERALTA MD Ot Z99.2 DEPENDENCE ON RENAL DIALYSIS 09/10/2016 JOAQUIN TIRADO MD Ot K65.9 PERITONITIS, UNSPECIFIED 09/10/2016 JOAQUIN TIRADO MD Ot Z79.2 SKILLED NURSING (CURRENT) USE OF ANTIBIOTICS 09/11/2016 JOAQUIN TIRADO MD Ot K65.9 PERITONITIS, UNSPECIFIED 09/11/2016 JOAQUIN TIRADO MD Ot Z79.2 ENGRAVER COPPERPLATE (CURRENT) USE OF ANTIBIOTICS 09/13/2016 JOAQUIN TIRADO MD Ot K65.9 PERITONITIS, UNSPECIFIED 09/13/2016 JOAQUIN TIRADO MD Ot Z79.2 SKILLED NURSING (CURRENT) USE OF ANTIBIOTICS 09/16/2016 JOAQUIN TIRADO MD Ot K65.9 PERITONITIS, UNSPECIFIED 09/16/2016 JOAQUIN TIRADO MD Ot Z79.2 ENGRAVER COPPERPLATE (CURRENT) USE OF ANTIBIOTICS 09/18/2016 JOAQUIN TIRADO MD Ot K65.9 PERITONITIS, UNSPECIFIED 09/18/2016 JOAQUIN TIRADO MD Ot Z79.2 SKILLED NURSING (CURRENT) USE OF ANTIBIOTICS 10/10/2016 JOAQUIN TIRADO MD Ot K65.9 PERITONITIS, UNSPECIFIED 10/10/2016 ECLESTINO WATTS, JOAQUIN Hooker Ot Z79.2 ENGRAVER COPPERPLATE (CURRENT) USE OF ANTIBIOTICS 10/24/2016 CELESTINO WATTS, JOAQUIN Hooker Ot K65.9 PERITONITIS, UNSPECIFIED 10/24/2016 CELESTINO WATTS, JOAQUIN Hooker Ot Z79.2 ENGRAVER COPPERPLATE (CURRENT) USE OF ANTIBIOTICS 11/06/2016 CYNDIE DO, JARED K Ot 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 11/06/2016 CYNDIE DO, JARED K Ot E78.00 PURE HYPERCHOLESTEROLEMIA, UNSPECIFIED 11/06/2016 CYNDIE DO, JARED K Ot 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 11/06/2016 CYNDIE DO, JARED K Ot I25.10 ATHSCL HEART DISEASE OF [place] CORONARY 11/06/2016 CYNDIE DO, JARED K Ot K65.9 PERITONITIS, UNSPECIFIED 11/06/2016 CYNDIE DO, JARED K Ot L03.311 CELLULITIS OF ABDOMINAL WALL 11/06/2016 CYNDIE DO JARED K Ot N18.6 END STAGE RENAL DISEASE 11/06/2016 CYNDIE DO, JARED K Ot T80.29XA INFCT FOL OTH INFUSION, TRANSFUSE AND TH 11/06/2016 CYNDIE DO JARED K Ot Z79.4 SKILLED NURSING (CURRENT) USE OF INSULIN 11/06/2016 CYNDIE DO JARED K Ot Z79.82 SKILLED NURSING (CURRENT) USE OF ASPIRIN 11/06/2016 CYNDIE DO JARED K Ot Z95.1 PRESENCE OF AORTOCORONARY BYPASS GRAFT 11/06/2016 CYNDIE JARED K Ot Z95.810 PRESENCE OF AUTOMATIC (IMPLANTABLE) CARD 11/06/2016 CYNDIE DO JARED K Ot Z99.2 DEPENDENCE ON RENAL DIALYSIS 11/08/2016 CYNDIE DO, JARED K Ot 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 11/08/2016 CYNDIE DO, JARED K Ot E78.00 PURE HYPERCHOLESTEROLEMIA, UNSPECIFIED 11/08/2016 CYNDIE DO, JARED K Ot 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 11/08/2016 CYNDIE DO, JARED K Ot I25.10 ATHSCL HEART DISEASE OF [place] CORONARY 11/08/2016 CYNDIE DO, JARED K Ot K65.9 PERITONITIS, UNSPECIFIED 11/08/2016 CYNDIE DO, JARED K Ot L03.311 CELLULITIS OF ABDOMINAL WALL 11/08/2016 CYNDIE DO, JARED K Ot N18.6 END STAGE RENAL DISEASE 11/08/2016 CYNDIE DO, JARED K Ot T80.29XA INFCT FOL OTH INFUSION, TRANSFUSE AND TH 11/08/2016 CYNDIE DO, JARED K Ot Z79.4 SKILLED NURSING (CURRENT) USE OF INSULIN 11/08/2016 CYNDIE DO, JARED K Ot Z79.82 SKILLED NURSING (CURRENT) USE OF ASPIRIN 11/08/2016 CYNDIE DO, JARED K Ot Z95.1 PRESENCE OF AORTOCORONARY BYPASS GRAFT 11/08/2016 CYNDIE DO, JARED K Ot Z95.810 PRESENCE OF AUTOMATIC (IMPLANTABLE) CARD 11/08/2016 CYNDIE DO, JARED K Ot Z99.2 DEPENDENCE ON RENAL DIALYSIS 11/12/2016 CYNDIE DO, JARED K Ot 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 11/12/2016 CYNDIE DO, JARED K Ot E78.00 PURE HYPERCHOLESTEROLEMIA, UNSPECIFIED 11/12/2016 CYNDIE DO, JARED K Ot 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 11/12/2016 CYNDIE DO, JARED K Ot I25.10 ATHSCL HEART DISEASE OF [place] CORONARY 11/12/2016 CYNDIE DO, JARED K Ot K65.9 PERITONITIS, UNSPECIFIED 11/12/2016 CYNDIE DO, JARED K Ot L03.311 CELLULITIS OF ABDOMINAL WALL 11/12/2016 CYNDIE DO, JARED K Ot N18.6 END STAGE RENAL DISEASE 11/12/2016 CYNDIE DO, JARED K Ot T80.29XA INFCT FOL OTH INFUSION, TRANSFUSE AND TH 11/12/2016 CYNDIE DO, JARED K Ot Z79.4 ENGRAVER COPPERPLATE (CURRENT) USE OF INSULIN 11/12/2016 CYNDIE DO, JARED K Ot Z79.82 SKILLED NURSING (CURRENT) USE OF ASPIRIN 11/12/2016 CYNDIE DO, JARED K Ot Z95.1 PRESENCE OF AORTOCORONARY BYPASS GRAFT 11/12/2016 CYNDIE DO, JARED K Ot Z95.810 PRESENCE OF AUTOMATIC (IMPLANTABLE) CARD 11/12/2016 CYNDIE DO, JARED K Ot Z99.2 DEPENDENCE ON RENAL DIALYSIS 12/05/2016 LIZBETH COWART APRN Ot E11.621 TYPE 2 DIABETES MELLITUS WITH FOOT ULCER 12/05/2016 LIZBETH COWART APRN Ot 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 12/05/2016 LIZBETH COWART APRN Ot 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 12/05/2016 LIZBETH COWART APRN Ot L97.522 NON-PRS CHRONIC ULCER OTH PRT LEFT FOOT 12/05/2016 LIZBETH COWART APRN Ot N18.5 CHRONIC KIDNEY DISEASE, STAGE 5 12/08/2016 CELESTINO WATTS, JOAQUIN Hooker Ot K65.9 PERITONITIS, UNSPECIFIED 12/08/2016 CELESTINO WATTS, JOAQUIN Hooker Ot Z79.2 SKILLED NURSING (CURRENT) USE OF ANTIBIOTICS 2017 LAXMI ALTAMIRANO [...] 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 04/11/2017 JARED AGEE DO Ot E11.40 TYPE 2 DIABETES MELLITUS WITH DIABETIC N 04/11/2017 CYNDIE DO, JARED K Ot 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 04/11/2017 CYNDIE DO, JARED K Ot I25.10 ATHSCL HEART DISEASE OF [place] CORONARY 04/11/2017 CYNDIE DO, JARED K Ot I25.2 OLD MYOCARDIAL INFARCTION 04/11/2017 CYNDIE DO, JARED K Ot N18.6 END STAGE RENAL DISEASE 04/11/2017 CYNDIE DO, JARED K Ot R09.02 HYPOXEMIA 04/11/2017 CYNDIE DO, JARED K Ot R50.9 FEVER, UNSPECIFIED 04/11/2017 CYNDIE DO, JARED K Ot Z79.4 ENGRAVER COPPERPLATE (CURRENT) USE OF INSULIN 04/11/2017 CYNDIE DO, JARED K Ot Z79.82 ENGRAVER COPPERPLATE (CURRENT) USE OF ASPIRIN 04/11/2017 CYNDIE DO, [...] 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 04/18/2017 CYNDIE , JARED K Ot E11.40 TYPE 2 DIABETES MELLITUS WITH DIABETIC N 04/18/2017 CYNDIE , JARED K Ot 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 04/18/2017 CYNDIE DO, JARED K Ot I25.10 ATHSCL HEART DISEASE OF [place] CORONARY 04/18/2017 CYNDIE DO, JARED K Ot I25.2 OLD MYOCARDIAL INFARCTION 04/18/2017 CYNDIE DO, JARED K Ot N18.6 END STAGE RENAL DISEASE 04/18/2017 CYNDIE DO, JARED K Ot R09.02 HYPOXEMIA 04/18/2017 CYNDIE DO, JARED K Ot R50.9 FEVER, UNSPECIFIED 04/18/2017 CYNDIE DO, JARED K Ot Z79.4 ENGRAVER COPPERPLATE (CURRENT) USE OF INSULIN 04/18/2017 JARED AGEE DO Ot Z79.82 SKILLED NURSING (CURRENT) USE OF ASPIRIN 04/18/2017 JARED AGEE [...] LUMP OR MASS IN BREAST 08/14/2017 SHU WATST, LU Easley Ot 611.0 INFLAM DISEASE OF BREAST 08/14/2017 SHU WATTS, LU Easley Ot 682.2 CELLULITIS OF TRUNK 08/14/2017 SHU WATTS, LU Easley Ot V67.09 SURGERY FOLLOW-UP, OTHER SURGERY 08/14/2017 JARED CHATTERJEE VeronikaMerly CONSTRUCTION ECONOMIST-C Ot 250.40 DIAB W RENAL MANIFEST, TYPE II OR UNSPEC 08/14/2017 NEWJARED. CONSTRUCTION ECONOMIST-C Ot 263.9 PROTEIN-MARGARITA MALNUTR NOS 08/14/2017 NEWJARED. CONSTRUCTION ECONOMIST-C Ot 272.4 HYPERLIPIDEMIA NEC/NOS 08/14/2017 NEWJARED. 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 08/14/2017 JARED CHATTERJEE CONSTRUCTION ECONOMIST-C Ot 428.0 CONGESTIVE HEART FAILURE NOS 08/14/2017 JARED CHATTERJEE VeronikaMerly CONSTRUCTION ECONOMIST-C Ot 585.4 CHRONIC KIDNEY DISEASE, STAGE IV (SEVERE 08/14/2017 JARED CHATTERJEE VeronikaMerly CONSTRUCTION ECONOMIST-C Ot 791.0 PROTEINURIA 08/14/2017 LIZBETH COWART APRN Ot E11.621 TYPE 2 DIABETES MELLITUS WITH FOOT ULCER 08/14/2017 LIZBETH COWART CLIENT MANAGER Ot 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 08/14/2017 LIZBETH COWART CLIENT MANAGER Ot 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 08/14/2017 LIZBETH COWART CLIENT MANAGER Ot L97.522 NON-PRS CHRONIC ULCER OTH PRT LEFT FOOT 08/14/2017 LIZBETH COWART CLIENT MANAGER Ot N18.5 CHRONIC KIDNEY DISEASE, STAGE 5 08/14/2017 CELESTINO WATTS, JOAQUIN Hooker Ot K65.9 PERITONITIS, UNSPECIFIED 08/14/2017 CELESTINO WATTS, JOAQUIN Hooker Ot Z79.2 SKILLED NURSING (CURRENT) USE OF ANTIBIOTICS 08/14/2017 SUPA, LIZBETH R CLIENT MANAGER Ot L97.111 NON-PRS CHRONIC ULCER OF RIGHT THIGH SAN 08/15/2017 LIZBETH COWART CLIENT MANAGER Ot E11.622 TYPE 2 DIABETES MELLITUS WITH OTHER SKIN 08/15/2017 LIZBETH COWART CLIENT MANAGER Ot I70.231 ATHSCL [place]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 08/15/2017 LIZBETH COWART CLIENT MANAGER Ot L03.115 CELLULITIS OF RIGHT LOWER LIMB 08/15/2017 LIZBETH COWART CLIENT MANAGER Ot L97.111 NON-PRS CHRONIC ULCER OF RIGHT THIGH SAN 08/15/2017 LIZBETH COWART CLIENT MANAGER Ot N18.5 CHRONIC KIDNEY DISEASE, STAGE 5 08/20/2017 LIZBETH COWART CLIENT MANAGER Ot E11.622 TYPE 2 DIABETES MELLITUS WITH OTHER SKIN 08/20/2017 LIZBETH COWART CLIENT MANAGER Ot I70.231 ATHSCL [place]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 08/20/2017 LIZBETH COWART CLIENT MANAGER Ot L03.115 CELLULITIS OF RIGHT LOWER LIMB 08/20/2017 LIZBETH COWART CLIENT MANAGER Ot L97.111 NON-PRS CHRONIC ULCER OF RIGHT THIGH SAN 08/20/2017 LIZBETH COWART CLIENT MANAGER Ot N18.5 CHRONIC KIDNEY DISEASE, STAGE 5 08/25/2017 LIZBETH COWART CLIENT MANAGER Ot E11.622 TYPE 2 DIABETES MELLITUS WITH OTHER SKIN 08/25/2017 LIZBETH COWART CLIENT MANAGER Ot I70.231 ATHSCL [place]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 08/25/2017 LIZBETH COWART CLIENT MANAGER Ot L03.115 CELLULITIS OF RIGHT LOWER LIMB 08/25/2017 LIZBETH COWART CLIENT MANAGER Ot L97.111 NON-PRS CHRONIC ULCER OF RIGHT THIGH SAN 08/25/2017 LIZBETH COWART CLIENT MANAGER Ot N18.5 CHRONIC KIDNEY DISEASE, STAGE 5 09/12/2017 LACEY STONE APRN Ot 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 09/12/2017 LACEY STONE APRN Ot E11.40 TYPE 2 DIABETES MELLITUS WITH DIABETIC N 09/12/2017 LACEY STONE CLIENT MANAGER Ot E11.59 TYPE 2 DIABETES MELLITUS WITH OTH CIRCUL 09/12/2017 LACEY STONE APRN Ot E78.00 PURE HYPERCHOLESTEROLEMIA, UNSPECIFIED 09/12/2017 LACEY STONE APRN Ot 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 KDNY DIS W HRT FAIL AND ST 09/12/2017 LACEY STONE APRN Ot I25.10 ATHSCL HEART DISEASE OF [place] CORONARY 09/12/2017 LACEY STONE APRN Ot I25.2 OLD MYOCARDIAL INFARCTION 09/12/2017 LACEY STONE APRN Ot I50.9 HEART FAILURE, UNSPECIFIED 09/12/2017 LACEY STONE APRN Ot I73.9 PERIPHERAL VASCULAR DISEASE, UNSPECIFIED 09/12/2017 LACEY STONE APRN Ot L76.22 POSTPROC HEMORRHAGE OF SKIN, SUBCU FOLLO 09/12/2017 LACEY STONE APRN Ot N18.6 END STAGE RENAL DISEASE 09/12/2017 LACEY STONE APRN Ot Z79.4 SKILLED NURSING (CURRENT) USE OF INSULIN 09/12/2017 LACEY STONE APRN Ot Z79.51 SKILLED NURSING (CURRENT) USE OF INHALED STERO 09/12/2017 LACEY STONE APRN Ot Z79.82 ENGRAVER COPPERPLATE (CURRENT) USE OF ASPIRIN 09/12/2017 LACEY STONE APRN Ot Z88.0 ALLERGY STATUS TO PENICILLIN 09/12/2017 LACEY STONE APRN Ot Z88.1 ALLERGY STATUS TO OTHER ANTIBIOTIC AGENT 09/12/2017 LACEY STONE APRN Ot Z88.5 ALLERGY STATUS TO NARCOTIC AGENT STATUS 09/12/2017 LACEY STONE APRN Ot Z89.611 ACQUIRED ABSENCE OF RIGHT LEG ABOVE KNEE 09/12/2017 LACEY STONE APRN Ot Z89.612 ACQUIRED ABSENCE OF LEFT LEG ABOVE KNEE 09/12/2017 LACEY STONE APRN Ot Z95.1 PRESENCE OF AORTOCORONARY BYPASS GRAFT 09/12/2017 LACEY STONE CLIENT MANAGER Ot Z95.810 PRESENCE OF AUTOMATIC (IMPLANTABLE) CARD 09/12/2017 LACEY STONE APRN Ot Z99.2 DEPENDENCE ON RENAL DIALYSIS 09/13/2017 HUI WATTS, BALDOMERO Kat Ot 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 09/13/2017 BALDOMERO AMES MD Ot E11.40 TYPE 2 DIABETES MELLITUS WITH DIABETIC N 09/13/2017 BALDOMERO AMES MD Ot E11.59 TYPE 2 DIABETES MELLITUS WITH OTH CIRCUL 09/13/2017 BALDOMERO AMES MD, Ot E78.00 PURE HYPERCHOLESTEROLEMIA, UNSPECIFIED 09/13/2017 BALDOMERO AMES MD, Ot 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 [place] DIS W HRT FAIL AND ST 09/13/2017 BALDOMERO AMES MD, Ot I25.10 ATHSCL HEART DISEASE OF [place] CORONARY 09/13/2017 BALDOMERO AMES MD, Ot I25.2 OLD MYOCARDIAL INFARCTION 09/13/2017 BALDOMERO AMES MD, Ot I50.9 HEART FAILURE, UNSPECIFIED 09/13/2017 BALDOMERO AMES MD, Ot I73.9 PERIPHERAL VASCULAR DISEASE, UNSPECIFIED 09/13/2017 BALDOMERO AMES MD Ot L76.21 POSTPROC HEMOR OF SKIN, SUBCU FOL A DERM 09/13/2017 BALDOMERO AMES MD, Ot N18.6 END STAGE RENAL DISEASE 09/13/2017 BALDOMERO AMES MD, Ot Z79.4 SKILLED NURSING (CURRENT) USE OF INSULIN 09/13/2017 BALDOMERO AMES MD, Ot Z79.82 ENGRAVER COPPERPLATE (CURRENT) USE OF ASPIRIN 09/13/2017 BALDOMERO AMES MD, Ot Z88.0 ALLERGY STATUS TO PENICILLIN 09/13/2017 BALDOMERO AMES MD Ot Z88.1 ALLERGY STATUS TO OTHER ANTIBIOTIC AGENT 09/13/2017 BALDOMERO AMES MD, Ot Z88.5 ALLERGY STATUS TO NARCOTIC AGENT STATUS 09/13/2017 BALDOMERO AMES MD, Ot Z89.611 ACQUIRED ABSENCE OF RIGHT LEG ABOVE KNEE 09/13/2017 BALDOMERO AMES MD, Ot Z89.612 ACQUIRED ABSENCE OF LEFT LEG ABOVE KNEE 09/13/2017 BALDOMERO AMES MD Ot Z95.1 PRESENCE OF AORTOCORONARY BYPASS GRAFT 09/13/2017 BALDOMERO AMES MD Ot Z95.810 PRESENCE OF AUTOMATIC (IMPLANTABLE) CARD 09/13/2017 BALDOMERO AMES MD, Ot Z99.2 DEPENDENCE ON RENAL DIALYSIS 09/15/2017 LACEY STONE APRN Ot 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 09/15/2017 LACEY STONE APRN Ot E11.40 TYPE 2 DIABETES MELLITUS WITH DIABETIC N 09/15/2017 LACEY STONE APRN Ot E11.59 TYPE 2 DIABETES MELLITUS WITH OTH CIRCUL 09/15/2017 LACEY STONE APRN Ot E78.00 PURE HYPERCHOLESTEROLEMIA, UNSPECIFIED 09/15/2017 LACEY STONE APRN Ot 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 [place] DIS W HRT FAIL AND ST 09/15/2017 LACEY STONE APRN Ot I25.10 ATHSCL HEART DISEASE OF [place] CORONARY 09/15/2017 LACEY STONE APRN Ot I25.2 OLD MYOCARDIAL INFARCTION 09/15/2017 LACEY STONE APRN Ot I50.9 HEART FAILURE, UNSPECIFIED 09/15/2017 LACEY STONE APRN Ot I73.9 PERIPHERAL VASCULAR DISEASE, UNSPECIFIED 09/15/2017 LACEY STONE APRN Ot L76.22 POSTPROC HEMORRHAGE OF SKIN, SUBCU FOLLO 09/15/2017 LACEY STONE APRN Ot N18.6 END STAGE RENAL DISEASE 09/15/2017 LACEY STONE APRN Ot Z79.4 SKILLED NURSING (CURRENT) USE OF INSULIN 09/15/2017 LACEY STONE APRN Ot Z79.51 SKILLED NURSING (CURRENT) USE OF INHALED STERO 09/15/2017 LACEY STONE APRN Ot Z79.82 ENGRAVER COPPERPLATE (CURRENT) USE OF ASPIRIN 09/15/2017 LACEY STONE APRN Ot Z88.0 ALLERGY STATUS TO PENICILLIN 09/15/2017 LACEY STONE APRN Ot Z88.1 ALLERGY STATUS TO OTHER ANTIBIOTIC AGENT 09/15/2017 LACEY STONE APRN Ot Z88.5 ALLERGY STATUS TO NARCOTIC AGENT STATUS 09/15/2017 LACEY STONE APRN Ot Z89.611 ACQUIRED ABSENCE OF RIGHT LEG ABOVE KNEE 09/15/2017 LACEY STONE APRN Ot Z89.612 ACQUIRED ABSENCE OF LEFT LEG ABOVE KNEE 09/15/2017 LACEY STONE APRN Ot Z95.1 PRESENCE OF AORTOCORONARY BYPASS GRAFT 09/15/2017 LACEY STONE APRN Ot Z95.810 PRESENCE OF AUTOMATIC (IMPLANTABLE) CARD 09/15/2017 LACEY STONE APRN Ot Z99.2 DEPENDENCE ON RENAL DIALYSIS 09/15/2017 LACEY STONE APRN Ot 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 09/15/2017 LACEY STONE APRN Ot E11.40 TYPE 2 DIABETES MELLITUS WITH DIABETIC N 09/15/2017 LACEY STONE APRN Ot E11.59 TYPE 2 DIABETES MELLITUS WITH OTH CIRCUL 09/15/2017 LACEY STONE APRN Ot E78.00 PURE HYPERCHOLESTEROLEMIA, UNSPECIFIED 09/15/2017 LACEY STONE APRN Ot 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 KDNY DIS W HRT FAIL AND ST 09/15/2017 LACEY STONE APRN Ot I25.10 ATHSCL HEART DISEASE OF [place] CORONARY 09/15/2017 LACEY STONE APRN Ot I25.2 OLD MYOCARDIAL INFARCTION 09/15/2017 LACEY STONE APRN Ot I50.9 HEART FAILURE, UNSPECIFIED 09/15/2017 LACEY STONE APRN Ot I73.9 PERIPHERAL VASCULAR DISEASE, UNSPECIFIED 09/15/2017 LACEY STONE APRN Ot L76.22 POSTPROC HEMORRHAGE OF SKIN, SUBCU FOLLO 09/15/2017 LACEY STONE APRN Ot N18.6 END STAGE RENAL DISEASE 09/15/2017 LACEY STONE APRN Ot Z79.4 ENGRAVER COPPERPLATE (CURRENT) USE OF INSULIN 09/15/2017 LACEY STONE APRN Ot Z79.51 ENGRAVER COPPERPLATE (CURRENT) USE OF INHALED STERO 09/15/2017 LACEY STONE APRN Ot Z79.82 SKILLED NURSING (CURRENT) USE OF ASPIRIN 09/15/2017 LACEY STONE APRN Ot Z88.0 ALLERGY STATUS TO PENICILLIN 09/15/2017 LACEY STONE APRN Ot Z88.1 ALLERGY STATUS TO OTHER ANTIBIOTIC AGENT 09/15/2017 LACEY STONE APRN Ot Z88.5 ALLERGY STATUS TO NARCOTIC AGENT STATUS 09/15/2017 LACEY STONE APRN Ot Z89.611 ACQUIRED ABSENCE OF RIGHT LEG ABOVE KNEE 09/15/2017 LACEY STONE APRN Ot Z89.612 ACQUIRED ABSENCE OF LEFT LEG ABOVE KNEE 09/15/2017 LACEY STONE APRN Ot Z95.1 PRESENCE OF AORTOCORONARY BYPASS GRAFT 09/15/2017 LACEY STONE APRN Ot Z95.810 PRESENCE OF AUTOMATIC (IMPLANTABLE) CARD 09/15/2017 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 CLIENT MANAGER Ot Z99.2 DEPENDENCE ON RENAL DIALYSIS 09/15/2017 BALDOMERO AMES MD, Ot 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 09/15/2017 BALDOMERO AMES MD, Ot E11.40 TYPE 2 DIABETES MELLITUS WITH DIABETIC N 09/15/2017 BALDOMERO AMES MD, Ot E11.59 TYPE 2 DIABETES MELLITUS WITH OTH CIRCUL 09/15/2017 BALDOMERO AMES MD, Ot E78.00 PURE HYPERCHOLESTEROLEMIA, UNSPECIFIED 09/15/2017 BALDOMERO AMES MD, Ot 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 KDNY DIS W HRT FAIL AND ST 09/15/2017 BALDOMERO AMES MD, Ot I25.10 ATHSCL HEART DISEASE OF [place] CORONARY 09/15/2017 BALDOMERO AMES MD, Ot I25.2 OLD MYOCARDIAL INFARCTION 09/15/2017 BALDOMERO AMES MD, Ot I50.9 HEART FAILURE, UNSPECIFIED 09/15/2017 BALDOMERO AMES MD, Ot I73.9 PERIPHERAL VASCULAR DISEASE, UNSPECIFIED 09/15/2017 BALDOMERO AMES MD Ot L76.21 POSTPROC HEMOR OF SKIN, SUBCU FOL A DERM 09/15/2017 BALDOMERO AMES MD, Ot N18.6 END STAGE RENAL DISEASE 09/15/2017 BALDOMERO AEMS MD, Ot Z79.4 SKILLED NURSING (CURRENT) USE OF INSULIN 09/15/2017 BALDOMERO AMES MD, Ot Z79.82 SKILLED NURSING (CURRENT) USE OF ASPIRIN 09/15/2017 BALDOMERO AMES MD, Ot Z88.0 ALLERGY STATUS TO PENICILLIN 09/15/2017 BALDOMERO AMES MD, Ot Z88.1 ALLERGY STATUS TO OTHER ANTIBIOTIC AGENT 09/15/2017 BALDOMERO AMES MD, Ot Z88.5 ALLERGY STATUS TO NARCOTIC AGENT STATUS 09/15/2017 BALDOMERO AMES MD, Ot Z89.611 ACQUIRED ABSENCE OF RIGHT LEG ABOVE KNEE 09/15/2017 BALDOMERO AMES MD, Ot Z89.612 ACQUIRED ABSENCE OF LEFT LEG ABOVE KNEE 09/15/2017 HUI WATTS, BALDOMERO Kat Ot Z95.1 PRESENCE OF AORTOCORONARY BYPASS GRAFT 09/15/2017 HUI WATTS, BALDOMERO Kat Ot Z95.810 PRESENCE OF AUTOMATIC (IMPLANTABLE) CARD 09/15/2017 BALDOMERO AMES MD Ot Z99.2 DEPENDENCE ON RENAL DIALYSIS 09/18/2017 LACEY STONE APRN Ot 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 09/18/2017 LACEY STONE APRN Ot E11.40 TYPE 2 DIABETES MELLITUS WITH DIABETIC N 09/18/2017 LACEY STONE APRN Ot E11.59 TYPE 2 DIABETES MELLITUS WITH OTH CIRCUL 09/18/2017 LACEY STONE APRN Ot E78.00 PURE HYPERCHOLESTEROLEMIA, UNSPECIFIED 09/18/2017 LACEY STONE APRN Ot 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 KDNY DIS W HRT FAIL AND ST 09/18/2017 LACEY STONE APRN Ot I25.10 ATHSCL HEART DISEASE OF [place] CORONARY 09/18/2017 LACEY STONE APRN Ot I25.2 OLD MYOCARDIAL INFARCTION 09/18/2017 LACEY STONE APRN Ot I50.9 HEART FAILURE, UNSPECIFIED 09/18/2017 LACEY STONE APRN Ot I73.9 PERIPHERAL VASCULAR DISEASE, UNSPECIFIED 09/18/2017 LACEY STONE APRN Ot L76.22 POSTPROC HEMORRHAGE OF SKIN, SUBCU FOLLO 09/18/2017 LACEY STONE APRN Ot N18.6 END STAGE RENAL DISEASE 09/18/2017 LACEY STONE APRN Ot Z79.4 SKILLED NURSING (CURRENT) USE OF INSULIN 09/18/2017 LACEY STONE APRN Ot Z79.51 SKILLED NURSING (CURRENT) USE OF INHALED STERO 09/18/2017 LACEY STONE APRN Ot Z79.82 SKILLED NURSING (CURRENT) USE OF ASPIRIN 09/18/2017 LACEY STONE APRN Ot Z88.0 ALLERGY STATUS TO PENICILLIN 09/18/2017 LACEY STONE APRN Ot Z88.1 ALLERGY STATUS TO OTHER ANTIBIOTIC AGENT 09/18/2017 LACEY STONE APRN Ot Z88.5 ALLERGY STATUS TO NARCOTIC AGENT STATUS 09/18/2017 LACEY STONE APRN Ot Z89.611 ACQUIRED ABSENCE OF RIGHT LEG ABOVE KNEE 09/18/2017 LACEY STONE APRN Ot Z89.612 ACQUIRED ABSENCE OF LEFT LEG ABOVE KNEE 09/18/2017 LACEY STONE APRN Ot Z95.1 PRESENCE OF AORTOCORONARY BYPASS GRAFT 09/18/2017 LACEY STONE APRN Ot Z95.810 PRESENCE OF AUTOMATIC (IMPLANTABLE) CARD 09/18/2017 LACEY STONE APRN Ot Z99.2 DEPENDENCE ON RENAL DIALYSIS 09/18/2017 ANGELA PRIETO MD Ot E11.9 TYPE 2 DIABETES MELLITUS WITHOUT COMPLIC 09/18/2017 ANGELA PRIETO MD Ot E78.2 MIXED HYPERLIPIDEMIA 09/18/2017 ANGELA PRIETO MD Ot I25.10 ATHSCL HEART DISEASE OF [place] CORONARY 09/18/2017 ANGELA PRIETO MD Ot I51.9 HEART DISEASE, UNSPECIFIED 09/18/2017 ANGELA PRIETO MD Ot R00.0 TACHYCARDIA, UNSPECIFIED 09/23/2017 ANGELA PRIETO MD Ot E11.9 TYPE 2 DIABETES MELLITUS WITHOUT COMPLIC 09/23/2017 ANGELA PRIETO MD Ot E78.2 MIXED HYPERLIPIDEMIA 09/23/2017 ANGELA PRIETO MD Ot I25.10 ATHSCL HEART DISEASE OF [place] CORONARY 09/23/2017 ANGELA PRIETO MD Ot I51.9 HEART DISEASE, UNSPECIFIED 09/23/2017 ANGELA PRIETO MD Ot R00.0 TACHYCARDIA, UNSPECIFIED Procedures Code Description Performed By Performed On 00.40 01/20/2011 00.45 01/20/2011 00.66 01/20/2011 36.07 01/20/2011 88.49 01/20/2011 88.56 01/20/2011 88.49 03/24/2011 88.56 03/24/2011 20138 ROUTINE VENIPUNCTURE 01/21/2013 96455 CBC 01/21/2013 48493 CMP 01/21/2013 [id number] GFR CALC (RESULT ONLY) 01/21/2013 [id number] SPTYPE 01/26/2013 Cardiolog Angela Prieto 02/08/2013 21678 MICRO ALBUMIN-IN HOUSE 04/02/2013 53661 A1C (IN-HOUSE) 04/02/2013 34430 MICROALBUMIN 04/03/2013 GENERAL S LU IRELAND 04/03/2013 25525 ROUTINE VENIPUNCTURE 05/14/2013 99539 US BREAST ULTRASOUND, RIGHT 05/14/2013 60750 [facility] 05/14/2013 Nephrolog Sanket Nephrology 05/14/2013 51713 ROUTINE VENIPUNCTURE 06/07/2013 28883 CMP 06/07/2013 91323 PHOSPHORUS 06/07/2013 PRO/CRE URINE PROTEIN TO CREATNINE RATIO 06/07/2013 Results Test Result Range Body fluid cell count - 12/26/15 06:00 Specimen source identification of body fluid SYNOVIAL NRG Evaluation of color of body fluid RED NRG Determination of appearance of body fluid MKD BLDY NRG Body fluid leukocytes count (number/volume) 0 /uL NRG Body fluid erythrocytes count (number/volume) 46430 /uL NRG * Body fluid crystals type [...] SEE COMMENT NR QUANTITY OF GROWTH Isolated [facility] Bacterial blood culture [id number] [facility] Bacterial blood culture - 08/31/16 14:42 Bacterial blood culture [facility] Complete blood count (CBC) with automated [...] culture - 11/06/16 12:48 Bacterial blood culture NG NR PT panel in platelet poor plasma by [...] culture - 11/06/16 13:26 Bacterial blood culture NG NRG Complete blood count (CBC) [...] 04/14 11:20 NRG QUANTITY OF GROWTH Isolated NR Bacterial blood culture [id number] [facility] Bacterial susceptibility panel - 04/11/17 19:50 Oxacillin [...] INFLUENZA A AND B ANTIGENS BY IA [facility] Bacterial blood culture - 04/11/17 20:24 FREE TEXT EXTERNAL REFER TO BLOOD CULTURE [id number] FOR NRG QUANTITY OF GROWTH Isolated NR Bacterial blood culture [id number] [facility] Sputum Gram stain - 04/11/17 21:37 GRAM STAIN SPUTUM AND MIXED BACTERIAL ERICK NR Bacterial sputum culture - 04/11/17 21:37 FREE TEXT EXTERNAL PLUS NORMAL ERICK NRG QUANTITY OF GROWTH Moderate Growth NR Bacterial sputum culture [id number] NRG Complete blood count (CBC) with automated white blood cell (WBC) differential - 09/12/17 22:25 Blood leukocytes automated count (number/volume) 3.7 10*3/uL 4.3-11.0 Blood erythrocytes automated count (number/volume) 3.54 10*6/uL 4.35-5.85 Venous blood hemoglobin measurement (mass/volume) 11.4 g/dL 13.3-17.7 Blood hematocrit (volume fraction) 34 % 40-54 Automated erythrocyte mean corpuscular volume 97 [foz_us] 80-99 Automated erythrocyte mean corpuscular hemoglobin (mass per erythrocyte) 32 pg 25-34 Automated erythrocyte mean corpuscular hemoglobin concentration measurement ( mass/volume) 33 g/dL 32-36 Automated erythrocyte distribution width ratio 16.0 % 10.0-14.5 Automated blood platelet count (count/volume) 131 10*3/uL 130-400 Automated blood platelet mean volume measurement 12.5 [foz_us] 7.4-10.4 Automated blood neutrophils/100 leukocytes 64 % 42-75 Automated blood lymphocytes/100 leukocytes 12 % 12-44 Blood monocytes/100 leukocytes 14 % 0-12 Automated blood eosinophils/100 leukocytes 10 % 0-10 Automated blood basophils/100 leukocytes 1 % 0-10 Blood neutrophils automated count (number/volume) 2.4 10*3 1.8-7.8 Blood lymphocytes automated count (number/volume) 0.4 10*3 1.0-4.0 Blood monocytes automated count (number/volume) 0.5 10*3 0.0-1.0 Automated eosinophil count 0.4 10*3/uL 0.0-0.3 Automated blood basophil count (count/volume) 0.0 10*3/uL 0.0-0.1 PT panel in platelet poor plasma by coagulation assay - 09/12/17 22:25 Prothrombin time (PT) in platelet poor plasma by coagulation assay 15.8 s 12.2-14.7 INR in platelet poor plasma or blood by coagulation assay 1.3 0.8-1.4 Activated partial thromboplastin time (aPTT) in platelet poor plasma bycoagulation assay - 09/12/17 22:25 Activated partial thromboplastin time (aPTT) in platelet poor plasma bycoagulation assay 36 s 24-35 Whole blood basic metabolic panel - 09/12/17 22:25 Serum or plasma sodium measurement (moles/volume) 137 mmol/L 135-145 Serum or plasma potassium measurement (moles/volume) 4.5 mmol/L 3.6-5.0 Serum or plasma chloride measurement (moles/volume) 94 mmol/L 98-107 Carbon dioxide 28 mmol/L 21-32 Serum or plasma anion gap determination (moles/volume) 15 mmol/L 5-14 Serum or plasma urea nitrogen measurement (mass/volume) 47 mg/dL 7-18 Serum or plasma creatinine measurement (mass/volume) 5.60 mg/dL 0.60-1.30 Serum or plasma urea nitrogen/creatinine mass ratio 8 NRG Serum or plasma creatinine measurement with calculation of estimated glomerular filtration rate 11 NRG Serum or plasma glucose measurement (mass/volume) 207 mg/dL 70-105 Serum or plasma calcium measurement (mass/volume) 9.0 mg/dL 8.5-10.1 Encounters ACCT No. Visit Date/Time Discharge Status Pt. Type Provider Facility Loc./Unit Complaint [id number] 06/10/2013 06:15:00 06/10/2013 23:59:59 CLS Outpatient [id number] 06/07/2013 12:36:00 06/07/2013 23:59:59 CLS Outpatient JEANIE TRIPLETT DO [id number] 05/14/2013 09:09:00 05/14/2013 23:59:59 CLS Outpatient JEANIE TRIPLETT DO [id number] 04/02/2013 09:54:00 04/02/2013 23:59:59 CLS Outpatient JEANIE TRIPLETT DO [id number] 01/21/2013 14:14:00 Document Registration [id number] 12/31/2012 08:52:00 Document Registration [id number] 02/07/2012 11:04:00 Document Registration [id number] 08/14/2017 13:00:00 08/14/2017 23:59:59 CLS Outpatient LAXMI ALTAMIRANO [facility] [id number] 09/17/2017 11:46:00 09/17/2017 23:59:59 CLS Outpatient OLIVER WATTS, ANGELA [facility] CARD I25.10 CAD [id number] 09/12/2017 21:29:00 09/13/2017 01:30:00 DIS Emergency HUI WATTS, BALDOMERO [facility] ER PORT BLEEDING [id number] 09/12/2017 15:34:00 09/12/2017 16:12:00 DIS Outpatient LACEY STONE CLIENT MANAGER [facility] ER BLEEDING FROM PORT AFTER DIALYSIS [id number] 09/09/2017 10:23:00 09/09/2017 23:59:59 CLS Preadmit ANGELA PRIETO MD [facility] CARD I25.10 CAD [id number] 08/14/2017 13:49:00 08/14/2017 23:59:59 CLS Outpatient LIZBETH COWART CLIENT MANAGER [facility] WOUNDCARE [id number] 04/11/2017 18:50:00 04/11/2017 22:32:00 DIS Emergency JARED AGEE DO [facility] ER FEVER,BLOOD INFECTION [id number] 2017 09:48:00 2017 11:05:00 DIS Outpatient LAXMI ALTAMIRANO CLIENT MANAGER [facility] REHAB B AKA;ESRD;PVD [id number] 12/09/2016 00:12:00 12/09/2016 23:59:59 CLS Preadmit JOAQUIN TIRADO MD [facility] SDC INFUSION [id number] 09/18/2016 13:13:00 12/08/2016 00:01:00 DIS Outpatient JOAQUIN TIRADO MD [facility] SDC INFUSION [id number] 11/06/2016 11:40:00 11/06/2016 17:37:00 DIS Emergency CYNDIE DOJARED [facility] ER ABD PAIN [id number] 08/31/2016 14:17:00 08/31/2016 17:15:00 DIS Emergency SANDI PERALTA MD [facility] ER ABD PAIN [id number] 08/24/2016 15:34:00 08/24/2016 18:25:00 DIS Emergency WADE CHAUDHARY MD [facility] ER DULL CHEST PAIN [id number] 06/12/2016 06:50:00 06/12/2016 10:33:00 DIS Emergency SANDI PERALTA MD [facility] ER CHEST PAIN [id number] 06/04/2016 13:43:00 06/04/2016 16:00:00 DIS Outpatient LIZBETH COWART CLIENT MANAGER [facility] WOUNDCARE [id number] 05/24/2016 10:25:00 05/24/2016 23:59:59 CLS Outpatient LIZBETH COWART APRN [facility] LAB [id number],L97.522 [id number] 03/10/2016 13:14:00 03/10/2016 23:59:59 CLS Outpatient CORY COSBY [facility] QUICK L FOOT INJURY [id number] 02/27/2016 22:57:00 02/28/2016 00:07:00 DIS Emergency JARED AGEE DO [facility] ER L FOOT LAC [id number] 02/24/2016 23:49:00 02/25/2016 02:38:00 DIS Emergency DENZEL ROMERO DO [facility] ER SOA [id number] 02/17/2016 12:03:00 02/17/2016 15:40:00 DIS Emergency MALGORZATA AKINS MD [facility] ER L CALF TIGHTNESS/PAIN [id number] 12/26/2015 04:58:00 12/26/2015 06:09:00 DIS Emergency JARED AGEE DO [facility] ER LEFT ELBOW SWELLING [id number] 12/01/2015 18:09:00 12/01/2015 23:59:59 CLS Outpatient COLTHARP ALYSIA HARRIS [facility] QUICK [id number] 08/11/2015 19:44:00 08/11/2015 22:56:00 DIS Emergency EDY GREEN [facility] ER FALL [id number] 06/10/2013 14:33:00 06/10/2013 23:59:59 CLS Outpatient JARED CHATTERJEE [facility] RAD CKD STAGE IV [id number] 06/04/2013 08:06:00 06/04/2013 23:59:59 CLS Outpatient LU IRELAND MD [facility] RAD CHEST ABCESS [id number] 06/01/2013 14:30:00 06/01/2013 23:59:59 CLS Outpatient LU IRELAND MD [facility] LABNPT ABSCESS (R) BREAST , WOUND (L) CHEST [id number] 05/31/2013 08:53:00 05/31/2013 23:59:59 CLS Outpatient BALDOMERO MONTES DE OCA [facility] RAD LARGE FIRM MOBILE MASS RT NIPPLE [id number] 04/16/2013 15:12:00 04/16/2013 23:59:59 CLS Outpatient LU IRELAND MD [facility] RAD UNK [id number] 02/03/2013 11:26:00 02/03/2013 23:59:59 CLS Outpatient SONIDO ARBOLEDA [facility] RAD CAD,HTN [id number] 11/09/2012 14:22:00 11/09/2012 23:59:59 CLS Outpatient ANGELA PRIETO MD [facility] LAB CAD [id number] 10/30/2012 09:22:00 10/30/2012 23:59:59 CLS Outpatient ANGELA PRIETO MD [facility] LAB CAD,HYPERTENSION [id number] 10/28/2012 08:06:00 10/28/2012 23:59:59 CLS Outpatient ANGELA PRIETO MD [facility] CARD CHF,CAD [id number] 08/11/2015 23:02:00 Document Registration [id number] 12/30/2011 10:24:00 Document Registration [id number] 12/26/2011 09:33:00 Document Registration [id number] 09/12/2011 11:20:00 Document Registration [id number] 09/04/2011 07:12:00 Document Registration [id number] 08/22/2011 10:34:00 Document Registration [id number] 07/19/2011 13:31:00 Document Registration [id number] 07/12/2011 18:10:00 Document Registration [id number] 04/10/2011 02:35:00 Document Registration [id number] 04/05/2011 07:50:00 Document Registration [id number] 04/03/2011 10:55:00 Document Registration [id number] 03/23/2011 21:22:00 Document Registration [id number] 01/22/2011 19:00:00 Document Registration [id number] 01/18/2011 15:11:00 Document Registration [id number] 06/29/2010 03:17:00 Document Registration [id number] 06/28/2010 10:34:00 Document Registration [id number] 06/24/2010 11:10:00 Document Registration [id number] 06/17/2010 13:40:00 Document Registration [id number] 06/12/2010 15:15:00 Document Registration [id number] 03/23/2010 08:13:00 Document Registration [id number] 03/09/2010 12:35:00 Document Registration
--- NOTE | 2017-09-26 05:26 | ED Integumentary General ---
General Chief Complaint: Skin/Wound Problems Stated Complaint: RT LEG STUMP WOUND PAIN Source: patient, family (son) Exam Limitations: no limitations (MALGORZATA AKINS) History of Present Illness Date Seen by Provider: September 26, 2017 Time Seen by Provider: 05:10 Initial Comments Patient presents to the ER by private conveyance with his son and a chief complaint that he is having pain in his right stump. He had the stump surgery about 3 or 4 weeks ago by a surgeon in [place]. He went to wound care and they said they didn't like the look of one of the wounds and wanted to admit him but since he is on dialysis Friday by hemodialysis they had transfer him over to [place], [place]. Elizabeth from his surgery from 3 weeks ago are still present. They said they got him on a course of several antibiotics and one of them caused him to have a bad breakout rash. Once his rash start healing up today discharged him. I told him his wound infection was clear. He has not reestablished with wound care yet he is just been treating with baby oil over the wound and he thinks that's healing fairly well. He has a small amount of drainage from the incision wound on the lateral side of his right eoezn-qeg-bvfl stump. He denies any fevers chills nausea vomiting, cough, chest pain. (MALGORZATA AKINS) Allergies and Home Medications Allergies Coded Allergies: azithromycin (Verified Allergy, Severe, HIVES, TROUBLE BREATHING., 07/13/11 ) cephalexin (Unverified Allergy, Unknown, 02/27/16) morphine (Unverified Allergy, Unknown, 02/27/16) vancomycin (Verified Allergy, Unknown, 12/26/15) Home Medications Acetaminophen 325 Mg Tablet, 650 MG PO Q6H PRN, (Reported) Albuterol Sulfate 2.5 Mg/3 Ml Vial.neb, 2.5 MG IH Q4H PRN for SHORTNESS OF BREATH Prescribed by: EDY NEWSOME on 08/11/15 Amlodipine Besylate 2.5 Mg Tablet, 2.5 MG PO DAILY, (Reported) Aspirin 81 Mg Tabec, 81 MG PO DAILY, (Reported) take for 10 days Atorvastatin Calcium 80 Mg Tablet, 80 MG PO HS, (Reported) Docusate Sodium 100 Mg Capsule, 100 MG PO Q8H PRN, (Reported) Furosemide 40 Mg Tablet, 40 MG PO DAILY, (Reported) Insulin Aspart 300 Units/3 Ml Solution, 5 UNITS SQ TID, (Reported) Insulin Detemir 100 Unit/1 Ml Insuln.pen, 20 UNITS SQ HS, (Reported) Isosorbide Mononitrate 60 Mg Tab.sr.24h, 60 MG PO DAILY, (Reported) Magnesium Oxide 400 Mg Tablet, 400 MG PO BID, (Reported) Metoprolol Succinate 50 Mg Tab.sr.24h, 50 MG PO DAILY, (Reported) do not crush Nitroglycerin 0.4 Mg Tab.subl, 0.4 MG SL q5 minutes PRN, (Reported) take one tablet every 5 minutes as needed, for a total of 3 doses Pantoprazole Sod 40 Mg Tab, 40 MG PO DAILY, (Reported) no do not crush Potassium Chloride 10 Meq Capsule.sa, 10 MEQ PO DAILY, (Reported) Valsartan 80 Mg Tablet, 80 MG PO BID, (Reported) Vit B Cmplx 3/FA/Vit C/Biotin 1 Each Tablet, 1 TAB PO DAILY, (Reported) Patient Home Medication List Home Medication List Reviewed: Yes (SANDI PERALTA MD) Constitutional: No chills, No fever, No malaise EENTM: No hearing loss, No ear pain Respiratory: No cough, No short of breath Cardiovascular: No chest pain, No edema Gastrointestinal: No abdominal pain, No constipation, No diarrhea, No nausea Genitourinary: No discharge, No dysuria Musculoskeletal: No back pain, No joint pain Skin: see HPI (MALGORZATA AKINS) Past Qqqtilf-Ohvpqh-Nzeavi Hx Patient Social History 2nd Hand Smoke Exposure: No Recent Foreign Travel: No Contact w/Someone Who Travel: No Recent Hopitalizations: No (MALGORZATA AKINS) Immunizations Up To Date Tetanus Booster (TDap): Unknown Date of Pneumonia Vaccine: Jan 24, 2011 Date of Influenza Vaccine: Feb 24, 2016 (MALGORZATA AKINS) Seasonal Allergies Seasonal Allergies: No (MALGORZATA AKINS) Past Medical History Surgeries: Yes Amputation, CABG, Defibrillator, Dialysis, Orthopedic, Pacemaker, Vascular Surgery Respiratory: No (CHF/FLUID OVERLOAD) Cardiac: Yes (CHF PACEMAKER-DEFIBRILLATOR ) Chronic Edema/Swelling, Coronary Artery Disease, Heart Attack, High Cholesterol , Hypertension, Peripheral Vascular Neurological: Yes (NEUROPATHY HANDS AND FEET--NOW BILATERAL AKA'S) Neuropathy Reproductive Disorders: No Genitourinary: Yes Renal Failure, Dialysis Gastrointestinal: No Musculoskeletal: Yes (BILATERAL AKA'S) Amputee Endocrine: Yes Diabetes, Insulin dep HEENT: No Cancer: No Psychosocial: No Integumentary: No Blood Disorders: No Adverse Reaction/Blood Tranf: No (MALGORZATA AKINS) Physical Exam Vital Signs Vital Signs - First Documented 09/26/17 05:09 Temp 97.1 Pulse 97 Resp 20 B/P (MAP) 142/98 (113) Pulse Ox 97 O2 Delivery Room Air (SANDI PERALTA MD) Vital Signs Capillary Refill : (MALGORZATA AKINS) General Appearance: WD/WN, no apparent distress HEENT: PERRL/EOMI, pharynx normal Neck: non-tender, normal inspection Cardiovascular: normal peripheral pulses, regular rate, rhythm Respiratory: chest non-tender, lungs clear, normal breath sounds, no respiratory distress, no accessory muscle use Gastrointestinal: normal bowel sounds, non tender, soft Extremities: other (bilateral lower extremities above the knee amputations. Right femoral stump with incomplete closure of the surgical scar. Scant amount of purulent drainage. There is a eschar on the medial side without discharge. Tender to palpation. Howes still present.) Neurologic/Psychiatric: alert, normal mood/affect, oriented x 3 (MALGORZATA AKINS ) Progress/Results/Core Measures Results/Orders Lab Results Laboratory Tests Test 09/26/17 05:30 Range/Units White Blood Count 7.6 4.3-11.0 10^3/uL Red Blood Count 3.34 L 4.35-5.85 10^6/uL Hemoglobin 11.1 L 13.3-17.7 G/DL Hematocrit 34 L 40-54 % Mean Corpuscular Volume 101 H 80-99 FL Mean Corpuscular Hemoglobin 33 25-34 PG Mean Corpuscular Hemoglobin Concent 33 32-36 G/DL Red Cell Distribution Width 17.7 H 10.0-14.5 % Platelet Count 108 L 130-400 10^3/uL Mean Platelet Volume 7.4-10.4 FL Neutrophils (%) (Auto) 74 42-75 % Lymphocytes (%) (Auto) 11 L 12-44 % Monocytes (%) (Auto) 10 0-12 % Eosinophils (%) (Auto) 4 0-10 % Basophils (%) (Auto) 1 0-10 % Neutrophils # (Auto) 5.6 1.8-7.8 X 10^3 Lymphocytes # (Auto) 0.8 L 1.0-4.0 X 10^3 Monocytes # (Auto) 0.8 0.0-1.0 X 10^3 Eosinophils # (Auto) 0.3 0.0-0.3 10^3/uL Basophils # (Auto) 0.1 0.0-0.1 10^3/uL Sodium Level 136 135-145 MMOL/L Potassium Level 4.0 3.6-5.0 MMOL/L Chloride Level 95 L 98-107 MMOL/L Carbon Dioxide Level 23 21-32 MMOL/L Anion Gap 18 H 5-14 MMOL/L Blood Urea Nitrogen 39 H 7-18 MG/DL Creatinine 6.08 H 0.60-1.30 MG/DL Estimat Glomerular Filtration Rate 10 BUN/Creatinine Ratio 6 Glucose Level 233 H 70-105 MG/DL Calcium Level 9.2 8.5-10.1 MG/DL Total Bilirubin 0.9 0.1-1.0 MG/DL Aspartate Amino Transf (AST/SGOT) 16 5-34 U/L Alanine Aminotransferase (ALT/SGPT) 8 0-55 U/L Alkaline Phosphatase 118 40-136 U/L C-Reactive Protein High Sensitivity 1.61 H 0.00-0.50 MG/DL Total Protein 7.6 6.4-8.2 GM/DL Albumin 4.0 3.2-4.5 GM/DL (SANDI PERALTA MD) My Orders Orders - SANDI PERALTA MD Wound Culture (09/26/17 06:53) Rx-Mupirocin 2% Oint (Rx-Bactroban) (09/26/17 06:53) (SANDI PERALTA MD) Medications Given in ED Current Medications Medications Dose Ordered Sig/Roni Route Start Time Stop Time Status Last Admin Dose Admin Fentanyl Citrate 50 mcg ONCE ONCE IVP 09/26/17 05:30 09/26/17 05:31 DC 09/26/17 05:34 50 MCG Tetracaine/ Epinephrine/ Lidocaine 1 ea ONCE ONCE TOP 09/26/17 05:30 09/26/17 05:31 DC 09/26/17 05:34 1 EA (SANDI PERALTA MD) Vital Signs/I&O 09/26/17 05:09 Temp 97.1 Pulse 97 Resp 20 B/P (MAP) 142/98 (113) Pulse Ox 97 O2 Delivery Room Air (SANDI PERALTA MD) Progress Progress Note #1: Time: 05:25 Progress Note We'll get an x-ray looking for evidence of gangrene. The wound does not look gangrenous but the elizabeth do need to come out and some of them the skin has grown over. An x-ray will help us locate the elizabeth. We'll get basic labs looking for evidence of systemic infection. He has recently completed courses potent IV antibiotics inpatient. He will also need follow-up with wound care. Progress Note #2: Time: 06:08 Progress Note Patient's had fentanyl which increased his pain control as well as let applied after cleaning the wound up with chlorhexidine soap water. We're going to get the elizabeth removed. The x-ray is reassuring as well as the lab. He will need follow up with wound care or his continued wound healing. I have passed this patient's care off to the very capable Dr. Peralta. (MALGORZATA AKINS) Progress Note : Progress Note Care of patient was seen by me. I have reviewed the x-ray. 7 elizabeth noted. I did remove the 7 elizabeth noted on x-ray after patient had better anesthesia after application of LET. Wound culture obtained afterwards. We did cover wound with mupirocin ointment and redressed. Patient has dialysis today. He has been instructed to follow-up with wound care. I did call to [facility] and and hopeful that I will build to speak with Dr. Cordova, his surgeon. We are pending call back on that. We will consider oral antibiotics as he does appear to have some local wound infection at least. Labs look good and there does not appear to be any significant systemic infection. 0730: I discussed the case with Dr. Cordova. We will do doxycycline twice a day and have him follow-up with wound care here and he will see him next Friday at clinic. This was discussed with the patient who agrees. Discharged home with return precautions. Patient verbalize understanding instructions and agreement with plan. (SANDI PERALTA MD) Diagnostic Imaging Diagonstic Imaging: Xray Plain Films/CT/US/NM/MRI: femur (right) Comments No destructive lesions or free air consistent with infection. 7 elizabeth seen. Reviewed: Reviewed by Me (MALGORZATA AKINS) Transfer of Care Time: 06:09 Care transferred to: FABIAN (MALGORZATA AKINS) Departure Impression Primary Impression: Soft tissue infection Disposition: HOME, SELF-CARE Condition: Improved Departure-Patient Inst. Decision time for Depature: 07:34 (SANDI PERALTA MD) Referrals: JEANIE TRIPLETT DO (PCP) Primary Care Physician LAXMI ALTAMIRANO APRN (Family) Primary Care Physician SHIRA NUNEZ MD Patient Instructions: Cellulitis (Skin Infection), Adult (DC) Add. Discharge Instructions: All discharge instructions reviewed with patient and/or family. Voiced understanding. Use antibiotic ointment over wound twice daily for the next several days until seen either and wound care or by your surgeon. Call Dr. Nicholas office for appointment next Friday. You should be seen in wound care clinic today. Call the clinic first thing this morning to set up time today after dialysis. Continue dialysis as previously set up. Take antibiotics as directed. Return for worse pain, fever, vomiting, weakness, breathing problems or other concerns as needed. Scripts Doxycycline Hyclate (Doxycycline Hyclate) 100 Mg Tablet 100 MG PO BID, #14 TAB 0 Refills Prov: SANDI PERALTA MD 09/26/17 MALGORZATA AKINS September 26, 2017 05:26 SANDI PERALTA MD September 26, 2017 07:22
[2017-09-26] MEDS ORDERED: L.E.T. SYRINGE 5 ML TOP ONE (05:30)
[2017-09-26] MEDS ORDERED: fentaNYL INJECTION 100 MCG/2 ML AMP IVP ONE (05:30)
[2017-09-26 05:36] LABS: BASOPHILS # (AUTO) 0.1 10^3/uL (0.0-0.1); BASOPHILS % (AUTO) 1 % (0-10); EOSINOPHILS # (AUTO) 0.3 10^3/uL (0.0-0.3); EOSINOPHILS % (AUTO) 4 % (0-10); HEMATOCRIT 34 % (40-54); HEMOGLOBIN 11.1 G/DL (13.3-17.7); LYMPHOCYTES # (AUTO) 0.8 X 10^3 (1.0-4.0); LYMPHOCYTES % (AUTO) 11 % (12-44); MEAN CORPUSCULAR HEMOGLOBIN 33 PG (25-34); MEAN CORPUSCULAR HGB CONC 33 G/DL (32-36); MEAN CORPUSCULAR VOLUME 101 FL (80-99); MONOCYTES # (AUTO) 0.8 X 10^3 (0.0-1.0); MONOCYTES % (AUTO) 10 % (0-12); NEUTROPHILS # (AUTO) 5.6 X 10^3 (1.8-7.8); NEUTROPHILS % (AUTO) 74 % (42-75); PLATELET COUNT 108 10^3/uL (130-400); RED BLOOD COUNT 3.34 10^6/uL (4.35-5.85); RED CELL DISTRIBUTION WIDTH 17.7 % (10.0-14.5); WHITE BLOOD COUNT 7.6 10^3/uL (4.3-11.0)
[2017-09-26 05:53] LABS: BILIRUBIN,TOTAL 0.9 MG/DL (0.1-1.0); CALCIUM 9.2 MG/DL (8.5-10.1); CREATININE SERUM 6.08 MG/DL (0.60-1.30); TOTAL PROTEIN 7.6 GM/DL (6.4-8.2)
[2017-09-26] MEDS ORDERED: RX-MUPIROCIN (BACTROBAN) 2% OINT 22 GM TUBE TOP STA (06:53)
[2017-09-26] MEDS ORDERED: DOXYCYCLINE 100 MG (VIBRAMYCIN) TABLET PO STA (07:28)
[2017-09-26] MEDS ORDERED: DOXY100T2 PO (07:35)
--- NOTE | 2017-09-26 07:37 | Diagnostic Imaging Report ---
INDICATION: Right thigh region erythema. AP and lateral views of the right femur are obtained. There are operative changes of above-knee amputation. This could be edema within the soft tissues of the stump adjacent to staple line. No subcutaneous gas is identified. There is no evidence of periosteal reaction or bone destruction. IMPRESSION: There maybe cellulitis at the level of the above-knee amputation stump. No definite acute osseous abnormality is seen. Dictated by: Dictated on workstation # [id number]
[2017-09-26 07:43] VITALS: BP 141/62
== END 2017-09-26 07:43 | disposition home or self-care (01) ==
LOC: EDUNIT# 04:46 → ER 04:50
DX: T81.4XXA Infection following a procedure, initial encounter (principal); L08.9 Local infection of the skin and subcutaneous tissue, unspecified; E11.22 Type 2 diabetes mellitus with diabetic chronic kidney disease; I13.0 Hypertensive heart and chronic kidney disease with heart failure and stage 1 through stage 4 chronic kidney disease, or unspecified chronic kidney disease; I50.9 Heart failure, unspecified; N18.6 End stage renal disease; I25.10 Atherosclerotic heart disease of native coronary artery without angina pectoris; I73.9 Peripheral vascular disease, unspecified; I25.2 Old myocardial infarction; E78.00 Pure hypercholesterolemia, unspecified; Z95.810 Presence of automatic (implantable) cardiac defibrillator; Z95.1 Presence of aortocoronary bypass graft; Z89.612 Acquired absence of left leg above knee; Z88.0 Allergy status to penicillin; Z88.1 Allergy status to other antibiotic agents; Z88.5 Allergy status to narcotic agent; Z79.51 Long term (current) use of inhaled steroids; Z79.82 Long term (current) use of aspirin; Z79.4 Long term (current) use of insulin; Z99.2 Dependence on renal dialysis; Z98.890 Other specified postprocedural states
CPT/HCPCS: 36415; 73552; 80053; 85025; 86141; 87070; 87077; 87186; 87205; 96374

== ENCOUNTER → 2017-09-26 | Outpatient (CLI) | payer MEDICARE, MEDICAID | LOC: WOUNDCARE 14:21 | PROVIDERS: ATTEND Surgery | DX: E11.622 Type 2 diabetes mellitus with other skin ulcer (principal); L97.112 Non-pressure chronic ulcer of right thigh with fat layer exposed; I70.231 Atherosclerosis of native arteries of right leg with ulceration of thigh; L03.115 Cellulitis of right lower limb | CPT/HCPCS: 99213 ==

== ENCOUNTER → 2017-10-01 | Outpatient (CLI) | payer MEDICARE, MEDICAID | LOC: WOUNDCARE 14:46 | PROVIDERS: ATTEND Surgery | DX: E11.622 Type 2 diabetes mellitus with other skin ulcer (principal); I70.231 Atherosclerosis of native arteries of right leg with ulceration of thigh; L97.112 Non-pressure chronic ulcer of right thigh with fat layer exposed; L03.115 Cellulitis of right lower limb; Z89.611 Acquired absence of right leg above knee | CPT/HCPCS: 99213 ==

== ENCOUNTER → 2017-10-08 | Outpatient (CLI) | payer MEDICARE, MEDICAID ==
--- NOTE | 2017-10-08 14:11 | Diagnostic Imaging Report ---
PROCEDURE: US Bilateral lower extremity arterial. TECHNIQUE: Multiple real-time grayscale images are obtained through both lower extremity arterial systems with color Doppler imaging and color Doppler spectral analysis. INDICATION: Right thigh chronic ulcer and cellulitis. Patient has history of diabetes. Patient also has a history of bilateral above-knee amputations. FINDINGS: Predominantly biphasic waveforms in the left common femoral and superficial femoral arteries are noted. There is mixed biphasic and monophasic waveforms in the right lower extremity arterial system. Velocities appear to be somewhat dampened bilaterally. No velocity elevation is seen. There is significant dampening in the distal right SFA measuring 12 cm/s. No complete occlusion is identified. No fluid collections are identified. IMPRESSION: Bilateral above-knee amputations. There are somewhat dampened velocities bilateral femoropopliteal systems. More proximal disease cannot be entirely excluded. No complete occlusion is identified. Dictated by: Dictated on workstation # [id number]
== END ==
LOC: RAD 11:27
PROVIDERS: ATTEND Surgery
DX: L97.112 Non-pressure chronic ulcer of right thigh with fat layer exposed (principal); L03.115 Cellulitis of right lower limb; I70.231 Atherosclerosis of native arteries of right leg with ulceration of thigh; E11.622 Type 2 diabetes mellitus with other skin ulcer; Z89.522 Acquired absence of left knee; Z89.521 Acquired absence of right knee
CPT/HCPCS: 93925

== ENCOUNTER → 2017-10-08 | Outpatient (CLI) | payer MEDICARE, MEDICAID | LOC: WOUNDCARE 12:44 | PROVIDERS: ATTEND Surgery | DX: E11.622 Type 2 diabetes mellitus with other skin ulcer (principal); I70.231 Atherosclerosis of native arteries of right leg with ulceration of thigh; L97.112 Non-pressure chronic ulcer of right thigh with fat layer exposed; L03.115 Cellulitis of right lower limb; Z89.611 Acquired absence of right leg above knee | CPT/HCPCS: 99212 ==

== ENCOUNTER → 2017-10-13 | Outpatient (CLI) | payer MEDICARE, MEDICAID ==
[~2017-10-13] MED LIST changes: +IOHEXOL 350 MG/ML 100 ML (OMNIPAQUE 350) VIAL IV ONE; +NS 250 ML (IVPB) BAG IV ONE
--- NOTE | 2017-10-13 08:56 | Diagnostic Imaging Report ---
Indication: Patient with bilateral above-knee amputations. A recent arterial Doppler did show some dampened velocities in the femoral systems bilaterally. Study is performed to evaluate for proximal disease. Axial imaging through the abdomen, pelvis and bilateral lower extremities was performed after the administration of intravenous contrast utilizing CT angiography protocol. Multiplanar and 3-D MIP reformations are also performed. The abdominal aorta is normal caliber. There is mild calcified plaque throughout the abdominal aorta. No aortic stenosis or aortic occlusion is detected. The celiac and SMA are heavily calcified. The SONAL appears to be patent. Bilateral common iliac arteries also demonstrates some calcified plaque but are widely patent. Bilateral external iliac arteries are widely patent. There is plaquing identified bilateral common femoral arteries but no high-grade stenosis is detected, diffuse disease throughout the superficial femoral arteries is noted with calcified plaque but no high-grade stenosis or occlusion is detected. There are postop changes of the bony amputations bilaterally. There is a small fluid collection identified at the stump in the lateral soft tissues on the right measuring 2.9 x 2.4 cm. There appears to be a small skin defect at this location laterally at the level of the stump as well. No soft tissue gas is identified. The resection margins at the amputation appear to be fairly smooth. No bony destructive changes are seen. No focal liver mass is seen. Multiple stones within the gallbladder. Pancreas and spleen are unremarkable. No adrenal mass is detected. Kidneys are atrophic bilaterally. Renal arteries are heavily calcified bilaterally. There are prominent lymph nodes in the central retroperitoneum, aortocaval and periaortic location. Conglomerate of nodes in the left periaortic region measuring 2.7 x 0.9 cm. Small iliac lymph nodes are present. Some small inguinal lymph nodes present as well. The bladder is decompressed. No free fluid in the abdomen or pelvis is seen. Bowel loops are nondilated. There is edema identified in subcutaneous tissues of the abdominal wall and flank, nonspecific. Impression: 1. No evidence of aortoiliac stenosis or occlusion. There is diffuse vascular disease throughout the aorta, iliacs and superficial femoral arteries bilaterally but no high-grade stenosis or occlusion is identified. 2. Postop changes bilateral above-knee amputations. There is a small fluid collection in the soft tissues in the stump of the right lower extremity laterally with associated small skin defect. Small abscess cannot be excluded. No definite bony destructive changes are seen to suggest osteomyelitis. 3. Nonspecific central retroperitoneal lymphadenopathy, etiology indeterminate. Dictated by: Dictated on workstation # [id number]
== END ==
LOC: RAD 06:35
PROVIDERS: ATTEND Surgery
DX: E11.622 Type 2 diabetes mellitus with other skin ulcer (principal); L97.112 Non-pressure chronic ulcer of right thigh with fat layer exposed; I70.231 Atherosclerosis of native arteries of right leg with ulceration of thigh; R59.0 Localized enlarged lymph nodes; L03.115 Cellulitis of right lower limb; Z89.611 Acquired absence of right leg above knee; Z89.612 Acquired absence of left leg above knee
CPT/HCPCS: 75635

== ENCOUNTER → 2017-10-15 | Outpatient (CLI) | payer MEDICARE, MEDICAID ==
[~2017-10-15] MED LIST changes: -IOHEXOL 350 MG/ML 100 ML (OMNIPAQUE 350) VIAL IV ONE; -NS 250 ML (IVPB) BAG IV ONE
== END ==
LOC: WOUNDCARE 12:29
PROVIDERS: ATTEND Surgery
DX: E11.622 Type 2 diabetes mellitus with other skin ulcer (principal); L97.112 Non-pressure chronic ulcer of right thigh with fat layer exposed; Z89.611 Acquired absence of right leg above knee
CPT/HCPCS: 99213

== ENCOUNTER → 2017-10-22 | Outpatient (CLI) | payer MEDICARE, MEDICAID | LOC: WOUNDCARE 12:11 | PROVIDERS: ATTEND Surgery | DX: E11.622 Type 2 diabetes mellitus with other skin ulcer (principal); L97.112 Non-pressure chronic ulcer of right thigh with fat layer exposed; Z89.611 Acquired absence of right leg above knee | CPT/HCPCS: 99213 ==

== ENCOUNTER → 2017-10-29 | Outpatient (CLI) | payer MEDICARE, MEDICAID | LOC: WOUNDCARE 13:19 | PROVIDERS: ATTEND Surgery | DX: E11.622 Type 2 diabetes mellitus with other skin ulcer (principal); L97.112 Non-pressure chronic ulcer of right thigh with fat layer exposed; Z89.611 Acquired absence of right leg above knee | CPT/HCPCS: 99212 ==

== ENCOUNTER → 2017-11-05 | Outpatient (CLI) | payer MEDICARE, MEDICAID | LOC: WOUNDCARE 12:05 | PROVIDERS: ATTEND Surgery | DX: E11.622 Type 2 diabetes mellitus with other skin ulcer (principal); L97.112 Non-pressure chronic ulcer of right thigh with fat layer exposed; Z89.611 Acquired absence of right leg above knee | CPT/HCPCS: 99212 ==

== ENCOUNTER 2017-11-30 18:26 | Emergency (ER) | payer MEDICARE, MEDICAID ==
[~2017-11-30] VITALS: Ht 175.3 cm; Wt 95.3 kg
--- NOTE | 2017-11-30 19:04 | ED Integumentary General ---
General Chief Complaint: Bite-Animal/Human/Insect Stated Complaint: SPIDER BITE ON FACE Nursing Triage Note: pt presents to er with complaint of possible spider bite on left cheek. Source: patient, family (son) Exam Limitations: no limitations History of Present Illness Date Seen by Provider: Nov 30, 2017 Time Seen by Provider: 18:53 Initial Comments 57-year-old male patient presents to the emergency department complains of possible bite to the left cheek. Denies fever or chills. Patient reports waking up in the morning yesterday with the bite. Timing/Duration: yesterday Location: face Possible Cause: insect bite Allergies and Home Medications Allergies Coded Allergies: azithromycin (Verified Allergy, Severe, HIVES, TROUBLE BREATHING., 07/13/11 ) cephalexin (Unverified Allergy, Unknown, 02/27/16) morphine (Unverified Allergy, Unknown, 02/27/16) vancomycin (Verified Allergy, Unknown, 12/26/15) Home Medications Acetaminophen 325 Mg Tablet, 650 MG PO Q6H PRN, (Reported) Albuterol Sulfate 2.5 Mg/3 Ml Vial.neb, 2.5 MG IH Q4H PRN for SHORTNESS OF BREATH Prescribed by: EDY NEWSOME on 08/11/15 2223 Amlodipine Besylate 2.5 Mg Tablet, 2.5 MG PO DAILY, (Reported) Aspirin 81 Mg Tabec, 81 MG PO DAILY, (Reported) take for 10 days Atorvastatin Calcium 80 Mg Tablet, 80 MG PO HS, (Reported) Docusate Sodium 100 Mg Capsule, 100 MG PO Q8H PRN, (Reported) Doxycycline Hyclate 100 Mg Tablet, 100 MG PO BID Prescribed by: SANDI PERALTA on 09/26/17 0735 Doxycycline Hyclate 100 Mg Capsule, 100 MG PO BID Prescribed by: EDY NEWSOME on 11/30/17 1921 Furosemide 40 Mg Tablet, 40 MG PO DAILY, (Reported) Insulin Aspart 300 Units/3 Ml Solution, 5 UNITS SQ TID, (Reported) Insulin Detemir 100 Unit/1 Ml Insuln.pen, 20 UNITS SQ HS, (Reported) Isosorbide Mononitrate 60 Mg Tab.sr.24h, 60 MG PO DAILY, (Reported) Magnesium Oxide 400 Mg Tablet, 400 MG PO BID, (Reported) Metoprolol Succinate 50 Mg Tab.sr.24h, 50 MG PO DAILY, (Reported) do not crush Nitroglycerin 0.4 Mg Tab.subl, 0.4 MG SL q5 minutes PRN, (Reported) take one tablet every 5 minutes as needed, for a total of 3 doses Pantoprazole Sod 40 Mg Tab, 40 MG PO DAILY, (Reported) no do not crush Potassium Chloride 10 Meq Capsule.sa, 10 MEQ PO DAILY, (Reported) Valsartan 80 Mg Tablet, 80 MG PO BID, (Reported) Vit B Cmplx 3/FA/Vit C/Biotin 1 Each Tablet, 1 TAB PO DAILY, (Reported) Patient Home Medication List Home Medication List Reviewed: Yes Constitutional: No chills, No diaphoresis, No dizziness, No fever, No malaise EENTM: see HPI; No ear discharge, No ear pain, No eye pain, No hoarseness, No mouth pain, No nose congestion, No throat pain, No throat swelling Respiratory: no symptoms reported Cardiovascular: no symptoms reported Gastrointestinal: no symptoms reported Musculoskeletal: no symptoms reported Skin: see HPI Psychiatric/Neurological: No Symptoms Reported All Other Systems Reviewed Negative Unless Noted: Yes (Negative excepted noted.) Past Znkeezh-Aivatc-Frjhxn Hx Past Med/Social Hx: Reviewed Nursing Past Med/Soc Hx Patient Social History Alcohol Use: Denies Use Recreational Drug Use: No Smoking Status: Never a Smoker 2nd Hand Smoke Exposure: No Recent Foreign Travel: No Contact w/Someone Who Travel: No Recent Infectious Disease Expo: No Recent Hopitalizations: No Immunizations Up To Date Tetanus Booster (TDap): Unknown Date of Pneumonia Vaccine: Jan 24, 2011 Date of Influenza Vaccine: Feb 24, 2016 Seasonal Allergies Seasonal Allergies: No Past Medical History Surgeries: Yes Amputation, CABG, Defibrillator, Dialysis, Orthopedic, Pacemaker, Vascular Surgery Respiratory: No (CHF/FLUID OVERLOAD) Cardiac: Yes (CHF PACEMAKER-DEFIBRILLATOR ) Chronic Edema/Swelling, Coronary Artery Disease, Heart Attack, High Cholesterol , Hypertension, Peripheral Vascular Neurological: Yes (NEUROPATHY HANDS AND FEET--NOW BILATERAL AKA'S) Neuropathy Reproductive Disorders: No Genitourinary: Yes Renal Failure, Dialysis Gastrointestinal: No Musculoskeletal: Yes (BILATERAL AKA'S) Amputee Endocrine: Yes Diabetes, Insulin dep HEENT: No Cancer: No Psychosocial: No Integumentary: No Blood Disorders: No Adverse Reaction/Blood Tranf: No Family Medical History Reviewed Nursing Family Hx No Pertinent Family Hx Physical Exam Vital Signs Vital Signs - First Documented 11/30/17 18:45 Pulse 97 Resp 20 B/P (MAP) 145/95 (112) Pulse Ox 96 O2 Delivery Room Air Capillary Refill : Less Than 3 Seconds General Appearance: WD/WN, no apparent distress HEENT: PERRL/EOMI, pharynx normal, other (2 x 2 centimeter area of erythema, tenderness, mild swelling, and a central pustule to the left cheek) Neck: non-tender, full range of motion, supple, normal inspection Neurologic/Psychiatric: alert, normal mood/affect, oriented x 3 Skin: normal color, warm/dry, other (2 x 2 centimeter area of erythema, tenderness, mild swelling, and a central pustule to the left cheek) Skin Problem Location: face (left cheek) Skin Problem Character: abscess, erythema, swelling, tenderness Progress/Results/Core Measures Results/Orders My Orders Orders - EDY NEWSOME Rx-Doxycycline Tablet (Rx-Vibramycin Tab (11/30/17 19:17) Rx-Trimeth/Sulfameth Ds Tab (Rx-Bactrim/ (11/30/17 19:21) Vital Signs/I&O 11/30/17 18:45 Pulse 97 Resp 20 B/P (MAP) 145/95 (112) Pulse Ox 96 O2 Delivery Room Air Blood Pressure Mean: 112 Departure Communication (Admissions) Patient seen and evaluated. Pustule unroofed with an 18-gauge needle. Wound culture obtained. Wound covered with a bandage. Plan for discharge to home with [facility] Patient to call for an appointment time. Impression Primary Impression: Facial abscess Disposition: HOME, SELF-CARE Condition: Improved Departure-Patient Inst. Decision time for Depature: 19:21 Referrals: JEANIE TRIPLETT DO (PCP) Primary Care Physician LAXMI ALTAMIRANO APRN (Family) Primary Care Physician Patient Instructions: Insect Bites and Stings (DC) Add. Discharge Instructions: All discharge instructions reviewed with patient and/or family. Voiced understanding. Medications as instructed. Continue usual home medications. Contact your surgeon first thing tomorrow morning to notify them of your infection on the face. Follow-up with Mam[facility] at [facility] Friday or Friday for recheck. Call for appointment time tomorrow morning. Return to the emergency department for worsened symptoms or any other concerns. Scripts Doxycycline Hyclate (Doxycycline Hyclate) 100 Mg Capsule 100 MG PO BID, #14 CAP 0 Refills Prov: EDY NEWSOME 11/30/17 EDY NEWSOME Nov 30, 2017 19:04
[2017-11-30] MEDS ORDERED: RX-DOXYCYCLINE 100 MG (VIBRAMYCIN) TAB PPK#2 PO STA (19:17)
[2017-11-30] MEDS ORDERED: RX-TRIMETH/SULFA. 160-800 MG (BACTRIM DS) TAB PPK#2 PO ONE (19:21)
[2017-11-30] MEDS ORDERED: DOXY100C2 PO (19:21)
[2017-11-30 19:27] VITALS: BP 145/95
== END 2017-11-30 19:27 | disposition home or self-care (01) ==
LOC: EDUNIT# 18:26 → ER 18:27
DX: L02.01 Cutaneous abscess of face (principal); I11.0 Hypertensive heart disease with heart failure; I50.9 Heart failure, unspecified; I25.10 Atherosclerotic heart disease of native coronary artery without angina pectoris; I25.2 Old myocardial infarction; E11.51 Type 2 diabetes mellitus with diabetic peripheral angiopathy without gangrene; E78.00 Pure hypercholesterolemia, unspecified; E11.42 Type 2 diabetes mellitus with diabetic polyneuropathy; Z88.1 Allergy status to other antibiotic agents; Z88.5 Allergy status to narcotic agent; Z79.82 Long term (current) use of aspirin; Z79.4 Long term (current) use of insulin; Z95.1 Presence of aortocoronary bypass graft; Z95.0 Presence of cardiac pacemaker; Z99.2 Dependence on renal dialysis; Z89.611 Acquired absence of right leg above knee; Z89.612 Acquired absence of left leg above knee
CPT/HCPCS: 87070; 87077; 87205; 99283

== ENCOUNTER → 2017-12-03 | Outpatient (CLI) | payer MEDICARE, MEDICAID ==
[~2017-12-03] MED LIST changes: +DOXY100C2 PO
== END ==
LOC: WOUNDCARE 11:59
PROVIDERS: ATTEND Surgery
DX: S70.321A Blister (nonthermal), right thigh, initial encounter (principal); E11.622 Type 2 diabetes mellitus with other skin ulcer; L97.112 Non-pressure chronic ulcer of right thigh with fat layer exposed; Z89.611 Acquired absence of right leg above knee
CPT/HCPCS: 99212

== ENCOUNTER → 2017-12-17 | Outpatient (CLI) | payer MEDICARE, MEDICAID | LOC: WOUNDCARE 11:59 | PROVIDERS: ATTEND Surgery | DX: E11.622 Type 2 diabetes mellitus with other skin ulcer (principal); L97.112 Non-pressure chronic ulcer of right thigh with fat layer exposed; E11.65 Type 2 diabetes mellitus with hyperglycemia; S70.321A Blister (nonthermal), right thigh, initial encounter; Z89.611 Acquired absence of right leg above knee | CPT/HCPCS: 99212 ==

== ENCOUNTER → 2017-12-31 | Outpatient (CLI) | payer MEDICARE, MEDICAID | LOC: WOUNDCARE 12:00 | PROVIDERS: ATTEND Surgery | DX: E11.622 Type 2 diabetes mellitus with other skin ulcer (principal); L97.112 Non-pressure chronic ulcer of right thigh with fat layer exposed; S70.321D Blister (nonthermal), right thigh, subsequent encounter; E11.65 Type 2 diabetes mellitus with hyperglycemia; Z89.611 Acquired absence of right leg above knee | CPT/HCPCS: 99212 ==

== ENCOUNTER → 2018-01-28 | Outpatient (CLI) | payer MEDICARE | LOC: WOUNDCARE 11:53 | PROVIDERS: ATTEND Surgery | DX: E11.622 Type 2 diabetes mellitus with other skin ulcer (principal); L97.112 Non-pressure chronic ulcer of right thigh with fat layer exposed; Z89.611 Acquired absence of right leg above knee | CPT/HCPCS: 99212 ==

== ENCOUNTER → 2018-02-11 | Outpatient (CLI) | payer MEDICARE | LOC: WOUNDCARE 11:58 | PROVIDERS: ATTEND Surgery | DX: E11.622 Type 2 diabetes mellitus with other skin ulcer (principal); L97.112 Non-pressure chronic ulcer of right thigh with fat layer exposed; Z89.611 Acquired absence of right leg above knee | CPT/HCPCS: 99213 ==

== ENCOUNTER → 2018-02-25 | Outpatient (CLI) | payer MEDICARE | LOC: WOUNDCARE 12:00 | PROVIDERS: ATTEND Surgery | DX: E11.622 Type 2 diabetes mellitus with other skin ulcer (principal); L97.112 Non-pressure chronic ulcer of right thigh with fat layer exposed; Z89.611 Acquired absence of right leg above knee | CPT/HCPCS: 99212 ==

== ENCOUNTER → 2018-03-13 | Outpatient (CLI) | payer MEDICARE | LOC: WOUNDCARE 11:12 | PROVIDERS: ATTEND Surgery | DX: I96 Gangrene, not elsewhere classified (principal); E11.622 Type 2 diabetes mellitus with other skin ulcer; L98.498 Non-pressure chronic ulcer of skin of other sites with other specified severity; L97.112 Non-pressure chronic ulcer of right thigh with fat layer exposed; Z89.611 Acquired absence of right leg above knee | CPT/HCPCS: 99212 ==

== ENCOUNTER → 2018-03-13 | Outpatient (CLI) | payer MEDICARE ==
--- NOTE | 2018-03-13 15:35 | Diagnostic Imaging Report ---
INDICATION: Atherosclerosis. The patient has gangrene with a black index finger. Grayscale, color-flow and duplex Doppler evaluation of the right upper extremity arterial system was performed. There are predominantly monophasic waveforms throughout the right upper extremity arterial system. There is flow in the right subclavian artery. Velocities are dampened in the right axillary artery. Flow is seen in the mid brachial artery as well as the radial and ulnar arteries. The patient has a fistula in the right upper extremity. The fistula appears patent. No fluid collections are seen. IMPRESSION: Unremarkable right upper extremity arterial Doppler and fistula evaluation apart from monophasic waveforms. No occlusion is seen. Dictated by: Dictated on workstation # [id number]
== END ==
LOC: RAD 13:48
PROVIDERS: ATTEND Surgery
DX: I96 Gangrene, not elsewhere classified (principal); E11.622 Type 2 diabetes mellitus with other skin ulcer; L98.498 Non-pressure chronic ulcer of skin of other sites with other specified severity; L97.112 Non-pressure chronic ulcer of right thigh with fat layer exposed; Z89.611 Acquired absence of right leg above knee
CPT/HCPCS: 93931

== ENCOUNTER → 2018-03-18 | Outpatient (CLI) | payer MEDICARE | LOC: WOUNDCARE 12:02 | PROVIDERS: ATTEND Surgery | DX: E11.622 Type 2 diabetes mellitus with other skin ulcer (principal); L97.112 Non-pressure chronic ulcer of right thigh with fat layer exposed; I70.268 Atherosclerosis of native arteries of extremities with gangrene, other extremity; L98.498 Non-pressure chronic ulcer of skin of other sites with other specified severity; Z89.611 Acquired absence of right leg above knee | CPT/HCPCS: 99213 ==

== ENCOUNTER → 2018-04-01 | Outpatient (CLI) | payer MEDICARE | LOC: WOUNDCARE 11:35 | PROVIDERS: ATTEND Surgery | DX: T81.31XA Disruption of external operation (surgical) wound, not elsewhere classified, initial encounter (principal); Z89.021 Acquired absence of right finger(s); E11.622 Type 2 diabetes mellitus with other skin ulcer; L97.112 Non-pressure chronic ulcer of right thigh with fat layer exposed; L98.411 Non-pressure chronic ulcer of buttock limited to breakdown of skin; L22 Diaper dermatitis; Z89.611 Acquired absence of right leg above knee | CPT/HCPCS: 99213 ==

== ENCOUNTER → 2018-04-07 | Outpatient (CLI) | payer MEDICARE | LOC: WOUNDCARE 09:19 | PROVIDERS: ATTEND Nurse Practitioner | DX: T81.31XA Disruption of external operation (surgical) wound, not elsewhere classified, initial encounter (principal); E11.622 Type 2 diabetes mellitus with other skin ulcer; L97.112 Non-pressure chronic ulcer of right thigh with fat layer exposed; L98.411 Non-pressure chronic ulcer of buttock limited to breakdown of skin; L22 Diaper dermatitis; Z89.021 Acquired absence of right finger(s); Z89.611 Acquired absence of right leg above knee | CPT/HCPCS: 99213 ==

== ENCOUNTER → 2018-04-14 | Outpatient (CLI) | payer MEDICARE | LOC: WOUNDCARE 11:25 | PROVIDERS: ATTEND Nurse Practitioner | DX: E11.622 Type 2 diabetes mellitus with other skin ulcer (principal); L97.112 Non-pressure chronic ulcer of right thigh with fat layer exposed; L98.411 Non-pressure chronic ulcer of buttock limited to breakdown of skin; L22 Diaper dermatitis; T81.31XA Disruption of external operation (surgical) wound, not elsewhere classified, initial encounter; Z89.021 Acquired absence of right finger(s); Z89.611 Acquired absence of right leg above knee | CPT/HCPCS: 99212 ==

== ENCOUNTER → 2018-04-20 | Outpatient (CLI) | payer MEDICARE ==
[~2018-04-20] MED LIST changes: +ASPI-999 PO; +CALC0.5C11 PO; +CATHETER FLUSH 10 ML SYR IV PRN; -CINA30TA2; +CINA30TA2 PO; +FLUT9.9S NS; +SEVE800T7 PO
--- NOTE | 2018-04-20 17:06 | Diagnostic Imaging Report ---
INDICATION: Status post recent right index finger amputation three weeks ago with nonhealing wound. TECHNIQUE: Patient was administered 25.8 mCi technetium 99m MDP intravenously and dynamic flow, blood pool and delayed imaging over bilateral hands was performed. FINDINGS: There is asymmetric increased blood flow to the right hand particularly the soft tissues overlying the second metacarpal. The activity is increased on the blood pool images as well. However, no significant intense focus of activity seen on delayed images to suggest osteomyelitis. The left hand is unremarkable. IMPRESSION: There is increased perfusion and blood pool activity in the soft tissues of the right hand, perhaps on the basis of cellulitis. No definite intense focus of delayed activity is seen to suggest osteomyelitis. Dictated by: Dictated on workstation # [id number]
== END ==
LOC: CARD 12:08
PROVIDERS: ATTEND Nurse Practitioner
DX: T81.31XA Disruption of external operation (surgical) wound, not elsewhere classified, initial encounter (principal); Z89.021 Acquired absence of right finger(s)
CPT/HCPCS: 78315

== ENCOUNTER 2018-04-23 12:16 | Outpatient (CLI) | payer MEDICARE ==
[~2018-04-23] VITALS: Ht 175.3 cm; Wt 95.3 kg
[~2018-04-23 12:16] MED LIST changes: -ASPI-999 PO; -CALC0.5C11 PO; -CATHETER FLUSH 10 ML SYR IV PRN; -FLUT9.9S NS; -SEVE800T7 PO
[2018-04-23] MEDS ORDERED: ASPI-999 PO (12:51)
[2018-04-23] MEDS ORDERED: CALC0.5C11 PO (12:51)
[2018-04-23] MEDS ORDERED: FLUT9.9S NS (12:51)
[2018-04-23] MEDS ORDERED: SEVE800T7 PO (12:51)
[2018-04-24] MEDS ORDERED: HYDR-3816 PO (10:38)
[2018-04-24] MEDS ORDERED: LOPE-145 PO (10:38)
[2018-04-24] MEDS ORDERED: SULF1TAB35 PO (10:38)
[2018-04-24] MEDS ORDERED: HYDR-34 PO (14:22)
== END 2018-04-23 12:56 | disposition home or self-care (01) ==
LOC: PREOP 12:16
PROVIDERS: ATTEND Surgery
DX: Z01.818 Encounter for other preprocedural examination (principal)

== ENCOUNTER 2018-04-24 08:56 | Day surgery (SDC) | payer MEDICARE ==
[~2018-04-24] VITALS: Ht 175.3 cm; Wt 95.3 kg
[~2018-04-24 08:56] MED LIST changes: +ASPI-999 PO; +CALC0.5C11 PO; +FLUT9.9S NS; +SEVE800T7 PO
--- OUTSIDE RECORDS SUMMARY | 2018-04-24 09:01 | XMS REPORT | Clinical Summary ---
Author Author [facility] Organization [facility] Address Unknown Phone Unavailable Care Team Providers Care Carbide Tool Die Maker Name Role Phone Lilian López MA Unavailable Unavailable Source Comments Some departments are not documenting in the electronic medical record. If you do not see the information that you expected, contact Release of Information in the Health Information Management department at [phone] for further assistance in locating additional records.[facility] Allergies Not on File Current Medications Not on file Active Problems Not on file Social History Tobacco Use Types Packs/Day Years Used Date Never Assessed Sex Assigned at Date Recorded Not on file Last Filed Vital Signs Not on file Plan of Treatment Health Maintenance Due Date Last Done Comments HEPATITIS C SCREENING 1961 PHYSICAL (COMPREHENSIVE) 1968 EXAM HIV SCREENING 1976 DTAP/TDAP VACCINES (1 - 1979 Tdap) COLORECTAL CANCER 2011 SCREENING SHINGLES RECOMBINANT 2011 VACCINE (1 of 2) INFLUENZA VACCINE 12/24/2017 Results Not on filefrom Last 3 Months
--- OUTSIDE RECORDS SUMMARY | 2018-04-24 09:01 | XMS REPORT | Clinical Summary ---
Author Author [facility] Organization [facility] Address Unknown Phone Unavailable Care Team Providers Care Program Support Clerk Name Role Phone PCP Unavailable Allergies Not on File Current Medications Not on file Active Problems Not on file Social History Tobacco Use Types Packs/Day Years Used Date Never Assessed Sex Assigned at Date Recorded Not on file Last Filed Vital Signs Not on file Plan of Treatment Health Maintenance Due Date Last Done Comments Hepatitis C Screen 1960 Td # 1961 Colorectal Screening via 2011 Colonoscopy Zoster Vaccine# (1 of 2) 2011 Influenza Vaccine (#1) 2018 Results Not on filefrom Last 3 Months
--- OUTSIDE RECORDS SUMMARY | 2018-04-24 09:02 | XMS REPORT ---
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.611 Active 749009918 Problem Chronic diastolic congestive heart failure I50.32 Active 140689246 Problem Ischemic cardiomyopathy I25.5 Active 700320855 Problem long-term current 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.4 Active 718674451 Problem Hypothyroidism (acquired) E03.9 Active 35810137 Problem Above knee amputation of left lower extremity Z89.612 Active 007297213 Problem PVD (peripheral vascular disease) I73.9 Active 665408837 Problem 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.10 Active 6314943265700 Problem Non-seasonal allergic rhinitis due to pollen J30.1 Active 51850845 Problem AICD (automatic cardioverter/defibrillator) present Z95.810 Active 903329443 ALLERGIES Substance Reaction Event Type Date Status Vancomycin HCl hives Drug Allergy Nov, Active PredniSONE nausea and vomiting Drug Allergy Nov, Active Morphine Sulfate nausea Drug Allergy Nov, Active ENCOUNTERS Encounter Location Date Diagnosis [facility] [address] [facility] [id number] [address] Dec, Type 2 diabetes mellitus with diabetic chronic kidney disease E11.22 [facility] [address] [facility] [id number], [place] [address] Nov, Type 2 diabetes mellitus with diabetic chronic kidney disease E11.22 ; 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 ; Shortness of breath R06.02 and Spider bite wound, accidental or unintentional, subsequent encounter T63.301D [place] [id number] [place] [address] 20263- 4911 Jul, [place] [address] [place] [id number] [place] [address] 40329- 9379 Jul, Abscess L02.91 [place] [address] [place] [id number] [place] [address] 53780- 1586 15 Jul, 2017 Cellulitis of right lower extremity L03.115 [place] [address] [place] [id number] [place] [address] 71243- 0583 Jul, [place] [address] [place] [id number] [place] [address] 75025- 6431 Jun, [place] [address] [place] [id number] [place] [address] 11130- 6089 Jun, [place] [address] [place] [id number] [place] [address] 89747- 5256 20 Jun, 2017 Type 2 diabetes mellitus with diabetic chronic kidney disease E11.22 ; 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 ; 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.10 ; PVD [...] Non-seasonal allergic rhinitis due to pollen J30.1 [place] [id number] [place] [address] 21615- 5028 Jan, [place] [address] [place] [address] 95130- 4885 Jan, Type 2 diabetes mellitus with diabetic chronic kidney disease E11.22 ; 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 ; 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.10 ; Chronic congestive heart failure, unspecified congestive heart failure type I50.9 ; PVD (peripheral vascular disease) I73.9 ; End stage renal disease N18.6 ; Dependence on renal dialysis Z99.2 and AICD (automatic cardioverter/defibrillator) present Z95.810 [facility] [address] [place] [id number] [place] [address] 01278- 2970 13 Jan, 2017 [facility] [address] [facility] [id number] [place] [address] 88444- 0889 Aug, [facility] [address] [place] [id number] [place] [address] 16716- 9910 Aug, [facility] [address] [id number] [address] Oct, [facility] [address] [place] [id number] [place] [address] 71858- 6485 Oct, [facility] [address] [address] Jul, [facility] [address] [id number] [address] Jul, [facility] [address], [place] [address] May, [facility] [address] [address] May, [facility] [address], [place] [address] May, [facility] [address] [id number] [address] May, [facility] [address] [address] May, [facility] [address] [place] [id number] [place] [address] 77865- 0316 May, [facility] [place] [facility] [address] [id number] [place] [address] May, [facility] [place] [facility] [address] [id number] [place] [address] 0383 May, [facility] [place] [facility] [address] [id number] [place] [address] 37[address] May, [facility] [place] [facility] [address] [id number] [place] [address] 7515 May, [facility] [place] [facility] [address] [id number] [place] [address] 5517 May, [facility] [place] [facility] [address] [id number] [place] [address] 0266 May, [facility] [place] [facility] [address] [id number] [place] [address] 0544 May, [facility] [place] [facility] [address] [id number] [place] [address] 0531 May, [facility] [place] [facility] [address] [id number] [place] [address] 4440 May, [facility] [place] [facility] [address] [id number] [place] [address] 8478 May, [facility] [place] [facility] [address] [id number] [place] [address] 8875 May, [facility] [place] [facility] [address] [id number] [place] [address] 5796 May, [facility] [place] [facility] [address] [id number] [place] [address] 3107 Apr, [facility] [place] [facility] [address] [id number] [place] [address] 8603 Apr, [facility] [place] [facility] [address] [id number] [place] [address] Apr, [facility] [place] [facility] [address] [id number] [place] [address] 9974 Apr, [facility] [address] [id number] [place] [address] 3318 Mar, [facility] [place] [facility] [address] [id number] [place] [address] 7736 Mar, [facility] [address] [id number] [place] [address] 5871 Mar, [facility] [place] [facility] [address] [id number] [place] [address] 1850 Mar, [facility] [address] [id number] [place] [address] 5545 Mar, [facility] [address] [id number] [place] [address]- 3846 17 Jan, 2013 [facility] [place] [facility] [address] [id number] [place] [address] 0696 16 Jan, 2013 [facility] [address] [id number] [place] [address]- 1589 Jan, [facility] [address] [id number] [place] [address]- 3581 Jan, [facility] [address] [id number] [place] [address] 5098 Dec, [facility] [place] [facility] [address] [id number] [place] [address]- 8122 Dec, [facility] [place] [facility] [address] [id number] [place] [address]- 8822 Dec, [facility] [place] [facility] [address] [id number] [place] [address]- 4440 Dec, [facility] [place] [facility] [address] [id number] [place] [address]- 8380 Dec, [facility] [place] [facility] [address] [id number] [place] [address]- 2842 Dec, [facility] [place] [facility] [address] [id number] [place] [address]- 7008 Dec, [facility] [place] [facility] [address] [id number] [place] [address]- 8986 Dec, [facility] [place] [facility] [address] [id number] [place] [address]- 2555 Nov, [facility] [place] [facility] [address] [id number] [place] [address]- 1256 Nov, [facility] [place] [facility] [address] [id number] [place] [address]- 0932 Nov, [facility] [place] [facility] [address] [id number] [place] [address]- 2955 September, [facility] [place] [facility] [address] [id number] [place] [address]- 8288 Feb, [facility] [place] [facility] [address] [id number] [place] [address]- 2659 Feb, [facility] [place] [facility] [address] [id number] [place] [address]- 1750 Jan, [facility] [place] [facility] [address] [id number] [place] [address]- 6549 Dec, [facility] [place] [facility] [address] [id number] [place] [address]- 0746 Dec, [facility] [place] [facility] [address] [id number] [place] [address]- 9426 Jun, [facility] [place] [facility] [address] [id number] [place] [address]- 7033 Jun, [facility] [place] [facility] [address] [id number] [place] [address]- 1946 May, [facility] [place] [facility] [address] [id number] [place] [address]- 5112 Apr, [facility] [place] [facility] [address] [id number] [place] [address]- 3775 14 Apr, 2011 [facility] [place] [facility] [address] [id number] [place] [address]- 7877 30 Mar, 2011 [facility] [place] [facility] [address] [id number] [place] [address]- 6552 16 Mar, 2011 [facility] [place] [facility] [address] [id number] [place] [address]- 4223 14 Mar, 2011 [facility] [place] [facility] [address] [id number] [place] [address]- 5132 14 Mar, 2011 [facility] [place] [facility] [address] [id number] [place] [address]- 5670 04 Mar, 2011 [facility] [place] [facility] [address] [id number] [place] [address]- 0304 18 Dec, 2010 [facility] [place] [facility] [address] [id number] [place] [address]- 0338 20 May, 2010 [facility] [place] [facility] [address] [id number] [place] [address]- 5455 29 Apr, 2010 [facility] [place] [facility] [address] [id number] [place] [address]- 2012 08 Apr, 2010 [facility] [place] [facility] [address] [facility] [id number] [place] [address]- 6899 Mar, [facility] [place] [facility] [address] [id number] [place] [address]- 2494 11 Mar, 2010 [facility] [place] [facility] [address] [id number] [place] [address]- 0551 Mar, [facility] [place] [facility] [address] [id number] [place] [address]- 8885 Feb, [facility] [place] [facility] [address] [id number] [place] [address]- 1468 Feb, [facility] [place] [facility] [address] [facility] [id number] [place] [address]- 6706 Feb, [facility] [place] [facility] [address] [address] Feb, [facility] [address] [address] Feb, [facility] [address] [address] Feb, [facility] [id number] [place] [address] 150144- 5671 Feb, [facility] [id number] [place] [address] 713154- 6314 Feb, [facility] [address] [place] [id number] [place] [address] 826281- 4584 Feb, [facility] [address] [place] [id number] [place] [address] 272332- 4742 Mar, [facility] [address] Oct, IMMUNIZATIONS No Known Immunizations SOCIAL HISTORY Never Assessed REASON FOR VISIT bite to left cheek, went to ER on 11/30, cultured there, no results yet, placed on ABX at that time. YARIEL Yates, an additional bite located in pelvic area., SOA with cough, would like to talk to you about oxygen. PLAN OF CARE Activity Details Follow Up 3 Months, prn Reason:CHM/DM VITAL SIGNS Height 69 in 2017-12-02 Weight 207.4 lbs 2017-12-02 Temperature 98.4 degrees Fahrenheit 2017-12-02 Heart Rate 88 bpm 2017-12-02 Respiratory Rate 22 2017-12-02 Oximetry 95 % 2017-12-02 BMI 30.62 kg/m2 2017-12-02 Blood pressure systolic 128 mmHg 2017-12-02 Blood pressure diastolic 78 mmHg 2017-12-02 MEDICATIONS Medication Instructions Dosage Frequency Start Date End Date Duration Status Synthroid Active Sensipar Active Tylenol 325 mg take 1 tablet (325 mg) by oral route every 4 hours as neededPRN Jun, Active Humalog 100 UNIT/ML Subcutaneous 3 times a day with meals 5 units 12 months Active Levemir Flexpen 100 unit/mL subcutaneously Once a day 30 units 24h May, 12 months Active Doxycycline 100mg Orally 2 times a day 1 capsule 12h Nov, Active Fluticasone Propionate 50 MCG/ACT Nasally Once a day 1 spray in each nostril 24h 20 Jun, 2017 12 months Active RESULTS Name Result Date Reference Range A1C (IN HOUSE) 2017-12-02 A1C IN HOUSE 8.7 4.3 - 5.6 % Previous A1c 11.2 Lot [id number] Exp date 07/2019 Xray : Chest 2 View (IN HOUSE) 2017-12-02 PROCEDURES Procedure Date Ordered Result Body Site GLYCATED HEMOGLOBIN TEST December 02, 2017 X-RAY EXAM CHEST 2 VIEWS December 02, 2017 INSTRUCTIONS MEDICATIONS ADMINISTERED No Known Medications MEDICAL (GENERAL) HISTORY Type Description Date Medical History type II diabetes Medical History kidney failure Medical History congestive heart failure Medical History peripheral vascular disease- right AKA Medical History chronic sinusitis Medical History CAD w/ CABG- 2009- Dr Ruiz Medical History left cataract Medical History panretinal photocoagulation bilat Medical History vitrectomy-right Medical History 09/2017- Carotid US- mild bilat disease Surgical History open heart surgery 2009 Surgical [...]
--- OUTSIDE RECORDS SUMMARY | 2018-04-24 09:02 | XMS REPORT ---
Author Author EVELIAFAYELAXMI Organization [facility] Address [address] [place] [address] Care Team Providers Care Assistant Professor In Family Studies Name Role Phone ALTAMIRANOLAXMI Ayala Unavailable PROBLEMS Type Condition ICD9-CM Code NIW33-YO Code Onset Dates Condition Status SNOMED Code Problem Dependence on renal dialysis Z99.2 Active 786080789 Problem Type 2 diabetes mellitus with diabetic chronic kidney disease E11.22 Active 78318272 Problem End stage renal disease N18.6 Active 462688515 Problem Above knee amputation of right lower extremity Z89.611 Active 596833072 Problem Chronic diastolic congestive heart failure I50.32 Active 171362135 Problem Ischemic cardiomyopathy I25.5 Active 556039776 Problem intermediate current 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.4 Active 393062752 Problem Hypothyroidism (acquired) E03.9 Active 65617686 Problem Above knee amputation of left lower extremity Z89.612 Active 209371371 Problem PVD (peripheral vascular disease) I73.9 Active 056217161 Problem Coronary artery disease involving [place] coronary artery of [place] heart without angina pectoris I25.10 Active 6649167919353 Problem Non-seasonal allergic rhinitis due to pollen J30.1 Active 84444804 Problem AICD (automatic cardioverter/defibrillator) present Z95.810 Active 046274651 ALLERGIES No Information ENCOUNTERS Encounter Location Date Diagnosis [facility] [address] [facility] [id number] [address] Jan, [facility] [address] [facility] [id number], [place] [address] Dec, Type 2 diabetes mellitus with diabetic chronic kidney disease E11.22 [facility] [address] [facility] [id number] [address] Nov, Type 2 diabetes mellitus with diabetic chronic kidney disease E11.22 ; 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 ; Shortness of breath R06.02 and Spider bite wound, accidental or unintentional, subsequent encounter T63.301D [place] [address] [id number] [place] [address]81- 3542 Jul, [place] [address] [place] [id number] [place] [address] 21782- 7104 Jul, Abscess L02.91 [place] [address] [address]- [address] 15 Jul, 2017 Cellulitis of right lower extremity L03.115 [place] [address] [place] [id number] [place] [address] 87854- 3508 Jul, [place] [address] [place] [id number] [place] [address] 27332- 6400 Jun, [place] [address] [place] [id number] [place] [address] 67478- 6142 Jun, [place] [address] [place] [id number] [place] [address] 98537- 4987 Jun, Type 2 diabetes mellitus with diabetic chronic kidney disease E11.22 ; 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 ; Coronary artery disease involving [place] coronary artery of [place] heart without angina pectoris I25.10 ; PVD [...] Non-seasonal allergic rhinitis due to pollen J30.1 [place] [address] [id number] [place] [address] 36596- 5083 Jan, [place] [address] [place] [id number] [place] [address] 14620- 7790 Jan, Type 2 diabetes mellitus with diabetic chronic kidney disease E11.22 ; intermediate current 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.4 ; Coronary artery disease involving [place] coronary artery of [place] heart without angina pectoris I25.10 ; Chronic congestive heart failure, unspecified congestive heart failure type I50.9 ; PVD (peripheral vascular disease) I73.9 ; End stage renal disease N18.6 ; Dependence on renal dialysis Z99.2 and AICD (automatic cardioverter/defibrillator) present Z95.810 [facility] [address] [facility] [id number], [place] [address] 13 Jan, 2017 [facility] [address] [facility] [id number], [place] [address] 6[address] Aug, [facility] [address] [place] [id number] [place] [address] 13206- 6971 Aug, [facility] [address] [place] [id number] [address] 9832 Oct, [facility] [address] [place] [id number] [address] 1888 Oct, [facility] [address], [place] [address] 5435 Jul, [facility] [address] [address] 3542 Jul, [facility] [address], [place] [address] 3967 May, [facility] [address] [address] 9606 May, [facility] [address], [place] [address] 9894 May, [facility] [address] [address] [address] May, [facility] [address], [place] [address] 0106 May, [facility] [address] [address] 9140 May, [facility] [address] [id number] [place] [address]- 0321 May, [facility] [place] [facility] [address] [id number] [place] [address]- 4376 May, [facility] [place] [facility] [address] [id number] [place] [address]- 4150 May, [facility] [place] [facility] [address] [id number] [place] [address]- 5454 May, [facility] [place] [facility] [address] [id number] [place] [address]- 3392 May, [facility] [place] [facility] [address] [id number] [place] [address]- 2906 May, [facility] [place] [facility] [address] [id number] [place] [address]- 5235 May, [facility] [place] [facility] [address] [id number] [place] [address]- 2390 May, [facility] [place] [facility] [address] [id number] [place] [address]- 2489 May, [facility] [place] [facility] [address] [id number] [place] [address]- 0359 May, [facility] [place] [facility] [address] [id number], [place] [address]- 0769 May, [facility] [place] [facility] [address] [id number], [place] [address]- 4426 May, [facility] [place] [facility] [address] [id number] [place] [address]- 5168 Apr, [facility] [place] [facility] [address] [id number] [place] [address]- 8791 Apr, [facility] [place] [facility] [address] [id number] [place] [address]- 7665 Apr, [facility] [place] [facility] [address] [id number] [place] [address]- 1198 Apr, [facility] [place] [facility] [address] [id number] [place] [address]- 6797 Mar, [facility] [place] [facility] [address] [id number] [place] [address]- 2507 Mar, [facility] [place] [facility] [address] [id number] [place] [address]- 2587 Mar, [facility] [place] [facility] [address] [id number] [place] [address]- 8069 Mar, [facility] [place] [facility] [address] [id number] [place] [address]- 1548 Mar, [facility] [place] [facility] [address] [id number] [place] [address]- 9356 17 Jan, 2013 [facility] [place] [facility] [address] [id number] [place] [address]- 8758 16 Jan, 2013 [facility] [place] [facility] [address] [id number] [place] [address]- 9723 Jan, [facility] [place] [facility] [address] [id number] [place] [address]- 5728 Jan, [facility] [place] [facility] [address] [id number] [place] [address]- 3095 Dec, [facility] [place] [facility] [address] [id number] [place] [address]- 0150 Dec, [facility] [place] [facility] [address] [id number] [place] [address]- 5989 Dec, [facility] [place] [facility] [address] [id number] [place] [address]- 8355 Dec, [facility] [place] [facility] [address] [id number] [place] [address]- 2666 Dec, [facility] [place] [facility] [address] [id number] [place] [address]- 5760 Dec, [facility] [place] [facility] [address] [id number] [place] [address]- 6689 Dec, [facility] [place] [facility] [address] [id number] [place] [address]- 4772 Dec, [facility] [place] [facility] [address] [id number] [place] [address]- 7770 Nov, [facility] [place] [facility] [address] [id number] [place] [address]- 8921 Nov, [facility] [place] [facility] [address] [id number] [place] [address]- 6474 Nov, [facility] [place] [facility] [address] [id number] [place] [address]- 2950 September, [facility] [place] [facility] [address] [id number] [place] [address]- 0322 Feb, [facility] [place] [facility] [address] [id number] [place] [address]- 7639 Feb, [facility] [place] [facility] [address] [id number] [place] [address]- 9805 Jan, [facility] [place] [facility] [address] [id number] [place] [address]- 0971 Dec, [facility] [place] [facility] [address] [id number] [place] [address]- 4348 Dec, [facility] [place] [facility] [address] [id number] [place] [address]- 3445 Jun, [facility] [place] [facility] [address] [id number] [place] [address]- 6635 Jun, [facility] [place] [facility] [address] [id number] [place] [address]- 4286 May, [facility] [place] [facility] [address] [id number] [place] [address]- 8653 Apr, [facility] [place] [facility] [address] [id number], [place] [address]- 6034 14 Apr, 2011 [facility] [place] [facility] [address] [id number] [place] [address]- 9626 30 Mar, 2011 [facility] [place] [facility] [address] [id number] [place] [address]- 5827 16 Mar, 2011 [facility] [place] [facility] [address] [id number] [place] [address]- 8975 14 Mar, 2011 [facility] [place] [facility] [address] [id number] [place] [address]- 1733 14 Mar, 2011 [facility] [place] [facility] [address] [id number] [place] [address]- 7999 04 Mar, 2011 [facility] [place] [facility] [address] [id number] [place] [address]- 3102 18 Dec, 2010 [facility] [place] [facility] [address] [id number] [place] [address]- 8323 May, [facility] [place] [facility] [address] [id number] [place] [address]- 4788 29 Apr, 2010 [facility] [place] [facility] [address] [id number] [place] [address]- 6273 08 Apr, 2010 [facility] [place] [facility] [address] [id number] [place] [address]- 6132 Mar, [facility] [place] [facility] [address] [id number], [place] [address]- 6482 Mar, [facility] [place] [facility] [address] [id number] [place] [address]- 9485 Mar, [facility] [place] [facility] [address] [id number] [place] [address]- 0575 Feb, [facility] [place] [facility] [address] [id number] [place] [address]- 5563 28 Feb, 2010 [facility] [place] [facility] [address] [id number] [place] [address]- 9991 Feb, [facility] [place] [facility] [address] [facility] [id number], [place] [address]- 3252 Feb, [facility] [address] [facility] [id number], [place] [address]- 3633 Feb, [facility] [address] [facility] [id number], [place] [address]- 3092 Feb, [facility] [address] [facility] [id number], [place] [address]- 0310 Feb, [facility] [address] [facility] [id number], [place] [address]- 8640 Feb, [facility] [address] [place] [id number] [address]- 1131 Feb, [facility] [address], [place] [address]- 4171 Mar, [facility] [address] [place] [id number] [address]- 2615 Oct, IMMUNIZATIONS No Known Immunizations SOCIAL HISTORY Never Assessed REASON FOR VISIT PLAN OF CARE VITAL SIGNS MEDICATIONS Medication Instructions Dosage Frequency Start Date End Date Duration Status Advocate Lancets - subcutaneously 4 times a day use to check blood sugar 6h Dec, Active Glucometer glucometer subcutaneously 4 times a day Test 4 times a day 6h Dec, Active Blood Glucose Test Strip Test Strips subcutaneously 4 times a day use 4 times a day 6h Dec, Active RESULTS No Results PROCEDURES No Known [...]
--- OUTSIDE RECORDS SUMMARY | 2018-04-24 09:02 | XMS REPORT ---
Author Author EVELIAFAYELAXMI Organization [facility] Address [address] [place] [address] Care Team Providers Care Condenser Tester Name Role Phone ALTAMIRANOLAXMI Ayala Unavailable PROBLEMS Type Condition ICD9-CM Code NLL55-WD Code Onset Dates Condition Status SNOMED Code Problem Dependence on renal dialysis Z99.2 Active 928210400 Problem Type 2 diabetes mellitus with diabetic chronic kidney disease E11.22 Active 96442222 Problem End stage renal disease N18.6 Active 093209191 Problem Above knee amputation of right lower extremity Z89.611 Active 494278664 Problem Chronic diastolic congestive heart failure I50.32 Active 671636605 Problem Ischemic cardiomyopathy I25.5 Active 083942675 Problem half-way current 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.4 Active 942042700 Problem Hypothyroidism (acquired) E03.9 Active 02229084 Problem Above knee amputation of left lower extremity Z89.612 Active 943416403 Problem PVD (peripheral vascular disease) I73.9 Active 146592288 Problem Coronary artery disease involving [place] coronary artery of [place] heart without angina pectoris I25.10 Active 4163789029965 Problem Non-seasonal allergic rhinitis due to pollen J30.1 Active 32102138 Problem AICD (automatic cardioverter/defibrillator) present Z95.810 Active 205164916 ALLERGIES No Information ENCOUNTERS Encounter Location Date Diagnosis [facility] [address] [facility] [id number] [address]- [address] Jan, [facility] [address] [facility] [id number] [place] [address]- 2734 Dec, Type 2 diabetes mellitus with diabetic chronic kidney disease E11.22 [facility] [address] [facility] [id number] [place] [address]- 5436 Nov, Type 2 diabetes mellitus with diabetic chronic kidney disease E11.22 ; 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 ; Shortness of breath R06.02 and Spider bite wound, accidental or unintentional, subsequent encounter T63.301D [place] [address] [place] [address]1253- 5952 Jul, [place] [address] [place] [id number] [place] [address] 87442- 0739 Jul, Abscess L02.91 [place] [address] [address]- 4056 15 Jul, 2017 Cellulitis of right lower extremity L03.115 [place] [address] [place] [id number] [place] [address] 71320- 9810 Jul, [place] [address] [place] [id number] [place] [address] 24989- 4188 Jun, [place] [address] [place] [id number] [place] [address] 31668- 7181 Jun, [place] [address] [place] [id number] [place] [address] 18806- 6830 Jun, Type 2 diabetes mellitus with diabetic chronic kidney disease E11.22 ; 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 ; Coronary artery disease involving [place] coronary artery of [place] heart without angina pectoris I25.10 ; PVD [...] Non-seasonal allergic rhinitis due to pollen J30.1 [place] [address] [place] [address] 66484- 2987 Jan, [place] [address] [place] [id number] [place] [address] 29134- 8099 Jan, Type 2 diabetes mellitus with diabetic chronic kidney disease E11.22 ; half-way current 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.4 ; Coronary artery disease involving [place] coronary artery of [place] heart without angina pectoris I25.10 ; Chronic congestive heart failure, unspecified congestive heart failure type I50.9 ; PVD (peripheral vascular disease) I73.9 ; End stage renal disease N18.6 ; Dependence on renal dialysis Z99.2 and AICD (automatic cardioverter/defibrillator) present Z95.810 [facility] [address] [facility] [id number] [place] [address]- 0492 13 Jan, 2017 [facility] [address] [facility] [id number] [place] [address]- 7062 Aug, [facility] [address] [place] [id number] [place] [address] 70552- 9921 Aug, [facility] [address] [place] [id number] [address]- 8226 Oct, [facility] [address] [place] [id number] [address]- 6634 Oct, [facility] [address]65100[place] [address]- 6329 Jul, [facility] [address]65[address] [address]- 7473 Jul, [facility] [address]65100[place] [address]- 6767 May, [facility] [address]65[address] [address]- 8835 May, [facility] [address]65[address] [address]- 1236 May, [facility] [address] [address] 3847 May, [facility] [address] [address]- 2226 May, [facility] [address]65100[place] [address]- 4170 May, [facility] [address] [id number] [place] [address]- 7643 May, [facility] [place] [facility] [address] [id number] [place] [address]- 1848 May, [facility] [place] [facility] [address] [id number] [place] [address]- 5241 May, [facility] [place] [facility] [address] [id number] [place] [address]- 4605 May, [facility] [place] [facility] [address] [id number] [place] [address]- 8028 May, [facility] [place] [facility] [address] [id number] [place] [address]- 0087 May, [facility] [place] [facility] [address] [id number] [place] [address]- 0519 May, [facility] [place] [facility] [address] [id number] [place] [address]- 3537 May, [facility] [place] [facility] [address] [id number] [place] [address]- 0414 May, [facility] [place] [facility] [address] [id number] [place] [address]- 1392 May, [facility] [place] [facility] [address] [id number] [address]- 2287 May, [facility] [place] [facility] [address] [id number] [place] [address]- 4361 May, [facility] [place] [facility] [address] [id number] [place] [address]- 8091 Apr, [facility] [place] [facility] [address] [id number] [place] [address]- 7827 Apr, [facility] [place] [facility] [address] [id number] [place] [address]- 0612 Apr, [facility] [place] [facility] [address] [id number] [place] [address]- 8698 Apr, [facility] [place] [facility] [address] [id number] [place] [address]- 2821 Mar, [facility] [place] [facility] [address] [id number] [place] [address]- 3156 Mar, [facility] [place] [facility] [address] [id number] [place] [address]- 8930 Mar, [facility] [place] [facility] [address] [id number] [place] [address]- 9101 Mar, [facility] [place] [facility] [address] [id number] [place] [address]- 1301 Mar, [facility] [place] [facility] [address] [id number] [place] [address]- 7879 17 Jan, 2013 [facility] [place] [facility] [address] [id number] [place] [address]- 4022 16 Jan, 2013 [facility] [place] [facility] [address] [id number] [place] [address]- 0918 Jan, [facility] [place] [facility] [address] [id number] [place] [address]- 7023 Jan, [facility] [place] [facility] [address] [id number] [place] [address]- 2705 Dec, [facility] [place] [facility] [address] [id number] [place] [address]- 7727 Dec, [facility] [place] [facility] [address] [id number] [place] [address]- 3849 Dec, [facility] [place] [facility] [address] [id number] [place] [address]- 6013 Dec, [facility] [place] [facility] [address] [id number] [place] [address]- 0881 Dec, [facility] [place] [facility] [address] [id number] [place] [address]- 7065 Dec, [facility] [place] [facility] [address] [id number] [place] [address]- 7563 Dec, [facility] [place] [facility] [address] [id number] [place] [address]- 6402 Dec, [facility] [place] [facility] [address] [id number] [place] [address] Nov, [facility] [place] [facility] [address] [id number] [place] [address] Nov, [facility] [place] [facility] [address] [id number] [place] [address] Nov, [facility] [place] [facility] [address] [id number] [place] [address] September, [facility] [place] [facility] [address] [id number] [place] [address] Feb, [facility] [place] [facility] [address] [id number] [place] [address] Feb, [facility] [place] [facility] [address] [id number] [place] [address] Jan, [facility] [place] [facility] [address] [id number] [place] [address] Dec, [facility] [place] [facility] [address] [id number] [place] [address] Dec, [facility] [place] [facility] [address] [id number] [place] [address] Jun, [facility] [place] [facility] [address] [id number] [place] [address] Jun, [facility] [place] [facility] [address] [id number] [place] [address] May, [facility] [place] [facility] [address] [id number] [place] [address] Apr, [facility] [place] [facility] [address] [id number] [address] 14 Apr, 2011 [facility] [place] [facility] [address] [id number] [place] [address] 30 Mar, 2011 [facility] [place] [facility] [address] [id number] [place] [address] 16 Mar, 2011 [facility] [place] [facility] [address] [id number] [place] [address] 14 Mar, 2011 [facility] [place] [facility] [address] [id number] [place] [address] 14 Mar, 2011 [facility] [place] [facility] [address] [id number] [place] [address] 04 Mar, 2011 [facility] [place] [facility] [address] [id number] [place] [address] 18 Dec, 2010 [facility] [place] [facility] [address] [id number] [place] [address] May, [facility] [place] [facility] [address] [id number] [place] [address] 29 Apr, 2010 [facility] [place] [facility] [address] [id number] [place] [address] 08 Apr, 2010 [facility] [place] [facility] [address] [id number] [place] [address] Mar, [facility] [place] [facility] [address] [id number] [address] Mar, [facility] [place] [facility] [address] [id number] [place] [address] Mar, [facility] [place] [facility] [address] [id number] [place] [address] Feb, [facility] [place] [facility] [address] [id number] [place] [address] 28 Feb, 2010 [facility] [place] [facility] [address] [id number] [place] [address] Feb, [facility] [place] [facility] [address] [id number] [address] Feb, [facility] [address] [id number] [address] Feb, [facility] [id number] [address] Feb, [facility] [address] [id number] [address] Feb, [facility] [id number] [address] Feb, [facility] [id number] [address] Feb, [facility] [id number] [address] Mar, [facility] [address] [id number] [address] Oct, IMMUNIZATIONS No Known Immunizations SOCIAL HISTORY Never Assessed REASON FOR VISIT Requests return call PLAN OF CARE VITAL SIGNS MEDICATIONS Unknown [...]
--- OUTSIDE RECORDS SUMMARY | 2018-04-24 09:03 | XMS REPORT ---
Author Author EVELIA LAXMI Organization [facility] Address [address] [place] [address] Care Team Providers Care Sales And Production Manager Name Role Phone ALTAMIRANOFAYE AyalaELE Unavailable PROBLEMS Type Condition ICD9-CM Code [id number] Code Onset Dates Condition Status SNOMED Code Problem Dependence on renal dialysis Z99.2 Active 466138496 Problem Type 2 diabetes mellitus with diabetic chronic kidney disease E11.22 Active 22497546 Problem End stage renal disease N18.6 Active 371355507 Problem Above knee amputation of right lower extremity Z89.611 Active 262725887 Problem Chronic diastolic congestive heart failure I50.32 Active 216099893 Problem Ischemic cardiomyopathy I25.5 Active 773069970 Problem correction current 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.4 Active 146959237 Problem Hypothyroidism (acquired) E03.9 Active 13926124 Problem Above knee amputation of left lower extremity Z89.612 Active 072067027 Problem PVD (peripheral vascular disease) I73.9 Active 325000172 Problem 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 Active 3377455054136 Problem Non-seasonal allergic rhinitis due to pollen J30.1 Active 21659404 Problem AICD (automatic cardioverter/defibrillator) present Z95.810 Active 067276883 ALLERGIES No Information ENCOUNTERS Encounter Location Date Diagnosis [facility] [id number] [address] Nov, Type 2 diabetes mellitus with diabetic chronic kidney disease E11.22 ; manager intermediate current 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.4 ; Shortness of breath R06.02 and Spider bite wound, accidental or unintentional, subsequent encounter T63.301D [facility] [id number] [address] Jul, [facility] [address] [address] Jul, Abscess L02.91 [id number] [address] 15 Jul, 2017 Cellulitis of right lower extremity L03.115 [address] [address] 14 Jul, 2017 [place] [address] [address] Jun, [place] [address] [address] Jun, [address] [id number] [place] [address] Jun, Type 2 diabetes mellitus with diabetic chronic kidney disease E11.22 ; manager intermediate current 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.4 ; 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 ; PVD [...] Non-seasonal allergic rhinitis due to pollen J30.1 [place] [address] [id number] [address] Jan, [place] [id number] [address] Jan, Type 2 diabetes mellitus with diabetic chronic kidney disease E11.22 ; correction current 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.4 ; 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 ; Chronic congestive heart failure, unspecified congestive heart failure type I50.9 ; PVD (peripheral vascular disease) I73.9 ; End stage renal disease N18.6 ; Dependence on renal dialysis Z99.2 and AICD (automatic cardioverter/defibrillator) present Z95.810 [facility] [address] [id number] [place] [address] 13 Jan, 2017 [facility] [address] [facility] [id number] [address] 14 Aug, 2014 [facility] [address] [id number] [address] Aug, [facility] [address] [id number] [place] [address]- [address] Oct, [facility] [address] [id number] [place] [address], [place] [address]- [address]92 Oct, [facility] [address] [facility] [place] [place] [id number] [address] Jul, [facility] [address] [address]- 67[address] Jul, [facility] [address] [address]- [address] May, [facility] [address]005[address] [address]- 60[address] May, [facility] [address] [address]- [address] May, [facility] [address] [address]- 4485 May, [facility] [address] [facility] [place] [place] [id number] [address]- 0[address] May, [facility] [id number] [address]- 0185 May, [facility] [address] [facility] [place] [place] [id number] [address]- 85[address] May, [facility] [address]005[address] [address]- 77[address] May, [facility] [place] [facility] [address] [id number] [place] [address]- 55[address] May, [facility] [place] [facility] [address] [id number] [place] [address]- 1363 May, [facility] [place] [facility] [address] [id number] [place] [address]- 1826 May, [facility] [place] [facility] [address] [id number] [place] [address]- 3224 May, [facility] [place] [facility] [address] [id number] [place] [address]- 6500 May, [facility] [place] [facility] [address] [id number] [place] [address]- 9657 May, [facility] [place] [facility] [address] [id number] [place] [address]- 1155 May, [facility] [place] [facility] [address] [id number] [place] [address]- 6304 May, [facility] [place] [facility] [address] [id number] [place] [address]- 3182 May, [facility] [place] [facility] [address] [id number] [place] [address]- 4858 May, [facility] [place] [facility] [address] [id number] [place] [address]- 3566 Apr, [facility] [place] [facility] [address] [id number] [place] [address]- 5[address] Apr, [facility] [place] [facility] [address] [id number] [place] [address]- 5230 Apr, [facility] [place] [facility] [address] [id number] [place] [address]- 3524 Apr, [facility] [place] [facility] [address] [id number] [place] [address]- 3[address] Mar, [facility] [place] [facility] [address] [id number] [place] [address]- 97[address] Mar, [facility] [place] [facility] [address] [id number] [place] [address]- 4870 Mar, [facility] [place] [facility] [address] [id number] [place] [address]- 2358 Mar, [facility] [place] [facility] [address] [id number] [place] [address]- 0408 Mar, [facility] [place] [facility] [address] [id number] [place] [address]- 1660 Jan, [facility] [place] [facility] [address] [id number] [place] [address]- 1678 16 Jan, 2013 [facility] [place] [facility] [address] [id number] [place] [address]- 3642 Jan, [facility] [place] [facility] [address] [id number] [place] [address]- 8759 Jan, [facility] [place] [facility] [address] [id number] [place] [address]- 2924 Dec, [facility] [place] [facility] [address] [id number] [place] [address]- 6546 Dec, [facility] [place] [facility] [address] [id number] [place] [address]- 3201 Dec, [facility] [place] [facility] [address] [id number] [address]- 7597 Dec, [facility] [place] [facility] [address] [id number] [address]- 9552 Dec, [facility] [place] [facility] [address] [id number] [place] [address]- 9354 Dec, [facility] [place] [facility] [address] [id number] [place] [address]- 9370 Dec, [facility] [place] [facility] [address] [id number] [place] [address]- 7896 Dec, [facility] [place] [facility] [address] [id number] [place] [address] 2546 Nov, [facility] [address] [id number] [place] [address] 2546 Nov, [facility] [place] [facility] [address] [id number] [place] [address]- 2546 Nov, [facility] [address] [id number] [place] [address] 2546 September, [facility] [place] [facility] [address] [id number] [place] [address]- 2546 Feb, [facility] [address] [id number] [place] [address]- 3926 Feb, [facility] [place] [facility] [address] [id number] [place] [address]- 2546 Jan, [facility] [address] [id number] [place] [address]- 2546 Dec, [facility] [place] [facility] [address] [id number] [place] [address]- 2546 Dec, [facility] [place] [facility] [address] [id number] [place] [address]- 3144 Jun, [facility] [address] [id number] [place] [address]- 2546 Jun, [facility] [place] [facility] [address] [id number] [place] [address]- 2546 May, [facility] [place] [facility] [address] [id number] [place] [address]- 2545 Apr, [facility] [place] [facility] [address] [id number] [place] [address]- 2546 Apr, [facility] [place] [facility] [address] [id number] [place] [address]- 2546 Mar, [facility] [place] [facility] [address] [id number] [place] [address]- 2546 Mar, [facility] [place] [facility] [address] [id number] [place] [address]- 1432 14 Mar, 2011 [facility] [place] [facility] [address] [id number] [place] [address]- 4212 14 Mar, 2011 [facility] [place] [facility] [address] [id number] [place] [address]- 6459 04 Mar, 2011 [facility] [place] [facility] [address] [id number] [place] [address]- 8405 18 Dec, 2010 [facility] [place] [facility] [address] [id number] [place] [address]- 2057 May, [facility] [place] [facility] [address] [id number] [place] [address]- 4409 29 Apr, 2010 [facility] [place] [facility] [address] [id number] [place] [address]- 1512 Apr, [facility] [place] [facility] [address] [id number] [place] [address]- 2293 Mar, [facility] [place] [facility] [address] [id number] [place] [address]- 0583 Mar, [facility] [place] [facility] [address] [id number] [place] [address]- 9679 Mar, [facility] [place] [facility] [address] [id number] [place] [address]- 3191 28 Feb, 2010 [facility] [place] [facility] [address] [id number] [address]- 0311 28 Feb, 2010 [facility] [place] [facility] [address] [id number] [place] [address]- 6835 27 Feb, 2010 [facility] [place] [facility] [address] [id number] [place] [address]- 2059 26 Feb, 2010 [facility] [place] [facility] [address] [id number] [address]- 6159 19 Feb, 2010 [facility] [place] [facility] [address] [id number] [address]- 6480 Feb, [facility] [address] [facility] [id number] 7166 Feb, [facility] [address] [facility] [place] [id number] [address]- 3949 Feb, [facility] [address] [facility] [place] [place] [id number] [address]- 6334 Feb, [facility] [address] [facility] [place] [place] [id number] [address] Mar, [facility] [address] [facility] [place] [id number] [address]- 3360 Oct, IMMUNIZATIONS No Known Immunizations SOCIAL HISTORY Never Assessed REASON FOR VISIT PLAN OF CARE VITAL SIGNS MEDICATIONS No Known Medications RESULTS No Results PROCEDURES No Known [...]
--- OUTSIDE RECORDS SUMMARY | 2018-04-24 09:03 | XMS REPORT ---
Author Author EVELIA LAXMI Organization [facility] Address [address] [place] [address] Care Team Providers Care Voip Technician Name Role Phone ALTAMIRANOFAYE AyalaELE Unavailable PROBLEMS Type Condition ICD9-CM Code LNZ84-RE Code Onset Dates Condition Status SNOMED Code Problem Dependence on renal dialysis Z99.2 Active 196512465 Problem Type 2 diabetes mellitus with diabetic chronic kidney disease E11.22 Active 33193905 Problem End stage renal disease N18.6 Active 746650034 Problem Above knee amputation of right lower extremity Z89.611 Active 131114184 Problem Chronic diastolic congestive heart failure I50.32 Active 391329996 Problem Ischemic cardiomyopathy I25.5 Active 503939688 Problem longterm current 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.4 Active 007042376 Problem Hypothyroidism (acquired) E03.9 Active 72748953 Problem Above knee amputation of left lower extremity Z89.612 Active 410093320 Problem PVD (peripheral vascular disease) I73.9 Active 078490430 Problem Coronary artery disease involving hoonah coronary artery of hoonah heart without angina pectoris I25.10 Active 8935535773119 Problem Non-seasonal allergic rhinitis due to pollen J30.1 Active 55293510 Problem AICD (automatic cardioverter/defibrillator) present Z95.810 Active 723554433 ALLERGIES No Information ENCOUNTERS Encounter Location Date Diagnosis [facility] [id number], [place] [address] Nov, Type 2 diabetes mellitus with diabetic chronic kidney disease E11.22 ; 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 ; Shortness of breath R06.02 and Spider bite wound, accidental or unintentional, subsequent encounter T63.301D [facility] [id number], [place] [address]- [address] Jul, [facility] [address], [place] [address]- 4[address] Jul, Abscess L02.91 [id number], [place] [address]- [address] 15 Jul, 2017 Cellulitis of right lower extremity L03.115 [address]005[address], [place] [address]- 7104 14 Jul, 2017 [address], [place] [address]- 8394 Jun, [place] [address], [place] [address]- 8454 Jun, [place] [id number] [place] [address]- 5923 Jun, Type 2 diabetes mellitus with diabetic chronic kidney disease E11.22 ; 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 ; Coronary artery disease involving hoonah coronary artery of hoonah heart without angina pectoris I25.10 ; PVD [...] Non-seasonal allergic rhinitis due to pollen J30.1 [id number], [place] [address]- 2805 Jan, [place] [id number], [place] [address]- 6529 Jan, Type 2 diabetes mellitus with diabetic chronic kidney disease E11.22 ; longterm current 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.4 ; Coronary artery disease involving hoonah coronary artery of hoonah heart without angina pectoris I25.10 ; Chronic congestive heart failure, unspecified congestive heart failure type I50.9 ; PVD (peripheral vascular disease) I73.9 ; End stage renal disease N18.6 ; Dependence on renal dialysis Z99.2 and AICD (automatic cardioverter/defibrillator) present Z95.810 [facility] [address] [id number] [place] [address]- 7551 13 Jan, 2017 [facility] [address] [facility] [id number], [place] [address]- 6577 14 Aug, 2014 [facility] [address] [id number], [place] [address]- 2635 Aug, [facility] [id number] [place] [address]- 5264 Oct, [facility] [address] [id number] [place] [address], [place] [address]- 9202 Oct, [facility] [address] [facility] [id number], [place] [address]- 3915 Jul, [facility] [address], [place] [address]- 8178 Jul, [facility] [address], [place] [address]- 4683 May, [facility] [address], [place] [address]- 5439 May, [facility] [address], [place] [address]- 5455 May, [facility] [address], [place] [address]- 2752 May, [facility] [address] [facility] [id number], [place] [address]- 0125 May, [facility] [id number], [place] [address]- 5464 May, [facility] [address] [facility] [id number], [place] [address]- 7094 May, [facility] [address], [place] [address]- 6878 May, [facility] [place] [facility] [address] [id number] [place] [address]- 4629 May, [facility] [place] [facility] [address] [id number] [place] [address]- 1378 May, [facility] [place] [facility] [address] [id number] [place] [address]- 5676 May, [facility] [place] [facility] [address] [id number] [place] [address]- 6669 May, [facility] [place] [facility] [address] [id number] [place] [address]- 3584 May, [facility] [place] [facility] [address] [id number] [place] [address]- 6858 May, [facility] [place] [facility] [address] [id number] [place] [address]- 7045 May, [facility] [place] [facility] [address] [id number] [place] [address]- 3983 May, [facility] [place] [facility] [address] [id number] [place] [address]- 4654 May, [facility] [place] [facility] [address] [id number] [place] [address]- 9821 May, [facility] [place] [facility] [address] [id number] [place] [address]- 3554 Apr, [facility] [place] [facility] [address] [id number] [place] [address]- 2318 Apr, [facility] [place] [facility] [address] [id number] [place] [address]- 6944 Apr, [facility] [place] [facility] [address] [id number] [place] [address]- 2858 Apr, [facility] [place] [facility] [address] [id number] [place] [address]- 7666 Mar, [facility] [place] [facility] [address] [id number] [place] [address]- 3322 Mar, [facility] [place] [facility] [address] [id number] [place] [address]- 9604 Mar, [facility] [place] [facility] [address] [id number] [place] [address]- 6413 Mar, [facility] [place] [facility] [address] [id number] [place] [address]- 9830 Mar, [facility] [place] [facility] [address] [id number] [place] [address]- 0130 Jan, [facility] [place] [facility] [address] [id number] [place] [address]- 4388 16 Jan, 2013 [facility] [place] [facility] [address] [id number] [place] [address]- 4116 Jan, [facility] [place] [facility] [address] [id number] [place] [address]- 5178 Jan, [facility] [place] [facility] [address] [id number] [place] [address]- 4849 Dec, [facility] [place] [facility] [address] [id number] [place] [address]- 5920 Dec, [facility] [place] [facility] [address] [id number] [place] [address]- 6343 Dec, [facility] [place] [facility] [address] [id number], [place] [address]- 4348 Dec, [facility] [place] [facility] [address] [id number], [place] [address]- 2590 Dec, [facility] [place] [facility] [address] [id number] [place] [address]- 9813 Dec, [facility] [place] [facility] [address] [id number] [place] [address]- 6380 Dec, [facility] [place] [facility] [address] [id number] [place] [address]- 0844 Dec, [facility] [place] [facility] [address] [id number] [place] [address] 2546 Nov, [facility] [address] [id number] [place] [address] 2546 Nov, [facility] [place] [facility] [address] [id number] [place] [address]- 2546 Nov, [facility] [address] [id number] [place] [address] 2546 September, [facility] [place] [facility] [address] [id number] [place] [address]- 2546 Feb, [facility] [address] [id number] [place] [address]- 7356 Feb, [facility] [place] [facility] [address] [id number] [place] [address]- 2546 Jan, [facility] [address] [id number] [place] [address]- 2546 Dec, [facility] [place] [facility] [address] [id number] [place] [address]- 2546 Dec, [facility] [place] [facility] [address] [id number] [place] [address]- 8891 Jun, [facility] [address] [id number] [place] [address]- 2546 Jun, [facility] [place] [facility] [address] [id number] [place] [address] May, [facility] [place] [facility] [address] [id number] [place] [address] Apr, [facility] [place] [facility] [address] [id number] [place] [address] Apr, [facility] [place] [facility] [address] [id number] [place] [address] Mar, [facility] [place] [facility] [address] [id number] [place] [address] Mar, [facility] [place] [facility] [address] [id number] [place] [address] 14 Mar, 2011 [facility] [place] [facility] [address] [id number] [place] [address] 14 Mar, 2011 [facility] [place] [facility] [address] [id number] [place] [address] 04 Mar, 2011 [facility] [place] [facility] [address] [id number] [place] [address] 18 Dec, 2010 [facility] [place] [facility] [address] [id number] [place] [address] May, [facility] [place] [facility] [address] [id number] [place] [address] 29 Apr, 2010 [facility] [place] [facility] [address] [id number] [place] [address] Apr, [facility] [place] [facility] [address] [id number] [place] [address] Mar, [facility] [place] [facility] [address] [id number] [place] [address] Mar, [facility] [place] [facility] [address] [id number] [place] [address] Mar, [facility] [place] [facility] [address] [id number] [place] [address] 28 Feb, 2010 [facility] [place] [facility] [address] [id number], [place] [address] 28 Feb, 2010 [facility] [place] [facility] [address] [id number] [place] [address] 27 Feb, 2010 [facility] [place] [facility] [address] [id number] [place] [address] 26 Feb, 2010 [facility] [place] [facility] [address] [id number], [place] [address] 19 Feb, 2010 [facility] [place] [facility] [address] [id number], [place] [address] Feb, [facility] [address] [facility] [id number][place] [address] [address] Feb, [facility] [address] [facility] [id number], [place] [address] Feb, [facility] [address] [facility] [id number], [place] [address] Feb, [facility] [address] [facility] [id number][place] [address] [address] Mar, [facility] [address] [facility] [id number], [place] [address] Oct, IMMUNIZATIONS No Known Immunizations SOCIAL HISTORY Never Assessed REASON FOR VISIT eye exam PLAN OF CARE VITAL SIGNS MEDICATIONS No [...]
--- OUTSIDE RECORDS SUMMARY | 2018-04-24 09:03 | XMS REPORT ---
Author Author ALTAMIRANOFAYE AyalaELE Organization [facility] Address [address] [place] [address] Care Team Providers Care Barrel Lathe Operator Outside Name Role Phone ALTAMIRANOLAXMI Ayala Unavailable PROBLEMS Type Condition ICD9-CM Code SJO79-FC Code Onset Dates Condition Status SNOMED Code Problem Dependence on renal dialysis Z99.2 Active 631145085 Problem Type 2 diabetes mellitus with diabetic chronic kidney disease E11.22 Active 37468457 Problem End stage renal disease N18.6 Active 956456351 Problem Above knee amputation of right lower extremity Z89.611 Active 233069222 Problem Chronic diastolic congestive heart failure I50.32 Active 642816441 Problem Ischemic cardiomyopathy I25.5 Active 959774628 Problem prison current 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.4 Active 218085977 Problem Hypothyroidism (acquired) E03.9 Active 25979279 Problem Above knee amputation of left lower extremity Z89.612 Active 732478862 Problem PVD (peripheral vascular disease) I73.9 Active 394544608 Problem 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 Active [id number] Problem Non-seasonal allergic rhinitis due to pollen J30.1 Active 00900683 Problem AICD (automatic cardioverter/defibrillator) present Z95.810 Active 104979202 ALLERGIES Substance Reaction Event Type Date Status Vancomycin HCl hives Drug Allergy Jun, Active PredniSONE nausea and vomiting Drug Allergy Jun, Active Morphine Sulfate nausea Drug Allergy Jun, Active ENCOUNTERS Encounter Location Date Diagnosis [facility] [address] [facility] [id number] [address] Jul, [facility] [address] [id number] [address] Jul, Abscess L02.91 [facility] [address] [id number] [address] Jul, Cellulitis of right lower extremity L03.115 [address] [id number] [place] [address]- 2011 14 Jul, 2017 [address] [place] [id number] [place] [address] Jun, [address] [place] [id number] [place] [address]- [address] Jun, [address] [id number] [place] [address] Jun, Type 2 diabetes mellitus with diabetic chronic kidney disease E11.22 ; prison current 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.4 ; 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 ; PVD [...] Non-seasonal allergic rhinitis due to pollen J30.1 [address] [place] [id number] [place] [address] Jan, [address] [place] [id number] [place] [address] Jan, Type 2 diabetes mellitus with diabetic chronic kidney disease E11.22 ; terminal carman current 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.4 ; 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 ; Chronic congestive heart failure, unspecified congestive heart failure type I50.9 ; PVD (peripheral vascular disease) I73.9 ; End stage renal disease N18.6 ; Dependence on renal dialysis Z99.2 and AICD (automatic cardioverter/defibrillator) present Z95.810 [place] [id number] [place] [address] Jan, [facility] [place] [facility] [address] [id number] [place] [address] 14 Aug, 2014 [facility] [place] [facility] [address] [id number] [place] [address] Aug, [facility] [place] [facility] [address] [id number] [place] [address] 235[address] Oct, [facility] [place] [facility] [address] [id number] [place] [address]67 Oct, [facility] [place] [facility] [address] [id number] [place] [address] Jul, [facility] [place] [facility] [address] [id number] [place] [address] Jul, [facility] [place] [facility] [address] [id number] [place] [address] May, [facility] [place] [facility] [address] [id number] [place] [address]- [address] May, [facility] [place] [facility] [address] [id number] [place] [address] 264[address] May, [facility] [place] [facility] [address] [id number] [place] [address] 0945 May, [facility] [place] [facility] [address] [id number] [place] [address] 9105 May, [facility] [place] [facility] [address] [id number], [place] [address] May, [facility] [place] [facility] [address] [id number] [place] [address] 9129 May, [facility] [place] [facility] [address] [id number] [place] [address]- 3836 May, [facility] [place] [facility] [address] [id number] [place] [address]- 3482 May, [facility] [place] [facility] [address] [id number] [place] [address] 8904 May, [facility] [address] [id number] [place] [address] 9589 May, [facility] [place] [facility] [address] [id number] [place] [address]- 8272 May, [facility] [place] [facility] [address] [id number] [place] [address] May, [facility] [place] [facility] [address] [id number] [place] [address]- 1060 May, [facility] [place] [facility] [address] [id number] [place] [address]- 6337 May, [facility] [place] [facility] [address] [id number] [place] [address] 5164 May, [facility] [place] [facility] [address] [id number] [place] [address]- 2662 May, [facility] [place] [facility] [address] [id number] [place] [address]- 6149 May, [facility] [place] [facility] [address] [id number] [place] [address]- 9446 Apr, [facility] [place] [facility] [address] [id number] [place] [address]- 3653 Apr, [facility] [place] [facility] [address] [id number] [place] [address]- 2508 Apr, [facility] [place] [facility] [address] [id number] [place] [address]- 6326 Apr, [facility] [place] [facility] [address] [id number] [place] [address]- 9861 Mar, [facility] [place] [facility] [address] [id number] [place] [address]- 4939 Mar, [facility] [place] [facility] [address] [id number] [place] [address]- 6285 Mar, [facility] [place] [facility] [address] [id number] [place] [address]- 6[address] 08 Mar, 2013 [facility] [place] [facility] [address] [id number] [place] [address]- 9090 Mar, [facility] [place] [facility] [address] [id number] [place] [address]- [address] 17 Jan, 2013 [facility] [place] [facility] [address] [id number] [place] [address]- [address] 16 Jan, 2013 [facility] [place] [facility] [address] [id number] [place] [address]- 6967 Jan, [facility] [place] [facility] [address] [id number] [place] [address]- 1422 Jan, [facility] [place] [facility] [address] [id number] [place] [address]- 0126 Dec, [facility] [place] [facility] [address] [id number] [place] [address]- 8090 Dec, [facility] [place] [facility] [address] [id number] [place] [address]- [address]236 Dec, [facility] [place] [facility] [address] [id number] [place] [address]- 8677 Dec, [facility] [place] [facility] [address] [id number] [place] [address]- [address] Dec, [facility] [place] [facility] [address] [id number] [place] [address]- 7920 Dec, [facility] [place] [facility] [address] [id number] [place] [address]- 1639 Dec, [facility] [place] [facility] [address] [id number] [place] [address]- [address] Dec, [facility] [place] [facility] [address] [id number] [place] [address]- 7275 Nov, [facility] [place] [facility] [address] [id number] [place] [address]- 1777 Nov, [facility] [place] [facility] [address] [id number] [place] [address]- 2929 Nov, [facility] [place] [facility] [address] [id number] [place] [address]- 8726 September, [facility] [place] [facility] [address] [id number] [place] [address] 2546 Feb, [facility] [place] [facility] [address] [id number] [place] [address]- 2546 Feb, [facility] [place] [facility] [address] [id number] [place] [address]- 6580 Jan, [facility] [place] [facility] [address] [id number] [place] [address] 2546 Dec, [facility] [place] [facility] [address] [id number] [place] [address]- 2546 Dec, [facility] [place] [facility] [address] [id number] [place] [address]- 5744 Jun, [facility] [place] [facility] [address] [id number] [place] [address]- 7906 Jun, [facility] [place] [facility] [address] [id number] [place] [address]- 2546 May, [facility] [place] [facility] [address] [id number] [place] [address]- 6[address] Apr, [facility] [place] [facility] [address] [id number] [place] [address] 2547 Apr, [facility] [place] [facility] [address] [id number] [place] [address] 2546 30 Mar, 2011 [facility] [place] [facility] [address] [id number] [place] [address]- 2546 Mar, [facility] [place] [facility] [address] [id number] [place] [address]- 2546 Mar, [facility] [place] [facility] [address] [id number] [place] [address]- 267[address] 14 Mar, 2011 [facility] [place] [facility] [address] [id number] [place] [address]- 1248 04 Mar, 2011 [facility] [place] [facility] [address] [id number] [place] [address]- 7142 Dec, [facility] [place] [facility] [address] [id number] [place] [address]- 6015 May, [facility] [place] [facility] [address] [id number] [place] [address]- 4784 Apr, [facility] [place] [facility] [address] [id number] [place] [address]- 7251 Apr, [facility] [place] [facility] [address] [id number] [place] [address]- 3231 Mar, [facility] [place] [facility] [address] [id number] [place] [address]- 8668 Mar, [facility] [place] [facility] [address] [id number] [place] [address]- 2938 Mar, [facility] [place] [facility] [address] [id number] [place] [address]- 6047 Feb, [facility] [place] [facility] [address] [id number] [place] [address]- 3270 Feb, [facility] [place] [facility] [address] [id number] [place] [address]- [address]278 Feb, [facility] [place] [facility] [address] [id number] [place] [address]- 5016 Feb, [facility] [place] [facility] [address] [id number] [place] [address]- 2300 19 Feb, 2010 [facility] [place] [facility] [address] [id number] [place] [address]- 6830 11 Feb, 2010 [facility] [place] [facility] [address] [id number] [place] [address]- 9[address] Feb, [facility] [address] [facility] [id number], [place] [address] Feb, [facility] [address] [facility] [id number], [place] [address] Feb, [facility] [address] [facility] [id number], [place] [address] Mar, [facility] [address] [facility] [id number], [place] [address] Oct, IMMUNIZATIONS No Known Immunizations SOCIAL HISTORY Never Assessed REASON FOR VISIT Diabetes fu -- falguni espinosa, patient state he is taking thyroid medication and bone medication but doesn't remember the names is prescribed by the dialysis clinic PLAN OF CARE Activity Details Follow Up 3 Months Reason:CHM/DM VITAL SIGNS Height 69 in 2017-07-15 Weight 200 lbs 2017-07-15 Heart Rate 94 bpm 2017-07-15 Respiratory Rate 20 2017-07-15 BMI 29.53 kg/m2 2017-07-15 Blood pressure systolic 171 mmHg 2017-07-15 Blood pressure diastolic 81 mmHg 2017-07-15 MEDICATIONS Medication Instructions Dosage Frequency Start Date End Date Duration Status Humalog 100 UNIT/ML Subcutaneous 3 times a day with meals 5 units 12 months Active Tylenol 325 mg take 1 tablet (325 mg) by oral route every 4 hours as neededPRN Jun, Active Cetirizine HCl 10 mg Orally Once a day 1 tablet 24h Jun, September, 90 days Active Levemir Flexpen 100 unit/mL subcutaneously Once a day 30 units 24h May, 12 months Active Synthroid Active Sensipar Active Fluticasone Propionate 50 MCG/ACT Nasally Once a day 1 spray in each nostril 24h Jun, 12 months Active RESULTS Name Result Date Reference Range A1C (IN HOUSE) 2017-07-15 A1C IN HOUSE 11.2 4.3 - 5.6 % Previous A1c n/a Lot [id number] Exp date 02/2019 PROCEDURES Procedure Date Ordered Result Body Site GLYCATED HEMOGLOBIN TEST Jul 15, 2017 INSTRUCTIONS MEDICATIONS ADMINISTERED No Known Medications [...]
--- OUTSIDE RECORDS SUMMARY | 2018-04-24 09:03 | XMS REPORT ---
Author Author ALTAMIRANOFAYE AyalaELE Organization [facility] Address [address] [place] [address] Care Team Providers Care Hospital Security Officer Name Role Phone ALTAMIRANOLAXMI Ayala Unavailable PROBLEMS Type Condition ICD9-CM Code JYY76-XB Code Onset Dates Condition Status SNOMED Code Problem Dependence on renal dialysis Z99.2 Active 717249444 Problem Type 2 diabetes mellitus with diabetic chronic kidney disease E11.22 Active 14732331 Problem End stage renal disease N18.6 Active 713889000 Problem Above knee amputation of right lower extremity Z89.611 Active 954328243 Problem Chronic diastolic congestive heart failure I50.32 Active 219855220 Problem Ischemic cardiomyopathy I25.5 Active 790271291 Problem penitentiary current 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.4 Active 799713840 Problem Hypothyroidism (acquired) E03.9 Active 89280716 Problem Above knee amputation of left lower extremity Z89.612 Active 759092984 Problem PVD (peripheral vascular disease) I73.9 Active 012775801 Problem Coronary artery disease involving [place] coronary artery of [place] heart without angina pectoris I25.10 Active 3807155737926 Problem Non-seasonal allergic rhinitis due to pollen J30.1 Active 35237313 Problem AICD (automatic cardioverter/defibrillator) present Z95.810 Active 820680694 ALLERGIES Substance Reaction Event Type Date Status Vancomycin HCl hives Drug Allergy Jul, Active PredniSONE nausea and vomiting Drug Allergy Jul, Active Morphine Sulfate nausea Drug Allergy Jul, Active ENCOUNTERS Encounter Location Date Diagnosis [facility] [address] [facility] [id number] [address] Nov, Type 2 diabetes mellitus with diabetic chronic kidney disease E11.22 ; termite treater current 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.4 ; Shortness of breath R06.02 and Spider bite wound, accidental or unintentional, subsequent encounter T63.301D [facility] [address] [facility] [id number], [place] [address] Jul, [place] [id number] [place] [address] Jul, Abscess L02.91 [facility] [address] [place] [id number] [place] [address] 15 Jul, 2017 Cellulitis of right lower extremity L03.115 [place] [address] [place] [id number] [place] [address]- [address] 14 Jul, 2017 [place] [address] [place] [id number] [place] [address]- [address]259 Jun, [place] [address] [place] [id number] [place] [address]- [address] Jun, [place] [id number] [place] [address] Jun, Type 2 diabetes mellitus with diabetic chronic kidney disease E11.22 ; penitentiary current 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.4 ; Coronary artery disease involving [place] coronary artery of [place] heart without angina pectoris I25.10 ; PVD [...] Non-seasonal allergic rhinitis due to pollen J30.1 [place] [address] [address] Jan, [place] [address] [place] [id number] [place] [address] Jan, Type 2 diabetes mellitus with diabetic chronic kidney disease E11.22 ; termite treater current 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.4 ; Coronary artery disease involving [place] coronary artery of [place] heart without angina pectoris I25.10 ; Chronic congestive heart failure, unspecified congestive heart failure type I50.9 ; PVD (peripheral vascular disease) I73.9 ; End stage renal disease N18.6 ; Dependence on renal dialysis Z99.2 and AICD (automatic cardioverter/defibrillator) present Z95.810 [facility] [address] [address] 13 Jan, 2017 [facility] [address], [place] [address] 14 Aug, 2014 [facility] [address] [facility] [id number], [place] [address] Aug, [facility] [address] [address] Oct, [facility] [address], [place] [address] Oct, [facility] [address], [place] [address] Jul, [facility] [address], [place] [address] Jul, [facility] [address] [address] May, [facility] [address], [place] [address] May, [facility] [address] [address] May, [facility] [address], [place] [address] May, [facility] [address], [place] [address] May, [facility] [address], [place] [address] May, [facility] [address], [place] [address] May, [facility] [address] [id number] [place] [address] May, [facility] [address] [id number] [place] [address] May, [facility] [address] [id number] [place] [address] May, [facility] [address] [id number] [place] [address] 79[address] May, [facility] [address] [id number] [place] [address] 5[address] May, [facility] [address] [id number] [place] [address] 8[address] May, [facility] [address] [id number] [place] [address] May, [facility] [address] [id number] [place] [address] May, [facility] [address] [id number] [place] [address]- 0708 May, [facility] [address] [id number] [place] [address]- 0937 May, [facility] [address] [id number] [place] [address] 8[address] May, [facility] [address] [id number] [place] [address]- [address] Apr, [facility] [place] [facility] [address] [id number] [place] [address]- 99[address] Apr, [facility] [place] [facility] [address] [id number] [place] [address]- 9527 Apr, [facility] [place] [facility] [address] [id number] [place] [address]- [address] Apr, [facility] [place] [facility] [address] [id number] [place] [address]- [address] Mar, [facility] [place] [facility] [address] [id number] [place] [address]- [address] Mar, [facility] [place] [facility] [address] [id number] [place] [address]- [address] Mar, [facility] [place] [facility] [address] [id number] [place] [address]- [address] Mar, [facility] [place] [facility] [address] [id number] [place] [address]- 47[address] Mar, [facility] [place] [facility] [address] [id number] [place] [address]- [address] Jan, [facility] [place] [facility] [address] [id number] [place] [address]- 5332 16 Jan, 2013 [facility] [place] [facility] [address] [id number] [place] [address]- 69[address] Jan, [facility] [place] [facility] [address] [id number] [place] [address]- 64[address] Jan, [facility] [place] [facility] [address] [id number] [place] [address]- 9961 Dec, [facility] [place] [facility] [address] [id number] [place] [address]- 4770 Dec, [facility] [place] [facility] [address] [id number] [place] [address]- 6439 Dec, [facility] [place] [facility] [address] [id number] [place] [address]- [address] Dec, [facility] [place] [facility] [address] [id number] [place] [address]- 4244 Dec, [facility] [place] [facility] [address] [id number] [place] [address]- 8513 Dec, [facility] [place] [facility] [address] [id number] [place] [address]- 6079 Dec, [facility] [place] [facility] [address] [id number] [place] [address]- 2546 Dec, [facility] [address] [id number] [place] [address]- 4656 Nov, [facility] [place] [facility] [address] [id number] [place] [address]- [address] Nov, [facility] [address] [id number] [place] [address]- 2546 Nov, [facility] [place] [facility] [address] [id number] [place] [address]- [address] September, [facility] [address] [id number] [place] [address]- [address]46 Feb, [facility] [address] [id number] [place] [address]- 2546 Feb, [facility] [address] [id number] [place] [address]- 2546 Jan, [facility] [address] [id number] [place] [address]- 2546 Dec, [facility] [address] [id number] [place] [address]- 0736 Dec, [facility] [address] [id number] [place] [address]- 2546 Jun, [facility] [address] [id number] [place] [address]- 2546 Jun, [facility] [address] [id number] [place] [address]- 2546 May, [facility] [place] [facility] [address] [id number] [place] [address]- 2546 Apr, [facility] [place] [facility] [address] [id number] [place] [address]- 2546 Apr, [facility] [place] [facility] [address] [id number] [place] [address]- 0367 Mar, [facility] [place] [facility] [address] [id number] [place] [address]- 8005 16 Mar, 2011 [facility] [place] [facility] [address] [id number] [place] [address]- 8162 14 Mar, 2011 [facility] [place] [facility] [address] [id number] [place] [address]- 8705 14 Mar, 2011 [facility] [place] [facility] [address] [id number] [place] [address]- 1038 04 Mar, 2011 [facility] [place] [facility] [address] [id number] [place] [address]- 7174 18 Dec, 2010 [facility] [place] [facility] [address] [id number] [place] [address]- 5[address] May, [facility] [place] [facility] [address] [id number] [place] [address]- 1393 Apr, [facility] [place] [facility] [address] [id number] [place] [address]- 6970 08 Apr, 2010 [facility] [place] [facility] [address] [id number] [place] [address]- 5490 Mar, [facility] [place] [facility] [address] [id number] [place] [address]- 1843 Mar, [facility] [place] [facility] [address] [id number], [place] [address]- [address] Mar, [facility] [place] [facility] [address] [id number], [place] [address]- [address] Feb, [facility] [place] [facility] [address] [id number] [place] [address]- 4057 Feb, [facility] [place] [facility] [address] [id number] [place] [address]- 7629 Feb, [facility] [place] [facility] [address] [id number] [place] [address]- 2408 Feb, [facility] [place] [facility] [address] [place] [id number], [place] [address] Feb, [facility] [id number], [place] [address] Feb, [facility] [address] [id number], [place] [address]- [address] Feb, [facility] [address], [place] [address]- [address] Feb, [facility] [address], [place] [address]- [address] Feb, [facility] [address] [address] Mar, [facility] [address], [place] [address]- [address] Oct, IMMUNIZATIONS No Known Immunizations SOCIAL HISTORY Never Assessed REASON FOR VISIT Cellulitis F/U--tjanssenMA, --right leg seems worse to him, he reports that it does not look like its getting better and now it is painful. PLAN OF CARE Activity Details Follow Up 1 Week Reason: VITAL SIGNS Height 69 in 2017-08-14 Weight 200 lbs 2017-08-14 Temperature 97.6 degrees Fahrenheit 2017-08-14 Heart Rate 89 bpm 2017-08-14 Respiratory Rate 20 2017-08-14 BMI 29.53 kg/m2 2017-08-14 Blood pressure systolic 139 mmHg 2017-08-14 Blood pressure diastolic 87 mmHg 2017-08-14 MEDICATIONS Medication Instructions Dosage Frequency Start Date End Date Duration Status Levemir Flexpen 100 unit/mL subcutaneously Once a day 30 units 24h May, 12 months Active Sensipar Active Synthroid Active Tylenol 325 mg take 1 tablet (325 mg) by oral route every 4 hours as neededPRN Jun, Active Humalog 100 UNIT/ML Subcutaneous 3 times a day with meals 5 units 12 months Active Doxycycline Hyclate 100 mg Orally every 12 hrs 1 capsule 12h Jul, Jul, 10 days Active Fluticasone Propionate 50 MCG/ACT Nasally Once a day 1 spray in each nostril 24h Jun, 12 months Active Cetirizine HCl 10 mg Orally Once a day 1 tablet 24h Jun, September, 90 days Active RESULTS No Results PROCEDURES No Known [...] bilat disease Surgical History open heart surgery 2008 Surgical [...]
--- OUTSIDE RECORDS SUMMARY | 2018-04-24 09:04 | XMS REPORT ---
Author Author ALTAMIRANOLAXMI Ayala Organization [facility] [place] Address [address] [place] [address] Care Team Providers Care Academic Specialist Name Role Phone ALTAMIRANOLAXMI Ayala Unavailable PROBLEMS Type Condition ICD9-CM Code KBM30-MY Code Onset Dates Condition Status SNOMED Code Problem Dependence on renal dialysis Z99.2 Active 900862310 Problem Type 2 diabetes mellitus with diabetic chronic kidney disease E11.22 Active 00686387 Problem End stage renal disease N18.6 Active 066793805 Problem Above knee amputation of right lower extremity Z89.611 Active 227046642 Problem Chronic diastolic congestive heart failure I50.32 Active 808726381 Problem Ischemic cardiomyopathy I25.5 Active 292135013 Problem FCI current 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.4 Active 435431291 Problem Hypothyroidism (acquired) E03.9 Active 55866008 Problem Above knee amputation of left lower extremity Z89.612 Active 803144254 Problem PVD (peripheral vascular disease) I73.9 Active 226780223 Problem Coronary artery disease involving [place] coronary artery of [place] heart without angina pectoris I25.10 Active 2280342704379 Problem Non-seasonal allergic rhinitis due to pollen J30.1 Active 25772603 Problem AICD (automatic cardioverter/defibrillator) present Z95.810 Active 560676545 ALLERGIES No Information ENCOUNTERS Encounter Location Date Diagnosis [facility] [place] [address] [facility] [id number], [place] [address] Jul, [facility] [place] [address], [place] [address] Jul, Abscess L02.91 [facility] [place] [address] [id number], [place] [address] 15 Jul, 2017 Cellulitis of right lower extremity L03.115 [facility] [place] [address] [id number], [place] [address] Jul, [facility] [place] [address] [id number], [place] [address] Jun, [facility] [place] [address], [place] [address] Jun, [facility] [place] [id number] [place] [address] Jun, Type 2 diabetes mellitus with diabetic chronic kidney disease E11.22 ; 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 ; Coronary artery disease involving [place] coronary artery of [place] heart without angina pectoris I25.10 ; PVD [...] Non-seasonal allergic rhinitis due to pollen J30.1 [facility] [place] [address], [place] [address] Jan, [facility] [place] [id number] [place] [address]- 2616 15 Jan, 2017 Type 2 diabetes mellitus with diabetic chronic kidney disease E11.22 ; 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 ; Coronary artery disease involving [place] coronary artery of [place] heart without angina pectoris I25.10 ; Chronic congestive heart failure, unspecified congestive heart failure type I50.9 ; PVD (peripheral vascular disease) I73.9 ; End stage renal disease N18.6 ; Dependence on renal dialysis Z99.2 and AICD (automatic cardioverter/defibrillator) present Z95.810 [facility] [place] [address], [place] [address] 13 Jan, 2017 [facility] [place] [id number] [place] [address]- 7788 14 Aug, 2014 [facility] [place] [address] [id number] [place] [address] 4[address] Aug, [facility] [place] [facility] [address] [id number] [place] [address]- 3646 Oct, [facility] [place] [facility] [address] [id number] [place] [address]- 7967 Oct, [facility] [place] [facility] [address] [id number] [place] [address]- 6048 Jul, [facility] [place] [facility] [address] [id number] [place] [address]- 7536 Jul, [facility] [place] [facility] [address] [id number] [place] [address]- 3259 May, [facility] [place] [facility] [address] [id number] [place] [address]- 3517 May, [facility] [place] [facility] [address] [id number] [place] [address]- 8787 May, [facility] [place] [facility] [address] [id number] [place] [address]- 0479 May, [facility] [place] [facility] [address] [id number] [place] [address]- 7963 May, [facility] [place] [facility] [address] [id number] [place] [address]- 1638 May, [facility] [place] [facility] [address] [id number] [place] [address]- 9828 May, [facility] [place] [facility] [address] [id number] [place] [address]- 8082 May, [facility] [place] [facility] [address] [id number] [place] [address]- 7070 May, [facility] [place] [facility] [address] [id number] [place] [address]- 3723 May, [facility] [place] [facility] [address] [id number] [place] [address]- 7046 May, [facility] [place] [facility] [address] [id number] [place] [address]- 6598 May, [facility] [place] [facility] [address] [id number] [place] [address]- 0044 May, [facility] [place] [facility] [address] [id number] [place] [address]- 2483 May, [facility] [place] [facility] [address] [id number] [place] [address]- 7856 May, [facility] [place] [facility] [address] [id number] [place] [address]- 1430 May, [facility] [place] [facility] [address] [id number] [place] [address]- 6340 May, [facility] [place] [facility] [address] [id number] [place] [address]- 6640 May, [facility] [place] [facility] [address] [id number] [place] [address]- 7275 Apr, [facility] [place] [facility] [address] [id number] [place] [address]- 2529 Apr, [facility] [place] [facility] [address] [id number] [place] [address]- 7223 Apr, [facility] [place] [facility] [address] [id number] [place] [address]- 3825 Apr, [facility] [place] [facility] [address] [id number], [place] [address]- 97[address] Mar, [facility] [place] [facility] [address] [id number] [place] [address]- 2279 Mar, [facility] [place] [facility] [address] [id number] [place] [address]- 2776 Mar, [facility] [place] [facility] [address] [id number] [place] [address]- 8597 Mar, [facility] [place] [facility] [address] [id number] [place] [address]- 2885 08 Mar, 2013 [facility] [address] [id number] [place] [address]- 9328 17 Jan, 2013 [facility] [place] [facility] [address] [id number] [place] [address]- 2986 16 Jan, 2013 [facility] [address] [id number] [place] [address]- [address] 08 Jan, 2013 [facility] [place] [facility] [address] [id number] [place] [address]- 7185 Jan, [facility] [address] [id number] [place] [address]- 7800 Dec, [facility] [address] [id number] [place] [address]- 7028 Dec, [facility] [address] [id number] [place] [address]- 6882 Dec, [facility] [address] [id number] [place] [address]- 0718 Dec, [facility] [place] [facility] [address] [id number] [place] [address]- 8312 Dec, [facility] [address] [id number] [place] [address]- 6239 Dec, [facility] [place] [facility] [address] [id number] [place] [address]- 0346 Dec, [facility] [place] [facility] [address] [id number] [place] [address]- 8122 Dec, [facility] [place] [facility] [address] [id number] [place] [address]- 3085 Nov, [facility] [place] [facility] [address] [id number] [place] [address]- 2716 Nov, [facility] [place] [facility] [address] [id number] [place] [address]- 3661 Nov, [facility] [address] [id number] [place] [address]- 5566 September, [facility] [place] [facility] [address] [id number] [place] [address]- 9776 Feb, [facility] [place] [facility] [address] [id number] [place] [address]- 2546 Feb, [facility] [place] [facility] [address] [id number] [place] [address]- 8186 Jan, [facility] [place] [facility] [address] [id number] [place] [address]- 2546 Dec, [facility] [place] [facility] [address] [id number] [place] [address]- 8326 Dec, [facility] [place] [facility] [address] [id number] [place] [address]- 8656 Jun, [facility] [place] [facility] [address] [id number] [place] [address]- 6156 Jun, [facility] [place] [facility] [address] [id number] [place] [address]- 7526 May, [facility] [place] [facility] [address] [id number] [place] [address]- 4966 Apr, [facility] [place] [facility] [address] [id number] [place] [address]- 5046 Apr, [facility] [place] [facility] [address] [id number] [place] [address]- 5376 30 Mar, 2011 [facility] [place] [facility] [address] [id number] [place] [address]- 2546 Mar, [facility] [place] [facility] [address] [id number] [place] [address]- 9436 Mar, [facility] [place] [facility] [address] [id number] [place] [address]- 2546 14 Mar, 2011 [facility] [place] [facility] [address] [id number] [place] [address]- 5932 Mar, [facility] [place] [facility] [address] [id number] [place] [address]- 5259 Dec, [facility] [place] [facility] [address] [id number] [place] [address]- 1044 May, [facility] [place] [facility] [address] [id number] [place] [address]- 5776 Apr, [facility] [place] [facility] [address] [id number] [place] [address]- 5788 Apr, [facility] [place] [facility] [address] [id number] [place] [address], [place] [address]- 6991 Mar, [facility] [place] [facility] [address] [id number] [place] [address]- 0168 Mar, [facility] [place] [facility] [address] [id number] [place] [address]- 0495 Mar, [facility] [place] [facility] [address] [id number] [place] [address]- 1993 Feb, [facility] [place] [facility] [address] [id number] [place] [address]- 3342 28 Feb, 2010 [facility] [place] [facility] [address] [id number] [place] [address]- 6760 Feb, [facility] [place] [facility] [address] [id number] [place] [address]- 1892 Feb, [facility] [place] [facility] [address] [id number], [place] [address]- 0726 Feb, [facility] [place] [facility] [address] [id number] [place] [address]- 5996 Feb, [facility] [place] [facility] [address] [id number], [place] [address]- 3071 Feb, [facility] [place] [facility] [address] [id number], [place] [address]- 3843 Feb, [facility] [place] [facility] [address] [facility] [id number] [place] [address] Feb, [facility] [place] [address] [facility] [id number] [place] [address]- 0200 Mar, [facility] [place] [address] [facility] [id number] [place] [address]- 3546 Oct, IMMUNIZATIONS No Known Immunizations SOCIAL HISTORY Never Assessed REASON FOR VISIT Records Request PLAN OF CARE VITAL SIGNS MEDICATIONS Unknown [...] Surgical History right above the knee amputation 2016 Surgical History dialysis 2013 Surgical History removed sternum and several ribs due to infection after open heart 2009 Surgical History Hemodialysis catheter- right chest Surgical History AICD/pacer- left chest Hospitalization History Surgery(s) Hospitalization History surgical amputation
--- OUTSIDE RECORDS SUMMARY | 2018-04-24 09:04 | XMS REPORT ---
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 Role Phone LAXMI ALTAMIRANO Unavailable PROBLEMS Type Condition ICD9-CM Code VVO03-LG Code Onset Dates Condition Status SNOMED Code Problem Dependence on renal dialysis Z99.2 Active 763816992 Problem Type 2 diabetes mellitus with diabetic chronic kidney disease E11.22 Active 62841612 Problem End stage renal disease N18.6 Active 499864032 Problem Above knee amputation of right lower extremity Z89.611 Active 156631949 Problem Chronic diastolic congestive heart failure I50.32 Active 484263330 Problem Ischemic cardiomyopathy I25.5 Active 109970820 Problem custodial current 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.4 Active 380374521 Problem Hypothyroidism (acquired) E03.9 Active 57468750 Problem Above knee amputation of left lower extremity Z89.612 Active 432036218 Problem PVD (peripheral vascular disease) I73.9 Active 418847361 Problem Coronary artery disease involving [place] coronary artery of [place] heart without angina pectoris I25.10 Active 4120226705943 Problem Non-seasonal allergic rhinitis due to pollen J30.1 Active 31799450 Problem AICD (automatic cardioverter/defibrillator) present Z95.810 Active 863909561 ALLERGIES No Information ENCOUNTERS Encounter Location Date Diagnosis [facility] [address] [facility] [id number], [place] [address] Jul, [facility] [address], [place] [address] Jul, Abscess L02.91 [facility] [address] [id number], [place] [address] 4[address] 15 Jul, 2017 Cellulitis of right lower extremity L03.115 [facility] [address] [id number], [place] [address]- 2901 Jul, [facility] [address] [id number], [place] [address]- 2289 Jun, [facility] [address], [place] [address]- 0155 Jun, [facility] [address] [place] [address]- 6545 Jun, Type 2 diabetes mellitus with diabetic chronic kidney disease E11.22 ; 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 ; Coronary artery disease involving [place] coronary artery of [place] heart without angina pectoris I25.10 ; PVD [...] Non-seasonal allergic rhinitis due to pollen J30.1 [facility] [address], [place] [address]- 7436 Jan, [facility] [id number] [place] [address]- 1333 15 Jan, 2017 Type 2 diabetes mellitus with diabetic chronic kidney disease E11.22 ; 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 ; Coronary artery disease involving [place] coronary artery of [place] heart without angina pectoris I25.10 ; Chronic congestive heart failure, unspecified congestive heart failure type I50.9 ; PVD (peripheral vascular disease) I73.9 ; End stage renal disease N18.6 ; Dependence on renal dialysis Z99.2 and AICD (automatic cardioverter/defibrillator) present Z95.810 [facility] [address], [place] [address]- 4301 13 Jan, 2017 [facility] [address] [place] [address] 29[address]- 7375 14 Aug, 2014 [facility] [address] [id number] [place] [address]- 0454 Aug, [facility] [place] [facility] [address] [id number] [place] [address]- 2631 Oct, [facility] [place] [facility] [address] [id number] [place] [address]- 1504 Oct, [facility] [place] [facility] [address] [id number] [place] [address]- 1172 Jul, [facility] [place] [facility] [address] [id number] [place] [address]- 0860 Jul, [facility] [place] [facility] [address] [id number] [place] [address]- 8777 May, [facility] [place] [facility] [address] [id number] [place] [address]- 5527 May, [facility] [place] [facility] [address] [id number] [place] [address]- 1754 May, [facility] [place] [facility] [address] [id number] [place] [address]- 1826 May, [facility] [place] [facility] [address] [id number] [place] [address]- 7200 May, [facility] [place] [facility] [address] [id number] [place] [address]- 1806 May, [facility] [place] [facility] [address] [id number] [place] [address]- 3189 May, [facility] [place] [facility] [address] [id number] [place] [address]- 7176 May, [facility] [place] [facility] [address] [id number] [place] [address]- 1868 May, [facility] [place] [facility] [address] [id number] [place] [address]- 6531 May, [facility] [place] [facility] [address] [id number] [place] [address]- 5556 May, [facility] [place] [facility] [address] [id number] [place] [address]- 0353 May, [facility] [place] [facility] [address] [id number] [place] [address]- 8356 May, [facility] [place] [facility] [address] [id number] [place] [address]- 8595 May, [facility] [place] [facility] [address] [id number] [place] [address]- 5750 May, [facility] [place] [facility] [address] [id number] [place] [address]- 2445 May, [facility] [place] [facility] [address] [id number] [place] [address]- 1032 May, [facility] [place] [facility] [address] [id number] [place] [address]- 9543 May, [facility] [place] [facility] [address] [id number] [place] [address]- 3896 Apr, [facility] [place] [facility] [address] [id number] [place] [address]- 4989 Apr, [facility] [place] [facility] [address] [id number] [place] [address]- 5529 Apr, [facility] [place] [facility] [address] [id number] [place] [address]- 8583 Apr, [facility] [place] [facility] [address] [id number], [place] [address]- 5355 Mar, [facility] [place] [facility] [address] [id number] [place] [address]- 2610 Mar, [facility] [place] [facility] [address] [id number] [place] [address]- 9790 Mar, [facility] [place] [facility] [address] [id number] [place] [address]- 1399 Mar, [facility] [place] [facility] [address] [id number] [place] [address]- 0075 08 Mar, 2013 [facility] [address] [id number] [place] [address]- 7320 17 Jan, 2013 [facility] [place] [facility] [address] [id number] [place] [address]- 2736 16 Jan, 2013 [facility] [address] [id number] [place] [address]- 8604 08 Jan, 2013 [facility] [place] [facility] [address] [id number] [place] [address]- 2844 Jan, [facility] [address] [id number] [place] [address]- 3240 Dec, [facility] [address] [id number] [place] [address]- 7609 Dec, [facility] [address] [id number] [place] [address]- 2480 Dec, [facility] [address] [id number] [place] [address]- 6491 Dec, [facility] [place] [facility] [address] [id number] [place] [address]- 0417 Dec, [facility] [address] [id number] [place] [address]- 4296 Dec, [facility] [place] [facility] [address] [id number] [place] [address]- 2273 Dec, [facility] [place] [facility] [address] [id number] [place] [address]- 6178 Dec, [facility] [place] [facility] [address] [id number] [place] [address]- 3867 Nov, [facility] [place] [facility] [address] [id number] [place] [address]- 1106 Nov, [facility] [place] [facility] [address] [id number] [place] [address]- 9637 Nov, [facility] [address] [id number] [place] [address]- 6186 September, [facility] [place] [facility] [address] [id number] [place] [address]- 1546 Feb, [facility] [place] [facility] [address] [id number] [place] [address] Feb, [facility] [place] [facility] [address] [id number] [place] [address] Jan, [facility] [place] [facility] [address] [id number] [place] [address] Dec, [facility] [place] [facility] [address] [id number] [place] [address] Dec, [facility] [place] [facility] [address] [id number] [place] [address] Jun, [facility] [place] [facility] [address] [id number] [place] [address] Jun, [facility] [place] [facility] [address] [id number] [place] [address] May, [facility] [place] [facility] [address] [id number] [place] [address] Apr, [facility] [place] [facility] [address] [id number] [place] [address] Apr, [facility] [place] [facility] [address] [id number] [place] [address] 30 Mar, 2011 [facility] [place] [facility] [address] [id number] [place] [address] Mar, [facility] [place] [facility] [address] [id number] [place] [address] Mar, [facility] [place] [facility] [address] [id number] [place] [address] 14 Mar, 2011 [facility] [place] [facility] [address] [id number] [place] [address] Mar, [facility] [place] [facility] [address] [id number] [place] [address] Dec, [facility] [place] [facility] [address] [id number] [place] [address] May, [facility] [place] [facility] [address] [id number] [place] [address] Apr, [facility] [place] [facility] [address] [id number] [place] [address] Apr, [facility] [place] [facility] [address] [id number] [place] [address], [place] [address] Mar, [facility] [place] [facility] [address] [id number] [place] [address] Mar, [facility] [place] [facility] [address] [id number] [place] [address] Mar, [facility] [place] [facility] [address] [id number] [place] [address] Feb, [facility] [place] [facility] [address] [id number] [place] [address] 28 Feb, 2010 [facility] [place] [facility] [address] [id number] [place] [address] Feb, [facility] [place] [facility] [address] [id number] [place] [address] Feb, [facility] [place] [facility] [address] [id number], [place] [address] Feb, [facility] [place] [facility] [address] [id number] [place] [address] Feb, [facility] [place] [facility] [address] [id number], [place] [address] Feb, [facility] [place] [facility] [address] [id number], [place] [address] Feb, [facility] [place] [facility] [address] [facility] [id number] [place] [id number] Feb, [facility] [address] [facility] [id number] [place] [address] Mar, [facility] [address] [facility] [id number] [place] [address] Oct, IMMUNIZATIONS No Known Immunizations SOCIAL HISTORY [...]
[2018-04-24 09:05] VITALS: BP 96/50
--- OUTSIDE RECORDS SUMMARY | 2018-04-24 09:11 | XMS REPORT | Continuity of Care Document ---
Author Author [facility] Ctr of [facility] Ctr of 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 04/24/1599 LIZBETH COWART APRN [...] TYPE II - UNCOMPLICATED, UNCONTROLLED 06/25/2008 JEANIE TIRPLETT DO V70.0 GENERAL MEDICAL EXAM, ROUTINE, AT [...] INFARCT,IN 01/21/2011 Ot 414.01 CORONARY ATHEROSCLEROSIS OF [place] CORON 01/21/2011 Ot 427.0 PAROX ATRIAL TACHYCARDIA [...] INFARCT,IN 03/27/2011 Ot 414.01 CORONARY ATHEROSCLEROSIS OF [place] CORON 03/27/2011 Ot 428.0 CONGESTIVE HEART FAILURE [...] NOS 09/05/2011 Ot 414.01 CORONARY ATHEROSCLEROSIS OF [place] CORON 09/05/2011 Ot 428.0 CONGESTIVE HEART FAILURE [...] CAUSE STATUS 08/11/2015 EDY GREEN Ot Z79.4 JAIL (CURRENT) USE OF INSULIN 08/11/2015 EDY GREEN [...] NP-C Ot 272.4 08/11/2015 NEW, JARED Gonzales [employer]-C Ot 276.1 08/11/2015 NEW, JARED Gonzales [employer]-C Ot 276.7 08/11/2015 NEW, JARED Gonzales [employer]-C Ot 285.21 08/11/2015 NEW, JARED Gonzales [employer]-C Ot 404.10 08/11/2015 NEW, JARED Gonzales [employer]-C Ot 428.0 08/11/2015 NEW, JARED Gonzales [employer]-C Ot 585.4 08/11/2015 NEW, JARED Gonzales NP-C [...] S Ot V67.09 08/14/2015 NEW, JARED VeronikaMerly [employer]-C Ot 250.40 08/14/2015 NEW, JARED VeronikaMerly [employer]-C Ot 263.9 08/14/2015 NEW, JARED Veronika. [employer]-C Ot 272.4 08/14/2015 NEW, JARED VeronikaMerly [employer]-C Ot 276.1 08/14/2015 NEW, JARED VeronikaMerly [employer]-C Ot 276.7 08/14/2015 NEW, JARED VeronikaMerly [employer]-C Ot 285.21 08/14/2015 NEW, JARED Gonzales [employer]-C Ot 404.10 08/14/2015 NEW, JARED VeronikaMerly S[employer]-C Ot 428.0 08/14/2015 NEW, JARED GMerly [employer]-C Ot 585.4 08/14/2015 NEW, JARED Gonzales [employer]-C Ot 791.0 12/26/2015 JARED AGEE DO Ot [...] MD Ot 424.0 MITRAL VALVE DISORDER 12/26/2015 NAGELA PRIETO MD Ot 428.0 CONGESTIVE HEART FAILURE [...] FOLLOW-UP, OTHER SURGERY 12/26/2015 SEN JARED VeronikaMerly [employer]-C Ot 250.40 DIAB W RENAL MANIFEST, TYPE II OR UNSPEC 12/26/2015 JARED CHATTERJEE [employer]-C Ot 263.9 PROTEIN-MARGARITA MALNUTR NOS 12/26/2015 JARED CHATTERJEE [employer]-C Ot 272.4 HYPERLIPIDEMIA NEC/NOS 12/26/2015 JARED CHATTERJEE VeronikaMerly [employer]-C Ot 276.1 HYPOSMOLALITY 12/26/2015 JARED CHATTERJEE VeronikaMerly [employer]-C Ot 276.7 HYPERPOTASSEMIA 12/26/2015 JARED CHATTERJEE VeronikaMerly [employer]-C Ot 285.21 ANEMIA IN CHRONIC KIDNEY DISEASE 12/26/2015 JARED CHATTERJEE VeronikaMerly [employer]-C Ot 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, BENIGN, 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 12/26/2015 JARED CHATTERJEE [employer]-C Ot 428.0 CONGESTIVE HEART FAILURE NOS 12/26/2015 JARED CHATTERJEE VeronikaMerly [employer]-C Ot 585.4 CHRONIC KIDNEY DISEASE, STAGE IV (SEVERE 12/26/2015 JARED CHATTERJEE VeronikaeMrly [employer]-C Ot 791.0 PROTEINURIA 12/27/2015 JARED AGEE DO [...] DISEASE 02/17/2016 MALGORZATA AKINS MD Ot Z79.4 JAIL (CURRENT) USE OF INSULIN 02/17/2016 MALGORZATA AKINS MD Ot Z79.82 JAIL (CURRENT) USE OF ASPIRIN 02/17/2016 MALGORZATA AKINS MD Ot Z79.899 OTHER JAIL (CURRENT) DRUG THERAPY 02/17/2016 MALGORZATA AKINS MD [...] BREATH 02/25/2016 DENZEL ROMERO DO, Ot 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 02/25/2016 DENZEL ROMERO DO, Ot Z79.899 OTHER 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 SUPERVISOR (CURRENT) DRUG THERAPY 02/25/2016 DENZEL ROMERO DO, [...] 02/28/2016 CYNDIE JARED HARRIS K Ot Z79.4 JAIL (CURRENT) USE OF INSULIN 02/28/2016 CYNDIE DO JARED K Ot Z79.82 JAIL (CURRENT) USE OF ASPIRIN 02/28/2016 BAYARD DO JARED K Ot Z79.899 OTHER JAIL (CURRENT) DRUG THERAPY 02/28/2016 BAYARD DO JARED K Ot Z95.1 PRESENCE OF AORTOCORONARY BYPASS GRAFT 02/28/2016 BAYARD DO JARED K Ot Z95.810 PRESENCE OF AUTOMATIC (IMPLANTABLE) CARD 02/28/2016 BAYARD DO JARED K Ot E11.9 TYPE 2 [...] 02/28/2016 CYNDIE JARED HARRIS K Ot 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 02/28/2016 CYNDIE DO JARED K Ot 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 02/28/2016 BAYARD DO JARED K Ot Z79.899 OTHER 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 SUPERVISOR (CURRENT) DRUG THERAPY 02/28/2016 BAYARD DO JARED K Ot Z95.1 PRESENCE OF AORTOCORONARY BYPASS GRAFT 02/28/[address] [facility], JARED K Ot Z95.810 PRESENCE OF AUTOMATIC (IMPLANTABLE) CARD 05/24/2016 LIZBETH COWART APRN Ot E11.621 TYPE 2 DIABETES MELLITUS WITH FOOT ULCER 05/24/2016 LIZBETH COWART APRN Ot I70.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 [place] ARTERIES OF [facility] 05/24/2016 LIZBETH COWART GRAIN 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 Ot 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 05/24/2016 LIZBETH COWART GRAIN 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 Ot L97.522 NON-PRS CHRONIC ULCER OTH PRT LEFT FOOT 05/24/2016 LIZBETH COWART GRAIN 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 Ot N18.5 CHRONIC KIDNEY DISEASE, STAGE 5 06/04/2016 LIZBETH COWART GRAIN 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 Ot E11.621 TYPE 2 DIABETES MELLITUS WITH FOOT ULCER 06/04/2016 LIZBETH COWART GRAIN 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 Ot I70.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 [place] ARTERIES OF [facility] 06/04/2016 LIZBETH COWART GRAIN 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 Ot 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 06/04/2016 LIZBETH COWART GRAIN 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 Ot L97.522 NON-PRS CHRONIC ULCER OTH PRT LEFT FOOT 06/04/2016 LIZBETH COWART GRAIN 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 Ot N18.5 CHRONIC KIDNEY DISEASE, STAGE [...] UNSPECIFIED 06/12/2016 SANDI PERALTA MD Ot Z79.4 JAIL (CURRENT) USE OF INSULIN 06/12/2016 SANDI PERALTA MD Ot Z79.82 JAIL (CURRENT) USE OF ASPIRIN 06/12/2016 SANDI PERALTA MD, Ot Z79.899 OTHER 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 SUPERVISOR (CURRENT) DRUG THERAPY 06/12/2016 SANDI PERALTA MD, [...] UNSPECIFIED 06/13/2016 SANDI PERALTA MD, Ot 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 06/13/2016 SANDI PERALTA MD Ot Z79.82 JAIL (CURRENT) USE OF ASPIRIN 06/13/2016 SANDI PERALTA MD Ot Z79.899 OTHER JAIL (CURRENT) DRUG THERAPY 06/13/2016 SANDI PERALTA MD [...] MD Ot I25.119 ATHSCL HEART DISEASE OF [place] COR ART W 08/24/2016 WADE CHAUDHARY MD Ot I25.2 OLD MYOCARDIAL INFARCTION 08/24/2016 WADE CHAUDHARY MD Ot I51.7 CARDIOMEGALY 08/24/2016 WADE CHAUDHARY MD Ot R07.9 CHEST PAIN, UNSPECIFIED 08/24/2016 WADE CHAUDHARY MD Ot 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 08/24/2016 WADE CHAUDHARY MD Ot Z79.82 JAIL (CURRENT) USE OF ASPIRIN 08/24/2016 WADE CHAUDHARY MD Ot Z79.899 OTHER JAIL (CURRENT) DRUG THERAPY 08/24/2016 WADE CHAUDHARY MD [...] MD Ot I25.10 ATHSCL HEART DISEASE OF [place] CORONARY 08/31/2016 SANDI PERALTA MD Ot I70.91 GENERALIZED ATHEROSCLEROSIS 08/31/2016 SANDI PERALTA MD Ot K65.2 SPONTANEOUS BACTERIAL PERITONITIS 08/31/2016 SANDI PERALTA MD Ot K80.20 CALCULUS OF GALLBLADDER W/O CHOLECYSTITI 08/31/2016 SANDI PERALTA MD Ot N18.6 END STAGE RENAL DISEASE 08/31/2016 SANDI PERALTA MD Ot R10.30 LOWER ABDOMINAL PAIN, UNSPECIFIED 08/31/2016 SANDI PERALTA MD Ot Z79.4 JAIL (CURRENT) USE OF INSULIN 08/31/2016 SANDI PERALTA MD Ot Z79.82 JAIL (CURRENT) USE OF ASPIRIN 08/31/2016 SANDI PERALTA MD Ot Z79.899 OTHER JAIL (CURRENT) DRUG THERAPY 08/31/2016 SANDI PERALTA MD [...] MD Ot I25.10 ATHSCL HEART DISEASE OF [place] CORONARY 09/02/2016 SANDI PERALTA MD Ot I70.91 GENERALIZED ATHEROSCLEROSIS 09/02/2016 SANDI PERALTA MD Ot K65.2 SPONTANEOUS BACTERIAL PERITONITIS 09/02/2016 SANDI PERALTA MD Ot K80.20 CALCULUS OF GALLBLADDER W/O CHOLECYSTITI 09/02/2016 SANDI PERALTA MD Ot N18.6 END STAGE RENAL DISEASE 09/02/2016 SANDI PERALTA MD Ot R10.30 LOWER ABDOMINAL PAIN, UNSPECIFIED 09/02/2016 SANDI PERALTA MD Ot Z79.4 JAIL (CURRENT) USE OF INSULIN 09/02/2016 SANDI PERALTA MD Ot Z79.82 JAIL (CURRENT) USE OF ASPIRIN 09/02/2016 SANDI PERALTA MD Ot Z79.899 OTHER JAIL (CURRENT) DRUG THERAPY 09/02/2016 SANDI PERALTA MD [...] MD Ot I25.10 ATHSCL HEART DISEASE OF [place] CORONARY 09/04/2016 SANDI PERALTA MD Ot I70.91 GENERALIZED ATHEROSCLEROSIS 09/04/2016 SANDI PERALTA MD Ot K65.2 SPONTANEOUS BACTERIAL PERITONITIS 09/04/2016 SANDI PERALTA MD Ot K80.20 CALCULUS OF GALLBLADDER W/O CHOLECYSTITI 09/04/2016 SANDI PERALTA MD Ot N18.6 END STAGE RENAL DISEASE 09/04/2016 SANDI PERALTA MD Ot R10.30 LOWER ABDOMINAL PAIN, UNSPECIFIED 09/04/2016 SANDI PERALTA MD Ot Z79.4 JAIL (CURRENT) USE OF INSULIN 09/04/2016 SANDI PERALTA MD Ot 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 09/04/2016 SANDI PERALTA MD Ot Z79.899 OTHER 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 SUPERVISOR (CURRENT) DRUG THERAPY 09/04/2016 SANDI PERALTA MD Ot Z95.1 PRESENCE OF AORTOCORONARY BYPASS GRAFT 09/04/2016 SANDI PERALTA MD Ot Z95.810 PRESENCE OF AUTOMATIC (IMPLANTABLE) CARD 09/04/2016 SANDI PERALTA MD Ot Z99.2 DEPENDENCE ON RENAL DIALYSIS 09/10/2016 JOAQUIN TIRADO MD Ot K65.9 PERITONITIS, UNSPECIFIED 09/10/2016 JOAQUIN TIRADO MD Ot Z79.2 JAIL (CURRENT) USE OF ANTIBIOTICS 09/11/2016 JOAQUIN TIRADO MD Ot K65.9 PERITONITIS, UNSPECIFIED 09/11/2016 JOAQUIN TIRADO MD Ot Z79.2 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 SUPERVISOR (CURRENT) USE OF ANTIBIOTICS 09/13/2016 JOAQUIN TIRADO MD Ot K65.9 PERITONITIS, UNSPECIFIED 09/13/2016 JOAQUIN TIRADO MD Ot Z79.2 JAIL (CURRENT) USE OF ANTIBIOTICS 09/16/2016 JOAQUIN TIRADO MD Ot K65.9 PERITONITIS, UNSPECIFIED 09/16/2016 JOAQUIN TIRADO MD Ot Z79.2 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 SUPERVISOR (CURRENT) USE OF ANTIBIOTICS 09/18/2016 JOAQUIN TIRADO MD Ot K65.9 PERITONITIS, UNSPECIFIED 09/18/2016 JOAQUIN TIRADO MD Ot Z79.2 JAIL (CURRENT) USE OF ANTIBIOTICS 10/10/2016 JOAQUIN TIRADO MD Ot K65.9 PERITONITIS, UNSPECIFIED 10/10/2016 CELESTINO WATTS, JOAQUIN Hooker Ot Z79.2 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 SUPERVISOR (CURRENT) USE OF ANTIBIOTICS 10/24/2016 CELESTINO WATTS, JOAQUIN Hooker Ot K65.9 PERITONITIS, UNSPECIFIED 10/24/2016 CLEESTINO WATTS, JOAQUIN Hooker Ot Z79.2 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 SUPERVISOR (CURRENT) USE OF ANTIBIOTICS 11/06/2016 CYNDIE DO, JARED K Ot 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 11/06/2016 CYNDIE DO, JARED K Ot E78.00 PURE HYPERCHOLESTEROLEMIA, UNSPECIFIED 11/06/2016 CYNDIE DO, JARED K Ot 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 11/06/2016 CYNDIE DO, JARED K Ot I25.10 ATHSCL HEART DISEASE OF [place] CORONARY 11/06/2016 CYNDIE DO, JARED K Ot K65.9 PERITONITIS, UNSPECIFIED 11/06/2016 CYNDIE DO, JARED K Ot L03.311 CELLULITIS OF ABDOMINAL WALL 11/06/2016 CYNDIE DO JARED K Ot N18.6 END STAGE RENAL DISEASE 11/06/2016 CYNDIE DO, JARED K Ot T80.29XA INFCT FOL OTH INFUSION, TRANSFUSE AND TH 11/06/2016 CYNDIE DO JARED K Ot Z79.4 JAIL (CURRENT) USE OF INSULIN 11/06/2016 CYNDIE DO JARED K Ot Z79.82 JAIL (CURRENT) USE OF ASPIRIN 11/06/2016 CYNDIE DO JARED K Ot Z95.1 PRESENCE OF AORTOCORONARY BYPASS GRAFT 11/06/2016 CYNDIE JARED K Ot Z95.810 PRESENCE OF AUTOMATIC (IMPLANTABLE) CARD 11/06/2016 CYNDIE DO JARED K Ot Z99.2 DEPENDENCE ON RENAL DIALYSIS 11/08/2016 CYNDIE DO, JARED K Ot 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 11/08/2016 CYNDIE DO, JARED K Ot E78.00 PURE HYPERCHOLESTEROLEMIA, UNSPECIFIED 11/08/2016 CYNDIE DO, JARED K Ot 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 11/08/2016 CYNDIE DO, JARED K Ot I25.10 ATHSCL HEART DISEASE OF [place] CORONARY 11/08/2016 CYNDIE DO, JARED K Ot K65.9 PERITONITIS, UNSPECIFIED 11/08/2016 CYNDIE DO, JARED K Ot L03.311 CELLULITIS OF ABDOMINAL WALL 11/08/2016 CYNDIE DO, JARED K Ot N18.6 END STAGE RENAL DISEASE 11/08/2016 CYNDIE DO, JARED K Ot T80.29XA INFCT FOL OTH INFUSION, TRANSFUSE AND TH 11/08/2016 CYNDIE DO, JARED K Ot Z79.4 JAIL (CURRENT) USE OF INSULIN 11/08/2016 CYNDIE DO, JARED K Ot Z79.82 JAIL (CURRENT) USE OF ASPIRIN 11/08/2016 CYNDIE DO, JARED K Ot Z95.1 PRESENCE OF AORTOCORONARY BYPASS GRAFT 11/08/2016 CYNDIE DO, JARED K Ot Z95.810 PRESENCE OF AUTOMATIC (IMPLANTABLE) CARD 11/08/2016 CYNDIE DO, JARED K Ot Z99.2 DEPENDENCE ON RENAL DIALYSIS 11/12/2016 CYNDIE DO, JARED K Ot 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 11/12/2016 CYNDIE DO, JARED K Ot E78.00 PURE HYPERCHOLESTEROLEMIA, UNSPECIFIED 11/12/2016 CYNDIE DO, JARED K Ot 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 11/12/2016 CYNDIE DO, JARED K Ot I25.10 ATHSCL HEART DISEASE OF [place] CORONARY 11/12/2016 CYNDIE DO, JARED K Ot K65.9 PERITONITIS, UNSPECIFIED 11/12/2016 CYNDIE DO, JARED K Ot L03.311 CELLULITIS OF ABDOMINAL WALL 11/12/2016 CYNDIE DO, JARED K Ot N18.6 END STAGE RENAL DISEASE 11/12/2016 CYNDIE DO, JARED K Ot T80.29XA INFCT FOL OTH INFUSION, TRANSFUSE AND TH 11/12/2016 CYNDIE DO, JARED K Ot 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 11/12/2016 CYNDIE DO, JARED K Ot Z79.82 JAIL (CURRENT) USE OF ASPIRIN 11/12/2016 CYNDIE DO, JARED K Ot Z95.1 PRESENCE OF AORTOCORONARY BYPASS GRAFT 11/12/2016 CYNDIE DO, JARED K Ot Z95.810 PRESENCE OF AUTOMATIC (IMPLANTABLE) CARD 11/12/2016 CYNDIE DO, JARED K Ot Z99.2 DEPENDENCE ON RENAL DIALYSIS 12/05/2016 LIZBETH COWART APRN Ot E11.621 TYPE 2 DIABETES MELLITUS WITH FOOT ULCER 12/05/2016 LIZBETH COWART APRN Ot 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 12/05/2016 LIZBETH COWART APRN Ot 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 12/05/2016 LIZBETH COWART APRN Ot L97.522 NON-PRS CHRONIC ULCER OTH PRT LEFT FOOT 12/05/2016 LIZBETH COWART APRN Ot N18.5 CHRONIC KIDNEY DISEASE, STAGE 5 12/08/2016 CELESTINO WATTS, JOAQUIN Hooker Ot K65.9 PERITONITIS, UNSPECIFIED 12/08/2016 CELESTINO WATTS, JOAQUIN Hooker Ot Z79.2 JAIL (CURRENT) USE OF ANTIBIOTICS 2017 LAXMI ALTAMIRANO [...] 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 04/11/2017 JARED AGEE DO Ot E11.40 TYPE 2 DIABETES MELLITUS WITH DIABETIC N 04/11/2017 CYNDIE DO, JARED K Ot 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 04/11/2017 CYNDIE DO, JARED K Ot I25.10 ATHSCL HEART DISEASE OF [place] CORONARY 04/11/2017 CYNDIE DO, JARED K Ot I25.2 OLD MYOCARDIAL INFARCTION 04/11/2017 CYNDIE DO, JARED K Ot N18.6 END STAGE RENAL DISEASE 04/11/2017 CYNDIE DO, JARED K Ot R09.02 HYPOXEMIA 04/11/2017 CYNDIE DO, JARED K Ot R50.9 FEVER, UNSPECIFIED 04/11/2017 CYNDIE DO, JARED K Ot 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 04/11/2017 CYNDIE DO, JARED K Ot 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 04/11/2017 CYNDIE DO, [...] 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 04/18/2017 CYNDIE , JARED K Ot E11.40 TYPE 2 DIABETES MELLITUS WITH DIABETIC N 04/18/2017 CYNDIE , JARED K Ot 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 04/18/2017 CYNDIE DO, JARED K Ot I25.10 ATHSCL HEART DISEASE OF [place] CORONARY 04/18/2017 CYNDIE DO, JARED K Ot I25.2 OLD MYOCARDIAL INFARCTION 04/18/2017 CYNDIE DO, JARED K Ot N18.6 END STAGE RENAL DISEASE 04/18/2017 CYNDIE DO, JARED K Ot R09.02 HYPOXEMIA 04/18/2017 CYNDIE DO, JARED K Ot R50.9 FEVER, UNSPECIFIED 04/18/2017 CYNDIE DO, JARED K Ot 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 04/18/2017 JARED AGEE DO Ot Z79.82 JAIL (CURRENT) USE OF ASPIRIN 04/18/2017 JARED AGEE [...] FOLLOW-UP, OTHER SURGERY 08/14/2017 JARED CHATTERJEE VeronikaMerly [employer]-C Ot 250.40 DIAB W RENAL MANIFEST, TYPE II OR UNSPEC 08/14/2017 NEWJARED. [employer]-C Ot 263.9 PROTEIN-MARGARITA MALNUTR NOS 08/14/2017 NEWJARED. [employer]-C Ot 272.4 HYPERLIPIDEMIA NEC/NOS 08/14/2017 NEWJARED. 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 08/14/2017 JARED CHATTERJEE [employer]-C Ot 428.0 CONGESTIVE HEART FAILURE NOS 08/14/2017 JARED CHATTERJEE VeronikaMerly [employer]-C Ot 585.4 CHRONIC KIDNEY DISEASE, STAGE IV (SEVERE 08/14/2017 JARED CHATTERJEE VeronikaMerly [employer]-C Ot 791.0 PROTEINURIA 08/14/2017 LIZBETH COWART APRN Ot E11.621 TYPE 2 DIABETES MELLITUS WITH FOOT ULCER 08/14/2017 LIZBETH COWART GRAIN 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 Ot 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 08/14/2017 LIZBETH COWART GRAIN 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 Ot 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 08/14/2017 LIZBETH COWART GRAIN 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 Ot L97.522 NON-PRS CHRONIC ULCER OTH PRT LEFT FOOT 08/14/2017 LIZBETH COWART GRAIN 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 Ot N18.5 CHRONIC KIDNEY DISEASE, STAGE 5 08/14/2017 CELESTINO WATTS, JOAQUIN Hooker Ot K65.9 PERITONITIS, UNSPECIFIED 08/14/2017 CELESTINO WATTS, JOAQUIN Hooker Ot Z79.2 JAIL (CURRENT) USE OF ANTIBIOTICS 08/14/2017 SUPA, LIZBETH R GRAIN 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 Ot L97.111 NON-PRS CHRONIC ULCER OF RIGHT THIGH SAN 08/15/2017 LIZBETH COWART GRAIN 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 Ot E11.622 TYPE 2 DIABETES MELLITUS WITH OTHER SKIN 08/15/2017 LIZBETH COWART GRAIN 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 Ot 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 08/15/2017 LIZBETH COWART GRAIN 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 Ot L03.115 CELLULITIS OF RIGHT LOWER LIMB 08/15/2017 LIZBETH COWART GRAIN 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 Ot L97.111 NON-PRS CHRONIC ULCER OF RIGHT THIGH SAN 08/15/2017 LIZBETH COWART GRAIN 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 Ot N18.5 CHRONIC KIDNEY DISEASE, STAGE 5 08/20/2017 LIZBETH COWART GRAIN 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 Ot E11.622 TYPE 2 DIABETES MELLITUS WITH OTHER SKIN 08/20/2017 LIZBETH COWART GRAIN 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 Ot 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 08/20/2017 LIZBETH COWART GRAIN 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 Ot L03.115 CELLULITIS OF RIGHT LOWER LIMB 08/20/2017 LIZBETH COWART GRAIN 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 Ot L97.111 NON-PRS CHRONIC ULCER OF RIGHT THIGH SAN 08/20/2017 LIZBETH COWART GRAIN 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 Ot N18.5 CHRONIC KIDNEY DISEASE, STAGE 5 08/25/2017 LIZBETH COWART GRAIN 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 Ot E11.622 TYPE 2 DIABETES MELLITUS WITH OTHER SKIN 08/25/2017 LIZBETH COWART GRAIN 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 Ot 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 08/25/2017 LIZBETH COWART GRAIN 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 Ot L03.115 CELLULITIS OF RIGHT LOWER LIMB 08/25/2017 LIZBETH COWART GRAIN 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 Ot L97.111 NON-PRS CHRONIC ULCER OF RIGHT THIGH SAN 08/25/2017 LIZBETH COWART GRAIN 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 Ot N18.5 CHRONIC KIDNEY DISEASE, STAGE 5 09/12/2017 LACEY STONE APRN Ot 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 09/12/2017 LACEY STONE APRN Ot E11.40 TYPE 2 DIABETES MELLITUS WITH DIABETIC N 09/12/2017 LACEY STONE GRAIN 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 Ot E11.59 TYPE 2 DIABETES MELLITUS WITH OTH CIRCUL 09/12/2017 LACEY STONE APRN Ot E78.00 PURE HYPERCHOLESTEROLEMIA, UNSPECIFIED 09/12/2017 LACEY STONE APRN Ot 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 KDNY DIS W HRT FAIL AND ST 09/12/2017 LACEY STONE APRN Ot I25.10 ATHSCL HEART DISEASE OF [place] CORONARY 09/12/2017 LACEY STONE APRN Ot I25.2 OLD MYOCARDIAL INFARCTION 09/12/2017 LACEY STONE APRN Ot I50.9 HEART FAILURE, UNSPECIFIED 09/12/2017 LACEY STONE APRN Ot I73.9 PERIPHERAL VASCULAR DISEASE, UNSPECIFIED 09/12/2017 LACEY STONE APRN Ot L76.22 POSTPROC HEMORRHAGE OF SKIN, SUBCU FOLLO 09/12/2017 LACEY STONE APRN Ot N18.6 END STAGE RENAL DISEASE 09/12/2017 LACEY STONE APRN Ot Z79.4 JAIL (CURRENT) USE OF INSULIN 09/12/2017 LACEY STONE APRN Ot Z79.51 JAIL (CURRENT) USE OF INHALED STERO 09/12/2017 LACEY STONE APRN Ot 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 09/12/2017 LACEY STONE [...] OF AORTOCORONARY BYPASS GRAFT 09/12/2017 LACEY STONE GRAIN 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 Ot Z95.810 PRESENCE OF AUTOMATIC (IMPLANTABLE) CARD 09/12/2017 LACEY STONE APRN Ot Z99.2 DEPENDENCE ON RENAL DIALYSIS 09/13/2017 HUI WATTS, BALDOMERO Kat Ot 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 09/13/2017 BALDOMERO AMES MD Ot E11.40 TYPE 2 DIABETES MELLITUS WITH DIABETIC N 09/13/2017 BALDOMERO AMES MD Ot E11.59 TYPE 2 DIABETES MELLITUS WITH OTH CIRCUL 09/13/2017 BALDOMERO AMES MD, Ot E78.00 PURE HYPERCHOLESTEROLEMIA, UNSPECIFIED 09/13/2017 BALDOMERO AMES MD, Ot 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 [facility] DIS W HRT FAIL AND ST 09/13/2017 BALDOMERO AMES MD, Ot I25.10 ATHSCL HEART DISEASE OF [place] CORONARY 09/13/2017 BALDOMERO AMES MD, Ot I25.2 OLD MYOCARDIAL INFARCTION 09/13/2017 BALDOMERO AMES MD, Ot I50.9 HEART FAILURE, UNSPECIFIED 09/13/2017 BALDOMERO AMES MD, Ot I73.9 PERIPHERAL VASCULAR DISEASE, UNSPECIFIED 09/13/2017 BALDOMERO AMES MD Ot L76.21 POSTPROC HEMOR OF SKIN, SUBCU FOL A DERM 09/13/2017 BALDOMERO AMES MD, Ot N18.6 END STAGE RENAL DISEASE 09/13/2017 BALDOMERO AMES MD, Ot Z79.4 JAIL (CURRENT) USE OF INSULIN 09/13/2017 BALDOMERO AMES MD, Ot 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 09/13/2017 BALDOMERO AMES [...] 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 09/15/2017 LACEY STONE APRN Ot E11.40 TYPE 2 DIABETES MELLITUS WITH DIABETIC N 09/15/2017 LACEY STONE APRN Ot E11.59 TYPE 2 DIABETES MELLITUS WITH OTH CIRCUL 09/15/2017 LACEY STONE APRN Ot E78.00 PURE HYPERCHOLESTEROLEMIA, UNSPECIFIED 09/15/2017 LACEY STONE APRN Ot 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 [place] DIS W HRT FAIL AND ST 09/15/2017 LACEY STONE APRN Ot I25.10 ATHSCL HEART DISEASE OF [place] CORONARY 09/15/2017 LACEY STONE APRN Ot I25.2 OLD MYOCARDIAL INFARCTION 09/15/2017 LACEY STONE APRN Ot I50.9 HEART FAILURE, UNSPECIFIED 09/15/2017 LACEY STONE APRN Ot I73.9 PERIPHERAL VASCULAR DISEASE, UNSPECIFIED 09/15/2017 LACEY STONE APRN Ot L76.22 POSTPROC HEMORRHAGE OF SKIN, SUBCU FOLLO 09/15/2017 LACEY STONE APRN Ot N18.6 END STAGE RENAL DISEASE 09/15/2017 LACEY STONE APRN Ot Z79.4 JAIL (CURRENT) USE OF INSULIN 09/15/2017 LACEY STONE APRN Ot Z79.51 JAIL (CURRENT) USE OF INHALED STERO 09/15/2017 LACEY STONE APRN Ot 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 09/15/2017 LACEY STONE [...] 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 09/15/2017 LACEY STONE APRN Ot E11.40 TYPE 2 DIABETES MELLITUS WITH DIABETIC N 09/15/2017 LACEY STONE APRN Ot E11.59 TYPE 2 DIABETES MELLITUS WITH OTH CIRCUL 09/15/2017 LACEY STONE APRN Ot E78.00 PURE HYPERCHOLESTEROLEMIA, UNSPECIFIED 09/15/2017 LACEY STONE APRN Ot 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 [place] DIS W HRT FAIL AND ST 09/15/2017 LACEY STONE APRN Ot I25.10 ATHSCL HEART DISEASE OF [place] CORONARY 09/15/2017 LACEY STONE APRN Ot I25.2 OLD MYOCARDIAL INFARCTION 09/15/2017 LACEY STONE APRN Ot I50.9 HEART FAILURE, UNSPECIFIED 09/15/2017 LACEY STONE APRN Ot I73.9 PERIPHERAL VASCULAR DISEASE, UNSPECIFIED 09/15/2017 LACEY STONE APRN Ot L76.22 POSTPROC HEMORRHAGE OF SKIN, SUBCU FOLLO 09/15/2017 LACEY STONE APRN Ot N18.6 END STAGE RENAL DISEASE 09/15/2017 LACEY STONE APRN Ot 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 09/15/2017 LACEY STONE APRN Ot Z79.51 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 SUPERVISOR (CURRENT) USE OF INHALED STERO 09/15/2017 LACEY STONE APRN Ot Z79.82 JAIL (CURRENT) USE OF ASPIRIN 09/15/2017 LACEY STONE [...] PRESENCE OF AUTOMATIC (IMPLANTABLE) CARD 09/15/2017 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 GRAIN 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 Ot Z99.2 DEPENDENCE ON RENAL DIALYSIS 09/15/2017 BALDOMERO AMES MD, Ot 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 09/15/2017 BALDOMERO AMES MD, Ot E11.40 TYPE 2 DIABETES MELLITUS WITH DIABETIC N 09/15/2017 BALDOMERO AMES MD, Ot E11.59 TYPE 2 DIABETES MELLITUS WITH OTH CIRCUL 09/15/2017 BALDOMERO AMES MD, Ot E78.00 PURE HYPERCHOLESTEROLEMIA, UNSPECIFIED 09/15/2017 BALDOMERO AMES MD, Ot 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 [place] DIS W HRT FAIL AND ST 09/15/2017 BALDOMERO AMES MD, Ot I25.10 ATHSCL HEART DISEASE OF [place] CORONARY 09/15/2017 BALDOMERO AMES MD, Ot I25.2 OLD MYOCARDIAL INFARCTION 09/15/2017 BALDOMERO AMES MD, Ot I50.9 HEART FAILURE, UNSPECIFIED 09/15/2017 BALDOMERO AMES MD, Ot I73.9 PERIPHERAL VASCULAR DISEASE, UNSPECIFIED 09/15/2017 BALDOMERO AMES MD Ot L76.21 POSTPROC HEMOR OF SKIN, SUBCU FOL A DERM 09/15/2017 BALDOMERO AMES MD, Ot N18.6 END STAGE RENAL DISEASE 09/15/2017 BALDOMERO AMES MD, Ot Z79.4 JAIL (CURRENT) USE OF INSULIN 09/15/2017 BALDOMERO AMES MD, Ot Z79.82 JAIL (CURRENT) USE OF ASPIRIN 09/15/2017 BALDOMERO AMES [...] 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 09/18/2017 LACEY STONE APRN Ot E11.40 TYPE 2 DIABETES MELLITUS WITH DIABETIC N 09/18/2017 LACEY STONE APRN Ot E11.59 TYPE 2 DIABETES MELLITUS WITH OTH CIRCUL 09/18/2017 LACEY STONE APRN Ot E78.00 PURE HYPERCHOLESTEROLEMIA, UNSPECIFIED 09/18/2017 LACEY STONE APRN Ot 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 [place] DIS W HRT FAIL AND ST 09/18/2017 LACEY STONE APRN Ot I25.10 ATHSCL HEART DISEASE OF [place] CORONARY 09/18/2017 LACEY STONE APRN Ot I25.2 OLD MYOCARDIAL INFARCTION 09/18/2017 LACEY STONE APRN Ot I50.9 HEART FAILURE, UNSPECIFIED 09/18/2017 LACEY STONE APRN Ot I73.9 PERIPHERAL VASCULAR DISEASE, UNSPECIFIED 09/18/2017 LACEY STONE APRN Ot L76.22 POSTPROC HEMORRHAGE OF SKIN, SUBCU FOLLO 09/18/2017 LACEY STONE APRN Ot N18.6 END STAGE RENAL DISEASE 09/18/2017 LACEY STONE APRN Ot Z79.4 JAIL (CURRENT) USE OF INSULIN 09/18/2017 LACEY STONE APRN Ot Z79.51 JAIL (CURRENT) USE OF INHALED STERO 09/18/2017 LACEY STONE APRN Ot Z79.82 JAIL (CURRENT) USE OF ASPIRIN 09/18/2017 LACEY STONE [...] Ot E78.2 MIXED HYPERLIPIDEMIA 09/18/2017 ANGELA PRIETO MD, Ot I25.10 ATHSCL HEART DISEASE OF [place] CORONARY 09/18/2017 ANGELA PRIETO MD Ot I51.9 HEART DISEASE, UNSPECIFIED 09/18/2017 ANGELA PRIETO MD Ot R00.0 TACHYCARDIA, UNSPECIFIED 09/23/2017 ANGELA PRIETO MD Ot E11.9 TYPE 2 DIABETES MELLITUS WITHOUT COMPLIC 09/23/2017 ANGELA PRIETO MD Ot E78.2 MIXED HYPERLIPIDEMIA 09/23/2017 ANGELA PRIETO MD Ot I25.10 ATHSCL HEART DISEASE OF [place] CORONARY 09/23/2017 ANGELA PRIETO MD Ot I51.9 HEART DISEASE, UNSPECIFIED 09/23/2017 ANGELA PRIETO MD Ot R00.0 TACHYCARDIA, UNSPECIFIED 09/26/2017 SANDI PERALTA MD Ot 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 09/26/2017 SANDI PERALTA MD Ot E78.00 PURE HYPERCHOLESTEROLEMIA, UNSPECIFIED 09/26/2017 SANDI PERALTA MD Ot G89.18 OTHER ACUTE POSTPROCEDURAL PAIN 09/26/2017 SANDI PERALTA MD Ot 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 [place] DIS W HRT FAIL 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 09/26/2017 SANDI PERALTA MD, Ot I25.10 ATHSCL HEART DISEASE OF [place] CORONARY 09/26/2017 SANDI PERALTA MD, Ot I25.2 OLD MYOCARDIAL INFARCTION 09/26/2017 SANDI PERALTA MD Ot I50.9 HEART FAILURE, UNSPECIFIED 09/26/2017 SANDI PERALTA MD, Ot I73.9 PERIPHERAL VASCULAR DISEASE, UNSPECIFIED 09/26/2017 SANDI PERALTA MD, Ot L08.9 LOCAL INFECTION OF THE SKIN AND SUBCUTAN 09/26/2017 SANDI PERALTA MD, Ot N18.6 END STAGE RENAL DISEASE 09/26/2017 SANDI PERALTA MD, Ot T81.4XXA INFECTION FOLLOWING A PROCEDURE, INITIAL 09/26/2017 SANDI PERALTA MD, Ot 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 09/26/2017 SANDI PERALTA MD, Ot Z79.51 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 SUPERVISOR (CURRENT) USE OF INHALED STERO 09/26/2017 SANDI PERALTA MD, Ot 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 09/26/2017 SANDI PERALTA MD, Ot Z88.0 ALLERGY STATUS TO PENICILLIN 09/26/2017 SANDI PERALTA MD, Ot Z88.1 ALLERGY STATUS TO OTHER ANTIBIOTIC AGENT 09/26/2017 SANDI PERALTA MD, Ot Z88.5 ALLERGY STATUS TO NARCOTIC AGENT STATUS 09/26/2017 SANDI PERALTA MD, Ot Z89.612 ACQUIRED ABSENCE OF LEFT LEG ABOVE KNEE 09/26/2017 SANDI PERALTA MD Ot Z95.1 PRESENCE OF AORTOCORONARY BYPASS GRAFT 09/26/2017 SANDI PERALTA MD Ot Z95.810 PRESENCE OF AUTOMATIC (IMPLANTABLE) CARD 09/26/2017 SANDI PERALTA MD, Ot Z98.890 OTHER SPECIFIED POSTPROCEDURAL STATES 09/26/2017 SANDI PERALTA MD Ot Z99.2 DEPENDENCE ON RENAL DIALYSIS 09/26/2017 ANGELA PRIETO MD Ot E11.9 TYPE 2 DIABETES MELLITUS WITHOUT COMPLIC 09/26/2017 ANGELA PRIETO MD Ot E78.2 MIXED HYPERLIPIDEMIA 09/26/2017 ANGELA PRIETO MD Ot I25.10 ATHSCL HEART DISEASE OF [place] CORONARY 09/26/2017 ANGELA PRIETO MD Ot I51.9 HEART DISEASE, UNSPECIFIED 09/26/2017 ANGELA PRIETO MD Ot R00.0 TACHYCARDIA, UNSPECIFIED 10/01/2017 SHIRA NUNEZ MD, Ot E11.622 TYPE 2 DIABETES MELLITUS WITH OTHER SKIN 10/01/2017 SHIRA NUNEZ MD Ot 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 10/01/2017 SHIRA NUNEZ MD Ot L03.115 CELLULITIS OF RIGHT LOWER LIMB 10/01/2017 SHIRA NUNEZ MD Ot L97.112 NON-PRS CHRONIC ULCER OF RIGHT THIGH W F 10/02/2017 SHIRA NUNEZ MD, Ot E11.622 TYPE 2 DIABETES MELLITUS WITH OTHER SKIN 10/02/2017 SHIRA NUNEZ MD Ot 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 10/02/2017 SHIRA NUNEZ MD, Ot L03.115 CELLULITIS OF RIGHT LOWER LIMB 10/02/2017 SHIRA NUNEZ MD, Ot L97.112 NON-PRS CHRONIC ULCER OF RIGHT THIGH W F 10/02/2017 SHIRA NUNEZ MD, Ot Z89.611 ACQUIRED ABSENCE OF RIGHT LEG ABOVE KNEE 10/07/2017 SHIRA NUNEZ MD, Ot E11.622 TYPE 2 DIABETES MELLITUS WITH OTHER SKIN 10/07/2017 SHIRA NUNEZ MD Ot 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 10/07/2017 SHIRA NUNEZ MD Ot L03.115 CELLULITIS OF RIGHT LOWER LIMB 10/07/2017 SHIRA NUNEZ MD, Ot L97.112 NON-PRS CHRONIC ULCER OF RIGHT THIGH W F 10/09/2017 SHIRA NUNEZ MD, Ot E11.622 TYPE 2 DIABETES MELLITUS WITH OTHER SKIN 10/09/2017 SHIRA NUNEZ MD Ot 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 10/09/2017 SHIRA NUNEZ MD Ot L03.115 CELLULITIS OF RIGHT LOWER LIMB 10/09/2017 SHIRA NUNEZ MD Ot L97.112 NON-PRS CHRONIC ULCER OF RIGHT THIGH W F 10/09/2017 SHIRA NUNEZ MD, Ot Z89.521 ACQUIRED ABSENCE OF RIGHT KNEE 10/09/2017 SHIRA NUNEZ MD, Ot Z89.522 ACQUIRED ABSENCE OF LEFT KNEE 10/10/2017 SHIRA NUNEZ MD, Ot E11.622 TYPE 2 DIABETES MELLITUS WITH OTHER SKIN 10/10/2017 SHIRA NUNEZ MD Ot 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 10/10/2017 SHIRA NUNEZ MD, Ot L03.115 CELLULITIS OF RIGHT LOWER LIMB 10/10/2017 SHIRA NUNEZ MD, Ot L97.112 NON-PRS CHRONIC ULCER OF RIGHT THIGH W F 10/10/2017 SHIRA NUNEZ MD, Ot Z89.611 ACQUIRED ABSENCE OF RIGHT LEG ABOVE KNEE 10/14/2017 HSIRA NUNEZ MD, Ot E11.622 TYPE 2 DIABETES MELLITUS WITH OTHER SKIN 10/14/2017 SHIRA NUNEZ MD, Ot 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 10/14/2017 SHIRA NUNEZ MD, Ot L03.115 CELLULITIS OF RIGHT LOWER LIMB 10/14/2017 SHIRA NUNEZ MD, Ot L97.112 NON-PRS CHRONIC ULCER OF RIGHT THIGH W F 10/14/2017 SHIRA NUNEZ MD, Ot R59.0 LOCALIZED ENLARGED LYMPH NODES 10/14/2017 SHIRA NUNEZ MD, Ot Z89.611 ACQUIRED ABSENCE OF RIGHT LEG ABOVE KNEE 10/14/2017 SHIRA NUNEZ MD, Ot Z89.612 ACQUIRED ABSENCE OF LEFT LEG ABOVE KNEE 10/17/2017 SHIRA NUNEZ MD, Ot E11.622 TYPE 2 DIABETES MELLITUS WITH OTHER SKIN 10/17/2017 SHIRA NUNEZ MD, Ot L97.112 NON-PRS CHRONIC ULCER OF RIGHT THIGH W F 10/17/2017 SHIRA NUNEZ MD, Ot Z89.611 ACQUIRED ABSENCE OF RIGHT LEG ABOVE KNEE 10/21/2017 SHIRA NUNEZ MD, Ot E11.622 TYPE 2 DIABETES MELLITUS WITH OTHER SKIN 10/21/2017 SHIRA NUNEZ MD, Ot 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 10/21/2017 SHIRA NUNEZ MD, Ot L03.115 CELLULITIS OF RIGHT LOWER LIMB 10/21/2017 SHIRA NUNEZ MD, Ot L97.112 NON-PRS CHRONIC ULCER OF RIGHT THIGH W F 10/21/2017 SHIRA NUNEZ MD, Ot Z89.521 ACQUIRED ABSENCE OF RIGHT KNEE 10/21/2017 SHIRA NUNEZ MD, Ot Z89.522 ACQUIRED ABSENCE OF LEFT KNEE 10/21/2017 SHIRA NUNEZ MD, Ot E11.622 TYPE 2 DIABETES MELLITUS WITH OTHER SKIN 10/21/2017 SHIRA NUNEZ MD Ot 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 10/21/2017 SHIRA NUNEZ MD Ot L03.115 CELLULITIS OF RIGHT LOWER LIMB 10/21/2017 SHIRA NUNEZ MD, Ot L97.112 NON-PRS CHRONIC ULCER OF RIGHT THIGH W F 10/21/2017 SHIRA NUNEZ MD, Ot Z89.611 ACQUIRED ABSENCE OF RIGHT LEG ABOVE KNEE 10/23/2017 SHIRA NUNEZ MD Ot E11.622 TYPE 2 DIABETES MELLITUS WITH OTHER SKIN 10/23/2017 SHIRA NUNEZ MD, Ot L97.112 NON-PRS CHRONIC ULCER OF RIGHT THIGH W F 10/23/2017 SHIRA NUNEZ MD, Ot Z89.611 ACQUIRED ABSENCE OF RIGHT LEG ABOVE KNEE 10/24/2017 SHIRA NUNEZ MD, Ot E11.622 TYPE 2 DIABETES MELLITUS WITH OTHER SKIN 10/24/2017 SHIRA NUNEZ MD, Ot 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 10/24/2017 SHIRA NUNEZ MD Ot L03.115 CELLULITIS OF RIGHT LOWER LIMB 10/24/2017 SHIRA NUNEZ MD, Ot L97.112 NON-PRS CHRONIC ULCER OF RIGHT THIGH W F 10/24/2017 SHIRA NUNEZ MD Ot R59.0 LOCALIZED ENLARGED LYMPH NODES 10/24/2017 SHIRA NUNEZ MD Ot Z89.611 ACQUIRED ABSENCE OF RIGHT LEG ABOVE KNEE 10/24/2017 SHIRA NUNEZ MD, Ot Z89.612 ACQUIRED ABSENCE OF LEFT LEG ABOVE KNEE 10/24/2017 SHIRA NUNEZ MD Ot E11.622 TYPE 2 DIABETES MELLITUS WITH OTHER SKIN 10/24/2017 SHIRA NUNEZ MD Ot L97.112 NON-PRS CHRONIC ULCER OF RIGHT THIGH W F 10/24/2017 SHIRA NUNEZ MD Ot Z89.611 ACQUIRED ABSENCE OF RIGHT LEG ABOVE KNEE 11/03/2017 SHIRA NUNEZ MD Ot E11.622 TYPE 2 DIABETES MELLITUS WITH OTHER SKIN 11/03/2017 SHIRA NUNEZ MD Ot L97.112 NON-PRS CHRONIC ULCER OF RIGHT THIGH W F 11/03/2017 SHIRA NUNEZ MD Ot Z89.611 ACQUIRED ABSENCE OF RIGHT LEG ABOVE KNEE 11/03/2017 SHIRA NUNEZ MD Ot E11.622 TYPE 2 DIABETES MELLITUS WITH OTHER SKIN 11/03/2017 SHIRA NUNEZ MD Ot L97.112 NON-PRS CHRONIC ULCER OF RIGHT THIGH W F 11/03/2017 SHIRA NUNEZ MD Ot Z89.611 ACQUIRED ABSENCE OF RIGHT LEG ABOVE KNEE 11/06/2017 SHIRA NUNEZ MD Ot E11.622 TYPE 2 DIABETES MELLITUS WITH OTHER SKIN 11/06/2017 SHIRA NUNEZ MD Ot L97.112 NON-PRS CHRONIC ULCER OF RIGHT THIGH W F 11/06/2017 SHIRA NUNEZ MD, Ot Z89.611 ACQUIRED ABSENCE OF RIGHT LEG ABOVE KNEE 11/14/2017 SHIRA NUNEZ MD, Ot E11.622 TYPE 2 DIABETES MELLITUS WITH OTHER SKIN 11/14/2017 SHIRA NUNEZ MD, Ot L97.112 NON-PRS CHRONIC ULCER OF RIGHT THIGH W F 11/14/2017 SHIRA NUNEZ MD, Ot Z89.611 ACQUIRED ABSENCE OF RIGHT LEG ABOVE KNEE 11/18/2017 ANGELA PRIETO MD Ot E11.9 TYPE 2 DIABETES MELLITUS WITHOUT COMPLIC 11/18/2017 ANGELA PRIETO MD Ot E78.2 MIXED HYPERLIPIDEMIA 11/18/2017 ANGELA PRIETO MD Ot I25.10 ATHSCL HEART DISEASE OF [place] CORONARY 11/18/2017 ANGELA PRIETO MD Ot I51.9 HEART DISEASE, UNSPECIFIED 11/18/2017 ANGELA PRIETO MD Ot R00.0 TACHYCARDIA, UNSPECIFIED 11/21/2017 SHIRA NUNEZ MD Ot E11.622 TYPE 2 DIABETES MELLITUS WITH OTHER SKIN 11/21/2017 SHIRA NUNEZ MD Ot L97.112 NON-PRS CHRONIC ULCER OF RIGHT THIGH W F 11/21/2017 SHIRA NUNEZ MD Ot Z89.611 ACQUIRED ABSENCE OF RIGHT LEG ABOVE KNEE 12/01/2017 SHIRA NUNEZ MD Ot E11.622 TYPE 2 DIABETES MELLITUS WITH OTHER SKIN 12/01/2017 SHIRA NUNEZ MD Ot L97.112 NON-PRS CHRONIC ULCER OF RIGHT THIGH W F 12/01/2017 SHIRA NUNEZ MD, Ot Z89.611 ACQUIRED ABSENCE OF RIGHT LEG ABOVE KNEE 12/02/2017 EDY GREEN Ot E11.42 TYPE 2 DIABETES MELLITUS WITH DIABETIC P 12/02/2017 EDY GREEN Ot E11.51 TYPE 2 DIABETES W DIABETIC PERIPHERAL AN 12/02/2017 EDY GREEN Ot E78.00 PURE HYPERCHOLESTEROLEMIA, UNSPECIFIED 12/02/2017 EDY GREEN Ot I11.0 HYPERTENSIVE HEART DISEASE WITH HEART FA 12/02/2017 EDY GREEN Ot I25.10 ATHSCL HEART DISEASE OF [place] CORONARY 12/02/2017 EDY GREEN Ot I25.2 OLD MYOCARDIAL INFARCTION 12/02/2017 EDY GREEN Ot I50.9 HEART FAILURE, UNSPECIFIED 12/02/2017 EDY GREEN Ot L02.01 CUTANEOUS ABSCESS OF FACE 12/02/2017 EDY GREEN Ot 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 12/02/2017 EDY GREEN Ot Z79.82 JAIL (CURRENT) USE OF ASPIRIN 12/02/2017 EDY GREEN Ot Z88.1 ALLERGY STATUS TO OTHER ANTIBIOTIC AGENT 12/02/2017 EDY GREEN Ot Z88.5 ALLERGY STATUS TO NARCOTIC AGENT STATUS 12/02/2017 EDY GREEN Ot Z89.611 ACQUIRED ABSENCE OF RIGHT LEG ABOVE KNEE 12/02/2017 EDY GREEN Ot Z89.612 ACQUIRED ABSENCE OF LEFT LEG ABOVE KNEE 12/02/2017 EDY GREEN Ot Z95.0 PRESENCE OF CARDIAC PACEMAKER 12/02/2017 EDY GREEN Ot Z95.1 PRESENCE OF AORTOCORONARY BYPASS GRAFT 12/02/2017 EDY GREEN Ot Z99.2 DEPENDENCE ON RENAL DIALYSIS 12/02/2017 EDY GREEN Ot E11.42 TYPE 2 DIABETES MELLITUS WITH DIABETIC P 12/02/2017 EDY GREEN Ot E11.51 TYPE 2 DIABETES W DIABETIC PERIPHERAL AN 12/02/2017 EDY GREEN Ot E78.00 PURE HYPERCHOLESTEROLEMIA, UNSPECIFIED 12/02/2017 EDY GREEN Ot I11.0 HYPERTENSIVE HEART DISEASE WITH HEART FA 12/02/2017 EDY GREEN Ot I25.10 ATHSCL HEART DISEASE OF [place] CORONARY 12/02/2017 EDY GREEN Ot I25.2 OLD MYOCARDIAL INFARCTION 12/02/2017 EDY GREEN Ot I50.9 HEART FAILURE, UNSPECIFIED 12/02/2017 EDY GREEN Ot L02.01 CUTANEOUS ABSCESS OF FACE 12/02/2017 EDY GREEN Ot 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 12/02/2017 EDY GREEN Ot 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 12/02/2017 EDY GREEN Ot Z88.1 ALLERGY STATUS TO OTHER ANTIBIOTIC AGENT 12/02/2017 EDY GREEN Ot Z88.5 ALLERGY STATUS TO NARCOTIC AGENT STATUS 12/02/2017 EDY GREEN Ot Z89.611 ACQUIRED ABSENCE OF RIGHT LEG ABOVE KNEE 12/02/2017 EDY GREEN Ot Z89.612 ACQUIRED ABSENCE OF LEFT LEG ABOVE KNEE 12/02/2017 EDY GREEN Ot Z95.0 PRESENCE OF CARDIAC PACEMAKER 12/02/2017 EDY GREEN Ot Z95.1 PRESENCE OF AORTOCORONARY BYPASS GRAFT 12/02/2017 EDY GREEN Ot Z99.2 DEPENDENCE ON RENAL DIALYSIS 12/04/2017 SHIRA NUNEZ MD Ot E11.622 TYPE 2 DIABETES MELLITUS WITH OTHER SKIN 12/04/2017 SHIRA NUNEZ MD Ot L97.112 NON-PRS CHRONIC ULCER OF RIGHT THIGH W F 12/04/2017 SHIRA NUNEZ MD Ot S70.321A BLISTER (NONTHERMAL), RIGHT THIGH, INITI 12/04/2017 SHIRA NUNEZ MD, Ot Z89.611 ACQUIRED ABSENCE OF RIGHT LEG ABOVE KNEE 12/06/2017 EDY GREEN Ot E11.42 TYPE 2 DIABETES MELLITUS WITH DIABETIC P 12/06/2017 EDY GREEN Ot E11.51 TYPE 2 DIABETES W DIABETIC PERIPHERAL AN 12/06/2017 EDY GREEN Ot E78.00 PURE HYPERCHOLESTEROLEMIA, UNSPECIFIED 12/06/2017 EDY GREEN Ot I11.0 HYPERTENSIVE HEART DISEASE WITH HEART FA 12/06/2017 EDY GREEN Ot I25.10 ATHSCL HEART DISEASE OF [place] CORONARY 12/06/2017 EDY GREEN Ot I25.2 OLD MYOCARDIAL INFARCTION 12/06/2017 EDY GREEN Ot I50.9 HEART FAILURE, UNSPECIFIED 12/06/2017 EDY GREEN Ot L02.01 CUTANEOUS ABSCESS OF FACE 12/06/2017 EDY GREEN Ot Z79.4 JAIL (CURRENT) USE OF INSULIN 12/06/2017 EDY GREEN Ot Z79.82 JAIL (CURRENT) USE OF ASPIRIN 12/06/2017 EDY GREEN Ot Z88.1 ALLERGY STATUS TO OTHER ANTIBIOTIC AGENT 12/06/2017 EDY GREEN Ot Z88.5 ALLERGY STATUS TO NARCOTIC AGENT STATUS 12/06/2017 EDY GREEN Ot Z89.611 ACQUIRED ABSENCE OF RIGHT LEG ABOVE KNEE 12/06/2017 EDY GREEN Ot Z89.612 ACQUIRED ABSENCE OF LEFT LEG ABOVE KNEE 12/06/2017 EDY GREEN Ot Z95.0 PRESENCE OF CARDIAC PACEMAKER 12/06/2017 EDY GREEN Ot Z95.1 PRESENCE OF AORTOCORONARY BYPASS GRAFT 12/06/2017 EDY GREEN Ot Z99.2 DEPENDENCE ON RENAL DIALYSIS 12/12/2017 SHIRA NUNEZ MD, Ot E11.622 TYPE 2 DIABETES MELLITUS WITH OTHER SKIN 12/12/2017 SHIRA NUNEZ MD, Ot L97.112 NON-PRS CHRONIC ULCER OF RIGHT THIGH W F 12/12/2017 SHIRA NUNEZ MD, Ot S70.321A BLISTER (NONTHERMAL), RIGHT THIGH, INITI 12/12/2017 SHIRA NUNEZ MD, Ot Z89.611 ACQUIRED ABSENCE OF RIGHT LEG ABOVE KNEE 12/16/2017 SHIRA NUNEZ MD, Ot E11.622 TYPE 2 DIABETES MELLITUS WITH OTHER SKIN 12/16/2017 SHIRA NUNEZ MD, Ot 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 12/16/2017 SHIRA NUNEZ MD, Ot L03.115 CELLULITIS OF RIGHT LOWER LIMB 12/16/2017 SHIRA NUNEZ MD, Ot L97.112 NON-PRS CHRONIC ULCER OF RIGHT THIGH W F 12/16/2017 SHIRA NUNEZ MD, Ot R59.0 LOCALIZED ENLARGED LYMPH NODES 12/16/2017 SHIRA NUNEZ MD, Ot Z89.611 ACQUIRED ABSENCE OF RIGHT LEG ABOVE KNEE 12/16/2017 SHIRA NUNEZ MD, Ot Z89.612 ACQUIRED ABSENCE OF LEFT LEG ABOVE KNEE 12/23/2017 SHIRA NUNEZ MD, Ot E11.622 TYPE 2 DIABETES MELLITUS WITH OTHER SKIN 12/23/2017 SHIRA NUNEZ MD Ot E11.65 TYPE 2 DIABETES MELLITUS WITH HYPERGLYCE 12/23/2017 SHIRA NUNEZ MD, Ot L97.112 NON-PRS CHRONIC ULCER OF RIGHT THIGH W F 12/23/2017 SHIRA NUNEZ MD, Ot S70.321A BLISTER (NONTHERMAL), RIGHT THIGH, INITI 12/23/2017 SHIRA NUNEZ MD Ot Z89.611 ACQUIRED ABSENCE OF RIGHT LEG ABOVE KNEE 01/12/2018 Ot E11.622 TYPE 2 DIABETES MELLITUS WITH OTHER SKIN 01/12/2018 Ot E11.65 TYPE 2 DIABETES MELLITUS WITH HYPERGLYCE 01/12/2018 Ot L97.112 NON-PRS CHRONIC ULCER OF RIGHT THIGH W F 01/12/2018 Ot S70.321D BLISTER ( NONTHERMAL), RIGHT THIGH, SUBSE 01/12/2018 Ot Z89.611 ACQUIRED ABSENCE OF RIGHT LEG ABOVE KNEE 01/16/2018 SHIRA NUNEZ MD, Ot E11.622 TYPE 2 DIABETES MELLITUS WITH OTHER SKIN 01/16/2018 SHIRA NUNEZ MD, Ot E11.65 TYPE 2 DIABETES MELLITUS WITH HYPERGLYCE 01/16/2018 SHIRA NUNEZ MD Ot L97.112 NON-PRS CHRONIC ULCER OF RIGHT THIGH W F 01/16/2018 SHIRA NUNEZ MD, Ot S70.321D BLISTER (NONTHERMAL), RIGHT THIGH, SUBSE 01/16/2018 SHIRA NUNEZ MD Ot Z89.611 ACQUIRED ABSENCE OF RIGHT LEG ABOVE KNEE 01/21/2018 ANGELA PRIETO MD Ot E11.9 TYPE 2 DIABETES MELLITUS WITHOUT COMPLIC 01/21/2018 ANGELA PRIETO MD Ot E78.2 MIXED HYPERLIPIDEMIA 01/21/2018 ANGELA PRIETO MD Ot I08.1 RHEUMATIC DISORDERS OF BOTH MITRAL AND T 01/21/2018 ANGELA PRIETO MD Ot I11.0 HYPERTENSIVE HEART DISEASE WITH HEART FA 01/21/2018 ANGELA PRIETO MD Ot I25.10 ATHSCL HEART DISEASE OF [place] CORONARY 01/21/2018 ANGELA PRIETO MD Ot I50.9 HEART FAILURE, UNSPECIFIED 01/27/2018 SHIRA NUNEZ MD Ot E11.622 TYPE 2 DIABETES MELLITUS WITH OTHER SKIN 01/27/2018 SHIRA NUNEZ MD Ot E11.65 TYPE 2 DIABETES MELLITUS WITH HYPERGLYCE 01/27/2018 SHIRA NUNEZ MD Ot L97.112 NON-PRS CHRONIC ULCER OF RIGHT THIGH W F 01/27/2018 SHIRA NUNEZ MD Ot S70.321D BLISTER (NONTHERMAL), RIGHT THIGH, SUBSE 01/27/2018 SHIRA NUNEZ MD, Ot Z89.611 ACQUIRED ABSENCE OF RIGHT LEG ABOVE KNEE 01/28/2018 ANGELA PRIETO MD Ot E11.9 TYPE 2 DIABETES MELLITUS WITHOUT COMPLIC 01/28/2018 ANGELA PRIETO MD Ot E78.2 MIXED HYPERLIPIDEMIA 01/28/2018 ANGELA PRIETO MD Ot I08.1 RHEUMATIC DISORDERS OF BOTH [place] AND T 01/28/2018 ANGELA PRIETO MD Ot I11.0 HYPERTENSIVE HEART DISEASE WITH HEART FA 01/28/2018 ANGELA PRIETO MD Ot I25.10 ATHSCL HEART DISEASE OF [place] CORONARY 01/28/2018 ANGELA PRIETO MD Ot I50.9 HEART FAILURE, UNSPECIFIED 01/29/2018 SHIRA NUNEZ MD, Ot E11.622 TYPE 2 DIABETES MELLITUS WITH OTHER SKIN 01/29/2018 SHIRA NUNEZ MD, Ot L97.112 NON-PRS CHRONIC ULCER OF RIGHT THIGH W F 01/29/2018 SHIRA NUNEZ MD, Ot Z89.611 ACQUIRED ABSENCE OF RIGHT LEG ABOVE KNEE 01/30/2018 ANGELA PRIETO MD Ot E11.9 TYPE 2 DIABETES MELLITUS WITHOUT COMPLIC 01/30/2018 ANGELA PRIETO MD Ot E78.2 MIXED HYPERLIPIDEMIA 01/30/2018 ANGELA PRIETO MD Ot I08.1 RHEUMATIC DISORDERS OF BOTH [place] AND T 01/30/2018 ANGELA PRIETO MD Ot I11.0 HYPERTENSIVE HEART DISEASE WITH HEART FA 01/30/2018 ANGELA PRIETO MD Ot I25.10 ATHSCL HEART DISEASE OF [place] CORONARY 01/30/2018 ANGELA PRIETO MD Ot I50.9 HEART FAILURE, UNSPECIFIED 02/06/2018 SHIRA NUNEZ MD Ot E11.622 TYPE 2 DIABETES MELLITUS WITH OTHER SKIN 02/06/2018 SHIRA NUNEZ MD Ot L97.112 NON-PRS CHRONIC ULCER OF RIGHT THIGH W F 02/06/2018 SHIRA NUNEZ MD, Ot Z89.611 ACQUIRED ABSENCE OF RIGHT LEG ABOVE KNEE 02/23/2018 SHIRA NUNEZ MD, Ot E11.622 TYPE 2 DIABETES MELLITUS WITH OTHER SKIN 02/23/2018 SHIRA NUNEZ MD, Ot L97.112 NON-PRS CHRONIC ULCER OF RIGHT THIGH W F 02/23/2018 SHIRA NUNEZ MD, Ot Z89.611 ACQUIRED ABSENCE OF RIGHT LEG ABOVE KNEE 02/27/2018 SHIRA NUNEZ MD, Ot E11.622 TYPE 2 DIABETES MELLITUS WITH OTHER SKIN 02/27/2018 SHIRA NUNEZ MD, Ot L97.112 NON-PRS CHRONIC ULCER OF RIGHT THIGH W F 02/27/2018 SHIRA NUNEZ MD, Ot Z89.611 ACQUIRED ABSENCE OF RIGHT LEG ABOVE KNEE 03/17/2018 Ot E11.622 TYPE 2 DIABETES MELLITUS WITH OTHER SKIN 03/17/2018 Ot I96 GANGRENE, NOT ELSEWHERE CLASSIFIED 03/17/2018 Ot L97.112 NON-PRS CHRONIC ULCER OF RIGHT THIGH W F 03/17/2018 Ot L98.498 NON-PRS CHRONIC ULCER SKIN/ OTHER SITES 03/17/2018 Ot Z89.611 ACQUIRED ABSENCE OF RIGHT LEG ABOVE KNEE 03/17/2018 SHIRA NUNEZ MD, Ot E11.622 TYPE 2 DIABETES MELLITUS WITH OTHER SKIN 03/17/2018 SHIRA NUNEZ MD, Ot I96 [place]GR[place], NOT ELSEWHERE CLASSIFIED 03/17/2018 SHIRA NUNEZ MD, Ot L97.112 NON-PRS CHRONIC ULCER OF RIGHT THIGH W F 03/17/2018 SHIRA NUNEZ MD, Ot L98.498 NON-PRS CHRONIC ULCER SKIN/ OTHER SITES 03/17/2018 SHIRA NUNEZ MD, Ot Z89.611 ACQUIRED ABSENCE OF RIGHT LEG ABOVE KNEE 03/20/2018 SHIRA NUNEZ MD, Ot E11.622 TYPE 2 DIABETES MELLITUS WITH OTHER SKIN 03/20/2018 SHIRA NUNEZ MD, Ot 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 03/20/2018 SHIRA NUNEZ MD, Ot L97.112 NON-PRS CHRONIC ULCER OF RIGHT THIGH W F 03/20/2018 SHIRA NUNEZ MD, Ot L98.498 NON-PRS CHRONIC ULCER SKIN/ OTHER SITES 03/20/2018 SHIRA NUNEZ MD, Ot Z89.611 ACQUIRED ABSENCE OF RIGHT LEG ABOVE KNEE 03/24/2018 MAYRA MD, SHIRA G Ot E11.622 TYPE 2 DIABETES MELLITUS WITH OTHER SKIN 03/24/2018 SHIRA NUNEZ MD Ot I96 GANGRENE, NOT ELSEWHERE CLASSIFIED 03/24/2018 SHIRA NUNEZ MD, Ot L97.112 NON-PRS CHRONIC ULCER OF RIGHT THIGH W F 03/24/2018 SHIRA NUNEZ MD, Ot L98.498 NON-PRS CHRONIC ULCER SKIN/ OTHER SITES 03/24/2018 SHIRA NUNEZ MD, Ot Z89.611 ACQUIRED ABSENCE OF RIGHT LEG ABOVE KNEE 03/26/2018 HUI WATTS, BALDOMERO Kat Ot 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 03/26/2018 BALDOMERO AMES MD, Ot E11.40 TYPE 2 DIABETES MELLITUS WITH DIABETIC N 03/26/2018 BALDOMERO AMES MD, Ot E11.59 TYPE 2 DIABETES MELLITUS WITH OTH CIRCUL 03/26/2018 BALDOMERO AMES MD, Ot E78.00 PURE HYPERCHOLESTEROLEMIA, UNSPECIFIED 03/26/2018 BALDOMERO AMES MD, Ot 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 KDNY DIS W HRT FAIL AND ST 03/26/2018 BALDOMERO AMES MD, Ot I25.10 ATHSCL HEART DISEASE OF [place] CORONARY 03/26/2018 BALDOMERO AMES MD, Ot I25.2 OLD MYOCARDIAL INFARCTION 03/26/2018 BALDOMERO AMES MD, Ot I50.9 HEART FAILURE, UNSPECIFIED 03/26/2018 BALDOMERO AMES MD, Ot I73.9 PERIPHERAL VASCULAR DISEASE, UNSPECIFIED 03/26/2018 BALDOMERO AMES MD, Ot L76.21 POSTPROC HEMOR OF SKIN, SUBCU FOL A DERM 03/26/2018 BALDOMERO AMES MD, Ot N18.6 END STAGE RENAL DISEASE 03/26/2018 BALDOMERO AMES MD, Ot 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 03/26/2018 BALDOMERO AMES MD, Ot Z79.82 JAIL (CURRENT) USE OF ASPIRIN 03/26/2018 BALDOMERO AMES MD, Ot Z88.0 ALLERGY STATUS TO PENICILLIN 03/26/2018 BALDOMERO AMES MD, Ot Z88.1 ALLERGY STATUS TO OTHER ANTIBIOTIC AGENT 03/26/2018 BALDOMERO AMES MD, Ot Z88.5 ALLERGY STATUS TO NARCOTIC AGENT STATUS 03/26/2018 BALDOMERO AMES MD, Ot Z89.611 ACQUIRED ABSENCE OF RIGHT LEG ABOVE KNEE 03/26/2018 BALDOMERO AMES MD, Ot Z89.612 ACQUIRED ABSENCE OF LEFT LEG ABOVE KNEE 03/26/2018 BALDOMERO AMES MD Ot Z95.1 PRESENCE OF AORTOCORONARY BYPASS GRAFT 03/26/2018 BALDOMERO AMES MD Ot Z95.810 PRESENCE OF AUTOMATIC (IMPLANTABLE) CARD 03/26/2018 BALDOMERO AMES MD Ot Z99.2 DEPENDENCE ON RENAL DIALYSIS 03/30/2018 Ot E11.622 TYPE 2 DIABETES MELLITUS WITH OTHER SKIN 03/30/2018 Ot I96 GANGRENE, NOT ELSEWHERE CLASSIFIED 03/30/2018 Ot L97.112 NON-PRS CHRONIC ULCER OF RIGHT THIGH W F 03/30/2018 Ot L98.498 NON-PRS CHRONIC ULCER SKIN/ OTHER SITES 03/30/2018 Ot Z89.611 ACQUIRED ABSENCE OF RIGHT LEG ABOVE KNEE 03/30/2018 SHIRA NUNEZ MD Ot E11.622 TYPE 2 DIABETES MELLITUS WITH OTHER SKIN 03/30/2018 SHIRA NUNEZ MD Ot 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 03/30/2018 SHIRA NUNEZ MD, Ot L97.112 NON-PRS CHRONIC ULCER OF RIGHT THIGH W F 03/30/2018 SHIRA NUNEZ MD, Ot L98.498 NON-PRS CHRONIC ULCER SKIN/ OTHER SITES 03/30/2018 SHIRA NUNEZ MD, Ot Z89.611 ACQUIRED ABSENCE OF RIGHT LEG ABOVE KNEE 04/03/2018 SHIRA NUNEZ MD, Ot E11.622 TYPE 2 DIABETES MELLITUS WITH OTHER SKIN 04/03/2018 SHIRA NUNEZ MD, Ot L22 DIAPER DERMATITIS 04/03/2018 SHIRA NUNEZ MD, Ot L97.112 NON-PRS CHRONIC ULCER OF RIGHT THIGH W F 04/03/2018 SHIRA NUNEZ MD, Ot L98.411 NON-PRESSURE CHRONIC ULCER OF BUTTOCK LI 04/03/2018 SHIRA NUNEZ MD, Ot T81.31XA DISRUPTION OF EXTERNAL OPERATION (SURGIC 04/03/2018 SHIRA NUNEZ MD Ot Z89.021 ACQUIRED ABSENCE OF RIGHT FINGER(S) 04/03/2018 SHIRA NUNEZ MD, Ot Z89.611 ACQUIRED ABSENCE OF RIGHT LEG ABOVE KNEE 04/09/2018 LIZBETH COWART GRAIN 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 Ot E11.622 TYPE 2 DIABETES MELLITUS WITH OTHER SKIN 04/09/2018 SUPA LIZBETH R GRAIN 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 Ot L22 DIAPER DERMATITIS 04/09/2018 SUPA LIZBETH R GRAIN 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 Ot L97.112 NON-PRS CHRONIC ULCER OF RIGHT THIGH W F 04/09/2018 SUPA LIZBETH R GRAIN 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 Ot L98.411 NON-PRESSURE CHRONIC ULCER OF BUTTOCK LI 04/09/2018 SUPA LIZBETH R GRAIN 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 Ot T81.31XA DISRUPTION OF EXTERNAL OPERATION (SURGIC 04/09/2018 LIZBETH COWART GRAIN 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 Ot Z89.021 ACQUIRED ABSENCE OF RIGHT FINGER(S) 04/09/2018 LIZBETH COWART GRAIN 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 Ot Z89.611 ACQUIRED ABSENCE OF RIGHT LEG ABOVE KNEE 04/14/2018 SHIRA NUNEZ MD Ot E11.622 TYPE 2 DIABETES MELLITUS WITH OTHER SKIN 04/14/2018 SHIRA NUNEZ MD Ot L22 DIAPER DERMATITIS 04/14/2018 SHIRA NUNEZ MD Ot L97.112 NON-PRS CHRONIC ULCER OF RIGHT THIGH W F 04/14/2018 SHIRA NUNEZ MD Ot L98.411 NON-PRESSURE CHRONIC ULCER OF BUTTOCK LI 04/14/2018 SHIRA NUNEZ MD Ot T81.31XA DISRUPTION OF EXTERNAL OPERATION (SURGIC 04/14/2018 SHIRA NUNEZ MD Ot Z89.021 ACQUIRED ABSENCE OF RIGHT FINGER(S) 04/14/2018 SHIRA NUNEZ MD Ot Z89.611 ACQUIRED ABSENCE OF RIGHT LEG ABOVE KNEE 04/15/2018 LIZBETH COWART GRAIN 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 Ot E11.622 TYPE 2 DIABETES MELLITUS WITH OTHER SKIN 04/15/2018 LIZBETH COWART R GRAIN 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 Ot L22 DIAPER DERMATITIS 04/15/2018 LIZBETH COWART GRAIN 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 Ot L97.112 NON-PRS CHRONIC ULCER OF RIGHT THIGH W F 04/15/2018 SUPA LIZBETH R GRAIN 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 Ot L98.411 NON-PRESSURE CHRONIC ULCER OF BUTTOCK LI 04/15/2018 SUPA LIZBETH R GRAIN 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 Ot T81.31XA DISRUPTION OF EXTERNAL OPERATION (SURGIC 04/15/2018 LIZBETH COWART APRN Ot Z89.021 ACQUIRED ABSENCE OF RIGHT FINGER(S) 04/15/2018 LIZBETH COWART APRN Ot Z89.611 ACQUIRED ABSENCE OF RIGHT LEG ABOVE KNEE Procedures Code Description Performed By Performed On 00.40 01/20/2011 00.45 01/20/2011 00.66 01/20/2011 36.07 01/20/2011 88.49 01/20/2011 88.56 01/20/2011 88.49 03/24/2011 88.56 03/24/2011 89592 ROUTINE VENIPUNCTURE 01/21/2013 16133 CBC 01/21/2013 75159 CMP 01/21/2013 4239596 GFR CALC (RESULT ONLY) 01/21/[id number] SPTYPE 01/26/2013 Cardiolog Angela Prieto 02/08/2013 19771 MICRO ALBUMIN-IN HOUSE 04/02/2013 21930 A1C (IN-HOUSE) 04/02/2013 41066 MICROALBUMIN 04/03/2013 GENERAL S LU IRELAND 04/03/2013 65410 ROUTINE VENIPUNCTURE 05/14/2013 25302 US BREAST ULTRASOUND, RIGHT 05/14/2013 80082 CMP 05/14/2013 Nephrolog Sanket Nephrology 05/14/2013 27000 ROUTINE VENIPUNCTURE 06/07/2013 73417 CMP 06/07/2013 60048 PHOSPHORUS 06/07/2013 PRO/CRE URINE PROTEIN TO CREATNINE RATIO 06/07/2013 Results Test Result Range Body fluid cell count - 12/26/15 06:00 Specimen source identification of body fluid SYNOVIAL NRG Evaluation of color of body fluid RED NRG Determination of appearance of body fluid MKD BLDY NRG Body fluid leukocytes count (number/volume) 0 /uL NRG Body fluid erythrocytes count (number/volume) 71735 /uL NRG * Body fluid crystals type [...] 08/31/16 14:30 FREE TEXT EXTERNAL SEE COMMENT NRG QUANTITY OF GROWTH Isolated NRG Bacterial blood culture [id number] NR Bacterial blood culture - 08/31/16 14:42 Bacterial blood culture NG NRG Complete blood [...] - 11/06/16 12:48 Bacterial blood culture NG NRG PT panel in platelet poor plasma by [...] 04/14 11:20 NRG QUANTITY OF GROWTH Isolated [facility] Bacterial blood culture [id number] [facility] Bacterial susceptibility panel - 04/11/17 [...] INFLUENZA A AND B ANTIGENS BY IA NRG Bacterial blood culture - 04/11/17 20:24 FREE TEXT EXTERNAL REFER TO BLOOD CULTURE [id number] FOR NRG QUANTITY OF GROWTH Isolated NRG Bacterial blood culture [id number] NRG Sputum Gram stain - 04/11/17 21:37 GRAM STAIN SPUTUM AND MIXED BACTERIAL ERICK NRG Bacterial sputum culture - 04/11/17 21:37 FREE TEXT EXTERNAL PLUS NORMAL ERICK NRG QUANTITY OF GROWTH Moderate Growth NRG Bacterial sputum culture [id number] NRG Complete blood count (CBC) with automated [...] plasma calcium measurement (mass/volume) 9.0 mg/dL 8.5-10.1 Complete blood count (CBC) with automated white blood cell (WBC) differential - 09/26/17 05:30 Blood leukocytes automated count (number/volume) 7.6 10*3/uL 4.3-11.0 Blood erythrocytes automated count (number/volume) 3.34 10*6/uL 4.35-5.85 Venous blood hemoglobin measurement (mass/volume) 11.1 g/dL 13.3-17.7 Blood hematocrit (volume fraction) 34 % 40-54 Automated erythrocyte mean corpuscular volume 101 [foz_us] 80-99 Automated erythrocyte mean corpuscular hemoglobin (mass per erythrocyte) 33 pg 25-34 Automated erythrocyte mean corpuscular hemoglobin concentration measurement ( mass/volume) 33 g/dL 32-36 Automated erythrocyte distribution width ratio 17.7 % 10.0-14.5 Automated blood platelet count (count/volume) 108 10*3/uL 130-400 Automated blood platelet mean volume measurement TNP 7.4 -10.4 Automated blood neutrophils/100 leukocytes 74 % 42-75 Automated blood lymphocytes/100 leukocytes 11 [...] blood basophil count (count/volume) 0.1 10*3/uL 0.0-0.1 Comprehensive metabolic panel - 09/26/17 05:30 Serum or plasma sodium measurement (moles/volume) 136 mmol/L 135-145 Serum or plasma potassium measurement (moles/volume) 4.0 mmol/L 3.6-5.0 Serum or plasma chloride measurement (moles/volume) 95 mmol/L 98-107 Carbon dioxide 23 mmol/L 21-32 Serum or plasma anion gap determination (moles/volume) 18 mmol/L 5-14 Serum or plasma urea nitrogen measurement (mass/volume) 39 mg/dL 7-18 Serum or plasma creatinine measurement (mass/volume) 6.08 mg/dL 0.60-1.30 Serum or plasma urea nitrogen/creatinine mass ratio 6 NRG Serum or plasma creatinine measurement with calculation of estimated glomerular filtration rate 10 NRG Serum or plasma glucose measurement (mass/volume) 233 mg/dL 70-105 Serum or plasma calcium measurement (mass/volume) 9.2 mg/dL 8.5-10.1 Serum or plasma total bilirubin measurement (mass/volume) 0.9 mg/dL 0.1-1.0 Serum or plasma alkaline phosphatase measurement (enzymatic activity/volume) 118 U/L 40-136 Serum or plasma aspartate aminotransferase measurement (enzymatic activity/ volume) 16 U/L 5-34 Serum or plasma alanine aminotransferase measurement (enzymatic activity/volume ) 8 U/L 0-55 Serum or plasma protein measurement (mass/volume) 7.6 g/dL 6.4-8.2 Serum or plasma albumin measurement (mass/volume) 4.0 g/dL 3.2-4.5 Serum or plasma C reactive protein measurement (mass/volume) - 09/26/17 05:30 Serum or plasma C reactive protein measurement (mass/volume) 1.61 mg /dL 0.00-0.50 Gram stain microscopy - 09/26/17 06:53 GRAM STAIN RESULT FEW GRAM POSITIVE RODS NR Bacteria identification in wound by culture - 09/26/17 06:53 Bacteria identification in wound by culture [id number] NR FREE TEXT EXTERNAL SENSITIVITY REPORTED AT 1052, 5-6-18 NRG QUANTITY OF GROWTH Abundant Growth NR FREE TEXT ENTRY 2 UNUSUAL RESISTANCE PATTERN DETECTED [facility] Bacterial susceptibility panel - 09/26/17 06:53 Gentamicin susceptibility test by minimum inhibitory concentration < = NRG Trimethoprim/sulfamethoxazole susceptibility test by minimum inhibitoryconcentration S NRG Ampicillin susceptibility test by minimum inhibitory concentration < = NRG Tobramycin susceptibility test by minimum inhibitory concentration < = NRG Cefazolin susceptibility test by minimum inhibitory concentration < = NRG Ceftriaxone susceptibility test by minimum inhibitory concentration <= NRG Ampicillin/sulbactam susceptibility test by minimum inhibitory concentration <= NRG Piperacillin/tazobactam susceptibility test by minimum inhibitory concentration S NRG Ciprofloxacin susceptibility test by minimum inhibitory concentration <= NRG Meropenem susceptibility test by minimum inhibitory concentration < = NRG Aztreonam susceptibility test by minimum inhibitory concentration < = NRG Bacterial susceptibility panel - 09/26/17 06:53 Gentamicin susceptibility test by minimum inhibitory concentration < = NRG Trimethoprim/sulfamethoxazole susceptibility test by minimum inhibitoryconcentration <= NRG Tobramycin susceptibility test by minimum inhibitory concentration < = NRG Cefazolin susceptibility test by minimum inhibitory concentration > = NRG Ceftriaxone susceptibility test by minimum inhibitory concentration >= NRG Piperacillin/tazobactam susceptibility test by minimum inhibitory concentration >= NRG Ciprofloxacin susceptibility test by minimum inhibitory concentration <= NRG Meropenem susceptibility test by minimum inhibitory concentration < = NRG Aztreonam susceptibility test by minimum inhibitory concentration 32 NRG Cefepime susceptibility test by minimum inhibitory concentration R NRG Bacterial susceptibility panel - 09/26/17 06:53 Oxacillin susceptibility test by minimum inhibitory concentration > = NRG Gentamicin susceptibility test by minimum inhibitory concentration < = NRG Clindamycin susceptibility test by minimum inhibitory concentration <= NRG Erythromycin susceptibility test by minimum inhibitory concentration >= NRG Trimethoprim/sulfamethoxazole susceptibility test by minimum inhibitoryconcentration S NRG Vancomycin susceptibility test by minimum inhibitory concentration 1 NRG Levofloxacin susceptibility test by minimum inhibitory concentration <= NRG Rifampin susceptibility test by minimum inhibitory concentration <= NRG Tetracycline susceptibility test by minimum inhibitory concentration 2 NRG Gram stain microscopy - 11/30/17 19:14 Gram stain microscopy Occasional gram positive cocci observed NRG Bacteria identification in wound by culture - 11/30/17 19:14 Bacteria identification in wound by culture [id number] NRG FREE TEXT EXTERNAL NO FURTHER STUDIES UNLESS REQUESTED NRG QUANTITY OF GROWTH Abundant Growth NRG Encounters ACCT No. Visit Date/Time Discharge Status Pt. Type Provider Facility Loc./Unit Complaint [id number] 06/10/2013 06:15:00 06/10/2013 23:59:59 CLS Outpatient [id number] 06/07/2013 12:36:00 06/07/2013 23:59:59 CLS Outpatient JEANIE TRIPLETT DO [id number] 05/14/2013 09:09:00 05/14/2013 23:59:59 CLS Outpatient JEANIE TRIPLETT DO [id number] 04/02/2013 09:54:00 04/02/2013 23:59:59 CLS Outpatient JEANIE TRIPLETT DO [id number] 01/21/2013 14:14:00 Document Registration [id number] 12/31/2012 08:52:00 Document Registration [id number] 02/07/2012 11:04:00 Document Registration [id number] 12/02/2017 14:40:00 12/02/2017 23:59:59 CLS [facility] [id number] 04/14/2018 11:25:00 04/14/2018 23:59:59 CLS Outpatient LIZBETH COWART APRN [facility] WOUNDCARE [id number] 04/07/2018 09:19:00 04/07/2018 23:59:59 CLS Outpatient LIZBETH COWART APRN [facility] WOUND[facility] [id number] 04/01/2018 11:35:00 04/01/2018 23:59:59 CLS Outpatient SHIRA NUNEZ MD [facility] W[facility] [id number] 03/18/2018 12:02:00 03/18/2018 23:59:59 CLS Outpatient SHIRA NUNEZ MD [facility] W[facility] [id number] 03/13/2018 11:12:00 03/13/2018 23:59:59 CLS Outpatient SHIRA NUNEZ MD [facility] W[facility] [id number] 02/25/2018 12:00:00 02/25/2018 23:59:59 CLS Outpatient SHIRA NUNEZ MD [facility] W[facility] [id number] 02/11/2018 11:58:00 02/11/2018 23:59:59 CLS Outpatient SHIRA NUNEZ MD [facility] W[facility] [id number] 01/28/2018 11:53:00 01/28/2018 23:59:59 CLS Outpatient SHIRA NUNEZ MD [facility] WOUND[facility]ARE [id number] 01/19/2018 12:25:00 01/19/2018 23:59:59 CLS Outpatient ANGELA PRIETO MD [facility] CARD I25.10 [facility] [id number] 01/14/2018 10:43:00 01/14/2018 23:59:59 CLS Outpatient SHIRA NUNEZ MD [facility] WOUNDCARE [id number] 12/17/2017 11:59:00 12/17/2017 23:59:59 CLS Outpatient SHIRA NUNEZ MD [facility] W[facility] [id number] 12/03/2017 11:59:00 12/03/2017 23:59:59 CLS Outpatient SHIRA NUNEZ MD [facility] W[facility] [id number] 11/30/2017 18:27:00 11/30/2017 19:27:00 DIS Outpatient EDY GREEN [facility] ER SPIDER BITE ON FACE [id number] 11/19/2017 12:02:00 11/19/2017 23:59:59 CLS Outpatient SHIRA NUNEZ MD [facility] W[facility] [id number] 11/05/2017 12:05:00 11/05/2017 23:59:59 CLS Outpatient SHIRA NUNEZ MD [facility] W[facility] [id number] 10/29/2017 13:19:00 10/29/2017 23:59:59 CLS Outpatient SHIRA NUNEZ MD [facility] WOUND[facility] [id number] 10/22/2017 12:11:00 10/22/2017 23:59:59 CLS Outpatient SHIRA NUNEZ MD [facility] W[facility] [id number] 10/15/2017 12:29:00 10/15/2017 23:59:59 CLS Outpatient SHIRA NUNEZ MD [facility] W[facility] [id number] 10/13/2017 06:35:00 10/13/2017 23:59:59 CLS Outpatient SHIRA NUNEZ MD [facility] RAD ATHEROSCLEROSIS OF [place] ARTERIES OF RT LEG W [id number] 10/08/2017 12:44:00 10/08/2017 23:59:59 CLS Outpatient SHIRA NUNEZ MD [facility] WOUNDC[facility] [id number] 10/08/2017 11:27:00 10/08/2017 23:59:59 CLS Outpatient SHIRA NUNEZ MD [facility] RAD TYPE 2 DIABETES [id number] 10/01/2017 14:46:00 10/01/2017 23:59:59 CLS Outpatient SHIRA NUNEZ MD [facility] WOUNDCARE [id number] 09/26/2017 14:21:00 09/26/2017 23:59:59 CLS Outpatient SHIRA NUNEZ MD [facility] WOUNDC[facility] [id number] 09/26/2017 04:50:00 09/26/2017 07:43:00 DIS Emergency SANDI PERALTA MD [facility] ER RT LEG STUMP WOUND PAIN [id number] 09/17/2017 11:46:00 09/17/2017 23:59:59 CLS Outpatient ANGELA PRIETO MD [facility] CARD I25.10 CAD [id number] 09/12/2017 21:29:00 09/13/2017 01:30:00 DIS Outpatient BALDOMERO AMES MD [facility] ER PORT BLEEDING [id number] 09/12/2017 15:34:00 09/12/2017 16:12:00 DIS Emergency LACEY STONE GRAIN 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 [facility] ER BLEEDING FROM PORT AFTER DIALYSIS [id number] 09/09/2017 10:23:00 09/09/2017 23:59:59 CLS Preadmit ANEGLA PRIETO MD [facility] CARD I25.10 CAD [id number] 08/14/2017 13:49:00 08/14/2017 23:59:59 CLS Outpatient LIZBETH COWART GRAIN 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 [facility] WOUNDCARE [id number] 04/11/2017 18:50:00 04/11/2017 22:32:00 DIS Emergency JARED AGEE DO [facility] ER FEVER,BLOOD INFECTION [id number] 2017 09:48:00 2017 11:05:00 DIS Outpatient LAXMI ALTAMIRANO GRAIN 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 [facility] REHAB B AKA;ESRD;PVD [id number] 12/09/2016 00:12:00 12/09/2016 23:59:59 CLS Preadmit JOAQUIN TIRADO MD [facility] SDC INFUSION [id number] 09/18/2016 13:13:00 12/08/2016 00:01:00 DIS Outpatient JOAQUIN TIRADO MD [facility] SDC INFUSION [id number] 11/06/2016 11:40:00 11/06/2016 17:37:00 DIS Emergency JARED AGEE DO [facility] ER ABD PAIN [id number] 08/31/2016 14:17:00 08/31/2016 17:15:00 DIS Emergency SANDI PERALTA MD [facility] ER ABD PAIN [id number] 08/24/2016 15:34:00 08/24/2016 18:25:00 DIS Emergency JET WATTS, WADE S [facility] ER DULL CHEST PAIN [id number] 06/12/2016 06:50:00 06/12/2016 10:33:00 DIS Emergency FABIAN WATTS, SANDI Ramos [facility] ER CHEST PAIN [id number] 06/04/2016 13:43:00 06/04/2016 16:00:00 DIS Outpatient LIZBETH COWART GRAIN 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 [facility] WOUNDCARE [id number] 05/24/2016 10:25:00 05/24/2016 23:59:59 CLS Outpatient LIZBETH COWART GRAIN 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 [facility] LAB [id number],L97.522 [id number] 03/10/2016 13:14:00 03/10/2016 23:59:59 CLS Outpatient CORY COSBY [facility] QUICK L FOOT INJURY [id number] 02/27/2016 22:57:00 02/28/2016 00:07:00 DIS Emergency JARED AGEE DO [facility] ER L FOOT LAC [id number] 02/24/2016 23:49:00 02/25/2016 02:38:00 DIS Emergency DENZEL ROMERO DO [facility] ER SOA [id number] 02/17/2016 12:03:00 02/17/2016 15:40:00 DIS Emergency MALGORZATA AKINS MD [facility] ER L CALF TIGHTNESS/PAIN [id number] 12/26/2015 04:58:00 12/26/2015 06:09:00 DIS Emergency CYNDIE JARED HARRIS [facility] ER LEFT ELBOW SWELLING [id number] 12/01/2015 18:09:00 12/01/2015 23:59:59 CLS Outpatient ALYSIA BAKER DO [facility] QUICK [id number] 08/11/2015 19:44:00 08/11/2015 22:56:00 DIS Emergency EDY GREEN [facility] ER FALL [id number] 06/10/2013 14:33:00 06/10/2013 23:59:59 CLS Outpatient SENJAREDMerly ROCHA-Kierra [facility] RAD CKD STAGE IV [id number] 06/04/2013 08:06:00 06/04/2013 23:59:59 CLS Outpatient LU IRELAND MD [facility] RAD CHEST ABCESS [id number] 06/01/2013 14:30:00 06/01/2013 23:59:59 CLS Outpatient LU IRELAND MD [facility] LABNPT ABSCESS (R) BREAST , WOUND (L) CHEST [id number] 05/31/2013 08:53:00 05/31/2013 23:59:59 CLS Outpatient BALDOMERO MONTES DE OCA [facility] RAD LARGE FIRM MOBILE MASS RT NIPPLE [id number] 04/16/2013 15:12:00 04/16/2013 23:59:59 CLS Outpatient LU IRELAND MD [facility] RAD UNK [id number] 02/03/2013 11:26:00 02/03/2013 23:59:59 CLS Outpatient SONIDO ARBOLEDA [facility] RAD CAD,HTN [id number] 11/09/2012 14:22:00 11/09/2012 23:59:59 CLS Outpatient ANGELA PRIETO MD [facility] LAB CAD [id number] 10/30/2012 09:22:00 10/30/2012 23:59:59 CLS Outpatient ANGELA PRIETO MD [facility] LAB CAD,HYPERTENSION [id number] 10/28/2012 08:06:00 10/28/2012 23:59:59 CLS Outpatient ANGELA PRIETO MD [facility] CARD CHF,CAD [id number] 03/13/2018 13:48:00 Document Registration [id number] 12/31/2017 12:00:00 Document Registration [id number] 08/11/2015 23:02:00 Document Registration [id number] 12/30/2011 10:24:00 Document Registration [id number] 12/26/2011 09:33:00 Document Registration [id number] 09/12/2011 11:20:00 Document Registration [id number] 09/04/2011 07:12:00 Document Registration [id number] 08/22/2011 10:34:00 Document Registration [id number] 07/19/2011 13:31:00 Document Registration [id number] 07/12/2011 18:10:00 Document Registration [id number] 04/10/2011 02:35:00 Document Registration [id number] 04/05/2011 07:50:00 Document Registration [id number] 04/03/2011 10:55:00 Document Registration [id number] 03/23/2011 21:22:00 Document Registration [id number] 01/22/2011 19:00:00 Document Registration [id number] 01/18/2011 15:11:00 Document Registration [id number] 06/29/2010 03:17:00 Document Registration [id number] 06/28/2010 10:34:00 Document Registration [id number] 06/24/2010 11:10:00 Document Registration [id number] 06/17/2010 13:40:00 Document Registration [id number] 06/12/2010 15:15:00 Document Registration [id number] 03/23/2010 08:13:00 Document Registration [id number] 03/09/2010 12:35:00 Document Registration
--- NOTE | 2018-04-24 09:41 | Progress Note-Pre Operative ---
Pre-Operative Progress Note H&P Reviewed The H&P was reviewed, patient examined and no changes noted. Date Seen by Provider: Apr 24, 2018 Time Seen by Provider: : Date H&P Reviewed: Apr 24, 2018 Time H&P Reviewed: : Pre-Operative Diagnosis: right hand diabetic ulcer and cellulitis MOUNA GAVIN MD Apr 24, 2018 9:41 am
[2018-04-24] MEDS ORDERED: ACETAMINOPHEN 325 MG TABLET PO PRN (09:45)
[2018-04-24] MEDS ORDERED: ONDANSETRON 4 MG/2 ML (SDV) Z0FRAN IVP PRN ×2 (09:45→11:45)
[2018-04-24] MEDS ORDERED: fentaNYL INJECTION 100 MCG/2 ML AMP IVP PRN (09:45)
[2018-04-24] MEDS ORDERED: oxyCODONE/APAP 5/325MG (PERCOCET 5) TABLET PO PRN (09:45)
[2018-04-24] MEDS ORDERED: BUP/EPI 0.5% 1:200,000 (SENSORCAINE) 30 ML VIAL ONE (10:11)
[2018-04-24 10:14] LABS: CALCIUM 9.9 MG/DL (8.5-10.1); CREATININE SERUM 6.71 MG/DL (0.60-1.30); POTASSIUM 4.9 MMOL/L (3.6-5.0)
[2018-04-24] MEDS ORDERED: HYDR-3816 PO ×2 (10:38)
[2018-04-24] MEDS ORDERED: SULF1TAB35 PO ×2 (10:38)
[2018-04-24] MEDS ORDERED: LOPE-145 PO ×2 (10:38)
[2018-04-24] MEDS ORDERED: MIDAZOLAM 2 MG/2 ML (VERSED) VIAL ONE (10:42)
[2018-04-24] MEDS ORDERED: PROPOFOL INJECTION 50 ML IV ONE (10:42)
--- NOTE | 2018-04-24 11:32 | Progress Note-Post Operative ---
Post-Operative Progess Note Surgeon (s)/Blood Bank Attendant (s) Surgeon MOUNA GAVIN MD Blood Bank Attendant: none Pre-Operative Diagnosis right hand diabetic ulcer and cellulitis Post-Operative Diagnosis same with proximal phalanx involvement. Procedure & Operative Findings Date of Procedure 04/24/18 Procedure Performed/Findings debridement skin, fascia, muscle and bone right phalanx. Anesthesia Type MAC with local Estimated Blood Loss Estimated blood loss (mL): minimal Specimens/Packing Specimens Removed proximal phalanx MOUNA GAVIN MD Apr 24, 2018 11:32 am
--- NOTE | 2018-04-24 11:38 | Discharge Inst-Surgical ---
D/C Lap Instructions-KIDO New, Converted, or Re-Newed RX: RX on Chart Follow Up in next week with wound care. Activity as tolerated wet to dry BID Regular Diet Symptoms to Report: Fever over 101 degree F, Nausea/Vomiting Infection Signs and Symptoms to report: Increased redness, Foul odor of wound, Increased drainage Bathing instructions: May shower Operative Area Clean/Dry; Keep incision clean/dry If any problems/questions: Contact your physician or go to Emergency Room MOUNA GAVIN MD Apr 24, 2018 11:38 am
[2018-04-24] MEDS ORDERED: fentaNYL INJECTION 100 MCG/2 ML AMP IVP ONE (11:45)
[2018-04-24 12:05] VITALS: BP 114/65
--- NOTE | 2018-04-24 12:31 | Anesthesia-General Post-Op ---
MAC Patient Condition Mental Status/LOC: Same as Preop Cardiovascular: Satisfactory Nausea/Vomiting: Absent Respiratory: Satisfactory Pain: Controlled Complications: Absent Post Op Complications Complications None Follow Up Care/Instructions Patient Instructions None needed. Anesthesiology Discharge Order Discharge Order Patient is doing well, no complaints, stable vital signs, no apparent adverse anesthesia problems. No complications reported per nursing. TIMOTHY HODGE CRNA Apr 24, 2018 12:31
[2018-04-24 12:35] VITALS: BP 114/65
[2018-04-24 13:05] VITALS: BP 124/51
[2018-04-24 14:00] VITALS: BP 124/51
[2018-04-24] MEDS ORDERED: HYDR-34 PO ×2 (14:22)
[2018-04-24] MEDS ORDERED: NS IV 500 ML 500 ML IV ONE (15:00)
--- NOTE | 2018-04-24 20:02 | OPERATIVE REPORT ---
DATE OF SERVICE: 04/24/2018 ATTENDING PRIMARY CARE PHYSICIAN: Porsha Menjivar DO PREOPERATIVE DIAGNOSIS: Cellulitis and necrosis, left hand second metacarpophalangeal stump. POSTOPERATIVE DIAGNOSIS: Cellulitis and necrosis, left hand second metacarpophalangeal stump with bone involvement. PROCEDURE: Debridement of skin, subcutaneous tissue, fascia, muscle and excision of the proximal second phalanx. SURGEON: Mouna Gavin MD ANESTHESIA: Monitored anesthesia care with local. ESTIMATED BLOOD LOSS: Minimal. FINDINGS: Extensive necrotic tissue including the skin, subcutaneous tissue, muscle as well as the stump of the proximal phalanx at the metacarpophalangeal joint. This was resected at the joint. DISPOSITION: The patient tolerated the procedure well. INDICATIONS: The patient is a 58-year-old male with longstanding history of peripheral vascular disease and insulin-dependent diabetes. He has had multiple issues with diabetic neuropathy and diabetic wounds as well as arterial insufficiency due to diabetes. He has undergone bilateral above the knee amputations as well as multiple previous debridements and ulcerated necrotic skin debridements. He underwent excision of the right second phalanx. The surrounding skin and subcutaneous tissue did necrose and he underwent wound care. However, this continued to appear necrotic and nonviable. DESCRIPTION OF PROCEDURE: The patient was brought to the operating room and laid supine on the table. After adequate IV pain and sedating medications and conscious monitored anesthesia care, the hand was prepped and draped in standard surgical fashion. A 0.5% Marcaine with epinephrine was then used to anesthetize the skin, subcutaneous tissue and muscle at the metacarpophalangeal joint of the right hand. The tissue was widely debrided which encompassed skin, subcutaneous tissue, fascia, muscle as well as the bone was identified to be affected. The remainder of the proximal phalanx was amputated at the level of the metacarpophalangeal joint using electrocautery. The soft tissue was debrided widely using a 15 blade. Good hemostasis was observed with electrocautery as well as direct pressure. The wound was left open and packed wet to dry and covered with Kerlix wrap followed by a 2-inch Tres bandage. The patient tolerated the procedure well. We will send him back to wound care to proceed with wound care and in the time being to do wet to dry dressings on a b.i.d. basis. Job ID: [id number] DocumentID: [id number] Dictated Date: 04/24/2018 11:45:27 Communications Tech Date: 04/24/2018 20:01:39 Dictated By: MOUNA GAVIN MD
== END 2018-04-24 14:00 | disposition home or self-care (01) ==
LOC: SDC 08:56
PROVIDERS: ATTEND Surgery
DX: T87.42 Infection of amputation stump, left upper extremity (principal); T87.52 Necrosis of amputation stump, left upper extremity; L03.012 Cellulitis of left finger; I73.9 Peripheral vascular disease, unspecified; E11.40 Type 2 diabetes mellitus with diabetic neuropathy, unspecified; Z79.4 Long term (current) use of insulin; Z89.611 Acquired absence of right leg above knee; Z89.612 Acquired absence of left leg above knee; I13.0 Hypertensive heart and chronic kidney disease with heart failure and stage 1 through stage 4 chronic kidney disease, or unspecified chronic kidney disease; N18.4 Chronic kidney disease, stage 4 (severe); I50.9 Heart failure, unspecified; I25.10 Atherosclerotic heart disease of native coronary artery without angina pectoris; I25.2 Old myocardial infarction; E78.5 Hyperlipidemia, unspecified; Z95.1 Presence of aortocoronary bypass graft; Z79.82 Long term (current) use of aspirin; Z79.899 Other long term (current) drug therapy; Z95.5 Presence of coronary angioplasty implant and graft
CPT/HCPCS: 36415; 80048; 82962; 87081

== ENCOUNTER 2018-04-26 18:03 | Emergency (ER) | payer MEDICARE ==
[~2018-04-26] VITALS: Ht 175.3 cm; Wt 99.8 kg
[~2018-04-26 18:03] MED LIST changes: +HYDR-34 PO; +HYDR-3816 PO; +LOPE-145 PO
[2018-04-26] MEDS ORDERED: NS IV ONE (18:15)
[2018-04-26] MEDS ORDERED: PIPERACILLIN SODIUM/TAZOBACTAM 4.5 GM in NS (IVPB) 100 ML IV ONE (18:15)
[2018-04-26] MEDS ORDERED: DEXTROSE 50% 50 ML (IMS) SYR ONE (18:19)
--- NOTE | 2018-04-26 18:24 | ED General ---
General Stated Complaint: DM Source of Information: Patient, EMS Exam Limitations: Other History of Present Illness Date Seen by Provider: Apr 26, 2018 Time Seen by Provider: 18:06 Initial Comments Patient presents to the ER by EMS with chief complaint that he was at home and is mother come over to do the dressing change in his right hand like she usually does and said he was acting out of it not making any sense so she called the animal's. The patient states he is having some arm spasms in his left shoulder radiating down to the middle of his left arm that started about 45 this evening. He says he called the home health nurse and they told him to go the ER. EMS states that this is not the story they received from the mother. Blood sugar was 76 and instructed himself another 15 units Levemir. He also gives a unreliable history of how many hydrocodone she's taken today for his pain control. He has history of being a bad vasculopath with CABG, stents, peripheral arterial disease resulting in bilateral lower extremity amputations above the knee and recently his right index finger has been agitated by Dr. Gunn. He is on dialysis MWF with a double-lumen dialysis catheter in his right subclavian and does not produce urine. He denies any fevers chills nausea vomiting chest pain or abdominal pain. Says most of his pain is in his bottom. He is currently on Bactrim to help prevent wound infection in his right hand surgical agitation site. Allergies and Home Medications Allergies Coded Allergies: azithromycin (Verified Allergy, Severe, HIVES, TROUBLE BREATHING., 07/13/11 ) cephalexin (Unverified Allergy, Unknown, 02/27/16) morphine (Unverified Allergy, Unknown, Has received Lortab in the past, ) per External Med History has received Lortab in the past vancomycin (Verified Allergy, Unknown, 12/26/15) Home Medications Aspirin 81 Mg Tab.chew, 81 MG PO DAILY, (Reported) Calcitriol 0.5 Mcg Capsule, 0.5 MCG PO DAILY, (Reported) Cinacalcet HCl 30 Mg Tablet, 30 MG PO DAILY, (Reported) Fluticasone Propionate 9.9 Ml [place].susp, 1 SPRAY NS DAILY, (Reported) 1 SPRAY EACH NARE DAILY Hydrocodone Bit/Acetaminophen 1 Ea Tablet, 1-2 EA PO Q4H PRN for PAIN-MODERATE Prescribed by: PRANAY BAÑUELOS on 04/24/18 1422 Hydrocodone/Acetaminophen 1 Each Tablet, 1 EACH PO Q4H PRN for PAIN-MODERATE, ( Reported) Insulin Aspart 300 Units/3 Ml Solution, 5 UNITS SQ TID, (Reported) USES SSI TID WITH MEALS Insulin Detemir 100 Unit/1 Ml Insuln.pen, 15 UNITS SQ HS, (Reported) Sevelamer Carbonate 800 Mg Tablet, 800 MG PO TID, (Reported) Sulfamethoxazole/Trimethoprim 1 Each Tablet, 1 EACH PO BID, (Reported) Patient Home Medication List Home Medication List Reviewed: Yes Review of Systems Review of Systems Constitutional: No chills, No diaphoresis, No fever; malaise EENTM: hearing loss (bilat); No ear discharge, No ear pain, No eye pain Respiratory: No cough, No short of breath Cardiovascular: No chest pain, No edema; Hx of Intervention; No palpitations; vascular heart diseas Gastrointestinal: No abdominal pain, No constipation, No diarrhea, No nausea, No vomiting Genitourinary: No discharge, No dysuria Musculoskeletal: see HPI; No back pain, No joint pain Skin: No pruritus, No rash Psychiatric/Neurological: Denies Headache, Denies Numbness, Denies Paresthesia Past Bgpfhip-Ggfker-Gboxkp Hx Patient Social History Alcohol Use: Denies Use Recreational Drug Use: No Smoking Status: Never a Smoker 2nd Hand Smoke Exposure: No Recent Foreign Travel: No Contact w/Someone Who Travel: No Recent Hopitalizations: Yes (FINGER AMPUTATION 02/2018) Immunizations Up To Date Tetanus Booster (TDap): Unknown Date of Pneumonia Vaccine: Mar 03, 2017 Date of Influenza Vaccine: Mar 02, 2018 Seasonal Allergies Seasonal Allergies: No Past Medical History Surgeries: Yes Amputation, CABG, Defibrillator, Dialysis, Orthopedic, Pacemaker, Vascular Surgery Respiratory: No (CHF/FLUID OVERLOAD) Cardiac: Yes (CHF PACEMAKER-DEFIBRILLATOR ) Chronic Edema/Swelling, Coronary Artery Disease, Heart Attack, High Cholesterol , Hypertension, Peripheral Vascular Neurological: Yes (NEUROPATHY HANDS AND FEET--NOW BILATERAL AKA'S) Neuropathy Reproductive Disorders: No Sexually Transmitted Disease: No HIV/AIDS: No Genitourinary: Yes Renal Failure, Dialysis Gastrointestinal: No Musculoskeletal: Yes (BILATERAL AKA'S) Amputee Endocrine: Yes Diabetes, Insulin dep HEENT: No Loss of Vision: Bilateral Hearing Impairment: Denies Cancer: No Psychosocial: No Integumentary: No Blood Disorders: No Adverse Reaction/Blood Tranf: No (HAS HAD BLOOD WITH NO REACTION) Family Medical History No Pertinent Family Hx Physical Exam-Suspected Sepsis Physical Exam Vital Signs Vital Signs - First Documented 04/26/18 04/26/18 18:03 18:10 Temp 98.9 Pulse 78 Resp 22 B/P (MAP) 92/20 (44) Pulse Ox 94 O2 Delivery Room Air Capillary Refill : Height, Weight, BMI Height: 5'9.00" Weight: 210lbs. 2.0oz. [id number]; 31.0 BMI Method:Stated General Appearance: Chronically ill, Other Eyes: Bilateral Eye Normal Inspection, Bilateral Eye PERRL, Bilateral Eye EOMI HEENT: PERRL/EOMI, TMs Normal, Normal ENT Inspection, Pharynx Normal (Oral mucosa is very dry); No Moist Mucous Membranes Neck: Full Range of Motion, Other (Anterior midline has a 2-3 cm diameter large red swollen nodule consistent with an ingrown hair or abscess) Respiratory: Chest Non Tender, Lungs Clear, Normal Breath Sounds, No Accessory Muscle Use, No Respiratory Distress Cardiovascular: Regular Rate, Rhythm, No Edema, Normal Peripheral Pulses Gastrointestinal: Normal Bowel Sounds, Non Tender, Soft Extremity: Other (Bilateral xpqch-foa-yvzp amputation. Right hand has sores on the thumb and missing amputated index finger as well as there is skin tear more than a few days old on his right elbow. Multiple pressure ulcers on his sacrum) Neurologic/Psychiatric: Alert, Oriented x3, Other (Mild lethargy; [place] Coma Scale 14 pts) Skin: ulcerations (Sacral) Focused Exam Sepsis Stage: Severe Sepsis Possible Source: Skin/Soft Tissue Lactate Level 04/26/18 18:18: Lactic Acid Level 13.00*H Time of Focused Exam: 20:14 Respiratory: Chest Non Tender, Lungs Clear, Normal Breath Sounds, No Accessory Muscle Use, No Respiratory Distress Cardiovascular: Regular Rate, Rhythm, No Edema, Normal Peripheral Pulses Capillary Refill: Less Than 3 Seconds Peripheral Pulses: 2+ Radial Pulses (R), 2+ Radial Pulses (L) Skin: ulcerations Lactic Acid Level Within 3hrs of presentation: Admin fluids, Admin ABX, Blood cultures prior to ABX's, Focus exam, Lactate level (unreliable given his need for dialysis), Other (blood pressure is up 128/76 with heart rate of 83 and oxygen saturation 97%.) Procedures/Interventions I&D : Site: anterior midline neck Blade Size: 11 I & D Procedure: betadine prep Progress 2 x 3 cm nodule draining a thin liquidy purulent discharge. Wound was cleaned thoroughly with Betadine and chlorhexidine. Wound was infiltrated around the face with 1% lidocaine without epinephrine and when it was ascertained to be numb we used an 11 blade scapula with a cross sal incision draining about 5 cc of thin, white, purulent material. Gently probed with a sterile Q-tip. Placed a sterile gauze dressing with tape over it. Patient tolerated the procedure very well. Progress/Results/Core Measures Suspected Sepsis SIRS Temperature: Pulse: Respiratory Rate: Laboratory Tests 04/26/18 18:18: White Blood Count 17.0H Blood Pressure / Mean: 04/26/18 18:18: Lactic Acid Level 13.00*H Laboratory Tests 04/26/18 18:18: Creatinine 8.43#H, INR Comment 1.8H, Platelet Count 123L, Total Bilirubin 3.2H Results/Orders Lab Results Laboratory Tests Test 04/26/18 18:14 04/26/18 18:18 04/26/18 18:52 04/26/18 19:50 Range/Units Glucometer 41 *L 78 72 70-110 MG/DL White Blood Count 17.0 H 4.3-11.0 10^3/uL Red Blood Count 2.93 L 4.35-5.85 10^6/uL Hemoglobin 10.3 L 13.3-17.7 G/DL Hematocrit 33 L 40-54 % Mean Corpuscular Volume 111 H 80-99 FL Mean Corpuscular Hemoglobin 35 H 25-34 PG Mean Corpuscular Hemoglobin Concent 32 32-36 G/DL Red Cell Distribution Width 20.6 H 10.0-14.5 % Platelet Count 123 L 130-400 10^3/uL Mean Platelet Volume 13.2 H 7.4-10.4 FL Neutrophils (%) (Auto) 85 H 42-75 % Lymphocytes (%) (Auto) 7 L 12-44 % Monocytes (%) (Auto) 8 0-12 % Eosinophils (%) (Auto) 0 0-10 % Basophils (%) (Auto) 0 0-10 % Neutrophils # (Auto) 14.4 H 1.8-7.8 X 10^3 Lymphocytes # (Auto) 1.2 1.0-4.0 X 10^3 Monocytes # (Auto) 1.4 H 0.0-1.0 X 10^3 Eosinophils # (Auto) 0.0 0.0-0.3 10^3/uL Basophils # (Auto) 0.0 0.0-0.1 10^3/uL Neutrophils % (Manual) 93 % Lymphocytes % (Manual) 2 % Monocytes % (Manual) 5 % Eosinophils % (Manual) 0 % Basophils % (Manual) 0 % Band Neutrophils 0 % Poikilocytosis SLIGHT Macrocytosis MODERATE Prothrombin Time 21.1 H 12.2-14.7 SEC INR Comment 1.8 H 0.8-1.4 Activated Partial Thromboplast Time 46 H 24-35 SEC Sodium Level 138 135-145 MMOL/L Potassium Level 6.1 H 3.6-5.0 MMOL/L Chloride Level 94 L 98-107 MMOL/L Carbon Dioxide Level 11 L 21-32 MMOL/L Anion Gap 33 H 5-14 MMOL/L Blood Urea Nitrogen 61 H 7-18 MG/DL Creatinine 8.43 #H 0.60-1.30 MG/DL Estimat Glomerular Filtration Rate 7 BUN/Creatinine Ratio 7 Glucose Level 40 *L 70-105 MG/DL Lactic Acid Level 13.00 *H 0.50-2.00 MMOL/L Calcium Level 9.7 8.5-10.1 MG/DL Corrected Calcium 10.3 H 8.5-10.1 MG/DL Total Bilirubin 3.2 H 0.1-1.0 MG/DL Aspartate Amino Transf (AST/SGOT) 35 H 5-34 U/L Alanine Aminotransferase (ALT/SGPT) 20 0-55 U/L Alkaline Phosphatase 327 H 40-136 U/L Troponin I < 0.30 <0.30 NG/ML Total Protein 7.3 6.4-8.2 GM/DL Albumin 3.3 3.2-4.5 GM/DL My Orders Orders - MALGORZATA AKINS Cbc With Automated Diff (04/26/18 18:14) Comprehensive Metabolic Panel (04/26/18 18:14) Blood Culture (04/26/18 18:14) Protime With Inr (04/26/18 18:14) Partial Thromboplastin Time (04/26/18 18:14) Chest 1 View, Ap/Pa Only (04/26/18 18:14) Saline Lock/Iv-Start (04/26/18 18:14) Saline Lock/Iv-Start (04/26/18 18:14) Ekg Tracing (04/26/18 18:14) Troponin I (04/26/18 18:14) Vital Signs Adult Sepsis Patie Q15M (04/26/18 18:14) O2 (04/26/18 18:14) Remove Rings In Anticipation O (04/26/18 18:14) Lactic Acid Analyzer (04/26/18 18:14) Ns Iv 1000 Ml (Sodium Chloride 0.9%) (04/26/18 18:15) Piperacillin Sodium/Tazobactam (Zosyn Vi (04/26/18 18:15) Accucheck Stat ONCE (04/26/18 18:14) D50w (Emergency) Syringe (Dextrose 50% 5 (04/26/18 18:19) Accucheck Stat ONCE (04/26/18 18:50) D50w (Emergency) Syringe (Dextrose 50% 5 (04/26/18 19:00) Lidocaine 1% Inj 20 Ml (Xylocaine 1% Inj (04/26/18 19:15) Manual Differential (04/26/18 18:18) Accucheck Stat ONCE (04/26/18 19:43) Ondansetron Injection (Zofran Injectio (04/26/18 19:45) Ondansetron Injection (Zofran Injectio (04/26/18 19:42) D5 Ns 1000 Ml Iv Solution (Dextrose 5%/0 (04/26/18 20:00) Ondansetron Injection (Zofran Injectio (04/26/18 20:30) Medications Given in ED Current Medications Medications Dose Ordered Sig/Roni Route Start Time Stop Time Status Last Admin Dose Admin Dextrose 50 ml STK-MED ONCE .ROUTE 18 18:19 1218 18:22 DC 04/26/18 18:20 50 ML Lidocaine HCl 20 ml ONCE ONCE INJ 04/26/18 19:15 04/26/18 19:16 DC 04/26/18 20:15 20 ML Ondansetron HCl 4 mg ONCE ONCE IVP 04/26/18 19:45 04/26/18 19:46 DC 04/26/18 20:13 4 MG Ondansetron HCl 4 mg STK-MED ONCE .ROUTE 04/26/18 19:42 04/26/18 19:44 DC 04/26/18 19:47 4 MG Piperacillin Sod/ Tazobactam Sod 4.5 gm/Sodium Chloride 100 ml @ 200 mls/hr ONCE ONCE IV 04/26/18 18:15 04/26/18 18:44 DC 04/26/18 19:29 200 MLS/HR Sodium Chloride 2,859.33 ml @ 2,859.33 mls/hr ONCE ONCE IV 04/26/18 18:15 04/26/18 19:14 DC 04/26/18 18:22 2,859.33 MLS/HR Vital Signs/I&O 04/26/18 04/26/18 04/26/18 04/26/18 18:03 18:10 19:49 20:53 Temp 98.9 98.9 98.9 Pulse 78 78 78 Resp 22 22 22 B/P (MAP) 92/20 (44) 92/20 92/20 (44) Pulse Ox 94 96 96 96 O2 Delivery Room Air Room Air Capillary Refill : Progress Note #1: Time: 18:25 Progress Note Patient's blood pressure is noted to be low in the mid 80s systolic. He has a blood sugar of 41 on arrival. We will give him oral juice to start with. Once an IV is established then we will give him a full amp of D50. We get a septic workup and give him 30 mL/kg IV fluids. He appears very dry. We have taken his dressings down and they do not appear to be acutely infected or draining anything so we plan to redress them wet to dry. We'll start off with Zosyn. He unfortunately has an allergy to vancomycin. Not sure what the source would be just yet. We may try and pass a straight catheter. Since he is due for dialysis tomorrow a lactic acid will be fairly uninformative. Echocardiogram [address] Prieto: Left ventricular systolic function is normal with an EF of 20-25%. Mild to moderate dilatation bilateral atrium. Mitral valve moderate regurgitation. Tricuspid valve severe regurgitation. Progress Note #2: Time: 18:56 Progress Note Patient's been unable to produce a urine specimen and says that he does not usually urinate anyways. Elevated lactate is confounded by his need for dialysis tomorrow. Elevated white count and the hyperglycemia is probably secondary to infection although is not found a source. Certainly HIS skin wounds could be a source. He started having some nausea without vomiting so we' ll recheck his blood sugar given for Zofran. Have not yet been able to jana the abscess on his mid anterior neck yet. His blood pressure however has responded very well. Before receiving the entire fluid bolus he's back up to 128 /76 with a CBG of 72. Blood sugar has started to go down from the 90s so since she can't tolerate oral we'll going start him on D5 normal saline at 100 cc an hour. ECG Initial ECG Impression Date: Apr 26, 2018 Initial ECG Impression Time: 18:24 Initial ECG Rate: 80 Initial ECG Rhythm: Normal Sinus Initial ECG Intervals: Normal Initial ECG Impression: Nonspecific Changes Initial ECG Comparisson: Unchanged Comment No ST elevation or depression. Diagnostic Imaging Diagonstic Imaging: Xray Plain Films/CT/US/NM/MRI: chest (1v) Comments VIA [facility]. [place], [place] NAME: PEYTON,CHRISTIAN D MED REC#: [id number] PT STATUS: REG ER : 1960 PHYSICIAN: MALGORZATA AKINS MD ADMIT DATE: 04/26/18/ER Draft Date of Exam:04/26/18 CHEST 1 VIEW, AP/PA ONLY INDICATION: Altered mental status. EXAMINATION: Frontal chest was obtained at 6:45 p.m. FINDINGS: There is cardiomegaly with poststernotomy change. There is no change in dual lumen dialysis catheter or pacemaker compared with 04/11/2017. There is some linear scarring or atelectasis in the left base. The lungs are otherwise clear. There is no pneumothorax or pleural fluid. IMPRESSION: Cardiomegaly and postoperative changes, as above. There is some linear scarring or atelectasis in the left base which is similar to the prior study. There is no new infiltrate, pneumothorax or pleural fluid. Dictated on workstation # [id number] Dict: 04/26/18 1857 Trans: 04/26/18 1900 [facility] [id number] Interpreted by: LU JANSEN MD Electronically signed by: Reviewed: Reviewed by Me Departure Impression Primary Impression: Septic shock Additional Impressions: History of renal dialysis Cutaneous abscess of neck Disposition: XF SHT-TRM HOSP Condition: Stable Transfer Time Spoke to Accepting Phy: 19:50 Transfer Progress Notes Spoke to the on-call marketing sales manager Dr Lee at [facility] and he accepts the patient. Transfer Time: 21:10 Transfer Facility: [place], [place] Method of Transfer: EMS Departure-Patient Inst. Referrals: JEANIE TRIPLETT DO (PCP) Primary Care Physician LIZBETH COWART APRN (Family) Primary Care Physician Copy Copies To 1: JEANIE TRIPLETT TITUS J Apr 26, 2018 18:23
[2018-04-26] MEDS ORDERED: DEXTROSE 50% 50 ML (IMS) SYR IV ONE (19:00)
--- NOTE | 2018-04-26 19:01 | Diagnostic Imaging Report ---
INDICATION: Altered mental status. EXAMINATION: Frontal chest was obtained at 6:45 p.m. FINDINGS: There is cardiomegaly with poststernotomy change. There is no change in dual lumen dialysis catheter or pacemaker compared with 04/11/2017. There is some linear scarring or atelectasis in the left base. The lungs are otherwise clear. There is no pneumothorax or pleural fluid. IMPRESSION: Cardiomegaly and postoperative changes, as above. There is some linear scarring or atelectasis in the left base which is similar to the prior study. There is no new infiltrate, pneumothorax or pleural fluid. Dictated by: Dictated on workstation # [id number]
[2018-04-26 19:07] LABS: BASOPHILS % (AUTO) 0 % (0-10); EOSINOPHILS % (AUTO) 0 % (0-10); HEMATOCRIT 33 % (40-54); HEMOGLOBIN 10.3 G/DL (13.3-17.7); LYMPHOCYTES # (AUTO) 1.2 X 10^3 (1.0-4.0); LYMPHOCYTES % (AUTO) 7 % (12-44); MEAN CORPUSCULAR HEMOGLOBIN 35 PG (25-34); MEAN CORPUSCULAR HGB CONC 32 G/DL (32-36); MEAN CORPUSCULAR VOLUME 111 FL (80-99); MEAN PLATELET VOLUME 13.2 FL (7.4-10.4); MONOCYTES # (AUTO) 1.4 X 10^3 (0.0-1.0); MONOCYTES % (AUTO) 8 % (0-12); NEUTROPHILS # (AUTO) 14.4 X 10^3 (1.8-7.8); NEUTROPHILS % (AUTO) 85 % (42-75); PLATELET COUNT 123 10^3/uL (130-400); RED BLOOD COUNT 2.93 10^6/uL (4.35-5.85); RED CELL DISTRIBUTION WIDTH 20.6 % (10.0-14.5)
[2018-04-26] MEDS ORDERED: LIDOCAINE 1% INJ 20 ML 20 ML VIAL INJ ONE (19:15)
[2018-04-26 19:18] LABS: INR 1.8 (0.8-1.4); PROTHROMBIN TIME PATIENT 21.1 SEC (12.2-14.7)
[2018-04-26 19:26] LABS: ALANINE AMINOTRANSFERASE 20 U/L (0-55); ALBUMIN 3.3 GM/DL (3.2-4.5); ALKALINE PHOSPHATASE 327 U/L (40-136); BILIRUBIN,TOTAL 3.2 MG/DL (0.1-1.0); BUN/CREATININE RATIO 7; CALCIUM 9.7 MG/DL (8.5-10.1); CARBON DIOXIDE 11 MMOL/L (21-32); CHLORIDE 94 MMOL/L (98-107); CREATININE SERUM 8.43 MG/DL (0.60-1.30); GFR ESTIMATED 7; POTASSIUM 6.1 MMOL/L (3.6-5.0); SODIUM 138 MMOL/L (135-145); TOTAL PROTEIN 7.3 GM/DL (6.4-8.2)
[2018-04-26 19:28] LABS: GLUCOSE 40 MG/DL (70-105)
[2018-04-26 19:40] LABS: BAND NEUTROPHILS 0 %; BASOPHILS % (MANUAL) 0 %; EOSINOPHILS % (MANUAL) 0 %; LYMPHOCYTES % (MANUAL) 2 %; MONOCYTES % (MANUAL) 5 %; NEUTROPHILS % (MANUAL) 93 %; POIKILOCYTOSIS SLIGHT
[2018-04-26] MEDS ORDERED: ONDANSETRON 4 MG/2 ML (SDV) Z0FRAN ONE (19:42)
[2018-04-26] MEDS ORDERED: ONDANSETRON 4 MG/2 ML (SDV) Z0FRAN IVP ONE ×2 (19:45→20:30)
[2018-04-26] MEDS ORDERED: D5 NS 1000 ML IV SOLUTION 1,000 ML IV SCH (20:00)
[2018-04-26 20:53] VITALS: BP 92/20
== END 2018-04-26 21:10 | disposition short-term general hospital (02) ==
LOC: EDUNIT# 18:03 → ER 18:04
DX: A41.9 Sepsis, unspecified organism (principal); R65.21 Severe sepsis with septic shock; L02.11 Cutaneous abscess of neck; E11.22 Type 2 diabetes mellitus with diabetic chronic kidney disease; I13.2 Hypertensive heart and chronic kidney disease with heart failure and with stage 5 chronic kidney disease, or end stage renal disease; I50.9 Heart failure, unspecified; N18.6 End stage renal disease; E11.59 Type 2 diabetes mellitus with other circulatory complications; I73.9 Peripheral vascular disease, unspecified; I25.10 Atherosclerotic heart disease of native coronary artery without angina pectoris; E78.00 Pure hypercholesterolemia, unspecified; I25.2 Old myocardial infarction; E11.40 Type 2 diabetes mellitus with diabetic neuropathy, unspecified; Z95.1 Presence of aortocoronary bypass graft; Z95.5 Presence of coronary angioplasty implant and graft; Z95.810 Presence of automatic (implantable) cardiac defibrillator; Z89.611 Acquired absence of right leg above knee; Z89.612 Acquired absence of left leg above knee; Z88.0 Allergy status to penicillin; Z88.5 Allergy status to narcotic agent; Z88.8 Allergy status to other drugs, medicaments and biological substances; Z79.82 Long term (current) use of aspirin; Z79.4 Long term (current) use of insulin; Z99.2 Dependence on renal dialysis
CPT/HCPCS: 36415; 71045; 80053; 82962; 83605; 84484; 85007; 85027; 85610; 85730; 87040; 93005